=== PATIENT | female | born 1960 | race Caucasian/White ===

== ENCOUNTER 2018-01-29 17:02 | Inpatient (IN) | payer BC ==
[2018-01-29] MEDS ORDERED: IPRATROPIUM BROM 0.5MG/2.5ML ONE ×2 (17:55→20:06)
[2018-01-29] MEDS ORDERED: ALBUTEROL 2.5 MG/3 ML NEB SOL ONE (17:55)
[2018-01-29] MEDS ORDERED: NA CHLORIDE 0.9% 250 ML ONE (18:14)
[2018-01-29] MEDS ORDERED: METHYLPREDNISOLONE 125 MG INJ ONE (18:14)
[2018-01-29] MEDS ORDERED: ACETAMINOPHEN 325 MG TABLET ONE (18:14)
[2018-01-29] MEDS ORDERED: NA CHLORIDE 0.9% 1,000 ML ONE (18:14)
[2018-01-29] MEDS ORDERED: NA CHLORIDE 0.9% 500 ML ONE (18:15)
[2018-01-29 18:36] LABS: Absolute Lymphocytes (CBC) 2.3 K/uL (0.7-4.9); Absolute Monocytes 0.4 K/uL (0.1-1.3); Absolute Neutrophil 3.5 K/uL (1.8-8.0); Basophils % 0.4 % (0-1.3); Eosinophils % 1.4 % (0-4.4); Hematocrit 42.1 % (36.0-45.0); Lymphocytes % 36.6 % (15.3-44.8); MCH 30.3 pg (27.0-35.0); MCV 93.9 fL (80-100); MPV 8.4 fL (7.6-11.3); Monocytes % 5.9 % (3.3-12.3); RBC Red Blood Cell Count 4.48 M/uL (3.86-4.86)
[2018-01-29 18:47] LABS: Bicarbonate 38 mEq/L (21-31); Glucose Level 121 mg/dL (65-120); Potassium 3.4 mEq/L (3.6-5.0); Sodium Level 135 mEq/L (135-145)
[2018-01-29 18:54] LABS: ALT/SGPT 20 IU/L (10-60); AST/SGOT 20 IU/L (10-42); Albumin 4.6 g/dL (3.2-5.5); Alkaline Phosphatase 76 IU/L (42-121); BUN Blood Urea Nitrogen 8 mg/dL (6-20); Bilirubin Direct 0.1 mg/dL (0-0.2); Bilirubin Total 0.4 mg/dL (0.3-1.2); Creatine Phosphokinase 63 IU/L (22-269); Protein, Total 7.4 g/dL (6.0-8.3)
[2018-01-29 18:57] LABS: CKMB Creatine Kinase MB 2.4 ng/ml (0.3-4.0)
[2018-01-29] MEDS ORDERED: MAGNESIUM SULFATE 1 gm IVPB 1 GM/100 ML BAG IV ONE (19:43)
[2018-01-29] MEDS ORDERED: ONDANSETRON 4 MG/2 ML VIAL ONE (19:43)
--- NOTE | 2018-01-29 20:13 | RAD REPORT ---
EXAM DESCRIPTION: RAD - Chest Single View - 01/29/2018 7:08 pm CLINICAL HISTORY: Shortness of breath COMPARISON: June 2017 TECHNIQUE: AP portable chest image was obtained 1857 hours . FINDINGS: No peripheral mass or consolidation. Calcified granuloma lateral left mid lung field has n ot changed. Lung markings are prominent but stable. No failure or volume overload suspected. Heart an d vasculature are normal. No measurable pleural effusion and no pneumothorax. No gross bony abnormali ty seen. No acute aortic findings suspected. IMPRESSION: No acute cardiopulmonary process. Patient has chronic lung parenchymal findings similar to June 2017.
--- NOTE | 2018-01-29 20:16 | EKG ---
Test Date: 2018-01-29 Test Time: 17:54:58 Carpenter: JOANNE MEASUREMENT RESULTS: Intervals: Rate: 94 NH: 152 QRSD: 98 QT: 384 QTc: 480 [place]: P: 69 NH: 152 QRS: -24 T: 52 INTERPRETIVE STATEMENTS: Normal sinus rhythm Possible Anterior infarct, age undetermined Abnormal ECG Compared to ECG 07/20/2017 17:44:31 Sinus tachycardia no longer present Myocardial infarct finding still present Electronically Signed On 01-29-18 20:16:02 CDT by Holger Merlos
--- NOTE | 2018-01-29 20:19 | ER ---
Nurse's Notes [facility] Name: Kanika Jon Age: 57 yrs Sex: Female : 1960 Arrival Date: 01/29/2018 Time: 17:06 Bed 18 Private MD: Giorgi Strickland E Diagnosis: Chronic obstructive pulmonary disease with (acute) exacerbation Presentation: 01/29 17:23 Presenting complaint: Patient states: keo been sick for few days, fever, cough, nausea hj and vomiting; now im short of breath;. Transition of care: patient was not received from another setting of care. Onset of symptoms was January 29, 2018. Care prior to arrival: None. 17:23 Method Of Arrival: Ambulatory 17:23 Acuity: [place] 3 hj Triage Assessment: 17:25 General: Appears in no apparent distress. uncomfortable, Behavior is calm, cooperative, hj appropriate for age. Pain: Complains of pain in chest. Respiratory: Reports shortness of breath Onset: The symptoms/episode began/occurred gradually, the patient has mild shortness of breath. Historical: - Allergies: 17:25 Codeine; hj 17:25 HYDROCODONE; hj 17:25 hydromorphone HCl; hj - Home Meds: 17:25 Albuterol Inhl every 4-6 hours [Active]; Hydrochlorothiazide Oral once daily [Active]; hj Lexapro Oral [Active]; lisinopril Oral once daily [Active]; losartan Oral once daily [Active]; - PMHx: 17:25 COPD; Depression; Hypertension; osteoarthritis; hj - PSHx: 17:25 None; hj - Immunization history:: Adult Immunizations up to date. - Social history:: Smoking status: Patient uses tobacco products, smokes one-half pack cigarettes per day. Screenin:55 Abuse screen: Denies threats or abuse. Nutritional screening: No deficits noted. em Tuberculosis screening: No symptoms or risk factors identified. Fall Risk None identified. Assessment: 17:25 Cardiovascular: Rhythm is. Respiratory: Airway is patent Respiratory effort is even, hj unlabored, 17:55 General: Appears in no apparent distress. uncomfortable, Behavior is calm, cooperative. em Pain: Complains of pain in back and chest. Neuro: Level of Consciousness is awake, alert, obeys commands, Oriented to person, place, time, situation. Cardiovascular: Heart tones S1 S2 present Capillary refill < 3 seconds Patient's skin is warm and dry. Respiratory: Airway is patent Respiratory effort is even, unlabored, Breath sounds with wheezes bilaterally. Onset: The symptoms/episode began/occurred 3 days ago, the patient has mild shortness of breath. GI: Abdomen is round non-distended. : No signs and/or symptoms were reported regarding the genitourinary system. EENT: No signs and/or symptoms were reported regarding the EENT system. Derm: Skin is intact, Skin is pink, warm \T\ dry. Musculoskeletal: Range of motion: intact in all extremities. 18:47 Reassessment: Patient appears in no apparent distress at this time. Patient and/or em family updated on plan of care and expected duration. Pain level reassessed. Patient is alert, oriented x 3, equal unlabored respirations, skin warm/dry/pink. SPO2 90% on 3 L via NC Patient states symptoms have improved. 19:09 Reassessment: I agree with above assessment by Stefano Wilhelm LVN. iw 19:15 Reassessment: Patient appears in no apparent distress at this time. No changes from jd3 previously documented assessment. Patient and/or family updated on plan of care and expected duration. Pain level reassessed. Patient is alert, oriented x 3, equal unlabored respirations, skin warm/dry/pink. 20:15 Reassessment: Patient appears in no apparent distress at this time. Patient and/or jd3 family updated on plan of care and expected duration. Pain level reassessed. Patient is alert, oriented x 3, equal unlabored respirations, skin warm/dry/pink. 20:25 Reassessment: Patient appears in no apparent distress at this time. No changes from jd3 previously documented assessment. Patient and/or family updated on plan of care and expected duration. Pain level reassessed. Patient is alert, oriented x 3, equal unlabored respirations, skin warm/dry/pink. 21:20 Reassessment: Patient appears in no apparent distress at this time. Patient and/or jd3 family updated on plan of care and expected duration. Pain level reassessed. Patient is alert, oriented x 3, equal unlabored respirations, skin warm/dry/pink. 22:24 Reassessment: Patient appears in no apparent distress at this time. Patient and/or jd3 family updated on plan of care and expected duration. Pain level reassessed. Patient is alert, oriented x 3, equal unlabored respirations, skin warm/dry/pink. Vital Signs: 17:25 BP 109 / 78; Pulse 99; Resp 18; Temp 98.0(TE); Pulse Ox 89% on R/A; Weight 89.36 kg; hj Height 5 ft. 6 in. (167.64 cm); 18:00 Pulse Ox 81% on R/A; em 19:00 BP 119 / 74; Pulse 88; Resp 17; Pulse Ox 89% ; cb2 20:15 BP 126 / 64; Pulse 88; Resp 16; Pulse Ox 97% ; cb2 21:00 BP 119 / 74; Pulse 89; Resp 14; Pulse Ox 92% ; cb2 21:57 BP 109 / 75; Pulse 88; Resp 14; Pulse Ox 92% ; cb2 17:25 Body Mass Index 31.80 (89.36 kg, 167.64 cm) hj 18:00 placed on 3 L via NC, SPO2 90% em ED Course: 17:06 Patient arrived in ED. mr 17:06 Giorgi Strickland MD is Private Physician. mr 17:24 Triage completed. hj 17:25 Arm band placed on right wrist. hj 17:25 No provider procedures requiring assistance completed. Initial lab(s) drawn, by me, em sent to lab. Inserted saline lock: 22 gauge in left antecubital area, using aseptic technique. Blood collected. 17:55 Patient has correct armband on for positive identification. Bed in low position. Call em light in reach. Side rails up X2. 17:56 Stefano Wilhelm LVN is Primary Nurse. em 18:00 EKG done, by veterinary laboratory technician. reviewed by Loki Prieto MD. at1 18:04 Jose Ramon Vickers PA is PHCP. cp 18:04 Jose Ramon Bedolla MD is Attending Physician. cp 18:05 Urine collected: clean catch specimen, clear. mh5 18:59 Missed attempt(s): 22 gauge in left forearm. mh5 19:06 X-ray completed. Portable x-ray completed in exam room. Patient tolerated procedure kc2 well. 19:08 XRAY Chest (1 view) In Process Unspecified. EDMS 19:11 Report given to VEE Diaz. em 19:24 Primary Nurse role handed off by Stefano Wilhelm LVN rg2 19:28 Stefano Wilhelm LVN is Primary Nurse. em 19:41 Joe Thomason RN is Primary Nurse. jd3 20:18 Vik Cartagena MD is Hospitalizing Provider. cp 22:22 Patient admitted, IV remains in place. jd3 Administered Medications: 18:01 Drug: DuoNeb (3:1) (2.5 mg - 0.5 mg) 3 ml Route: Nebulizer; em 21:42 Follow up: Response: No adverse reaction jd3 18:26 Drug: NS 0.9% 1000 ml Route: IV; Rate: 100 ml/hr; Site: left antecubital; em 21:41 Follow up: Response: No adverse reaction; IV Status: Infusion continued upon admission jd3 18:26 Drug: SOLU-Medrol 125 mg Route: IVP; Site: left antecubital; aj1 19:09 Follow up: Response: No adverse reaction em 18:26 Not Given (Patient Refused): Tylenol 650 mg PO once em 18:27 Drug: NS 0.9% 500 ml Route: IV; Rate: bolus; Site: left antecubital; em 19:09 Follow up: IV Status: Completed infusion; IV Intake: 500ml em 19:50 Drug: Zofran 4 mg Route: IVP; Site: left antecubital; jd3 21:40 Follow up: Response: No adverse reaction jd3 19:51 Drug: Magnesium Sulfate 1 grams Route: IVPB; Infused Over: 1 hrs; Site: left jd3 antecubital; 21:41 Follow up: Response: No adverse reaction; IV Status: Completed infusion jd3 20:09 Drug: AtroVENT Aerosol 0.5 mg Route: Inhalation; jd3 21:41 Follow up: Response: No adverse reaction jd3 Intake: 19:09 IV: 500ml; Total: 500ml. em Outcome: 20:18 Decision to Hospitalize by Provider. cp 22:22 Admitted to Med/surg accompanied by tech, via stretcher, room 423, with oxygen, with jd3 chart, Report called to Tamika BAXTER 22:22 Condition: stable 22:22 Instructed on the need for admit, Demonstrated understanding of instructions. 22:23 Patient left the ED. jd3 Signatures: Dispatcher [employer] Funmi Hull rg2 Tiffanie Aguiar, RN RN aj1 Yumiko Quevedo mr Choco, Stefano, CONSTITUTIONAL LAW PROFESSOR CONSTITUTIONAL LAW PROFESSOR em Diana Esparza, VEE RN iw Gregoria barba, measurement specialist EKG Tat1 Sheldon Garcia, VEE RN Jose Ramon Lindsay PA PA cp Carr, Kelsie 2 Yumiko Hutson 5 Fredo Coyle Jonathon, RN RN jd3 Corrections: (The following items were deleted from the chart) 19:26 18:47 Reassessment: Patient appears in no apparent distress at this time. Patient em and/or family updated on plan of care and expected duration. Pain level reassessed. Patient is alert, oriented x 3, equal unlabored respirations, skin warm/dry/pink. SPO2 90% on 2 L via NC Patient states symptoms have improved. em 20:25 19:15 Reassessment: Patient appears in no apparent distress at this time. No changes jd3 from previously documented assessment. Patient and/or family updated on plan of care and expected duration. Pain level reassessed. Patient is alert, oriented x 3, equal unlabored respirations, skin warm/dry/pink. jd3
--- NOTE | 2018-01-29 20:19 | EDPHYS ---
Physician Documentation [facility] Name: Kanika Jon Age: 57 yrs Sex: Female : 1960 Arrival Date: 01/29/2018 Time: 17:06 Bed 18 Private MD: Giorgi Strickland E ED Physician Jose Ramon Bdeolla HPI: 01/29 18:10 This 57 yrs old Female presents to ER via Ambulatory with complaints of cp Shortness Of Breath. 18:10 The patient has shortness of breath at rest. cp 18:10 Onset: The symptoms/episode began/occurred few days. cp 18:10 Duration: The symptoms are continuous, and are steadily getting worse. Associated signs cp and symptoms: Pertinent positives: non-productive cough, vomiting, Pertinent negatives: diaphoresis, fever. Severity of symptoms: in the emergency department the symptoms are unchanged despite home interventions. Historical: - Allergies: 17:25 Codeine; hj 17:25 HYDROCODONE; hj 17:25 hydromorphone HCl; hj - Home Meds: 17:25 Albuterol Inhl every 4-6 hours [Active]; Hydrochlorothiazide Oral once daily [Active]; hj Lexapro Oral [Active]; lisinopril Oral once daily [Active]; losartan Oral once daily [Active]; - PMHx: 17:25 COPD; Depression; Hypertension; osteoarthritis; hj - PSHx: 17:25 None; hj - Immunization history:: Adult Immunizations up to date. - Social history:: Smoking status: Patient uses tobacco products, smokes one-half pack cigarettes per day. ROS: 18:20 Constitutional: Negative for body aches, chills, fever, poor PO intake. cp 18:20 Eyes: Negative for injury, pain, redness, and discharge. cp 18:20 ENT: Negative for drainage from ear(s), ear pain, sore throat, difficulty swallowing, cp difficulty handling secretions. 18:20 Cardiovascular: Negative for chest pain, edema, palpitations. 18:20 Respiratory: Positive for cough, shortness of breath, at rest. wheezing, Negative for hemoptysis. 18:20 Abdomen/GI: Negative for abdominal pain, vomiting, diarrhea, constipation, black/tarry stool, rectal bleeding. 18:20 Skin: Negative for cellulitis, rash. cp 18:20 Neuro: Negative for altered mental status, headache, syncope, near syncope, weakness. 18:20 All other systems are negative. Exam: 18:02 ECG was reviewed by the Attending Physician. cp 18:23 Constitutional: The patient appears in no acute distress, alert, awake, cp non-diaphoretic, non-toxic, well developed, well nourished. 18:23 Head/Face: Normocephalic, atraumatic. cp 18:23 Eyes: Pupils equal round and reactive to light, extra-ocular motions intact. Lids and cp lashes normal. Conjunctiva and sclera are non-icteric and not injected. Cornea within normal limits. Periorbital areas with no swelling, redness, or edema. ENT: Nares patent. No nasal discharge, no septal abnormalities noted. Tympanic membranes are normal and external auditory canals are clear. Oropharynx with no redness, swelling, or masses, exudates, or evidence of obstruction, uvula midline. Mucous membranes moist. Neck: Trachea midline, no thyromegaly or masses palpated, and no cervical lymphadenopathy. Supple, full range of motion without nuchal rigidity, or vertebral point tenderness. No Meningismus. Chest/axilla: Normal chest wall appearance and motion. Nontender with no deformity. No lesions are appreciated. 18:23 Cardiovascular: Rate: normal, Rhythm: regular, Pulses: Pulses are 2+ in right radial artery and left radial artery. Edema: is not appreciated, JVD: is not appreciated. 18:23 Respiratory: moderate respiratory distress is noted, Respirations: labored breathing, is not present, splinting, is not noted, tachypnea, is not appreciated, Breath sounds: bronchial sounds, that are mild, are heard diffusely, decreased breath sounds, that are moderate, throughout, stridor, is not appreciated. 18:23 Abdomen/GI: Inspection: abdomen appears normal, Bowel sounds: active, all quadrants, Palpation: abdomen is soft and non-tender, in all quadrants, rebound tenderness, is not appreciated, voluntary guarding, is not appreciated, involuntary guarding, is not appreciated. 18:23 Back: pain, is absent, ROM is normal. 18:23 Skin: cellulitis, is not appreciated, no rash present. cp 18:23 Neuro: Orientation: to person, place \T\ time. Mentation: able to follow commands, slow to respond, Cerebellar function: is grossly normal, Motor: moves all fours, strength is normal, Sensation: no obvious gross deficits. Vital Signs: 17:25 BP 109 / 78; Pulse 99; Resp 18; Temp 98.0(TE); Pulse Ox 89% on R/A; Weight 89.36 kg; hj Height 5 ft. 6 in. (167.64 cm); 18:00 Pulse Ox 81% on R/A; em 19:00 BP 119 / 74; Pulse 88; Resp 17; Pulse Ox 89% ; cb2 20:15 BP 126 / 64; Pulse 88; Resp 16; Pulse Ox 97% ; cb2 21:00 BP 119 / 74; Pulse 89; Resp 14; Pulse Ox 92% ; cb2 21:57 BP 109 / 75; Pulse 88; Resp 14; Pulse Ox 92% ; cb2 17:25 Body Mass Index 31.80 (89.36 kg, 167.64 cm) hj 18:00 placed on 3 L via NC, SPO2 90% em MDM: 18:04 Patient medically screened. cp 18:30 Differential diagnosis: CHF exacerbation, Chronic Obstructive Pulmonary Disease cp pneumonia, reactive airway disease, Sepsis Unstable Angina. 20:17 Physician consultation: Vik Cartagena MD was called at 20:17, was contacted at 20:17, cp regarding admission, to the telemetry unit. patient's condition. 20:20 Data reviewed: vital signs, nurses notes, lab test result(s), EKG, radiologic studies, cp plain films. 01/29 18:08 Order name: Basic Metabolic Panel; Complete Time: 19:02 cp 01/29 19:02 Interpretation: Normal except: K 3.4; CL 92; CO2 38; GLUC 121. cp 01/29 18:08 Order name: BNP; Complete Time: 19:02 cp 01/29 18:08 Order name: CBC with Diff; Complete Time: 19:02 cp 01/29 19:02 Interpretation: Normal except: RDW 15.3. cp 01/29 18:08 Order name: Ckmb; Complete Time: 19:02 cp 01/29 18:08 Order name: CPK; Complete Time: 19:02 cp 01/29 18:08 Order name: LFT's; Complete Time: 19:02 cp 01/29 18:08 Order name: Magnesium; Complete Time: 19:02 cp 01/29 18:08 Order name: PT-INR; Complete Time: 19:02 cp 01/29 18:08 Order name: Ptt, Activated; Complete Time: 19:02 cp 01/29 18:08 Order name: Troponin (emerg Dept Use Only); Complete Time: 19:02 cp 01/29 18:08 Order name: XRAY Chest (1 view); Complete Time: 20:16 cp 01/29 18:08 Order name: Influenza Screen (a \T\ B); Complete Time: 19:02 cp 01/29 18:45 Order name: Urine Dipstick--Ancillary (enter results); Complete Time: 21:18 iw 01/29 21:18 Interpretation: Reviewed. cp 04 18:02 Order name: EKG Electrocardiogram; Complete Time: 18:05 EDMS 01/29 18:08 Order name: Urine Test (obtain specimen); Complete Time: 21:09 cp 01/29 18:08 Order name: EKG; Complete Time: 18:08 cp 01/29 18:08 Order name: Cardiac monitoring; Complete Time: 18:27 cp 01/29 18:08 Order name: EKG - Nurse/Tech; Complete Time: 18:27 cp 01/29 18:08 Order name: IV Saline Lock; Complete Time: 18:28 cp 01/29 18:08 Order name: Labs collected and sent; Complete Time: 18:28 cp 01/29 18:08 Order name: O2 Per Protocol; Complete Time: 18:28 cp 01/29 18:08 Order name: O2 Sat Monitoring; Complete Time: 18:28 cp 01/29 18:08 Order name: Urine Dipstick-Ancillary (obtain specimen); Complete Time: 20:40 cp EC:02 Rate is 94 beats/min. Rhythm is regular. GA interval is normal. QRS interval is normal. cp QT interval is normal. Interpreted by me. Reviewed by me. Administered Medications: 18:01 Drug: DuoNeb (3:1) (2.5 mg - 0.5 mg) 3 ml Route: Nebulizer; em 21:42 Follow up: Response: No adverse reaction jd3 18 Drug: NS 0.9% 1000 ml Route: IV; Rate: 100 ml/hr; Site: left antecubital; em 21:41 Follow up: Response: No adverse reaction; IV Status: Infusion continued upon admission jd3 18:26 Drug: SOLU-Medrol 125 mg Route: IVP; Site: left antecubital; aj1 19:09 Follow up: Response: No adverse reaction em 18:26 Not Given (Patient Refused): Tylenol 650 mg PO once em 18:27 Drug: NS 0.9% 500 ml Route: IV; Rate: bolus; Site: left antecubital; em 19:09 Follow up: IV Status: Completed infusion; IV Intake: 500ml em 19:50 Drug: Zofran 4 mg Route: IVP; Site: left antecubital; jd3 21:40 Follow up: Response: No adverse reaction jd3 19:51 Drug: Magnesium Sulfate 1 grams Route: IVPB; Infused Over: 1 hrs; Site: left j antecubital; 21:41 Follow up: Response: No adverse reaction; IV Status: Completed infusion jd3 20:09 Drug: AtroVENT Aerosol 0.5 mg Route: Inhalation; jd3 21:41 Follow up: Response: No adverse reaction jd3 Disposition: 01/30 11:34 Co-signature as Attending Physician, Jose Ramon Bedolla MD I agree with the assessment and narinder plan of care. Disposition: 01/29/18 20:18 Hospitalization ordered by Vik Cartagena for Observation. Preliminary diagnosis is Chronic obstructive pulmonary disease with (acute) exacerbation. - Bed requested for Telemetry/MedSurg (observation). - Status is Observation. jd3 - Condition is Stable. - Problem is an acute exacerbation. - Symptoms are unchanged. UTI on Admission? No Signatures: Dispatcher [employer] Tiffanie Lora RN RN aj1 Jose Ramon Bedolla MD MD cha Munoz, Edgar, DIRECT SALES CONSULTANT DIRECT SALES CONSULTANT em Sheldon Garcia RN Jose Ramon Samuels PA PA cp Garcia, Cindy, Joe Ovalles RN, RN RN jd3
[2018-01-29 21:05] LABS: Urine Blood NEGATIVE (NEG); Urine Glucose NEGATIVE (NEG); Urine Protein NEGATIVE (NEG); Urine Specific Gravity 1.015 (1.005-1.030); Urine pH 6.5 (5.0-7.0)
[2018-01-29] MEDS ORDERED: MORPHINE 2 MG/ML SYR IV PRN (21:17)
[2018-01-29] MEDS ORDERED: ONDANSETRON 4 MG/2 ML VIAL IV PRN (21:17)
[2018-01-29] MEDS ORDERED: ACETAMINOPHEN 500 MG TAB PO PRN (21:17)
[2018-01-29] MEDS ORDERED: NA CHLORIDE 0.9% 1,000 ML IV SCH (22:00)
[2018-01-29 23:31] VITALS: BMI 31.8
[2018-01-30] MEDS ORDERED: IPRATROPIUM BROM 0.5MG/2.5ML NEB SCH ×2 (02:00→08:00)
[2018-01-30] MEDS ORDERED: ALBUTEROL 2.5 MG/3 ML NEB SOL NEB SCH ×2 (02:00→08:00)
[2018-01-30] MEDS ORDERED: METHYLPREDNISOLONE 125 MG INJ IV ONE (04:06)
[2018-01-30] MEDS ORDERED: GUAIFENESIN/CODEINE 5ML UCUP PO PRN (04:07)
[2018-01-30] MEDS ORDERED: MORPHINE 2 MG/ML SYR IV ONE (04:07)
[2018-01-30] MEDS ORDERED: MORPHINE 4 MG/ML SYR ONE (04:14)
[2018-01-30 04:59] LABS: Absolute Monocytes 0.1 K/uL (0.1-1.3); Absolute Neutrophil 5.5 K/uL (1.8-8.0); Basophils % 0.1 % (0-1.3); Hematocrit 43.9 % (36.0-45.0); Lymphocytes % 14.9 % (15.3-44.8); MCH 30.7 pg (27.0-35.0); MCV 95.3 fL (80-100); MPV 8.6 fL (7.6-11.3); Monocytes % 1.3 % (3.3-12.3); RBC Red Blood Cell Count 4.61 M/uL (3.86-4.86)
[2018-01-30 05:14] LABS: ALT/SGPT 21 IU/L (10-60); AST/SGOT 19 IU/L (10-42); Albumin 4.4 g/dL (3.2-5.5); Alkaline Phosphatase 89 IU/L (42-121); BUN Blood Urea Nitrogen 9 mg/dL (6-20); Bicarbonate 37 mEq/L (21-31); Bilirubin Total 0.3 mg/dL (0.3-1.2); Glucose Level 160 mg/dL (65-120); Potassium 4.9 mEq/L (3.6-5.0); Protein, Total 7.5 g/dL (6.0-8.3); Sodium Level 138 mEq/L (135-145)
[2018-01-30] MEDS ORDERED: IPRATROPIUM BROM 0.5MG/2.5ML NEB PRN (07:12)
[2018-01-30] MEDS ORDERED: ALPRAZOLAM 0.5 MG TABLET PO PRN (07:16)
--- NOTE | 2018-01-30 07:28 | RAD REPORT ---
EXAM DESCRIPTION: RAD - Chest Single View - 01/30/2018 6:35 am CLINICAL HISTORY: COPD COMPARISON: January 29 TECHNIQUE: AP portable chest image was obtained 0624 hours . FINDINGS: Patchy lung base opacification is present similar to comparison. No new or progressive car diopulmonary finding. Heart and vasculature are normal. No measurable pleural effusion and no pneumot horax. No gross bony abnormality seen. No acute aortic findings suspected. IMPRESSION: Stable chest from prior day study.
[2018-01-30] MEDS: ALBUTEROL 2.5 MG/3 ML NEB SOL NEB PRN ×2 (07:50→13:30)
[2018-01-30] MEDS: ARFORMOTEROL TARTRATE 15 MCG/2 ML VIAL.NEB NEB SCH ×2 (07:50→19:54)
--- NOTE | 2018-01-30 08:23 | P.HP ---
Certification for Inpatient Patient admitted to: Observation With expected LOS: <2 Midnights Patient will require the following post-hospital care: None Practitioner: I am a practitioner with admitting privileges, knowledge of patient current condition, hospital course, and medical plan of care. Services: Services provided to patient in accordance with Admission requirements found in Title 42 Section 412.3 of the Code of Federal Regulations Patient History Date of Service: 01/29/18 Reason for admission: COPD exacerbation History of Present Illness: Patient is a 57-year-old female who was admitted to the hospital with difficulty breathing. Patient states she was out eating crawfish and drinking. She has type drinking for a while but started back up last night. She started getting short of breath and could not catch her breath. She decided come into the emergency room for further evaluation. In the emergency room she was given nebs, steroids, and antibiotics. She was also given O2 to maintain her sats. She has improved. Clinically she states she is feeling better. She will be monitored overnight and possible discharge home in the morning if she is feeling better. Allergies hydrocodone [Hydrocodone] Allergy (Intermediate, Verified 07/30/15 23:08) Itching hydromorphone HCl [From Dilaudid] Adverse Reaction (Mild, Verified 07/30/15 23: 08) Itching Codeine Allergy (Mild, Uncoded 07/20/17 23:52) Itching Hydrocodone-Acetaminophen Allergy (Uncoded 07/20/17 23:52) Itching Home Medications: Hydrochlorothiazide [Hydrochlorothiazide*] 12.5 mg PO DAILY 07/17/15 Losartan Potassium 1 tab PO DAILY 10/21/16 Albuterol Sulfate [Proair Hfa] 8.5 gm IH TID PRN #1 [email or web address] 07/21/17 Alprazolam [Alprazolam] 2 mg PO TID PRN 01/29/18 Amlodipine Besylate [Amlodipine Besylate] 10 mg PO DAILY 01/29/18 Duloxetine HCl [Duloxetine HCl] 60 mg PO DAILY 01/29/18 Morphine Sulfate [Morphine Sulfate ER] 15 mg PO Q12H PRN 01/29/18 Omeprazole [Prilosec] 40 mg PO DAILY 01/29/18 Pravastatin Sodium [Pravastatin Sodium] 40 mg PO BEDTIME 01/29/18 - Past Medical/Surgical History Has patient received pneumonia vaccine in the past: Yes Diabetic: No -: Alcohol abuse -: HTN -: 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 -: Osteoarthritis -: History of diverticulitis -: Depression with anxiety -: GERD -: COPD -: smoker -: COPD -: Hyperlipidemia -: Tobacco abuse -: Hysterectomy -: Left knee surgery Psychosocial/ Personal History: Lives with mother. - Family History Mother Medical History: Cancer Father Notes: parkinson's dse - Social History Smoking Status: Heavy Tobacco smoker (>10 cigarettes/day) Alcohol use: Yes CD- Drugs: No Caffeine use: Yes Place of Residence: Home Review of Systems 10-point ROS is otherwise unremarkable Physical Examination - Vital Signs Temperature: 97.4 F Blood Pressure: 117/68 Pulse: 91 Respirations: 12 Pulse Ox (%): 91 - Physical Exam General: Alert, In no apparent distress, Oriented x3 HEENT: Atraumatic, PERRLA, Mucous membr. moist/pink, EOMI, Sclerae nonicteric Neck: Supple, 2+ carotid pulse no bruit, No LAD, Without JVD or thyroid abnormality Respiratory: Diminished, Expiratory wheezes Cardiovascular: Regular rate/rhythm, Normal S1 S2, No murmurs Gastrointestinal: Normal bowel sounds, Soft and benign, Non-distended, No tenderness Musculoskeletal: No clubbing, No swelling, No tenderness Integumentary: No rashes Neurological: Normal gait, Normal speech, Normal strength at 5/5 x4 extr, Normal tone, Sensation intact, Cranial nerves 3-12 intact, Normal affect Lymphatics: No axilla or inguinal lymphadenopathy - Studies Laboratory Data (last 24 hrs) 01/29/18 18:20: PT 11.8, INR 1.00, APTT 29.5 01/29/18 18:20: WBC 6.3, Hgb 13.6, Hct 42.1, Plt Count 187 01/29/18 18:20: B-Natriuretic Peptide 27 01/29/18 18:20: Sodium 135, Potassium 3.4 L, BUN 8, Creatinine 0.56, Glucose 121 H, Magnesium 2.0, Total Bilirubin 0.4, AST 20, ALT 20, Alkaline Phosphatase 76 Microbiology Data (last 24 hrs): 01/29/18 18:25 Nasopharnyx Influenza Type A Antigen Screen - Final 01/29/18 18:25 Nasopharnyx Influenza Type B Antigen Screen - Final Assessment & Plan - Problems (Diagnosis) (1) COPD exacerbation Onset Date: 11/17/16 Current Visit: No Status: Acute (2) Dyslipidemia Onset Date: 07/20/15 Current Visit: No Status: Acute (3) Hypercapnia Onset Date: 10/21/16 Current Visit: No Status: Acute (4) Hypoxia Onset Date: 07/21/17 Current Visit: No Status: Acute (5) Alcohol abuse Current Visit: No Status: Chronic (6) Chronic pain disorder Onset Date: 10/21/16 Current Visit: No Status: Chronic (7) Depression with anxiety Current Visit: No Status: Chronic (8) Pulmonary hypertension Current Visit: No Status: Chronic (9) Tobacco abuse Onset Date: 10/21/16 Current Visit: No Status: Chronic - Plan PLAN: 1. Continue with nebs, steroids, and antibiotics 2. Oxygen per protocol 3. CXR PA and lateral in the am 4. Monitor for withdrawals 5. Possible discharge home in 24-48hrs 6. GI/DVT prophylaxis Discharge Plan: Home Plan to discharge in: 48 Hours - Advance Directives Does patient have a Living Will: No Does patient have a Durable POA for Healthcare: No - Code Status/Comfort Care Code Status Assessed: Yes Code Status: Full Code Critical Care: No Time Spent Managing PTS Care (In Minutes): 50
[2018-01-30] MEDS ORDERED: LORazepam 2 MG/ML VIAL IV PRN ×2 (08:31→08:35)
--- NOTE | 2018-01-30 08:32 | P.CNS ---
Date of Consult: 01/30/18 Chief Complaint: COPD exacerbation, altered mental status History of Present Illness: Patient is 57 years of age very confused admitted to the hospital in sick for the past few days complaining of fever cough nausea and vomiting shortness of breath unable to obtain any meaningful information from the patient Nagi she agrees she drinks a pt of alcohol a day in addition to smoking Allergies hydrocodone [Hydrocodone] Allergy (Intermediate, Verified 07/30/15 23:08) Itching hydromorphone HCl [From Dilaudid] Adverse Reaction (Mild, Verified 07/30/15 23: 08) Itching Codeine Allergy (Mild, Uncoded 07/20/17 23:52) Itching Hydrocodone-Acetaminophen Allergy (Uncoded 07/20/17 23:52) Itching Home Medications: Hydrochlorothiazide [Hydrochlorothiazide*] 12.5 mg PO DAILY 07/17/15 Losartan Potassium 1 tab PO DAILY 10/21/16 Albuterol Sulfate [Proair Hfa] 8.5 gm IH TID PRN #1 [email or web address] 07/21/17 Alprazolam [Alprazolam] 2 mg PO TID PRN 01/29/18 Amlodipine Besylate [Amlodipine Besylate] 10 mg PO DAILY 01/29/18 Duloxetine HCl [Duloxetine HCl] 60 mg PO DAILY 01/29/18 Morphine Sulfate [Morphine Sulfate ER] 15 mg PO Q12H PRN 01/29/18 Omeprazole [Prilosec] 40 mg PO DAILY 01/29/18 Pravastatin Sodium [Pravastatin Sodium] 40 mg PO BEDTIME 01/29/18 - Past Medical/Surgical History Diabetic: No -: Alcohol abuse -: HTN -: 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 -: Osteoarthritis -: History of diverticulitis -: Depression with anxiety -: GERD -: COPD -: smoker -: COPD -: Hyperlipidemia -: Tobacco abuse -: Hysterectomy -: Left knee surgery Psychosocial/ Personal History: Lives with mother. - Family History Mother Medical History: Cancer Father Notes: parkinson's dse - Social History Smoking Status: Current every day smoker Alcohol use: Yes CD- Drugs: No Caffeine use: Yes Place of Residence: Home Review of Systems is unable to be obtained Physical Examination Temp Pulse Resp BP Pulse Ox 97.4 F 91 H 12 117/68 91 01/30/18 08:23 01/30/18 08:23 01/30/18 08:23 01/30/18 08:23 01/30/18 08:23 General: Alert, Confused Respiratory: Expiratory wheezes Cardiovascular: No edema, Normal S1 S2 Gastrointestinal: Normal bowel sounds, Soft and benign Laboratory Data (last 24 hrs) 01/29/18 18:20: PT 11.8, INR 1.00, APTT 29.5 01/29/18 18:20: WBC 6.3, Hgb 13.6, Hct 42.1, Plt Count 187 01/29/18 18:20: B-Natriuretic Peptide 27 01/29/18 18:20: Sodium 135, Potassium 3.4 L, BUN 8, Creatinine 0.56, Glucose 121 H, Magnesium 2.0, Total Bilirubin 0.4, AST 20, ALT 20, Alkaline Phosphatase 76 - Problems (1) Alcohol withdrawal delirium Current Visit: Yes Status: Acute Plan: Patient is 57 years of age admitted with altered mental status she drinks about a pt of alcohol a day I strongly suspect that this is alcohol withdrawal symptoms her labs are unremarkable CBC mildly hypokalemic chest x-ray shows a questionable infiltrate no acute changes treated with IV thymine fluids Ativan (2) COPD (chronic obstructive pulmonary disease) Onset Date: 07/20/15 Current Visit: No Status: Acute Plan: Patient has underlying COPD due to smoking she is actively wheezing continue with steroids bronchodilators I have console not to smoke nicotine patch Qualifiers: COPD type: COPD with acute exacerbation Qualified Code(s): J44.1 - Chronic obstructive pulmonary disease with (acute) exacerbation (3) Respiratory failure Current Visit: Yes Status: Acute Plan: Blood gases show hypoxemia and with hypercapnia atopy CO2 is 116 plan to start her on BiPAP titrate sat to 90% check arterial blood gases again Qualifiers: Chronicity: acute on chronic
[2018-01-30 08:35] LABS: Arterial Blood Carboxyhemoglob 3.6 % (0-1.5); Blood Gas Oxyhemoglobin 84.7 % (94-97); Blood O2 Saturation 89.6 % (92-98.5)
[2018-01-30] MEDS ORDERED: HALOPERIDOL LACT 5 MG/ML INJ IV PRN (08:35)
[2018-01-30] MEDS ORDERED: HOME MED 1 EA UNK (Losartan Potassium [Losartan Potassium] 1 TAB) PO SCH (09:00)
[2018-01-30] MEDS ORDERED: METHYLPREDNISOLONE 125 MG INJ IV SCH ×2 (09:00→12:00)
[2018-01-30] MEDS: DULOXETINE 30 MG CAP PO SCH (09:00)
[2018-01-30] MEDS ORDERED: THIAMINE 200 MG/2 ML INJ IVP SCH (09:00)
[2018-01-30] MEDS: FOLIC ACID 1 MG, MULTIVITAMINS INJ 10 ML, THIAMINE HCL 100 MG in NA CHLORIDE 0.9% 1,000 ML IV SCH (09:00)
[2018-01-30 09:26] LABS: Thyroid Stimulating Hormone 0.64 uIU/mL (0.34-5.60)
--- NOTE | 2018-01-30 09:36 | P.PN ---
Subjective Date of Service: 01/30/18 Primary Care Provider: Dr. Strickland Chief Complaint: COPD exacerbation, altered mental status Subjective: Other (Patient with confusion this morning.) Physical Examination - Vital Signs Temperature: 97.4 F Blood Pressure: 117/68 Pulse: 91 Respirations: 12 Pulse Ox (%): 91 - Physical Exam General: Other (Patient confused this morning but able to converse with me. Still lethargic.) HEENT: Atraumatic Neck: Supple Respiratory: Diminished (Bilateral), Expiratory wheezes (Bilateral) Cardiovascular: Normal pulses, Regular rate/rhythm Gastrointestinal: Normal bowel sounds, Soft and benign, Non-distended, No masses , No rebound, No guarding Musculoskeletal: No contractures, No erythema, No tenderness, No warmth Integumentary: No tenderness/swelling, No erythema, No warmth, No cyanosis Neurological: Other (Increase sedation) - Studies Laboratory Data (last 24 hrs) 01/30/18 04:21: Sodium 138, Potassium 4.9, BUN 9, Creatinine 0.65, Glucose 160 H , Total Bilirubin 0.3, AST 19, ALT 21, Alkaline Phosphatase 89 01/30/18 04:21: WBC 6.5, Hgb 14.1, Hct 43.9, Plt Count 221 01/29/18 18:20: PT 11.8, INR 1.00, APTT 29.5 01/29/18 18:20: WBC 6.3, Hgb 13.6, Hct 42.1, Plt Count 187 01/29/18 18:20: B-Natriuretic Peptide 27 01/29/18 18:20: Sodium 135, Potassium 3.4 L, BUN 8, Creatinine 0.56, Glucose 121 H, Magnesium 2.0, Total Bilirubin 0.4, AST 20, ALT 20, Alkaline Phosphatase 76 Microbiology Data (last 24 hrs): 01/29/18 18:25 Nasopharnyx Influenza Type A Antigen Screen - Final 01/29/18 18:25 Nasopharnyx Influenza Type B Antigen Screen - Final Medications List Reviewed: Yes Assessment & Plan - Problems (Diagnosis) (1) Depression with anxiety Onset Date: 01/30/18 Current Visit: No Status: Chronic Plan: Will review and restart medication. Will limit benzodiazepine. (2) Alcohol withdrawal delirium Current Visit: Yes Status: Acute Plan: Patient admits to alcohol abuse. Will need to monitor for withdrawal. Patient with respiratory failure secondary to COPD exacerbation with noted hypoxia and hypercapnia. BiPAP will be started. Patient be transferred to ICU. Will monitor closely. (3) Respiratory failure Current Visit: Yes Status: Acute Plan: Patient with hypoxia and hypercapnia this morning. BiPAP started. Case discussed with pulmonology. Patient will be transferred to the ICU for close monitoring. Repeat ABG will need to be assessed. If her condition continues to decline the patient may require intubation. Chest x-ray shows no pneumonia. Qualifiers: Chronicity: acute on chronic Respiratory failure complication: hypoxia and hypercapnia Qualified Code(s): J96.21 - Acute and chronic respiratory failure with hypoxia; J96.22 - Acute and chronic respiratory failure with hypercapnia; J96.22 - Acute and chronic respiratory failure with hypercapnia; J96.22 - Acute and chronic respiratory failure with hypercapnia (4) Alcoholism Onset Date: 07/20/15 Current Visit: No Status: Chronic Plan: Patient admits to alcohol. Will monitor for withdrawal. Will continue with vitamin supplementation. (5) COPD (chronic obstructive pulmonary disease) Onset Date: 07/20/15 Current Visit: No Status: Acute Plan: Continue as above. Will monitor closely. Patient be transferred to ICU. Qualifiers: COPD type: COPD with acute exacerbation Qualified Code(s): J44.1 - Chronic obstructive pulmonary disease with (acute) exacerbation (6) Hypertension Onset Date: 07/20/15 Current Visit: No Status: Chronic Plan: Will hold her blood pressure medication at this time. Will monitor closely. Qualifiers: Hypertension type: essential hypertension Qualified Code(s): I10 - Essential (primary) hypertension (7) Tobacco abuse Onset Date: 01/30/18 Current Visit: No Status: Chronic Plan: Patient may require nicotine patch. Discharge Plan: Home Plan to discharge in: Greater than 2 days Time Spent Managing Pts Care (In Minutes): 55
[2018-01-30] MEDS: METHYLPREDNISOLONE 40 MG INJ IV SCH ×2 (09:45→16:08)
[2018-01-30] MEDS ORDERED: NA CHLORIDE 0.9% 1,000 ML ONE (11:19)
[2018-01-30] MEDS ORDERED: RSI MEDICATION KIT IV ONE (11:20)
[2018-01-30] MEDS ORDERED: PROPOFOL 1,000 MG/100 ML VIAL IV ONE (11:24)
[2018-01-30] MEDS ORDERED: NA CHLORIDE 0.9% 250 ML IV PRN (11:47)
[2018-01-30] MEDS ORDERED: PROPOFOL 1,000 MG/100 ML VIAL IV PRN (11:47)
[2018-01-30] MEDS ORDERED: SUCCINYLCHOLINE 20 MG/ML (10 ML) IV ONE (12:36)
--- NOTE | 2018-01-30 12:55 | RAD REPORT ---
EXAM DESCRIPTION: RAD - Chest Single View - 01/30/2018 12:46 pm CLINICAL HISTORY: Respiratory failure. COMPARISON: 01/30/2018 FINDINGS: Portable technique limits examination quality. Tip of the ET tube is above the zuleika. Enteric tube descends in the stomach. Stable appearance to bi lateral pulmonary opacities.
[2018-01-30] MEDS: IPRATROPIUM BROM 0.5MG/2.5ML NEB SCH ×2 (13:30→19:54)
[2018-01-30] MEDS: FENTANYL CITR 100 MCG/2 ML IV PRN ×2 (15:21→20:24)
[2018-01-30 15:26] LABS: Arterial Blood Carboxyhemoglob 2.8 % (0-1.5); Blood Gas Oxyhemoglobin 93.8 % (94-97); Blood O2 Saturation 98.3 % (92-98.5)
[2018-01-30 15:32] LABS: Arterial Blood Carboxyhemoglob 3.3 % (0-1.5); Blood Gas Oxyhemoglobin 88.4 % (94-97); Blood O2 Saturation 93.5 % (92-98.5)
[2018-01-30] MEDS: LORazepam 2 MG/ML VIAL IV PRN ×2 (15:46→21:54)
[2018-01-30] MEDS: ATORVASTATIN 10 MG TAB PO SCH (20:24)
[2018-01-30] MEDS ORDERED: FAMOTIDINE 20 MG/2 ML VIAL IV SCH (21:00)
[2018-01-30] MEDS: MIDAZOLAM HCL 2 MG/2 ML INJ IV PRN (23:47)
[2018-01-31] MEDS: METHYLPREDNISOLONE 40 MG INJ IV SCH ×3 (00:38→17:00)
[2018-01-31] MEDS: IPRATROPIUM BROM 0.5MG/2.5ML NEB SCH ×4 (01:24→19:09)
[2018-01-31] MEDS: LORazepam 2 MG/ML VIAL IV PRN ×2 (01:36→07:44)
[2018-01-31] MEDS: FENTANYL CITR 100 MCG/2 ML IV PRN (03:05)
[2018-01-31] MEDS: MIDAZOLAM HCL 2 MG/2 ML INJ IV PRN (05:08)
[2018-01-31 05:33] LABS: BUN Blood Urea Nitrogen 16 mg/dL (6-20); Bicarbonate 33 mEq/L (21-31); Glucose Level 149 mg/dL (65-120); Magnesium 2.3 mg/dL (1.8-2.5); Phosphorus 3.7 mg/dL (2.5-4.3); Potassium 4.1 mEq/L (3.6-5.0); Sodium Level 138 mEq/L (135-145)
[2018-01-31 05:47] LABS: Arterial Blood Carboxyhemoglob 1.7 % (0-1.5); Blood Gas Oxyhemoglobin 88.6 % (94-97)
[2018-01-31] MEDS: PANTOPRAZOLE 40MG TABLET PO SCH (05:50)
[2018-01-31] MEDS: ARFORMOTEROL TARTRATE 15 MCG/2 ML VIAL.NEB NEB SCH ×2 (07:52→19:10)
--- NOTE | 2018-01-31 08:23 | P.PN ---
Subjective Date of Service: 01/31/18 Primary Care Provider: Dr. Strickland Chief Complaint: Respiratory failure Subjective: Improving (Patient is doing well alert cooperative wants to be extubated hemodynamically stable was intubated yesterday due to worsening hypercapnia on BiPAP) Review of Systems is unable to be obtained Physical Examination - Vital Signs Temperature: 97.9 F Blood Pressure: 115/74 Pulse: 73 Respirations: 19 Pulse Ox (%): 92 - Physical Exam General: Alert, Cooperative Neck: Supple Respiratory: Clear to auscultation bilaterally, Diminished Cardiovascular: No edema, Normal S1 S2 Gastrointestinal: Normal bowel sounds, Soft and benign - Studies Medications List Reviewed: Yes Assessment & Plan - Problems (Diagnosis) (1) Alcohol withdrawal delirium Current Visit: Yes Status: Acute Plan: So far stable continue to monitor (2) COPD (chronic obstructive pulmonary disease) Onset Date: 07/20/15 Current Visit: No Status: Acute Plan: Continue with bronchodilators no evidence of an infection chest x-ray clear labs reviewed Qualifiers: COPD type: COPD with acute exacerbation Qualified Code(s): J44.1 - Chronic obstructive pulmonary disease with (acute) exacerbation (3) Respiratory failure Current Visit: Yes Status: Acute Plan: Patient admitted with acute on chronic respiratory failure may have been precipitated by a alcohol withdrawal and excessive use of narcotics that was provided by her son in the hospital currently doing better hemodynamically stable no evidence of sepsis plan to wean and extubate Qualifiers: Chronicity: acute on chronic Respiratory failure complication: hypoxia and hypercapnia Qualified Code(s): J96.21 - Acute and chronic respiratory failure with hypoxia; J96.22 - Acute and chronic respiratory failure with hypercapnia; J96.22 - Acute and chronic respiratory failure with hypercapnia; J96.22 - Acute and chronic respiratory failure with hypercapnia
--- NOTE | 2018-01-31 08:44 | RAD REPORT ---
EXAM DESCRIPTION: RAD - Chest Single View - 01/31/2018 6:18 am CLINICAL HISTORY: Respiratory failure. COMPARISON: 01/30/2018 FINDINGS: Portable technique limits examination quality. Tip of the ET tube is above the zuleika. Enteric tube descends in the stomach. Mild subsegmental atele ctasis likely present both lung bases with small bilateral pleural effusions. Heart is mildly enlarge d in size.
[2018-01-31] MEDS: ALBUTEROL 2.5 MG/3 ML NEB SOL NEB PRN ×2 (09:16→19:10)
[2018-01-31] MEDS: FOLIC ACID 1 MG, MULTIVITAMINS INJ 10 ML, THIAMINE HCL 100 MG in NA CHLORIDE 0.9% 1,000 ML IV SCH (09:44)
[2018-01-31] MEDS: DULOXETINE 30 MG CAP PO SCH (09:45)
--- NOTE | 2018-01-31 09:57 | P.PN ---
Subjective Date of Service: 01/31/18 Primary Care Provider: Dr. Strickland Chief Complaint: Respiratory failure Subjective: Other (Patient doing better today. Patient still intubated but alert. Nurses report yesterday that the patient had gotten medication for pain and anxiety the night of admission by her son.) Physical Examination - Vital Signs Temperature: 97.9 F Blood Pressure: 115/74 Pulse: 73 Respirations: 19 Pulse Ox (%): 92 - Physical Exam General: Alert, Cooperative HEENT: Atraumatic Neck: Supple Respiratory: Clear to auscultation bilaterally, Normal air movement Cardiovascular: Normal pulses, Regular rate/rhythm Gastrointestinal: Normal bowel sounds, Soft and benign, Non-distended, No masses , No rebound, No guarding Musculoskeletal: No erythema, No tenderness, No warmth Integumentary: No erythema, No warmth, No cyanosis Neurological: Normal strength at 5/5 x4 extr, Normal tone, Normal affect - Studies Medications List Reviewed: Yes Assessment & Plan - Problems (Diagnosis) (1) Depression with anxiety Onset Date: 01/30/18 Current Visit: No Status: Chronic Plan: Will review and restart home medication. Will limit benzodiazepine. Nurses report that on the night that her admission her son gave her p.o. medication from home. Will need to monitor so that this does not happen again. Will address with patient once she is extubated. (2) Alcohol withdrawal delirium Current Visit: Yes Status: Acute Plan: Patient admits to alcohol abuse. Will need to monitor for withdrawal. Patient with respiratory failure secondary to COPD exacerbation with noted hypoxia and hypercapnia. Patient currently intubated. Patient to be weaned off ventilator. Will need to monitor for alcohol withdrawal closely. (3) Respiratory failure Current Visit: Yes Status: Acute Plan: Patient currently intubated. Chest x-ray shows no pneumonia. Will continue with COPD treatment. Patient to be weaned off ventilator. Qualifiers: Chronicity: acute on chronic Respiratory failure complication: hypoxia and hypercapnia Qualified Code(s): J96.21 - Acute and chronic respiratory failure with hypoxia; J96.22 - Acute and chronic respiratory failure with hypercapnia; J96.22 - Acute and chronic respiratory failure with hypercapnia; J96.22 - Acute and chronic respiratory failure with hypercapnia (4) Alcoholism Onset Date: 07/20/15 Current Visit: No Status: Chronic Plan: Patient admits to alcohol. Will monitor for withdrawal. Will continue with vitamin supplementation. (5) COPD (chronic obstructive pulmonary disease) Onset Date: 07/20/15 Current Visit: No Status: Acute Plan: Continue as above. Patient intubated. Patient to be weaned off ventilator. Qualifiers: COPD type: COPD with acute exacerbation Qualified Code(s): J44.1 - Chronic obstructive pulmonary disease with (acute) exacerbation (6) Hypertension Onset Date: 07/20/15 Current Visit: No Status: Chronic Plan: Will continue to hold her blood pressure medication at this time. Will monitor closely. Qualifiers: Hypertension type: essential hypertension Qualified Code(s): I10 - Essential (primary) hypertension (7) Tobacco abuse Onset Date: 01/30/18 Current Visit: No Status: Chronic Plan: Patient may require nicotine patch. (8) Benzodiazepine (tranquilizer) overdose Current Visit: Yes Status: Acute Plan: Patient given home medication by her son. This likely worsened her respiratory drive which led to her being intubated. Will need to address this with the son and patient. Continue with above plan of care. Qualifiers: Encounter type: initial encounter Injury intent: undetermined intent Qualified Code(s): T42.4X4A - Poisoning by benzodiazepines, undetermined, initial encounter (9) Obesity Current Visit: Yes Status: Chronic Plan: Will address lifestyle modification education. Qualifiers: Obesity type: due to excess calories Obesity classification: adult class 1 (BMI 30 - 34.9) Serious obesity comorbidity presence: with serious comorbidity Body mass index: BMI 31.0-31.9 Qualified Code(s): E66.09 - Other obesity due to excess calories; Z68.31 - Body mass index (BMI) 31.0-31.9, adult; Z68.31 - Body mass index (BMI) 31.0-31.9, adult (10) Chronic pain Current Visit: Yes Status: Chronic Plan: Patient may have been given oral medication by son while in the hospital. This likely lead to her being intubated. Will address this with son and patient. Qualifiers: Chronic pain type: chronic pain syndrome Qualified Code(s): G89.4 - Chronic pain syndrome Discharge Plan: Home Plan to discharge in: Greater than 2 days Time Spent Managing Pts Care (In Minutes): 55
[2018-01-31 10:15] LABS: Blood Gas Oxyhemoglobin 82.4 % (94-97); Blood O2 Saturation 85.9 % (92-98.5)
[2018-01-31] MEDS: LOSARTAN POTASSIUM 50 MG TABLET PO SCH (16:59)
[2018-01-31] MEDS: AMLODIPINE 10 MG TAB PO SCH (17:00)
[2018-01-31] MEDS: ATORVASTATIN 10 MG TAB PO SCH (21:49)
[2018-01-31] MEDS: BENZONATATE 100 MG CAP PO PRN (21:49)
[2018-02-01] MEDS: METHYLPREDNISOLONE 40 MG INJ IV SCH ×2 (01:45→08:10)
[2018-02-01] MEDS: ALBUTEROL 2.5 MG/3 ML NEB SOL NEB PRN (01:59)
[2018-02-01] MEDS: IPRATROPIUM BROM 0.5MG/2.5ML NEB SCH ×2 (01:59→08:16)
[2018-02-01 05:20] LABS: BUN Blood Urea Nitrogen 12 mg/dL (6-20); Bicarbonate 31 mEq/L (21-31); Glucose Level 149 mg/dL (65-120); Magnesium 2.2 mg/dL (1.8-2.5); Phosphorus 2.3 mg/dL (2.5-4.3); Potassium 3.6 mEq/L (3.6-5.0); Sodium Level 136 mEq/L (135-145)
[2018-02-01] MEDS ORDERED: POTASSIUM PHOS 20 MEQ in NA CHLORIDE 0.9% 250 ML IV ONE (06:07)
[2018-02-01] MEDS: PANTOPRAZOLE 40MG TABLET PO SCH (06:20)
[2018-02-01] MEDS: DULOXETINE 30 MG CAP PO SCH (08:08)
[2018-02-01] MEDS: LOSARTAN POTASSIUM 50 MG TABLET PO SCH (08:09)
[2018-02-01] MEDS: AMLODIPINE 10 MG TAB PO SCH (08:09)
[2018-02-01] MEDS: BENZONATATE 100 MG CAP PO PRN (08:10)
[2018-02-01] MEDS: ARFORMOTEROL TARTRATE 15 MCG/2 ML VIAL.NEB NEB SCH ×2 (08:16→19:27)
[2018-02-01] MEDS: predniSONE 20 MG TAB PO SCH ×2 (08:24→20:42)
[2018-02-01] MEDS ORDERED: LORazepam 2 MG/ML VIAL IV PRN (08:34)
--- NOTE | 2018-02-01 08:38 | P.PN ---
Subjective Date of Service: 02/01/18 Primary Care Provider: Dr. Strickland Chief Complaint: Respiratory failure Subjective: Improving (Patient doing well. Patient alert and appropriate.) Physical Examination - Vital Signs Temperature: 97.5 F Blood Pressure: 140/90 Pulse: 105 Respirations: 16 Pulse Ox (%): 94 - Physical Exam General: Alert, In no apparent distress, Cooperative HEENT: Atraumatic Neck: Supple Respiratory: Expiratory wheezes, Other (Poor inspiration and expiration. Patient on 2 L nasal cannula) Cardiovascular: Normal pulses, Regular rate/rhythm Gastrointestinal: Normal bowel sounds, Soft and benign, Non-distended, No tenderness, No masses, No rebound, No guarding Musculoskeletal: No erythema, No tenderness, No warmth Integumentary: No tenderness/swelling, No erythema, No warmth, No cyanosis Neurological: Normal speech, Normal strength at 5/5 x4 extr, Normal tone, Normal affect - Studies Medications List Reviewed: Yes Assessment & Plan - Problems (Diagnosis) (1) Depression with anxiety Onset Date: 01/30/18 Current Visit: No Status: Chronic Plan: Will continue with her medication. Will limit benzodiazepine. Medications adjusted. I did address the issue on whether her son gave her p.o. medication. The patient denied that she took medication on the night of her admission. Will continue to monitor. Will transfer the patient to the floor. What physical therapy ambulate. Anticipate possible discharge as early as tomorrow. Patient uses home oxygen. (2) Alcohol withdrawal delirium Current Visit: Yes Status: Acute Plan: Patient admits to alcohol abuse. She reports that she is trying to cut down. This has improved. Will change folic acid and thiamine to oral. Will provide benzodiazepine as needed for severe agitation. None noted. (3) Respiratory failure Current Visit: Yes Status: Acute Plan: Patient extubated yesterday. Patient now on 2 L per nasal cannula. Will continue with COPD treatment. Will have respiratory monitor. Will need to monitor for hypercapnia. Patient uses home oxygen at home. Qualifiers: Chronicity: acute on chronic Respiratory failure complication: hypoxia and hypercapnia Qualified Code(s): J96.21 - Acute and chronic respiratory failure with hypoxia; J96.22 - Acute and chronic respiratory failure with hypercapnia; J96.22 - Acute and chronic respiratory failure with hypercapnia; J96.22 - Acute and chronic respiratory failure with hypercapnia (4) Alcoholism Onset Date: 07/20/15 Current Visit: No Status: Chronic Plan: Patient admits to alcohol. She says she is trying to cut down. Will continue with above plan of care. (5) COPD (chronic obstructive pulmonary disease) Onset Date: 07/20/15 Current Visit: No Status: Acute Plan: Continue as above. Patient extubated yesterday. Much improved. Will continue with medication and treatment. Patient uses home oxygen. Patient currently on 2 L per nasal cannula. Will monitor for hypercapnia and hypoxia. Qualifiers: COPD type: COPD with acute exacerbation Qualified Code(s): J44.1 - Chronic obstructive pulmonary disease with (acute) exacerbation (6) Hypertension Onset Date: 07/20/15 Current Visit: No Status: Chronic Plan: Will continue with her medication. Qualifiers: Hypertension type: essential hypertension Qualified Code(s): I10 - Essential (primary) hypertension (7) Tobacco abuse Onset Date: 01/30/18 Current Visit: No Status: Chronic Plan: Will provide nicotine patch. Tobacco cessation addressed. (8) Benzodiazepine (tranquilizer) overdose Current Visit: Yes Status: Acute Plan: Patient denied that the son gave her medication during her admission. Will monitor closely. Will provide medication as needed. Qualifiers: Encounter type: initial encounter Injury intent: undetermined intent Qualified Code(s): T42.4X4A - Poisoning by benzodiazepines, undetermined, initial encounter (9) Obesity Current Visit: Yes Status: Chronic Plan: Will address lifestyle modification education. Qualifiers: Obesity type: due to excess calories Obesity classification: adult class 1 (BMI 30 - 34.9) Serious obesity comorbidity presence: with serious comorbidity Body mass index: BMI 31.0-31.9 Qualified Code(s): E66.09 - Other obesity due to excess calories; Z68.31 - Body mass index (BMI) 31.0-31.9, adult; Z68.31 - Body mass index (BMI) 31.0-31.9, adult (10) Chronic pain Current Visit: Yes Status: Chronic Plan: Will monitor pain medication. Limit pain medication use Qualifiers: Chronic pain type: chronic pain syndrome Qualified Code(s): G89.4 - Chronic pain syndrome Discharge Plan: Home Plan to discharge in: 24 Hours Time Spent Managing Pts Care (In Minutes): 55
[2018-02-01] MEDS ORDERED: IPRATROPIUM BROM 0.5MG/2.5ML NEB PRN (08:39)
[2018-02-01] MEDS: NICOTINE 21 MG/PAT TD SCH (09:04)
[2018-02-01] MEDS: FOLIC ACID 1 MG TABLET PO SCH (09:05)
[2018-02-01] MEDS: THIAMINE HCL 100 MG TABLET PO SCH (09:06)
--- NOTE | 2018-02-01 09:19 | RAD REPORT ---
EXAM DESCRIPTION: Letty Single View02/01/2018 6:16 am CLINICAL HISTORY: Shortness of breath COMPARISON: January 31 FINDINGS: The endotracheal tube has been removed. Mild bibasilar atelectasis and small pleural effusions are suspected. The heart is normal size
--- NOTE | 2018-02-01 13:02 | P.PN ---
Subjective Date of Service: 02/01/18 Primary Care Provider: Dr. Strickland Chief Complaint: Respiratory failure Subjective: Improving (Patient is improving doing well she was extubated yesterday she is alert responsive cooperative coherent oriented) Review of Systems General: Weakness Respiratory: Shortness of Breath Physical Examination - Vital Signs Temperature: 97.5 F Blood Pressure: 142/90 Pulse: 99 Respirations: 19 Pulse Ox (%): 92 - Physical Exam General: Alert, Oriented x3 HEENT: Atraumatic Neck: Supple Respiratory: Expiratory wheezes Cardiovascular: No edema, Normal S1 S2 - Studies Medications List Reviewed: Yes Assessment & Plan - Problems (Diagnosis) (1) Alcohol withdrawal delirium Current Visit: Yes Status: Resolved Plan: Patient is not delirious (2) COPD (chronic obstructive pulmonary disease) Onset Date: 07/20/15 Current Visit: No Status: Acute Plan: Doing well continue with bronchodilators change to p.o. prednisone Qualifiers: COPD type: COPD with acute exacerbation Qualified Code(s): J44.1 - Chronic obstructive pulmonary disease with (acute) exacerbation (3) Respiratory failure Current Visit: Yes Status: Acute Plan: Patient extubated yesterday doing well cultures all negative transfer to the floor Qualifiers: Chronicity: acute on chronic Respiratory failure complication: hypoxia and hypercapnia Qualified Code(s): J96.21 - Acute and chronic respiratory failure with hypoxia; J96.22 - Acute and chronic respiratory failure with hypercapnia; J96.22 - Acute and chronic respiratory failure with hypercapnia; J96.22 - Acute and chronic respiratory failure with hypercapnia
[2018-02-01] MEDS ORDERED: ENOXAPARIN 40 MG/0.4 ML SQ SCH (17:00)
[2018-02-01] MEDS: ATORVASTATIN 10 MG TAB PO SCH (20:43)
[2018-02-01 23:38] VITALS: O2SAT 93
[2018-02-02] MEDS: BENZONATATE 100 MG CAP PO PRN (04:40)
[2018-02-02] MEDS: PANTOPRAZOLE 40MG TABLET PO SCH ×2 (05:39→05:40)
[2018-02-02 06:02] LABS: BUN Blood Urea Nitrogen 12 mg/dL (6-20); Bicarbonate 32 mEq/L (21-31); Glucose Level 105 mg/dL (65-120); Magnesium 2.1 mg/dL (1.8-2.5); Phosphorus 3.6 mg/dL (2.5-4.3); Sodium Level 136 mEq/L (135-145)
[2018-02-02 06:24] LABS: Absolute Lymphocytes (CBC) 1.2 K/uL (0.7-4.9); Absolute Monocytes 0.6 K/uL (0.1-1.3); Absolute Neutrophil 6.1 K/uL (1.8-8.0); Basophils % 0.1 % (0-1.3); Hematocrit 44.2 % (36.0-45.0); Lymphocytes % 15.5 % (15.3-44.8); MCH 30.7 pg (27.0-35.0); MPV 8.6 fL (7.6-11.3); Monocytes % 7.3 % (3.3-12.3); RBC Red Blood Cell Count 4.81 M/uL (3.86-4.86)
--- NOTE | 2018-02-02 07:28 | RAD REPORT ---
EXAM DESCRIPTION: RAD - Chest Single View - 02/02/2018 6:04 am CLINICAL HISTORY: Respiratory distress, intubation COMPARISON: February 01 TECHNIQUE: AP portable chest image was obtained 0550 hours . FINDINGS: No new mass, consolidation or failure finding. Left lung field granuloma has not changed. Trachea is midline. Provided history indicates intubation. No ET tube identified. No new tube or line seen. Heart and vasculature are normal. No measurable pleural effusion and no pneumothorax. No gross bony abnormality seen. No acute aortic findings suspected. IMPRESSION: No acute cardiopulmonary process. No new or progressive finding from prior imaging. Provided history indicates intubation. No endotracheal tube identifiable on this examination.
[2018-02-02] MEDS: FOLIC ACID 1 MG TABLET PO SCH (09:43)
[2018-02-02] MEDS: DULOXETINE 30 MG CAP PO SCH (09:43)
[2018-02-02] MEDS: LOSARTAN POTASSIUM 50 MG TABLET PO SCH (09:44)
[2018-02-02] MEDS: AMLODIPINE 10 MG TAB PO SCH (09:44)
[2018-02-02] MEDS: predniSONE 20 MG TAB PO SCH (09:44)
[2018-02-02] MEDS: THIAMINE HCL 100 MG TABLET PO SCH (09:45)
[2018-02-02] MEDS: NICOTINE 21 MG/PAT TD SCH (09:49)
[2018-02-02 11:24] VITALS: BP 134/92; TEMP 97
--- NOTE | 2018-02-02 17:19 | P.DS ---
Admission Date: 01/30/18 Discharge Date: 02/02/18 Primary Care Provider: Dr. Strickland Disposition: ROUTINE DISCHARGE Discharge Condition: GOOD Reason for Admission: Respiratory failure Consultations: Pulmonary-Dr. Jones - Problems (1) Depression with anxiety Onset Date: 01/30/18 Status: Chronic (2) Alcohol withdrawal delirium Status: Resolved (3) Respiratory failure Status: Acute Qualifiers: Chronicity: acute on chronic Respiratory failure complication: hypoxia and hypercapnia Qualified Code(s): J96.21 - Acute and chronic respiratory failure with hypoxia; J96.22 - Acute and chronic respiratory failure with hypercapnia; J96.22 - Acute and chronic respiratory failure with hypercapnia; J96.22 - Acute and chronic respiratory failure with hypercapnia (4) Alcoholism Onset Date: 07/20/15 Status: Chronic (5) COPD (chronic obstructive pulmonary disease) Onset Date: 07/20/15 Status: Acute Qualifiers: COPD type: COPD with acute exacerbation Qualified Code(s): J44.1 - Chronic obstructive pulmonary disease with (acute) exacerbation (6) Hypertension Onset Date: 07/20/15 Status: Chronic Qualifiers: Hypertension type: essential hypertension Qualified Code(s): I10 - Essential (primary) hypertension (7) Tobacco abuse Onset Date: 01/30/18 Status: Chronic (8) Benzodiazepine (tranquilizer) overdose Status: Acute Qualifiers: Encounter type: initial encounter Injury intent: undetermined intent Qualified Code(s): T42.4X4A - Poisoning by benzodiazepines, undetermined, initial encounter (9) Obesity Status: Chronic Qualifiers: Obesity type: due to excess calories Obesity classification: adult class 1 (BMI 30 - 34.9) Serious obesity comorbidity presence: with serious comorbidity Body mass index: BMI 31.0-31.9 Qualified Code(s): E66.09 - Other obesity due to excess calories; Z68.31 - Body mass index (BMI) 31.0-31.9, adult; Z68.31 - Body mass index (BMI) 31.0-31.9, adult (10) Chronic pain Status: Chronic Qualifiers: Chronic pain type: chronic pain syndrome Qualified Code(s): G89.4 - Chronic pain syndrome Brief History of Present Illness: 57-year-old female presented emergency room with increasing shortness of breath. Patient with history of COPD. Patient was evaluated and found to have COPD exacerbation. Patient admitted for treatment Hospital Course: Patient presented with shortness of breath. Her stay was complicated as her COPD exacerbation worsen. The patient had respiratory failure requiring intubation. There was some concern that the patient may have taken her home medication of pain medication and benzodiazepine during her stay. The patient was eventually weaned off. Her use of home medication was addressed. The patient denied this. The patient was evaluated by pulmonology. Her symptoms improved. At discharge she was able to move appropriately. The patient uses home oxygen. Patient remained without any significant shortness of breath at this time. Patient will continue with home oxygen to maintain sats above 90%. At discharge she will continue with prednisone 20 mg 1 pill twice daily for 5 days then 1 pill once daily for 5 days. Patient will continue with her COPD medication including Symbicort 2 puffs twice daily and Pro air 2 puffs 3 times a day as needed for shortness of breath. Recommendation is for the patient to follow up with pulmonology as an outpatient to further monitor and address. Patient has hypertension. Medications were adjusted during her stay. At discharge hydrochlorothiazide has been discontinued. She will continue with Norvasc 10 mg 1 pill once daily and losartan 100 mg 1 pill daily. Recommendation is to maintain blood pressures less 150/80. Further adjustment can be done by her PCP. Patient has hyperlipidemia. She will continue with pravastatin 40 mg 1 pill once daily. Patient has GERD. Patient will continue with Prilosec 40 mg 1 pill once daily. Patient with history of depression and anxiety. Patient takes Cymbalta 60 mg 1 pill daily and medication-alprazolam 2 mg 1 pill 3 times a day as needed for anxiety. Recommendation is to wean off medication-alprazolam entirely. This is to be further addressed by her PCP. Education on risks and side effects will be provided. Patient has history of alcohol abuse. Patient admits to alcohol abuse. Patient had been drinking prior to admission. Alcohol cessation education will be provided. Recommendation is for the patient to continue with thiamine 100 mg daily and folic acid 1 mg daily. Patient with history of tobacco use. Recommendation is to continue with tobacco cessation. Patient will be provided nicotine patch daily. Patient with chronic pain. She is seen by chronic pain management. Patient takes morphine ER 15 mg 1 pill twice daily as needed and Cymbalta 60 mg 1 pill daily. Recommendation is for the patient to follow up with chronic pain management to further address. Recommendation is to wean off medication entirely. This can be further addressed by her pain management physician. Lifestyle modification education will be provided. Patient may have underlying obstructive sleep apnea. Recommendation is for the patient to follow up with pulmonology as an outpatient to further evaluate and treat. Vital Signs/Physical Exam: Temp Pulse Resp BP Pulse Ox 97 F 94 H 17 134/92 H 92 02/02/18 11:23 02/02/18 11:23 02/02/18 11:23 02/02/18 11:23 02/02/18 11:23 General: Alert, In no apparent distress, Oriented x3, Cooperative HEENT: Atraumatic, Mucous membr. moist/pink Neck: Supple, No Thyromegaly Respiratory: Clear to auscultation bilaterally, Normal air movement Cardiovascular: Normal pulses, Regular rate/rhythm Gastrointestinal: Normal bowel sounds, Soft and benign, Non-distended, No tenderness, No masses, No rebound, No guarding Musculoskeletal: No erythema, No tenderness, No warmth Integumentary: No tenderness/swelling, No erythema, No warmth, No cyanosis Neurological: Normal speech, Normal strength at 5/5 x4 extr, Normal tone, Normal affect Laboratory Data at Discharge: WBC 7.9 K/uL (4.3-10.9) D 02/02/18 05:08 Hgb 14.8 g/dL (12.0-15.0) 02/02/18 05:08 Hct 44.2 % (36.0-45.0) 02/02/18 05:08 Plt Count 204 K/uL (152-406) 02/02/18 05:08 PT 11.8 SECONDS (9.5-12.5) 01/29/18 18:20 INR 1.00 01/29/18 18:20 APTT 29.5 SECONDS (24.3-36.9) 01/29/18 18:20 Sodium 136 mEq/L (135-145) 02/02/18 05:08 Potassium 4.0 mEq/L (3.6-5.0) 02/02/18 05:08 BUN 12 mg/dL (6-20) 02/02/18 05:08 Creatinine 0.39 mg/dL (0.44-1.00) L 02/02/18 05:08 Glucose 105 mg/dL (65-120) 02/02/18 05:08 Phosphorus 3.6 mg/dL (2.5-4.3) D 02/02/18 05:08 Magnesium 2.1 mg/dL (1.8-2.5) 02/02/18 05:08 Total Bilirubin 0.3 mg/dL (0.3-1.2) 01/30/18 04:21 AST 19 IU/L (10-42) 01/30/18 04:21 ALT 21 IU/L (10-60) 01/30/18 04:21 Alkaline Phosphatase 89 IU/L (42-121) 01/30/18 04:21 B-Natriuretic Peptide 27 pg/ml (<=100) 01/29/18 18:20 Home Medications: Losartan Potassium 1 tab PO DAILY 10/21/16 Alprazolam 2 mg PO TID PRN 01/29/18 Amlodipine Besylate 10 mg PO DAILY 01/29/18 Duloxetine HCl 60 mg PO DAILY 01/29/18 Morphine Sulfate [Morphine Sulfate ER] 15 mg PO Q12H PRN 01/29/18 Omeprazole [Prilosec] 40 mg PO DAILY 01/29/18 Pravastatin Sodium 40 mg PO BEDTIME 01/29/18 Albuterol Sulfate [Proair Hfa] 8.5 gm IH TID PRN #1 hfa.aer.ad 02/02/18 Benzonatate [Tessalon Perle*] 100 mg PO TID PRN #10 cap 02/02/18 Budesonide/Formoterol Fumarate [Symbicort 160-4.5 Mcg Inhaler] 2 puff IH BID #1 hfa.aer.ad 02/02/18 Folic Acid 1 mg PO DAILY #30 tablet 02/02/18 Nicotine [Nicoderm*] 21 mg TD DAILY #30 patch.td24 02/02/18 Prednisone [Prednisone*] 20 mg PO SEECOM #15 tab 02/02/18 Thiamine HCl [Vitamin B-1*] 100 mg PO DAILY #30 tablet 02/02/18 New Medications: Albuterol Sulfate [Proair Hfa] 8.5 gm IH TID PRN #1 hfa.aer.ad PRN Reason: Shortness Of Breath Benzonatate [Tessalon Perle*] 100 mg PO TID PRN #10 cap PRN Reason: Cough Budesonide/Formoterol Fumarate [Symbicort 160-4.5 Mcg Inhaler] 2 puff IH BID #1 hfa.aer.ad Folic Acid 1 mg PO DAILY #30 tablet Nicotine [Nicoderm*] 21 mg TD DAILY #30 patch.td24 Prednisone [Prednisone*] 20 mg PO SEECOM #15 tab Thiamine HCl [Vitamin B-1*] 100 mg PO DAILY #30 tablet Patient Discharge Instructions: 1. Patient will need a follow up with her PCP in 1 week to follow up this hospitalization. 2. Patient presented with shortness of breath. Patient had respiratory failure secondary to COPD exacerbation. Patient without any significant shortness of breath at this time. Patient will continue with home oxygen to maintain sats above 90%. At discharge she will continue with prednisone 20 mg 1 pill twice daily for 5 days then 1 pill once daily for 5 days. Patient will continue with her COPD medication including Symbicort 2 puffs twice daily and Pro air 2 puffs 3 times a day as needed for shortness of breath. Recommendation is for the patient to follow up with pulmonology as an outpatient to further monitor and address. 3. Patient has hypertension. Medications have been adjusted. At discharge hydrochlorothiazide has been discontinued. She will continue with Norvasc 10 mg 1 pill once daily and losartan 100 mg 1 pill daily. Recommendation is to maintain blood pressures less 150/80. Further adjustment can be done by her PCP. 4. Patient has hyperlipidemia. She will continue with pravastatin 40 mg 1 pill once daily. 5. Patient has GERD. Patient will continue with Prilosec 40 mg 1 pill once daily. 6. Patient with history of depression and anxiety. Patient takes Cymbalta 60 mg 1 pill daily and medication-alprazolam 2 mg 1 pill 3 times a day as needed for anxiety. Recommendation is to wean off medication- alprazolam entirely. This is to be further addressed by her PCP. Education on risks and side effects will be provided. 7. Patient has history of alcohol abuse. Alcohol cessation education will be provided. Recommendation is for the patient to continue with thiamine 100 mg daily and folic acid 1 mg daily. 8. Patient with history of tobacco use. Recommendation is to continue with tobacco cessation. Patient will be provided nicotine patch daily. 9. Patient with chronic pain. She is seen by chronic pain management. Patient takes morphine ER 15 mg 1 pill twice daily as needed and Cymbalta 60 mg 1 pill daily. Recommendation is for the patient to follow up with chronic pain management to further address. Recommendation is to wean off medication entirely. This can be further addressed by her pain management physician. 10. Lifestyle modification education will be provided. 11. Patient may have underlying obstructive sleep apnea. Recommendation is for the patient to follow up with pulmonology as an outpatient to further evaluate and treat. Diet: AHA Activity: Ad rodrick Time spent managing pt's care (in minutes): 55
== END 2018-02-02 11:46 | disposition home or self-care (01) | DRG 208 ==
LOC: ER 17:02 → ERHOLD 20:58 → 4TH 21:30 → OBSVTOIN 01-30 09:08 → 3RD-ICU 01-30 10:27 → 4TH 02-01 15:15
PROVIDERS: ADMIT Hospitalist; ATTEND Hospitalist
PROC: 5A09457 Assistance with Respiratory Ventilation, 24-96 Consecutive Hours, Continuous Positive Airway Pressure (ICD-10-PCS; principal; 2018-01-30)
PROC: 5A1935Z Respiratory Ventilation, Less than 24 Consecutive Hours (ICD-10-PCS; 2018-01-30)
PROC: 0BH17EZ Insertion of Endotracheal Airway into Trachea, Via Natural or Artificial Opening (ICD-10-PCS; 2018-01-30)
DX: J96.21 Acute and chronic respiratory failure with hypoxia (principal); J44.1 Chronic obstructive pulmonary disease with (acute) exacerbation; F10.231 Alcohol dependence with withdrawal delirium; J96.22 Acute and chronic respiratory failure with hypercapnia; E78.5 Hyperlipidemia, unspecified; F41.8 Other specified anxiety disorders; G89.29 Other chronic pain; I27.20 Pulmonary hypertension, unspecified; T42.4X1A Poisoning by benzodiazepines, accidental (unintentional), initial encounter; F17.210 Nicotine dependence, cigarettes, uncomplicated; K21.9 Gastro-esophageal reflux disease without esophagitis
CPT/HCPCS: 36415; 71045; 80048; 80053; 80076; 81003; 82550; 82553; 82607; 82805; 83735; 83880; 84100; 84443; 84484; 85025; 85610; 85730; 87070; 87205; 87804; 93005; 94002; 94640; 94660; 96361; 96365; 96366; 96375; 97163; 99285; G0378; J0330; J1630; J1650; J2250; J2270; J2405; J2920; J2930; J3010; J3411; J3475; J7030; J7512; J7605

== ENCOUNTER 2018-04-23 12:50 | Emergency (ER) | payer BC ==
--- NOTE | 2018-04-23 14:31 | RAD REPORT ---
EXAM DESCRIPTION: RAD - Shoulder Left 2 View - 04/23/2018 2:19 pm CLINICAL HISTORY: Left shoulder pain status post fall FINDINGS: No fracture or dislocation is seen.
--- NOTE | 2018-04-23 14:33 | RAD REPORT ---
EXAM DESCRIPTION: RAD -Hand Left 3 View - 04/23/2018 2:20 pm CLINICAL HISTORY: Left hand pain status post injury FINDINGS: No fracture or dislocation is seen.
--- NOTE | 2018-04-23 14:35 | RAD REPORT ---
EXAM DESCRIPTION: RAD - Knee Left 3 View - 04/23/2018 2:20 pm CLINICAL HISTORY: Left knee pain status post injury FINDINGS: No fracture or dislocation is seen. A large joint effusion is present. If the patient has clinical symptoms to suggest an occult fracture, ligamentous or meniscal injury th en MRI would be recommended.
--- NOTE | 2018-04-23 15:19 | ER ---
Nurse's Notes [facility] Name: Kanika Jon Age: 57 yrs Sex: Female : 1960 Arrival Date: 04/23/2018 Time: 12:53 Bed 13 Private MD: Giorgi Strickland E Diagnosis: Internal derangement of knee;Contusion of left hand;Other sprain of shoulder joint Presentation: 04/23 12:55 Presenting complaint: Patient states: i fell Monday and hurt my L shoulder, L hand hj and L knee; denies hitting head and denies LOC;. Transition of care: patient was not received from another setting of care. Onset of symptoms was April 23, 2018. Risk Assessment: Do you want to hurt yourself or someone else? Patient reports no desire to harm self or others. Initial Sepsis Screen: Does the patient meet any 2 criteria? No. Patient's initial sepsis screen is negative. Does the patient have a suspected source of infection? No. Patient's initial sepsis screen is negative. Care prior to arrival: None. 12:55 Method Of Arrival: Ambulatory 12:55 Acuity: [place] 4 hj Triage Assessment: 12:57 General: Appears in no apparent distress. uncomfortable, Behavior is calm, cooperative, hj appropriate for age. Pain: Complains of pain in L shoulder, L hand, L knee Pain currently is 7 out of 10 on a pain scale. Historical: - Allergies: 12:58 Codeine; hj 12:58 HYDROCODONE; 12:58 hydromorphone HCl; hj - Home Meds: 12:58 Albuterol Inhl every 4-6 hours [Active]; Hydrochlorothiazide Oral once daily [Active]; hj Lexapro Oral [Active]; lisinopril Oral once daily [Active]; losartan Oral once daily [Active]; - PMHx: 12:58 COPD; Depression; Hypertension; osteoarthritis; hj - PSHx: 12:58 None; hj - Immunization history:: Adult Immunizations up to date. - Social history:: Smoking status: Patient/guardian denies using tobacco, Patient/guardian denies using alcohol. - Ebola Screening: : Patient negative for fever greater than or equal to 101.5 degrees Fahrenheit, and additional compatible Ebola Virus Disease symptoms Patient denies exposure to infectious person Patient denies travel to an Ebola-affected area in the 21 days before illness onset. Screenin:57 Abuse screen: Denies threats or abuse. Denies injuries from another. Nutritional hj screening: No deficits noted. Tuberculosis screening: No symptoms or risk factors identified. Fall Risk Fall in past 12 months (25 points). Assessment: 13:10 General: Appears in no apparent distress. Neuro: Level of Consciousness is awake, tw2 alert, obeys commands, Oriented to person, place, time, situation. Cardiovascular: Denies chest pain, shortness of breath, Capillary refill < 3 seconds Patient's skin is warm and dry. Respiratory: Airway is patent Respiratory effort is even, unlabored, Respiratory pattern is regular, symmetrical. GI: No signs and/or symptoms were reported involving the gastrointestinal system. : No signs and/or symptoms were reported regarding the genitourinary system. EENT: No signs and/or symptoms were reported regarding the EENT system. Derm: No signs and/or symptoms reported regarding the dermatologic system. Musculoskeletal: Reports pain in left hand, shoulder and knee. Musculoskeletal: Circulation, motion, and sensation intact. Range of motion: intact in all extremities. 14:29 Reassessment: Patient appears in no apparent distress at this time. No changes from tw2 previously documented assessment. Patient and/or family updated on plan of care and expected duration. Pain level reassessed. 14:42 Reassessment: pt refused knee immobilizer, states "i just dont have any money and i tw2 dont want them to be billing my insurance",provider notified.. 15:05 Reassessment: Patient appears in no apparent distress at this time. Patient and/or mg2 family updated on plan of care and expected duration. Pain level reassessed. Vital Signs: 12:59 BP 152 / 84; Pulse 104; Resp 18; Temp 98.7(O); Pulse Ox 94% on R/A; Weight 86.18 kg; hj Height 5 ft. 6 in. (167.64 cm); Pain 7/10; 14:27 BP 149 / 91; Pulse 98; Resp 17; Pulse Ox 97% on 2 lpm NC; tw2 12:59 Body Mass Index 30.67 (86.18 kg, 167.64 cm) ED Course: 12:53 Patient arrived in ED. mr 12:53 Giorgi Strickland MD is Private Physician. mr 12:57 Triage completed. hj 12:57 Arm band placed on right wrist. hj 12:59 Patient has correct armband on for positive identification. Bed in low position. Call hj light in reach. Side rails up X 1. 13:04 Dae Sandra PA is PHCP. [facility] 13:04 Al Watson MD is Attending Physician. jmm 13:[address], RN is Primary Nurse. tw2 13:50 Patient moved to radiology via wheelchair. jr1 14:17 Shoulder Left (2 View) XRAY In Process Unspecified. EDMS 14:17 Hand Left 3 View XRAY In Process Unspecified. EDMS 14:17 Knee Left 3 View XRAY In Process Unspecified. EDMS 14:34 No provider procedures requiring assistance completed. Patient did not have IV access tw2 during this emergency room visit. 14:57 Report given to VEE Deal. tw2 15:07 Primary Nurse role handed off by Olga Street RN tw2 15:15 Enrrique Lou, VEE is Primary Nurse. mg2 15:18 Jarek Harris MD is Referral Physician. jmm 15:36 Patient did not have IV access during this emergency room visit. mg2 Administered Medications: No medications were administered Outcome: 15:18 Discharge ordered by . [facility] 15:36 Discharged to home ambulatory. mg2 15:36 Condition: stable 15:36 Discharge instructions given to patient, Instructed on discharge instructions, follow up and referral plans. medication usage, Demonstrated understanding of instructions, follow-up care, medications, Prescriptions given X 1. 15:37 Patient left the ED. mg2 Signatures: Dispatcher [employer] EDKY Dae Sandra PA PA Yumiko Dutton Maya Hernández jr1 Sheldon Garcia RN RN Olga Street, RN RN tw2 Enrrique Lou, VEE RN mg2 Corrections: (The following items were deleted from the chart) 13:01 12:59 Pulse 104bpm; Resp 18bpm; Pulse Ox 94% RA; Temp 98.7F Oral; 86.18 kg; Height 5 hj ft. 6 in.; BMI: 30.6; Pain 7/10; hj
--- NOTE | 2018-04-23 15:19 | EDPHYS ---
Physician Documentation [facility] Name: Kanika Jon Age: 57 yrs Sex: Female : 1960 Arrival Date: 04/23/2018 Time: 12:53 Bed 13 Private MD: Giorgi Strickland E ED Physician Al Watson HPI: 04/23 13:09 This 57 yrs old Female presents to ER via Ambulatory with complaints of Hand jmm Swelling. 13:09 Details of fall: The patient fell from an upright position. jmm 13:09 Onset: The symptoms/episode began/occurred acutely, 2 day(s) ago. This is a 57 year old jmm female with a hx of COPD, HTN, OA that presents to the ED with left hand pain, left shoulder pain, and left knee pain after a fall from a standing position which occurred this past Monday. The patient denies hitting her head, denies LOC. . Historical: - Allergies: 12:58 Codeine; hj 12:58 HYDROCODONE; hj 12:58 hydromorphone HCl; hj - Home Meds: 12:58 Albuterol Inhl every 4-6 hours [Active]; Hydrochlorothiazide Oral once daily [Active]; hj Lexapro Oral [Active]; lisinopril Oral once daily [Active]; losartan Oral once daily [Active]; - PMHx: 12:58 COPD; Depression; Hypertension; osteoarthritis; hj - PSHx: 12:58 None; hj - Immunization history:: Adult Immunizations up to date. - Social history:: Smoking status: Patient/guardian denies using tobacco, Patient/guardian denies using alcohol. - Ebola Screening: : Patient negative for fever greater than or equal to 101.5 degrees Fahrenheit, and additional compatible Ebola Virus Disease symptoms Patient denies exposure to infectious person Patient denies travel to an Ebola-affected area in the 21 days before illness onset. ROS: 13:09 Constitutional: jm 13:09 MS/extremity: Positive for injury or acute deformity, pain. 13:09 All other systems are negative. Exam: 13:09 Head/Face: atraumatic. jmm 13:09 Constitutional: The patient appears in no acute distress, alert, awake. 13:09 Cardiovascular: Rate: normal. 13:09 Respiratory: the patient does not display signs of respiratory distress, Respirations: normal. 13:09 Musculoskeletal/extremity: the left anterior shoulder is TTP, no obvious deformity appreciated, FROM appreciated, full director drug strenght. The left 2nd-4th mtp's tender to palpation. no snuff box tenderness, NVI. The left knee is ttp at the patellar region, mild edema is noted, from, full dorsalis pedis pulse, NVI. 13:09 Skin: Appearance: Color: normal in color. 13:09 Neuro: Orientation: is normal, Mentation: is normal, Memory: is normal. 13:09 Psych: Behavior/mood is pleasant, cooperative. Vital Signs: 12:59 BP 152 / 84; Pulse 104; Resp 18; Temp 98.7(O); Pulse Ox 94% on R/A; Weight 86.18 kg; hj Height 5 ft. 6 in. (167.64 cm); Pain 7/10; 14:27 BP 149 / 91; Pulse 98; Resp 17; Pulse Ox 97% on 2 lpm NC; tw2 12:59 Body Mass Index 30.67 (86.18 kg, 167.64 cm) hj MDM: 13:09 Patient medically screened. [facility] 15:17 Data reviewed: vital signs, nurses notes, radiologic studies, plain films. Counseling: [facility] I had a detailed discussion with the patient and/or guardian regarding: the historical points, exam findings, and any diagnostic results supporting the discharge/admit diagnosis, radiology results, the need for outpatient follow up, to return to the emergency department if symptoms worsen or persist or if there are any questions or concerns that arise at home. 15:17 ED course: Patient refused knee immobilizer. Advised of the need to follow up with [facility] orthopedics. patient understood and agrees with the plan of care. . 04/23 13:13 Order name: Shoulder Left (2 View) XRAY; Complete Time: 14:33 [facility] 04/23 13:13 Order name: Hand Left 3 View XRAY; Complete Time: 14:36 [facility] 04/23 13:13 Order name: Knee Left 3 View XRAY; Complete Time: 14:36 [facility] Administered Medications: No medications were administered Disposition: 21:13 Co-signature as Attending Physician, Al Watson MD. Disposition: 04/23/18 15:18 Discharged to Home. Impression: Internal derangement of knee, Contusion of left hand, Other sprain of shoulder joint. - Condition is Stable. - Discharge Instructions: Knee Pain. - Prescriptions for Ibuprofen 800 mg Oral Tablet - take 1 tablet by ORAL route every 8 hours As needed take with food; 30 tablet. - Medication Reconciliation Form, Thank You Letter, Antibiotic Education, Prescription Opioid Use form. - Follow up: Jarek Harris MD; When: 2 - 3 days; Reason: Continuance of care. Signatures: Dispatcher [employer] EDMS Dae Sandra PA PA jmm Joaquin, Henry, RN RN hj Al Watson MD MD gs Gardose, Michele, RN RN mg2 Corrections: (The following items were deleted from the chart) 14:42 14:38 Knee Immobilizer ordered. rafita tw2 15:37 15:18 04/23/2018 15:18 Discharged to Home. Impression: Internal derangement of knee; mg2 Contusion of left hand; Other sprain of shoulder joint. Condition is Stable. Forms are Medication Reconciliation Form, Thank You Letter, Antibiotic Education, Prescription Opioid Use. Follow up: Jarek Harris; When: 2 - 3 days; Reason: Continuance of care. rafita
[2018-04-23 15:40] VITALS: TEMP 98.7
[2018-04-23 15:42] VITALS: BP 149/91; O2SAT 97
== END 2018-04-23 15:37 | disposition home or self-care (01) ==
LOC: ER 12:50
DX: M23.92 Unspecified internal derangement of left knee (principal); S43.492A Other sprain of left shoulder joint, initial encounter; S60.222A Contusion of left hand, initial encounter; W18.39XA Other fall on same level, initial encounter; Y93.89 Activity, other specified; Y92.9 Unspecified place or not applicable; Z88.5 Allergy status to narcotic agent; I10 Essential (primary) hypertension; J44.9 Chronic obstructive pulmonary disease, unspecified; F32.9 Major depressive disorder, single episode, unspecified
CPT/HCPCS: 99283

== ENCOUNTER 2018-10-22 18:19 | Inpatient (IN) | payer BC, SELFPAY ==
--- OUTSIDE RECORDS SUMMARY | 2018-10-22 18:22 | XMS REPORT ---
:1960 Author Organization e[employer] Care Team Providers Name Role Phone Jarek Harris Provider Role Unavailable Allergies, Adverse Reactions, Alerts Substance Reaction Event Type tramadol Info Not Available Drug Allergy Trazodone HCl Info Not Available Drug Allergy Lyrica Info Not Available Drug Allergy Problems Problem Type Condition Code Onset Dates Condition Status Assessment Unilateral primary osteoarthritis, M17.12 Active left knee Assessment Acute pain of left knee M25.562 Active Assessment Acute pain of right knee M25.561 Active Assessment Internal derangement of right knee M23.91 Active Assessment Effusion, right knee M25.461 Active Assessment Effusion of left knee M25.462 Active Problem Effusion, right knee M25.461 Active Problem Internal derangement of right knee M23.91 Active Problem Unilateral primary osteoarthritis, M17.12 Active left knee Problem Effusion of left knee M25.462 Active Problem Acute pain of left knee M25.562 Active Problem Acute pain of right knee M25.561 Active Medications Medication Code Code Instructions Start End Status Dosage System Date Date Chantix Continuing [facility] 05076002079 1 MG Oral Active TAKE 1 Month Cullen TABLET BY MOUTH TWICE A DAY Cyclobenzaprine HCl [facility] 50323170586 10 MG Oral Active TAKE 1 TABLET BY MOUTH TWICE DAILY NEEDED Ventolin HFA [facility] 53247306835 108 (90 Base) Active USE 2 MCG/ACT PUFFS Inhalation NEEDED EVERY 6 HORS Trazodone HCl [facility] 73551911130 150 MG Oral Active TAKE 1 TABLET BY MOUTH AT BEDTIME BuPROPion HCl [facility] 42736703906 100 MG Oral Active TAKE 1 TABLET BY MOUTH ONCE A DAY Duloxetine HCl [facility] 61267548076 60 MG Oral Active TAKE 1 CAPSULE BY MOUTH ONCE A DAY Hydrochlorothiazide [facility] 90286896435 25 MG Oral Active TAKE 1 TABLET BY MOUTH IN ONCE EVERY MORNING Temazepam [facility] 64313887615 30 MG Oral Active (Schedule IV Drug) TAKE 1 CAPSULE BY MOUTH NEEDED AT BEDTIME Pravastatin Sodium [facility] 87918415252 40 MG Oral Active TAKE 1 TABLET BY MOUTH AT BEDTIME Losartan Potassium [facility] 46131707647 50 MG Oral Active TAKE 1 TABLET BY MOUTH ONCE A DAY Alprazolam [facility] 17152181469 2 MG Oral Active (Schedule IV Drug) TAKE 1 TABLET BY MOUTH TWICE DAILY Amlodipine Besylate [facility] 05552808407 10 MG Oral Active TAKE 1 TABLET BY MOUTH ONCE A DAY Results No Known Results Summary Purpose [employer]Works Submission
--- OUTSIDE RECORDS SUMMARY | 2018-10-22 18:22 | XMS REPORT ---
:1960 Author Organization [employer] Care Team Providers Name Role Phone Jarek Harris Provider Role Unavailable Allergies No Known Allergies Problems Problem Type Condition Code Onset Dates Condition Status Problem Effusion, right knee M25.461 Active Problem Internal derangement of right knee M23.91 Active Problem Unilateral primary osteoarthritis, M17.12 Active left knee Problem Effusion of left knee M25.462 Active Problem Acute pain of left knee M25.562 Active Problem Acute pain of right knee M25.561 Active Medications No Known Medications Results No Known Results Summary Purpose [employer] Submission
[2018-10-22] MEDS ORDERED: ACETAMINOPHEN 500 MG TAB ONE (19:19)
[2018-10-22] MEDS ORDERED: FENTANYL CITR 100 MCG/2 ML ONE ×2 (19:19→20:33)
[2018-10-22] MEDS ORDERED: ONDANSETRON 4 MG/2 ML VIAL ONE (19:19)
[2018-10-22] MEDS ORDERED: NA CHLORIDE 0.9% 2,000 ML ONE (19:20)
[2018-10-22 19:22] LABS: Absolute Lymphocytes (CBC) 1.2 K/uL (0.7-4.9); Absolute Monocytes 0.4 K/uL (0.1-1.3); Absolute Neutrophil 4.3 K/uL (1.8-8.0); Basophils % 0.2 % (0-1.3); Eosinophils % 0.7 % (0-4.4); Hematocrit 48.8 % (36.0-45.0); Lymphocytes % 20.7 % (15.3-44.8); MPV 8.7 fL (7.6-11.3); Monocytes % 6.9 % (3.3-12.3); RBC Red Blood Cell Count 5.15 M/uL (3.86-4.86)
[2018-10-22 19:29] LABS: Protime INR 0.93
[2018-10-22] MEDS ORDERED: Levofloxacin 750mg IV 750 MG/150 ML BAG IV ONE (19:34)
[2018-10-22 19:40] LABS: ALT/SGPT 19 U/L (12-78); AST/SGOT 11 U/L (15-37); Albumin 3.8 g/dL (3.4-5.0); Alkaline Phosphatase 85 U/L (45-117); BUN Blood Urea Nitrogen 10 mg/dL (7-18); Bicarbonate 31 mmol/L (21-32); Bilirubin Direct 0.1 mg/dL (0-0.2); Bilirubin Total 0.5 mg/dL (0.2-1.0); Creatine Phosphokinase 41 U/L (26-192); Glucose Level 95 mg/dL (74-106); Lipase 70 U/L (73-393); Potassium 3.7 mmol/L (3.5-5.1); Protein, Total 6.9 g/dL (6.4-8.2); Sodium Level 137 mmol/L (136-145); Troponin (Emerg Dept Use Only) < 0.02 ng/mL (0.0-0.045)
--- NOTE | 2018-10-22 20:11 | RAD REPORT ---
EXAM DESCRIPTION: RAD - Chest Single View - 10/22/2018 7:38 pm CLINICAL HISTORY: Cough and congestion, productive cough, dyspnea COMPARISON: January 2018 TECHNIQUE: AP portable chest image was obtained 1917 hours . FINDINGS: No focal infiltrate or acute lung parenchymal process. Calcified granuloma in the left mid lung field again noted. Acute failure or volume overload are not suspected. Heart and vasculature are normal. No measurable pleural effusion and no pneumothorax. No acute bony abnormality seen. No acute aortic findings suspected. IMPRESSION: No acute cardiopulmonary process. No significant change from comparison.
--- NOTE | 2018-10-22 20:31 | EDPHYS ---
Physician Documentation [facility] Name: Kanika Jon Age: 58 yrs Sex: Female : 1960 Arrival Date: 10/22/2018 Time: 18:24 Bed 4 Private MD: Giorgi Strickland E ED Physician Ryan Hayes HPI: 10/22 20:27 This 58 yrs old Female presents to ER via Ambulatory with complaints of jr8 Breathing Difficulty, Chest Pain. 20:27 The patient has shortness of breath at rest. Onset: The symptoms/episode began/occurred jr8 gradually, 2 day(s) ago. Duration: The symptoms are continuous. The patient's shortness of breath is aggravated by walking. Associated signs and symptoms: Pertinent positives: fever. Severity of symptoms: At their worst the symptoms were moderate in the emergency department the symptoms are unchanged. It is unknown whether or not the patient has had similar symptoms in the past. The patient has not recently seen a physician. 20:27 Longstanding history of COPD requiring home oxygen. Stated that she has been feeling jr8 ill and her breathing has been getting worse. Off oxygen getting as low as the 60s on her SPO2 monitor. Historical: - Allergies: 18:32 Codeine; hj 18:32 HYDROCODONE; hj 18:32 hydromorphone HCl; hj - Home Meds: 18:32 Albuterol Inhl every 4-6 hours [Active]; Hydrochlorothiazide Oral once daily [Active]; hj Lexapro Oral [Active]; lisinopril Oral once daily [Active]; losartan Oral once daily [Active]; - PMHx: 18:32 COPD; Depression; Hypertension; osteoarthritis; hj - PSHx: 18:32 None; hj - Immunization history:: Adult Immunizations up to date. - Social history:: Smoking status: Patient uses tobacco products, Patient/guardian denies using alcohol. - Ebola Screening: : Patient negative for fever greater than or equal to 101.5 degrees Fahrenheit, and additional compatible Ebola Virus Disease symptoms Patient denies exposure to infectious person Patient denies travel to an Ebola-affected area in the 21 days before illness onset. ROS: 20:27 Eyes: Negative for injury, pain, redness, and discharge, ENT: Negative for injury, jr8 pain, and discharge, Neck: Negative for injury, pain, and swelling, Abdomen/GI: Negative for abdominal pain, nausea, vomiting, diarrhea, and constipation, Back: Negative for injury and pain, MS/Extremity: Negative for injury and deformity, Skin: Negative for injury, rash, and discoloration, Neuro: Negative for headache, weakness, numbness, tingling, and seizure. 20:27 Constitutional: Positive for body aches, chills, fatigue, fever. 20:27 Cardiovascular: Positive for chest pain, Negative for orthopnea, palpitations, paroxysmal nocturnal dyspnea. 20:27 Respiratory: Positive for cough, with yellow sputum, dyspnea on exertion, shortness of breath, wheezing. Exam: 20:27 Eyes: Pupils equal round and reactive to light, extra-ocular motions intact. Lids and jr8 lashes normal. Conjunctiva and sclera are non-icteric and not injected. Cornea within normal limits. Periorbital areas with no swelling, redness, or edema. ENT: Nares patent. No nasal discharge, no septal abnormalities noted. Tympanic membranes are normal and external auditory canals are clear. Oropharynx with no redness, swelling, or masses, exudates, or evidence of obstruction, uvula midline. Mucous membranes moist. Neck: Trachea midline, no thyromegaly or masses palpated, and no cervical lymphadenopathy. Supple, full range of motion without nuchal rigidity, or vertebral point tenderness. No Meningismus. Cardiovascular: Regular rate and rhythm with a normal S1 and S2. No gallops, murmurs, or rubs. Normal PMI, no JVD. No pulse deficits. Abdomen/GI: Soft, non-tender, with normal bowel sounds. No distension or tympany. No guarding or rebound. No evidence of tenderness throughout. Back: No spinal tenderness. No costovertebral tenderness. Full range of motion. Skin: Warm, dry with normal turgor. Normal color with no rashes, no lesions, and no evidence of cellulitis. MS/ Extremity: Pulses equal, no cyanosis. Neurovascular intact. Full, normal range of motion. Neuro: Awake and alert, GCS 15, oriented to person, place, time, and situation. Cranial nerves II-XII grossly intact. Motor strength 5/5 in all extremities. Sensory grossly intact. Cerebellar exam normal. Normal gait. 20:27 Respiratory: mild respiratory distress is noted, Respirations: tachypnea, Breath sounds: wheezing: expiratory that is moderate, is heard diffusely. Vital Signs: 18:33 BP 135 / 117; Pulse 98; Resp 22; Temp 100.0(O); Pulse Ox 83% on R/A; Weight 90.72 kg; hj Height 5 ft. 6 in. (167.64 cm); Pain 5/10; 18:37 Pulse Ox 90% on 3 lpm NC; hj 19:21 BP 118 / 76; Pulse 91; Resp 20; Pulse Ox 93% on 3 lpm NC; ea 20:15 BP 116 / 66; Pulse 91; Resp 20; Pulse Ox 93% on 3 lpm NC; ak1 21:22 BP 134 / 81; Pulse 91; Resp 20; Temp 98.5(TE); Pulse Ox 93% on 3 lpm NC; Pain 2/10; ak1 22:06 BP 121 / 66; Pulse 89; Resp 20; Pulse Ox 93% on 3 lpm NC; ea 23:00 BP 120 / 70; Pulse 80; Resp 20; Pulse Ox 94% on 2 lpm NC; ea 18:33 Body Mass Index 32.28 (90.72 kg, 167.64 cm) hj MDM: 18:41 Patient medically screened. jr8 20:27 Data reviewed: vital signs, nurses notes, lab test result(s), EKG, radiologic studies, [facility] plain films, and as a result, I will admit patient. Data interpreted: Pulse oximetry: on room air is 83 %. Interpretation: hypoxia. Counseling: I had a detailed discussion with the patient and/or guardian regarding: the historical points, exam findings, and any diagnostic results supporting the discharge/admit diagnosis, lab results, radiology results, the need for further work-up and treatment in the hospital. 10/22 19:04 Order name: Basic Metabolic Panel [facility] 10/22 19:04 Order name: Blood Culture Adult (2) [facility] 10/22 19:04 Order name: CBC with Diff [facility] 10/22 19:04 Order name: CPK [facility] 10/22 19:04 Order name: Lactate [facility] 10/22 19:04 Order name: LFT's [facility] 10/22 19:04 Order name: Lipase [facility] 10/22 19:04 Order name: Procalcitonin [facility] 10/22 19:04 Order name: Protime (+inr) [facility] 10/22 19:04 Order name: Ptt, Activated [facility] 10/22 19:04 Order name: Troponin (emerg Dept Use Only); Complete Time: 19:44 [facility] 10/22 19:04 Order name: Urine Microscopic Only; Complete Time: 21:44 [facility] 10/22 19:04 Order name: Flu; Complete Time: 19:55 [facility] 10/22 19:05 Order name: Basic Metabolic Panel; Complete Time: 19:44 [facility] 10/22 19:05 Order name: Blood Culture [facility] 10/22 19:05 Order name: CBC with Automated Diff; Complete Time: 19:34 [facility] 10/22 19:05 Order name: Creatine Phosphokinase; Complete Time: 19:44 [facility] 10/22 19:05 Order name: Lactate; Complete Time: 19:55 [facility] 10/22 19:05 Order name: Liver (Hepatic) Function; Complete Time: 19:44 [facility] 10/22 19:05 Order name: Lipase; Complete Time: 19:44 [facility] 10/22 19:05 Order name: Procalcitonin; Complete Time: 20:07 [facility] 10/22 19:05 Order name: Protime (+INR); Complete Time: 19:34 [facility] 10/22 19:05 Order name: PTT, Activated Partial Thromb; Complete Time: 19:34 [facility] 10/22 20:45 Order name: CBC with Automated Diff [facility] 10/22 20:45 Order name: CBC with Automated Diff [facility] 10/22 20:45 Order name: Comprehensive Metabolic Panel [facility] 10/22 20:45 Order name: Comprehensive Metabolic Panel [facility] 10/22 20:45 Order name: Lipid Profile [facility] 10/22 20:45 Order name: Lipid Profile [facility] 10/22 21:26 Order name: Urine Dipstick--Ancillary (enter results) 4 10/22 18:31 Order name: EKG; Complete Time: 18:31 10/22 19:04 Order name: Chest Single View XRAY; Complete Time: 20:21 [facility] 10/22 19:04 Order name: Cardiac monitoring; Complete Time: 19:07 [facility] 10/22 19:04 Order name: EKG - Nurse/Tech; Complete Time: 19:07 [facility] 10/22 19:04 Order name: IV Saline Lock - Large Bore; Complete Time: 19:07 [facility] 10/22 19:04 Order name: Labs collected and sent; Complete Time: 19: [facility] 10/22 19:04 Order name: O2 Per Protocol; Complete Time: 19: [facility] 10/22 19:04 Order name: O2 Sat Monitoring; Complete Time: 19:08 [facility] 10/22 19:04 Order name: Urine Dipstick-Ancillary (obtain specimen); Complete Time: 21:26 [facility] 10/22 20:45 Order name: NPO [facility] 10/22 21:33 Order name: Urine Dipstick-Ancillary; Complete Time: 21:34 [facility] 10/22 21:35 Order name: Urine Culture [facility] Administered Medications: 19:15 Drug: Zofran 4 mg Route: IVP; Site: right forearm; ea 20:00 Follow up: Response: No adverse reaction ea 19:16 Drug: fentaNYL (PF) 50 mcg Route: IVP; Site: right forearm; ea 20:00 Follow up: Response: No adverse reaction; Pain is decreased ea 19:19 Drug: Acetaminophen 1000 mg Route: PO; ea 21:20 Follow up: Response: No adverse reaction ak1 19:19 Drug: NS 0.9% (30 ml/kg) 30 ml/kg Route: IV; Rate: bolus; Site: right forearm; ea 21:20 Follow up: IV Status: Completed infusion ak1 19:31 Drug: LevaQUIN 750 mg Volume: 150 ml; Route: IVPB; Infused Over: 90 mins; Site: right ea forearm; 21:19 Follow up: IV Status: Completed infusion ak1 20:26 Drug: fentaNYL (PF) 50 mcg Route: IVP; Site: right antecubital; ea 21:18 Follow up: Response: No adverse reaction ak1 Disposition: 10/23 15:59 Co-signature as Attending Physician, Ryan Hayes MD I agree with the assessment and kdr plan of care. Disposition: 10/22/18 20:31 Hospitalization ordered by Vik Cartagena for Observation. Preliminary diagnosis are Chronic obstructive pulmonary disease with (acute) exacerbation, Viral infection, unspecified, Fever, unspecified, Chest pain, unspecified, Urinary tract infection, site not specified. - Bed requested for Telemetry/MedSurg (observation). - Status is Observation. ea - Condition is Stable. - Problem is new. - Symptoms have improved. UTI on Admission? Yes Signatures: Dispatcher [employer] EDMS Mayra Forte RN RN mw Rittger, Kevin, MD MD kdr Roszak, Josh, PA PA jr8 Sheldon Garcia RN Dolores Jacques RN RN ea Krenek, Amber RN ak1 Corrections: (The following items were deleted from the chart) 10/22 20:31 20:31 Hospitalization Ordered by Vik Cartagena MD for Observation. Preliminary jr8 diagnosis is Chronic obstructive pulmonary disease with (acute) exacerbation; Viral infection, unspecified; Fever, unspecified. Bed requested for Telemetry/MedSurg (observation). Status is Observation. Condition is Stable. Problem is new. Symptoms have improved. UTI on Admission? No. jr8 21:11 20:31 10/22/2018 20:31 Hospitalization Ordered by Vik Cartagena MD for Observation. mw Preliminary diagnosis is Chronic obstructive pulmonary disease with (acute) exacerbation; Viral infection, unspecified; Fever, unspecified; Chest pain, unspecified. Bed requested for Telemetry/MedSurg (observation). Status is Observation. Condition is Stable. Problem is new. Symptoms have improved. UTI on Admission? No. jr8 21:30 19:04 Accucheck ordered. jr8 ak1 21:35 21:11 10/22/2018 20:31 Hospitalization Ordered by Vik Cartagena MD for Observation. jr8 Preliminary diagnosis is Chronic obstructive pulmonary disease with (acute) exacerbation; Viral infection, unspecified; Fever, unspecified; Chest pain, unspecified. Bed requested for Telemetry/MedSurg (observation). Status is Observation. Condition is Stable. Problem is new. Symptoms have improved. UTI on Admission? No. mw 23:16 21:35 10/22/2018 20:31 Hospitalization Ordered by Vik Cartagena MD for Observation. garret Preliminary diagnosis is Chronic obstructive pulmonary disease with (acute) exacerbation; Viral infection, unspecified; Fever, unspecified; Chest pain, unspecified; Urinary tract infection, site not specified. Bed requested for Telemetry/MedSurg (observation). Status is Observation. Condition is Stable. Problem is new. Symptoms have improved. UTI on Admission? Yes. jr8
--- NOTE | 2018-10-22 20:31 | ER ---
Nurse's Notes [facility] Name: Kanika Jon Age: 58 yrs Sex: Female : 1960 Arrival Date: 10/22/2018 Time: 18:24 Bed 4 Private MD: Giorgi Strickland E Diagnosis: Chronic obstructive pulmonary disease with (acute) exacerbation;Viral infection, unspecified;Fever, unspecified;Chest pain, unspecified;Urinary tract infection, site not specified Presentation: 10/22 18:31 Presenting complaint: Patient states: cough for 2 weeks and productive, yellow sputum, hj denies fever and chills; reports SOB;took breathing this AM [employer];. Transition of care: patient was not received from another setting of care. Onset of symptoms was October 22, 2018. Risk Assessment: Do you want to hurt yourself or someone else? Patient reports no desire to harm self or others. Initial Sepsis Screen: Does the patient meet any 2 criteria? No. Patient's initial sepsis screen is negative. Does the patient have a suspected source of infection? No. Patient's initial sepsis screen is negative. Care prior to arrival: None. 18:31 Method Of Arrival: Ambulatory 18:31 Acuity: N[place] 2 hj Triage Assessment: 18:33 General: Appears in no apparent distress. uncomfortable, Behavior is calm, cooperative, hj appropriate for age. Respiratory: Reports shortness of breath Onset: The symptoms/episode began/occurred gradually, the patient has mild shortness of breath. Historical: - Allergies: 18:32 Codeine; 18:32 HYDROCODONE; 18:32 hydromorphone HCl; hj - Home Meds: 18:32 Albuterol Inhl every 4-6 hours [Active]; Hydrochlorothiazide Oral once daily [Active]; hj Lexapro Oral [Active]; lisinopril Oral once daily [Active]; losartan Oral once daily [Active]; - PMHx: 18:32 COPD; Depression; Hypertension; osteoarthritis; hj - PSHx: 18:32 None; hj - Immunization history:: Adult Immunizations up to date. - Social history:: Smoking status: Patient uses tobacco products, Patient/guardian denies using alcohol. - Ebola Screening: : Patient negative for fever greater than or equal to 101.5 degrees Fahrenheit, and additional compatible Ebola Virus Disease symptoms Patient denies exposure to infectious person Patient denies travel to an Ebola-affected area in the 21 days before illness onset. Screenin:33 Abuse screen: Denies threats or abuse. Denies injuries from another. Nutritional hj screening: No deficits noted. Tuberculosis screening: No symptoms or risk factors identified. Fall Risk None identified. Assessment: 18:33 Pain: Complains of pain in chest. Cardiovascular: Rhythm is regular. Respiratory: hj Airway is patent Respiratory effort is even, unlabored, Respiratory pattern is regular, symmetrical, 19:53 General: Appears uncomfortable, Behavior is calm, cooperative, appropriate for age. ea Pain: Complains of pain in chest Pain does not radiate. Pain currently is 8 out of 10 on a pain scale. Neuro: Level of Consciousness is awake, alert, obeys commands, Oriented to person, place, time, situation. Cardiovascular: Heart tones S1 S2 present Patient's skin is warm and dry. Respiratory: Airway is patent Respiratory effort is even, unlabored, Respiratory pattern is regular, symmetrical, Breath sounds are diminished bilaterally. Derm: Skin is pink, warm \T\ dry. Musculoskeletal: Circulation, motion, and sensation intact. 20:00 Reassessment: Patient and/or family updated on plan of care and expected duration. Pain ea level reassessed. Patient is alert, oriented x 3, equal unlabored respirations, skin warm/dry/pink. 20:27 Reassessment: Patient and/or family updated on plan of care and expected duration. Pain ea level reassessed. Patient is alert, oriented x 3, equal unlabored respirations, skin warm/dry/pink. Complaining of pain, provider notified, medication administered, pt tolerated well. 21:07 Reassessment: Patient and/or family updated on plan of care and expected duration. Pain ea level reassessed. Patient is alert, oriented x 3, equal unlabored respirations, skin warm/dry/pink. 21:21 Reassessment: Patient appears in no apparent distress at this time. No changes from ak1 previously documented assessment. Patient and/or family updated on plan of care and expected duration. Pain level reassessed. Patient is alert, oriented x 3, equal unlabored respirations, skin warm/dry/pink. 22:26 Reassessment: Report given to Tamika BAXTER on fourth floor. ea 23:14 Reassessment: Patient and/or family updated on plan of care and expected duration. Pain ea level reassessed. Patient is alert, oriented x 3, equal unlabored respirations, skin warm/dry/pink. Pt taken via wheelchair per tech, accompanied by friend, tolerating well. Vital Signs: 18:33 BP 135 / 117; Pulse 98; Resp 22; Temp 100.0(O); Pulse Ox 83% on R/A; Weight 90.72 kg; hj Height 5 ft. 6 in. (167.64 cm); Pain 5/10; 18:37 Pulse Ox 90% on 3 lpm NC; hj 19:21 BP 118 / 76; Pulse 91; Resp 20; Pulse Ox 93% on 3 lpm NC; ea 20:15 BP 116 / 66; Pulse 91; Resp 20; Pulse Ox 93% on 3 lpm NC; ak1 21:22 BP 134 / 81; Pulse 91; Resp 20; Temp 98.5(TE); Pulse Ox 93% on 3 lpm NC; Pain 2/10; ak1 22:06 BP 121 / 66; Pulse 89; Resp 20; Pulse Ox 93% on 3 lpm NC; ea 23:00 BP 120 / 70; Pulse 80; Resp 20; Pulse Ox 94% on 2 lpm NC; ea 18:33 Body Mass Index 32.28 (90.72 kg, 167.64 cm) hj ED Course: 18:24 Patient arrived in ED. mr 18:24 Giorgi Strickland MD is Private Physician. mr 18:32 Triage completed. hj 18:33 Arm band placed on left wrist. hj 18:33 Patient has correct armband on for positive identification. Placed in gown. Bed in low hj position. Call light in reach. Side rails up X 1. 18:41 Dick Olivas PA is PHCP. jr8 18:41 Ryan Hayes MD is Attending Physician. jr8 18:45 Initial lab(s) drawn, by me, sent to lab. First set of blood cultures drawn by me. sg Inserted saline lock: 20 gauge in right forearm, using aseptic technique. Blood collected. 19:00 Second set of blood cultures drawn by me. sg 19:11 Bess Rodriguez, RN is Primary Nurse. ak1 19:38 Chest Single View XRAY In Process Unspecified. EDMS 20:30 Vik Cartagena MD is Hospitalizing Provider. jr8 21:21 No provider procedures requiring assistance completed. Patient admitted, IV remains in ak1 place. 21:23 Urine Microscopic Only Sent. ds4 Administered Medications: 19:15 Drug: Zofran 4 mg Route: IVP; Site: right forearm; ea 20:00 Follow up: Response: No adverse reaction ea 19:16 Drug: fentaNYL (PF) 50 mcg Route: IVP; Site: right forearm; ea 20:00 Follow up: Response: No adverse reaction; Pain is decreased ea 19:19 Drug: Acetaminophen 1000 mg Route: PO; ea 21:20 Follow up: Response: No adverse reaction ak1 19:19 Drug: NS 0.9% (30 ml/kg) 30 ml/kg Route: IV; Rate: bolus; Site: right forearm; ea 21:20 Follow up: IV Status: Completed infusion ak1 19:31 Drug: LevaQUIN 750 mg Volume: 150 ml; Route: IVPB; Infused Over: 90 mins; Site: right ea forearm; 21:19 Follow up: IV Status: Completed infusion ak1 20:26 Drug: fentaNYL (PF) 50 mcg Route: IVP; Site: right antecubital; ea 21:18 Follow up: Response: No adverse reaction ak1 Outcome: 20:31 Decision to Hospitalize by Provider. jr8 21:27 Condition: stable ak1 21:27 Instructed on the need for admit. 23:14 Admitted to Med/surg accompanied by tech, room 419, with chart, Report called to Tamika combs RN 23:16 Patient left the ED. garret Signatures: Dispatcher [employer] EDMS Reginaldo Bryant RN RN Sowmya Quevedo mr Dick Olivas, TRISTAN HUDSON jrRandy Martin ds4 Bess Rodriguez RN RN akSheldon Guillaume RN RN hj Antunez, Elena, RN RN ea Corrections: (The following items were deleted from the chart) 18:39 18:31 Acuity: [place] 3 hj darrin
[2018-10-22] MEDS ORDERED: MAGNESIUM HYDROXIDE 8% 30 ML PO PRN (20:42)
[2018-10-22] MEDS ORDERED: ACETAMINOPHEN 500 MG TAB PO PRN (20:42)
[2018-10-22] MEDS ORDERED: ALBUTEROL 2.5 MG/3 ML NEB SOL NEB SCH (21:00)
[2018-10-22 21:33] LABS: Urine Blood NEGATIVE (NEG); Urine Glucose NEGATIVE (NEG); Urine Protein NEGATIVE (NEG); Urine Specific Gravity 1.005 (1.005-1.030); Urine pH 6.5 (5.0-7.0)
[2018-10-22 21:39] LABS: Urine Bacteria >50 /HPF (<20); Urine Culture Reflex Order REFLEXED; Urine RBC <5 /HPF (NONE SEEN)
[2018-10-22] MEDS: IPRATROPIUM BROM 0.5MG/2.5ML NEB SCH (23:45)
[2018-10-22] MEDS: NA CHLORIDE 0.9% 1,000 ML IV SCH (23:47)
[2018-10-23] MEDS ORDERED: PIPER/TAZO/NS 3.375gm 3.375 GM/100 ML BAG IVPB ONE (01:46)
[2018-10-23] MEDS ORDERED: METHYLPREDNISOLONE 125 MG INJ IV ONE (01:46)
[2018-10-23] MEDS: ONDANSETRON 4 MG/2 ML VIAL IV PRN ×2 (01:53→11:53)
[2018-10-23] MEDS: FENTANYL CITR 100 MCG/2 ML IV PRN ×2 (01:53→07:21)
[2018-10-23] MEDS ORDERED: NA CHLORIDE 0.9% 100 ML ONE ×2 (02:20→05:18)
[2018-10-23] MEDS ORDERED: ALPRAZOLAM 1 MG TABLET PO PRN (03:00)
[2018-10-23] MEDS: IPRATROPIUM BROM 0.5MG/2.5ML NEB SCH ×2 (04:10→07:51)
[2018-10-23 04:14] LABS: Absolute Lymphocytes (CBC) 1.2 K/uL (0.7-4.9); Absolute Monocytes 0.3 K/uL (0.1-1.3); Absolute Neutrophil 3.4 K/uL (1.8-8.0); Basophils % 0.3 % (0-1.3); Eosinophils % 0.5 % (0-4.4); Hematocrit 47.4 % (36.0-45.0); Lymphocytes % 23.7 % (15.3-44.8); MPV 8.8 fL (7.6-11.3); RBC Red Blood Cell Count 4.92 M/uL (3.86-4.86)
[2018-10-23 04:24] LABS: ALT/SGPT 23 U/L (12-78); AST/SGOT 18 U/L (15-37); Albumin 3.5 g/dL (3.4-5.0); Alkaline Phosphatase 81 U/L (45-117); BUN Blood Urea Nitrogen 9 mg/dL (7-18); Bicarbonate 35 mmol/L (21-32); Bilirubin Total 0.3 mg/dL (0.2-1.0); Glucose Level 109 mg/dL (74-106); HDL Cholesterol 55 mg/dL (40-60); LDL Cholesterol, Calculated 59 (<130); Potassium 4.3 mmol/L (3.5-5.1); Protein, Total 6.7 g/dL (6.4-8.2); Sodium Level 142 mmol/L (136-145)
[2018-10-23] MEDS ORDERED: PIPER/TAZO/NS 3.375gm 3.375 GM/100 ML BAG ONE (05:28)
[2018-10-23] MEDS ORDERED: METHYLPREDNISOLONE 125 MG INJ IV SCH (06:00)
[2018-10-23] MEDS ORDERED: PIPER/TAZO/NS 3.375gm 3.375 GM/100 ML BAG IVPB SCH ×2 (06:00→09:00)
[2018-10-23] MEDS ORDERED: ALBUTEROL 2.5 MG/3 ML NEB SOL NEB PRN (08:04)
[2018-10-23] MEDS ORDERED: IPRATROPIUM BROM 0.5MG/2.5ML NEB PRN (08:04)
--- NOTE | 2018-10-23 08:47 | EKG ---
Test Date: 2018-10-22 Test Time: 18:28:13 [employer] Operator: MELIZA MEASUREMENT RESULTS: Intervals: Rate: 96 UT: 148 QRSD: 78 QT: 372 QTc: 469 [place]: P: 77 UT: 148 QRS: 232 T: 58 INTERPRETIVE STATEMENTS: Normal sinus rhythm Right superior axis deviation Low voltage QRS Cannot rule out Anterior infarct, age undetermined Abnormal ECG Compared to ECG 01/29/2018 17:54:58 Right superior axis now present Low QRS voltage now present Myocardial infarct finding still present Electronically Signed On 10-23-18 08:46:27 PERFORATOR TYPIST by Holger Merlos
[2018-10-23] MEDS: DULOXETINE 30 MG CAP PO SCH (09:07)
[2018-10-23] MEDS: ALPRAZOLAM 1 MG TABLET PO PRN ×2 (09:07→17:43)
[2018-10-23] MEDS: AMLODIPINE 10 MG TAB PO SCH (09:08)
[2018-10-23] MEDS: predniSONE 20 MG TAB PO SCH ×2 (09:08→21:20)
[2018-10-23] MEDS: LOSARTAN POTASSIUM 50 MG TABLET PO SCH (09:08)
[2018-10-23] MEDS: ENOXAPARIN 40 MG/0.4 ML SQ SCH (09:08)
--- NOTE | 2018-10-23 10:10 | P.HP ---
Certification for Inpatient Patient admitted to: Observation With expected LOS: <2 Midnights Patient will require the following post-hospital care: None Practitioner: I am a practitioner with admitting privileges, knowledge of patient current condition, hospital course, and medical plan of care. Services: Services provided to patient in accordance with Admission requirements found in Title 42 Section 412.3 of the Code of Federal Regulations Patient History Date of Service: 10/22/18 Reason for admission: COPD exacerbation History of Present Illness: Patient is a 58-year-old female with a longstanding history of COPD. She has a history of tobacco use and continues to smoke. She came in to get panic and hypoxic. She was having cough and congestion. She is also complaining of chronic pain and nausea. She is not really able to catch her breath and she is satting 60% on arrival to the floor. She was not on any oxygen initially. After placing her on 3 L her sats came up to 87%. We had to go up to 5 L to get her into the 90s. She will be admitted to the hospital for further treatment of her chronic COPD. Patient states that she lost her insurance or was unable to afford it because of the high cost. She went without foreign here and has not really followed up well. She does have insurance at this time and hopefully she will be able to continue following up as an outpatient. Allergies hydrocodone [Hydrocodone] Allergy (Intermediate, Verified 07/30/15 23:08) Itching hydromorphone HCl [From Dilaudid] Adverse Reaction (Mild, Verified 07/30/15 23: 08) Itching Codeine Allergy (Mild, Uncoded 07/20/17 23:52) Itching Hydrocodone-Acetaminophen Allergy (Uncoded 07/20/17 23:52) Itching Home Medications: Losartan Potassium 1 tab PO DAILY 10/21/16 ALPRAZolam [Alprazolam] 2 mg PO TID PRN 01/29/18 Amlodipine Besylate 10 mg PO DAILY 01/29/18 Duloxetine HCl 60 mg PO DAILY 01/29/18 Pravastatin Sodium 40 mg PO BEDTIME 01/29/18 - Past Medical/Surgical History Has patient received pneumonia vaccine in the past: Yes Diabetic: No -: Alcohol abuse -: HTN -: 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 -: Osteoarthritis -: History of diverticulitis -: Depression with anxiety -: GERD -: COPD -: smoker -: COPD -: Hyperlipidemia -: Tobacco abuse -: Hysterectomy -: Left knee surgery Psychosocial/ Personal History: Lives with mother. - Family History Mother Medical History: Cancer Father Notes: parkinson's dse - Social History Smoking Status: Heavy Tobacco smoker (>10 cigarettes/day) Alcohol use: Yes CD- Drugs: No Caffeine use: Yes Place of Residence: Home Review of Systems 10-point ROS is otherwise unremarkable Physical Examination - Vital Signs Temperature: 97.1 F Blood Pressure: 130/68 Pulse: 88 Respirations: 16 Pulse Ox (%): 94 - Physical Exam General: Alert, In no apparent distress, Oriented x3, Cooperative HEENT: Atraumatic, PERRLA, Mucous membr. moist/pink, EOMI, Sclerae nonicteric Neck: Supple, 2+ carotid pulse no bruit, No LAD, Without JVD or thyroid abnormality Respiratory: Diminished, Crackles/rales, Expiratory wheezes Cardiovascular: Regular rate/rhythm, Normal S1 S2, Systolic murmur Gastrointestinal: Normal bowel sounds, Soft and benign, Non-distended, No tenderness Musculoskeletal: No clubbing, No swelling, No tenderness Integumentary: No rashes Neurological: Normal gait, Normal speech, Normal strength at 5/5 x4 extr, Normal tone, Sensation intact, Cranial nerves 3-12 intact, Normal affect Lymphatics: No axilla or inguinal lymphadenopathy - Studies Laboratory Data (last 24 hrs) 10/22/18 19:00: PT 11.0, INR 0.93, APTT 30.3 10/22/18 18:45: WBC 5.9, Hgb 15.8 H, Hct 48.8 H, Plt Count 168 10/22/18 18:45: Sodium 137, Potassium 3.7, BUN 10, Creatinine 0.49 L, Glucose 95 , Total Bilirubin 0.5, AST 11 L, ALT 19, Alkaline Phosphatase 85, Lipase 70 L Microbiology Data (last 24 hrs): 10/22/18 19:15 Nasopharnyx Influenza Type A Antigen Screen - Final 10/22/18 19:15 Nasopharnyx Influenza Type B Antigen Screen - Final Assessment & Plan - Problems (Diagnosis) (1) Acute exacerbation of chronic obstructive pulmonary disease (COPD) Current Visit: Yes Status: Acute (2) Respiratory failure Current Visit: No Status: Acute Qualifiers: (3) Depression with anxiety Onset Date: 01/30/18 Current Visit: No Status: Chronic (4) Hypertension Onset Date: 07/20/15 Current Visit: No Status: Chronic Qualifiers: (5) Pulmonary hypertension Onset Date: 01/30/18 Current Visit: No Status: Chronic (6) Tobacco abuse Onset Date: 01/30/18 Current Visit: No Status: Chronic - Plan -nebs, steroids, and antibiotics -O2 per protocol. -pulmonary function testing -repeat chest x-ray if symptoms worsen -pulmonary consultation at the time of discharge to further evaluate her worsening hypoxemia -counseled regarding tobacco cessation - Advance Directives Does patient have a Living Will: No Does patient have a Durable POA for Healthcare: No - Code Status/Comfort Care Code Status Assessed: Yes Code Status: Full Code Critical Care: No Time Spent Managing PTS Care (In Minutes): 55
[2018-10-23] MEDS: NA CHLORIDE 0.9% 1,000 ML IV SCH (10:19)
--- NOTE | 2018-10-23 11:16 | P.PN ---
Subjective Date of Service: 10/23/18 Primary Care Provider: Dr. Strickland Chief Complaint: COPD exacerbation Subjective: Other (Slightly improved, still with wheezing.) Physical Examination - Vital Signs Temperature: 97.1 F Blood Pressure: 130/68 Pulse: 88 Respirations: 16 Pulse Ox (%): 94 - Physical Exam General: Alert, In no apparent distress, Oriented x3, Cooperative HEENT: Atraumatic Neck: Supple Respiratory: Expiratory wheezes, Inspiratory wheezes Cardiovascular: Normal pulses, Regular rate/rhythm Gastrointestinal: Normal bowel sounds, Soft and benign, Non-distended, No tenderness, No masses, No rebound, No guarding Musculoskeletal: No erythema, No tenderness, No warmth Integumentary: No tenderness/swelling, No erythema, No warmth, No cyanosis Neurological: Normal speech, Normal strength at 5/5 x4 extr, Normal tone, Normal affect Lymphatics: No axilla or inguinal lymphadenopathy - Studies Laboratory Data (last 24 hrs) 10/22/18 19:00: PT 11.0, INR 0.93, APTT 30.3 10/22/18 18:45: WBC 5.9, Hgb 15.8 H, Hct 48.8 H, Plt Count 168 10/22/18 18:45: Sodium 137, Potassium 3.7, BUN 10, Creatinine 0.49 L, Glucose 95 , Total Bilirubin 0.5, AST 11 L, ALT 19, Alkaline Phosphatase 85, Lipase 70 L Microbiology Data (last 24 hrs): 10/22/18 19:15 Nasopharnyx Influenza Type A Antigen Screen - Final 10/22/18 19:15 Nasopharnyx Influenza Type B Antigen Screen - Final Medications List Reviewed: Yes Assessment & Plan Discharge Plan: Home Plan to discharge in: 48 Hours Physician Review Additional Text: Impression: Dyspnea secondary to COPD exacerbation, advanced COPD oxygen-dependent Hypertension GERD Tobacco abuse Depression with anxiety Chronic pain Plan: Dyspnea secondary to COPD exacerbation, advanced COPD oxygen-dependent: Will continue with COPD treatment. Will maintain sats above 90%. Patient uses home oxygen. Will try to get her to baseline. Respiratory to continue to monitor closely. Anticipate discharge in the next 48 hr. I will turn the service over to Dr. Lind tomorrow. I will go over the plan of care with her. Hypertension: Continue with her blood pressure medication. Will monitor and address appropriately. GERD: Continue with medication. Tobacco abuse: Tobacco cessation addressed in detail. Depression with anxiety: Will continue with her medication. Chronic pain: Patient is seen by pain management. Will need to verify what she is using at home. Will provide Neurontin. Patient will need to follow up with pain management as an outpatient. Will limit IV pain medication. Time Spent Managing Pts Care (In Minutes): 55
[2018-10-23] MEDS ORDERED: FENTANYL CITR 100 MCG/2 ML IV PRN (11:34)
[2018-10-23] MEDS: NACHLORIDE 0.45% 1,000 ML IV SCH (11:53)
[2018-10-23] MEDS: GABAPENTIN 100 MG CAP PO PRN ×2 (11:53→21:20)
[2018-10-23 16:59] LABS: Arterial Blood Carboxyhemoglob 2.3 % (0-1.5); Blood Gas Oxyhemoglobin 84.8 % (94-97); Blood O2 Saturation 87.4 % (92-98.5)
[2018-10-23] MEDS: NICOTINE 21 MG/PAT TD SCH (17:43)
[2018-10-23] MEDS: ARFORMOTEROL TARTRATE 15 MCG/2 ML VIAL.NEB NEB SCH (21:15)
[2018-10-23] MEDS: ATORVASTATIN 10 MG TAB PO SCH (21:20)
[2018-10-23 21:52] LABS: Arterial Blood Carboxyhemoglob 2.1 % (0-1.5); Blood Gas Oxyhemoglobin 84.1 % (94-97); Blood O2 Saturation 86.5 % (92-98.5)
[2018-10-24] MEDS: ALPRAZOLAM 1 MG TABLET PO PRN ×3 (01:47→21:22)
[2018-10-24 05:07] LABS: Absolute Lymphocytes (CBC) 0.5 K/uL (0.7-4.9); Absolute Monocytes 0.4 K/uL (0.1-1.3); Absolute Neutrophil 5.8 K/uL (1.8-8.0); Basophils % 0.3 % (0-1.3); Hematocrit 42.6 % (36.0-45.0); MPV 8.7 fL (7.6-11.3); Monocytes % 5.4 % (3.3-12.3); RBC Red Blood Cell Count 4.39 M/uL (3.86-4.86)
[2018-10-24 05:20] LABS: BUN Blood Urea Nitrogen 13 mg/dL (7-18); Bicarbonate 37 mmol/L (21-32); Glucose Level 133 mg/dL (74-106); Magnesium 2.7 mg/dL (1.8-2.4); Phosphorus 2.6 mg/dL (2.5-4.9); Sodium Level 139 mmol/L (136-145)
[2018-10-24 05:57] LABS: Blood Morphology Comment NOT SEEN (NOT SEEN); Platelet Estimate ADEQ
[2018-10-24] MEDS: PANTOPRAZOLE 40MG TABLET PO SCH (06:12)
[2018-10-24] MEDS: ENOXAPARIN 40 MG/0.4 ML SQ SCH (08:13)
[2018-10-24] MEDS: DULOXETINE 30 MG CAP PO SCH (08:14)
[2018-10-24] MEDS: AMLODIPINE 10 MG TAB PO SCH (08:14)
[2018-10-24] MEDS: NACHLORIDE 0.45% 1,000 ML IV SCH (08:15)
[2018-10-24] MEDS: LOSARTAN POTASSIUM 50 MG TABLET PO SCH (08:15)
[2018-10-24] MEDS: NICOTINE 21 MG/PAT TD SCH (08:15)
[2018-10-24] MEDS: predniSONE 20 MG TAB PO SCH ×2 (08:15→21:22)
--- NOTE | 2018-10-24 08:18 | RAD REPORT ---
EXAM DESCRIPTION: RAD - Chest Single View - 10/24/2018 7:03 am CLINICAL HISTORY: COPD, shortness of breath COMPARISON: October 22 TECHNIQUE: PA and lateral views of the chest were obtained. FINDINGS: The lungs are underinflated. Large body habitus, portable technique and shallow inspiratio n accentuate chest findings. New infiltrate is unlikely. Granuloma again noted lower left lung field. No significant failure or volume overload. Heart size is normal and central vasculature is within normal limits. No pleural effusion or pneumothorax seen. No acute bony finding noted. No aortic ab normality. IMPRESSION: No new or progressive cardiopulmonary finding seen. Vasculature and lung markings are accentuated by body habitus, shallow inspiration and under penetrat ed portable technique.
[2018-10-24] MEDS: ONDANSETRON 4 MG/2 ML VIAL IV PRN (08:48)
[2018-10-24 09:00] LABS: Arterial Blood Carboxyhemoglob 1.6 % (0-1.5); Blood Gas Oxyhemoglobin 87.6 % (94-97); Blood O2 Saturation 89.9 % (92-98.5)
[2018-10-24] MEDS: ARFORMOTEROL TARTRATE 15 MCG/2 ML VIAL.NEB NEB SCH ×2 (09:01→19:20)
--- NOTE | 2018-10-24 12:07 | P.CNS ---
Primary Care Provider: Dr. Strickland Chief Complaint: COPD exacerbation History of Present Illness: Patient is 58 years of age with a longstanding history of COPD continues to smoke admitted with cough and congestion he has chronic pain there with hypoxic hypercapnic respiratory failure non compliant with her medication really alert responsive cooperative on BiPAP Allergies hydrocodone [Hydrocodone] Allergy (Intermediate, Verified 07/30/15 23:08) Itching hydromorphone HCl [From Dilaudid] Adverse Reaction (Mild, Verified 07/30/15 23: 08) Itching Codeine Allergy (Mild, Uncoded 07/20/17 23:52) Itching Hydrocodone-Acetaminophen Allergy (Uncoded 07/20/17 23:52) Itching Home Medications: Losartan Potassium 1 tab PO DAILY 10/21/16 ALPRAZolam [Alprazolam] 2 mg PO TID PRN 01/29/18 Amlodipine Besylate 10 mg PO DAILY 01/29/18 Duloxetine HCl 60 mg PO DAILY 01/29/18 Pravastatin Sodium 40 mg PO BEDTIME 01/29/18 - Past Medical/Surgical History Diabetic: No -: Alcohol abuse -: HTN -: 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 -: Osteoarthritis -: History of diverticulitis -: Depression with anxiety -: GERD -: COPD -: smoker -: COPD -: Hyperlipidemia -: Tobacco abuse -: Hysterectomy -: Left knee surgery Psychosocial/ Personal History: Lives with mother. - Family History Mother Medical History: Cancer Father Notes: parkinson's dse - Social History Smoking Status: Current every day smoker Alcohol use: Yes CD- Drugs: No Caffeine use: Yes Place of Residence: Home Review of Systems 10-point ROS is otherwise unremarkable General: Weakness Respiratory: Shortness of Breath Physical Examination Temp Pulse Resp BP Pulse Ox 98 F 76 17 124/74 94 10/24/18 04:00 10/24/18 08:14 10/24/18 07:00 10/24/18 08:14 10/24/18 07:00 General: Alert, In no apparent distress, Oriented x3 HEENT: Atraumatic Neck: Supple Respiratory: Diminished, Expiratory wheezes Cardiovascular: No edema, Regular rate/rhythm Laboratory Data (last 24 hrs) 10/24/18 04:48: Sodium 139, Potassium 5.0, BUN 13, Creatinine 0.31 L, Glucose 133 H, Phosphorus 2.6, Magnesium 2.7 H 10/24/18 04:48: WBC 6.6 D, Hgb 13.6, Hct 42.6, Plt Count 166 - Problems (1) Respiratory failure Current Visit: Yes Status: Acute Plan: Patient is 58 years of age with a history of COPD admitted with hypoxic hypercapnic respiratory failure no evidence of sepsis labs reviewed chest x-ray shows COPD changes labs reviewed continue with maximum bronchodilators titrate sat to 90% agree with stopping antibiotics Atrovent q. 6 scheduled titrate sat to around 80 8-90% Qualifiers: Respiratory failure complication: hypoxia and hypercapnia
[2018-10-24] MEDS: IPRATROPIUM BROM 0.5MG/2.5ML NEB SCH ×2 (14:14→19:20)
--- NOTE | 2018-10-24 19:17 | P.PN ---
Subjective Date of Service: 10/24/18 Primary Care Provider: Dr. Strickland Chief Complaint: COPD exacerbation Patient seen and examined at bedside with RN. Chart reviewed. Case discussed with pulmonology at this time. The patient was weaned off of BiPAP this morning to nasal cannula however patient sprayed perfume in her room and started having shortness of breath immediately after that. Patient has saturations down to 70% and was not able to bring it up this patient was placed back on BiPAP this morning. Continued on BiPAP now with no complications noted. Review of Systems 10-point ROS is otherwise unremarkable Physical Examination - Vital Signs Temperature: 97.9 F Blood Pressure: 105/54 Pulse: 95 Respirations: 23 Pulse Ox (%): 90 - Physical Exam General: Alert, Mild distress HEENT: Atraumatic, PERRLA, EOMI Neck: Supple, JVD not distended Respiratory: Normal air movement, Expiratory wheezes, Inspiratory wheezes Cardiovascular: Regular rate/rhythm, Normal S1 S2 Gastrointestinal: Normal bowel sounds, No tenderness Musculoskeletal: No tenderness Integumentary: No rashes Neurological: Normal speech, Normal tone, Normal affect Lymphatics: No axilla or inguinal lymphadenopathy - Studies Laboratory Data (last 24 hrs) 10/24/18 04:48: Sodium 139, Potassium 5.0, BUN 13, Creatinine 0.31 L, Glucose 133 H, Phosphorus 2.6, Magnesium 2.7 H 10/24/18 04:48: WBC 6.6 D, Hgb 13.6, Hct 42.6, Plt Count 166 Medications List Reviewed: Yes Assessment And Plan - Plan Impression Acute respiratory failure most likely secondary to COPD exacerbation: -BiPAP at this time. Will continue with duo nebs, steroids, BiPAP -Will maintain sats above 88-92%. -Patient uses home oxygen. -pulmonology consulted appreciated recommendations at this time Hypertension: -Continue with her blood pressure medication. Will monitor and address appropriately. GERD: -Continue with medication. Tobacco abuse: -Tobacco cessation addressed in detail. Depression with anxiety: -Will continue with her medication. Chronic pain: -Patient is seen by pain management. Will need to verify what she is using at home. Will provide Neurontin. Patient will need to follow up with pain management as an outpatient. Disposition: Pending clinical improvement at this time. Will continue to follow patient in the ICU at this time. Once able to weaned off of BiPAP will transfer to the floor anticipate discharge in 24-48 hr Discharge Plan: Home Plan to discharge in: Greater than 2 days - Code Status/Comfort Care Code Status Assessed: Yes Critical Care: No
[2018-10-24] MEDS: GABAPENTIN 100 MG CAP PO PRN (21:21)
[2018-10-24] MEDS: ATORVASTATIN 10 MG TAB PO SCH (21:22)
[2018-10-25] MEDS: ONDANSETRON 4 MG/2 ML VIAL IV PRN (00:23)
[2018-10-25] MEDS: IPRATROPIUM BROM 0.5MG/2.5ML NEB SCH ×3 (01:10→13:50)
[2018-10-25] MEDS: NACHLORIDE 0.45% 1,000 ML IV SCH (04:43)
[2018-10-25 05:32] LABS: Absolute Lymphocytes (CBC) 0.7 K/uL (0.7-4.9); Absolute Monocytes 0.3 K/uL (0.1-1.3); Absolute Neutrophil 5.7 K/uL (1.8-8.0); Basophils % 0.2 % (0-1.3); Hematocrit 45.1 % (36.0-45.0); Lymphocytes % 10.2 % (15.3-44.8); MPV 8.8 fL (7.6-11.3); Monocytes % 4.5 % (3.3-12.3); RBC Red Blood Cell Count 4.69 M/uL (3.86-4.86)
[2018-10-25] MEDS: PANTOPRAZOLE 40MG TABLET PO SCH (05:45)
[2018-10-25 06:10] LABS: BUN Blood Urea Nitrogen 10 mg/dL (7-18); Glucose Level 124 mg/dL (74-106); Magnesium 2.7 mg/dL (1.8-2.4); Sodium Level 139 mmol/L (136-145)
[2018-10-25 06:18] LABS: Bicarbonate 42 mmol/L (21-32)
[2018-10-25] MEDS: ARFORMOTEROL TARTRATE 15 MCG/2 ML VIAL.NEB NEB SCH (08:00)
--- NOTE | 2018-10-25 08:16 | P.PN ---
Subjective Date of Service: 10/25/18 Primary Care Provider: Dr. Strickland Chief Complaint: COPD exacerbation Subjective: Improving (Patient is doing better apparently she was using her bronchodilators on a p.r.n. basis at home) Review of Systems General: Weakness Respiratory: Shortness of Breath Physical Examination - Vital Signs Temperature: 98.6 F Blood Pressure: 151/69 Pulse: 80 Respirations: 15 Pulse Ox (%): 97 - Physical Exam General: Alert, Oriented x3 Respiratory: Expiratory wheezes Cardiovascular: No edema, Regular rate/rhythm, Normal S1 S2 - Studies Medications List Reviewed: Yes Assessment & Plan - Problems (Diagnosis) (1) Respiratory failure Current Visit: Yes Status: Acute Plan: Patient is 58 years of age admitted with acute on chronic respiratory failure right now she has no insurance I have instructed the patient to use her Brovana twice a day on a regular basis and Spiriva use albuterol on a p.r.n. basis prednisone reduced to 10 mg twice a day titrate sat to 88-90% Patient can be discharged home to follow up with me in November once she has a Medicare insurance he probably qualify for noninvasive ventilator console not to smoke Qualifiers: Respiratory failure complication: hypoxia and hypercapnia Physician Review Additional Text: Impression: Dyspnea secondary to COPD exacerbation, advanced COPD oxygen-dependent Hypertension GERD Tobacco abuse Depression with anxiety Chronic pain Plan: Dyspnea secondary to COPD exacerbation, advanced COPD oxygen-dependent: Will continue with COPD treatment. Will maintain sats above 90%. Patient uses home oxygen. Will try to get her to baseline. Respiratory to continue to monitor closely. Anticipate discharge in the next 48 hr. I will turn the service over to Dr. Lind tomorrow. I will go over the plan of care with her. Hypertension: Continue with her blood pressure medication. Will monitor and address appropriately. GERD: Continue with medication. Tobacco abuse: Tobacco cessation addressed in detail. Depression with anxiety: Will continue with her medication. Chronic pain: Patient is seen by pain management. Will need to verify what she is using at home. Will provide Neurontin. Patient will need to follow up with pain management as an outpatient. Will limit IV pain medication.
[2018-10-25] MEDS: DULOXETINE 30 MG CAP PO SCH (08:17)
[2018-10-25] MEDS: LOSARTAN POTASSIUM 50 MG TABLET PO SCH (08:17)
[2018-10-25] MEDS: ENOXAPARIN 40 MG/0.4 ML SQ SCH (08:18)
[2018-10-25] MEDS: AMLODIPINE 10 MG TAB PO SCH (08:18)
[2018-10-25] MEDS: NICOTINE 21 MG/PAT TD SCH (08:18)
[2018-10-25] MEDS: ALPRAZOLAM 1 MG TABLET PO PRN (08:18)
[2018-10-25 08:44] VITALS: O2SAT 90
[2018-10-25] MEDS ORDERED: predniSONE 10 MG TAB PO SCH (09:00)
[2018-10-25] MEDS ORDERED: predniSONE 20 MG TAB PO SCH (09:00)
[2018-10-25] MEDS ORDERED: CEFTRIAXONE/SWI 1gm 1 GM/10 ML SYR IV SCH (09:00)
[2018-10-25 13:10] VITALS: BMI 32.3
[2018-10-25] MEDS ORDERED: IPRATROPIUM BROM 0.5MG/2.5ML NEB SCH (14:00)
[2018-10-25 16:28] VITALS: BP 122/71; TEMP 98.3
--- NOTE | 2018-10-25 17:22 | P.DS ---
Admission Date: 10/24/18 Discharge Date: 10/25/18 Primary Care Provider: Dr. Strickland Disposition: ROUTINE DISCHARGE Discharge Condition: GOOD Reason for Admission: COPD exacerbation Consultations: Pulmonology Brief History of Present Illness: Patient is a 58-year-old female with a longstanding history of COPD. She has a history of tobacco use and continues to smoke. She came in to get panic and hypoxic. She was having cough and congestion. She is also complaining of chronic pain and nausea. She is not really able to catch her breath and she is satting 60% on arrival to the floor. She was not on any oxygen initially. After placing her on 3 L her sats came up to 87%. We had to go up to 5 L to get her into the 90s. She will be admitted to the hospital for further treatment of her chronic COPD. Patient states that she lost her insurance or was unable to afford it because of the high cost. She went without foreign here and has not really followed up well. She does have insurance at this time and hopefully she will be able to continue following up as an outpatient. Hospital Course: Discharge diagnosis: Acute respiratory failure most likely secondary to COPD exacerbation: Hypertension: GERD: Tobacco abuse: Depression with anxiety: Chronic pain: Hospital Course: Overall during the hospital stay patient remained stable Patient was initially admitted to the hospital for acute on chronic respiratory failure most likely secondary to COPD exacerbation secondary to hypercapnia. Patient was initially admitted to the regular floor and was transferred to the ICU for further care and was placed on BiPAP. Patient had marked improvement in her symptoms. Patient was also started on duo nebs, steroids, pulmonology was consulted as well. Patient had marked improvement in her symptoms after was placed on BiPAP and was weaned off to nasal cannula successfully. At that time patient was transferred to the regular floor where she did well overall and thus was discharged home under stable condition. Patient was also taking high doses of pain medication and thus was asked to stop taking the high-dose pain medication and only use medication as prescribed by her pain management doctor. Patient does have a COPD oxygen dependent and would benefit from noninvasive ventilator for her hypercapnia however patient is currently on funded and noninvasive positive pressure ventilator cannot be arranged. Patient stated that she will be getting her Medicare in November and would like to get that arranged at that time and will continue using her home oxygen at this time. Patient then was discharged home under stable condition was asked to follow up with pulmonology in about 1-2 days post discharge. Patient was asked to continue taking the prednisone as well and inhalers along with her oxygen when she is at home. Patient demonstrated understanding and thus was discharged home under stable condition Vital Signs/Physical Exam: Temp Pulse Resp BP Pulse Ox 98.3 F 87 20 122/71 89 L 10/25/18 16:00 10/25/18 16:00 10/25/18 16:00 10/25/18 16:00 10/25/18 16:00 General: Alert, In no apparent distress HEENT: Atraumatic, PERRLA, EOMI Neck: Supple, JVD not distended Respiratory: Clear to auscultation bilaterally, Normal air movement Cardiovascular: Regular rate/rhythm, Normal S1 S2 Gastrointestinal: Normal bowel sounds, No tenderness Musculoskeletal: No tenderness Integumentary: No rashes Neurological: Normal speech, Normal tone, Normal affect Lymphatics: No axilla or inguinal lymphadenopathy Laboratory Data at Discharge: WBC 6.7 K/uL (4.3-10.9) 10/25/18 05:05 Hgb 14.9 g/dL (12.0-15.0) 10/25/18 05:05 Hct 45.1 % (36.0-45.0) H 10/25/18 05:05 Plt Count 182 K/uL (152-406) 10/25/18 05:05 PT 11.0 SECONDS (9.5-12.5) 10/22/18 19:00 INR 0.93 10/22/18 19:00 APTT 30.3 SECONDS (24.3-36.9) 10/22/18 19:00 Sodium 139 mmol/L (136-145) 10/25/18 05:05 Potassium 5.0 mmol/L (3.5-5.1) 10/25/18 05:05 BUN 10 mg/dL (7-18) 10/25/18 05:05 Creatinine 0.40 mg/dL (0.55-1.3) L 10/25/18 05:05 Glucose 124 mg/dL (74-106) H 10/25/18 05:05 Phosphorus 2.6 mg/dL (2.5-4.9) 10/24/18 04:48 Magnesium 2.7 mg/dL (1.8-2.4) H 10/25/18 05:05 Total Bilirubin 0.3 mg/dL (0.2-1.0) 10/23/18 03:28 AST 18 U/L (15-37) 10/23/18 03:28 ALT 23 U/L (12-78) 10/23/18 03:28 Alkaline Phosphatase 81 U/L (45-117) 10/23/18 03:28 Triglycerides 341 mg/dL (<150) H 10/23/18 03:28 Cholesterol 182 mg/dL (<200) 10/23/18 03:28 HDL Cholesterol 55 mg/dL (40-60) 10/23/18 03:28 Cholesterol/HDL Ratio 3.31 10/23/18 03:28 Lipase 70 U/L (73-393) L 10/22/18 18:45 Home Medications: Losartan Potassium 1 tab PO DAILY 10/21/16 ALPRAZolam [Alprazolam] 2 mg PO TID PRN 01/29/18 Amlodipine Besylate 10 mg PO DAILY 01/29/18 Duloxetine HCl 60 mg PO DAILY 01/29/18 Pravastatin Sodium 40 mg PO BEDTIME 01/29/18 Amox/Clavulanate [Augmentin 875-125 Tab] 1 each PO BID #14 tab 10/25/18 Arformoterol Tartrate [Brovana] 15 mcg NEB BIDRESP #1 vial.neb 10/25/18 Gabapentin [Neurontin*] 200 mg PO TID PRN #90 cap 10/25/18 predniSONE [Deltasone*] 10 mg PO BID #10 tab 10/25/18 New Medications: Amox/Clavulanate [Augmentin 875-125 Tab] 1 each PO BID #14 tab Arformoterol Tartrate [Brovana] 15 mcg NEB BIDRESP #1 vial.neb Gabapentin [Neurontin*] 200 mg PO TID PRN #90 cap PRN Reason: Pain predniSONE [Deltasone*] 10 mg PO BID #10 tab Patient Discharge Instructions: Please f.u with Pulmonology in 1 to 2 week post discharge. -You will need to be setup to receive Non invasive ventilator due to your COPD. Diet: Regular Activity: Ad rodrick Followup: Rony Jones MD [ACTIVE - CAN ADMIT] - 1 Week (Call for appointment)
== END 2018-10-25 18:51 | disposition home or self-care (01) | DRG 189 ==
LOC: ER 18:19 → ERHOLD 20:59 → 4TH 21:36 → 3RD-ICU 10-23 17:24 → OBSVTOIN 10-24 07:06 → 4TH 10-25 12:25
PROVIDERS: ADMIT Hospitalist; ATTEND Family Medicine
PROC: 5A09357 Assistance with Respiratory Ventilation, Less than 24 Consecutive Hours, Continuous Positive Airway Pressure (ICD-10-PCS; principal; 2018-10-23)
DX: J96.22 Acute and chronic respiratory failure with hypercapnia (principal); J44.1 Chronic obstructive pulmonary disease with (acute) exacerbation; J96.21 Acute and chronic respiratory failure with hypoxia; I27.20 Pulmonary hypertension, unspecified; I10 Essential (primary) hypertension; M47.9 Spondylosis, unspecified; K21.9 Gastro-esophageal reflux disease without esophagitis; E78.5 Hyperlipidemia, unspecified; F41.8 Other specified anxiety disorders; M19.90 Unspecified osteoarthritis, unspecified site; G89.29 Other chronic pain; F10.10 Alcohol abuse, uncomplicated; F17.200 Nicotine dependence, unspecified, uncomplicated; Z99.81 Dependence on supplemental oxygen
CPT/HCPCS: 36415; 71045; 80048; 80053; 80061; 80076; 81003; 81015; 82550; 82805; 83605; 83690; 83735; 84100; 84145; 84484; 85025; 85610; 85730; 87040; 87077; 87086; 87088; 87186; 87804; 93005; 94640; 94660; 94760; 99285; J0696; J1650; J2405; J2543; J2930; J3010; J7030; J7512; J7605

== ENCOUNTER 2018-12-29 15:56 | Inpatient (IN) | payer OTHER ==
[2018-12-29] MEDS ORDERED: IPRATROPIUM BROM 0.5MG/2.5ML ONE ×2 (16:50→19:18)
[2018-12-29] MEDS ORDERED: ALBUTEROL 2.5 MG/3 ML NEB SOL ONE ×2 (16:50→19:18)
--- OUTSIDE RECORDS SUMMARY | 2018-12-29 16:53 | XMS REPORT ---
[...] Status Dosage System Date Date Chantix Continuing [facility] [id number] 1 MG Oral Active TAKE 1 Month Cullen TABLET BY MOUTH TWICE A DAY Cyclobenzaprine HCl [facility] [id number] 10 MG Oral Active TAKE 1 TABLET BY MOUTH TWICE DAILY NEEDED Ventolin HFA [facility] [id number] 108 (90 Base) Active USE 2 MCG/ACT PUFFS Inhalation NEEDED EVERY 6 HORS Trazodone HCl [facility] [id number] 150 MG Oral Active TAKE 1 TABLET BY MOUTH AT BEDTIME BuPROPion HCl [facility] [id number] 100 MG Oral Active TAKE 1 TABLET BY MOUTH ONCE A DAY Duloxetine HCl [facility] [id number] 60 MG Oral Active TAKE 1 CAPSULE BY MOUTH ONCE A DAY Hydrochlorothiazide [facility] [id number] 25 MG Oral Active TAKE 1 TABLET BY MOUTH IN ONCE EVERY MORNING Temazepam [facility] [id number] 30 MG Oral Active (Schedule IV Drug) TAKE 1 CAPSULE BY MOUTH NEEDED AT BEDTIME Pravastatin Sodium [facility] [id number] 40 MG Oral Active TAKE 1 TABLET BY MOUTH AT BEDTIME Losartan Potassium [facility] [id number] 50 MG Oral Active TAKE 1 TABLET BY MOUTH ONCE A DAY Alprazolam [facility] [id number] 2 MG Oral Active (Schedule IV Drug) TAKE 1 TABLET BY MOUTH TWICE DAILY Amlodipine Besylate [facility] [id number] 10 MG Oral Active TAKE 1 TABLET BY MOUTH ONCE A DAY Results No Known Results Summary Purpose eClinicalWorks Submission
--- OUTSIDE RECORDS SUMMARY | 2018-12-29 16:54 | XMS REPORT ---
:1960 Author Organization e[employer]Works Care Team Providers Name Role Phone Jarek Harris Provider Role Unavailable Allergies, Adverse Reactions, Alerts Substance Reaction Event Type tramadol Info Not Available Drug Allergy Trazodone HCl Info Not Available Drug Allergy Lyrica Info Not Available Drug Allergy Problems Problem Type Condition Code Onset Dates Condition Status Problem Sciatica, right side M54.31 Active Problem Effusion of bursa of left knee M25.462 Active Problem Effusion of knee joint right M25.461 Active Problem Pain in left knee M25.562 Active Assessment Effusion of left knee M25.462 Active Problem Other bursitis of knee, right knee M70.51 Active Assessment Effusion, right knee M25.461 Active Assessment Internal derangement of right knee M23.91 Active Problem Pain in right knee M25.561 Active Problem Primary osteoarthritis of both M17.0 Active knees Problem Right sided sciatica M54.31 Active Problem Other bursitis of knee, left knee M70.52 Active Problem Localized edema R60.0 Active Assessment Acute pain of left knee M25.562 Active Assessment Unilateral primary osteoarthritis, M17.12 Active left knee Assessment Acute pain of right knee M25.561 Active Problem Internal derangement of right knee M23.91 Active Problem Acute pain of right knee M25.561 Active Assessment Sciatica, left side M54.32 Active Problem Effusion, right knee M25.461 Active Problem Acute pain of left knee M25.562 Active Assessment Sciatica, right side M54.31 Active Problem Unilateral primary osteoarthritis, M17.12 Active left knee Problem Sciatica, left side M54.32 Active Medications Medication Code Code Instructions Start End Status Dosage System Date Date Chantix Continuing [facility] 32716499195 1 MG Oral Active TAKE 1 Month Cullen TABLET BY MOUTH TWICE A DAY BuPROPion HCl ND 15122048160 100 MG Oral Active TAKE 1 TABLET BY MOUTH ONCE A DAY Hydrochlorothiazide ND 22894770427 25 MG Oral Active TAKE 1 TABLET BY MOUTH IN ONCE EVERY MORNING Pravastatin Sodium [facility] 44565435902 40 MG Oral Active TAKE 1 TABLET BY MOUTH AT BEDTIME Ventolin HFA [facility] 41816998835 108 (90 Base) Active USE 2 MCG/ACT PUFFS Inhalation NEEDED EVERY 6 HORS Duloxetine HCl [facility] 55573233098 60 MG Oral Active TAKE 1 CAPSULE BY MOUTH ONCE A DAY Cyclobenzaprine HCl [facility] 11597008836 10 MG Oral Active TAKE 1 TABLET BY MOUTH TWICE DAILY NEEDED Amlodipine Besylate [facility] 65059085134 10 MG Oral Active TAKE 1 TABLET BY MOUTH ONCE A DAY Trazodone HCl [facility] 14618547270 150 MG Oral Active TAKE 1 TABLET BY MOUTH AT BEDTIME Losartan Potassium [facility] 76200275933 50 MG Oral Active TAKE 1 TABLET BY MOUTH ONCE A DAY Temazepam [facility] 61070925633 30 MG Oral Active (Schedule IV Drug) TAKE 1 CAPSULE BY MOUTH NEEDED AT BEDTIME Alprazolam [facility] 11897300969 2 MG Oral Active (Schedule IV Drug) TAKE 1 TABLET BY MOUTH TWICE DAILY Results No Known Results Summary Purpose eClinicalWorks Submission
--- OUTSIDE RECORDS SUMMARY | 2018-12-29 16:54 | XMS REPORT ---
[...] Problem Pain in left knee M25.562 Active Problem Other bursitis of knee, right knee M70.51 Active Problem Pain in right knee M25.561 Active Problem Primary osteoarthritis of both M17.0 Active knees Problem Right sided sciatica M54.31 Active Problem Other bursitis of knee, left knee M70.52 Active Problem Localized edema R60.0 Active Problem Internal derangement of right knee M23.91 Active Problem Acute pain of right knee M25.561 Active Problem Effusion, right knee M25.461 Active Problem Acute pain of left knee M25.562 Active Problem Unilateral primary osteoarthritis, M17.12 Active left knee Problem Sciatica, left side M54.32 Active Medications No Known Medications Results No Known Results Summary Purpose eClinicalWorks Submission
--- OUTSIDE RECORDS SUMMARY | 2018-12-29 16:54 | XMS REPORT ---
[...] Pain in left knee M25.562 Active Assessment Right sided sciatica M54.31 Active Problem Other bursitis of knee, right knee M70.51 Active Assessment Effusion of knee joint right M25.461 Active Assessment Effusion of bursa of left knee M25.462 Active Problem Pain in right knee M25.561 Active Problem Primary osteoarthritis of both M17.0 Active knees Problem Right sided sciatica M54.31 Active Problem Other bursitis of knee, left knee M70.52 Active Problem Localized edema R60.0 Active Assessment Pain in right knee M25.561 Active Assessment Localized edema R60.0 Active Assessment Pain in left knee M25.562 Active Problem Internal derangement of right knee M23.91 Active Problem Acute pain of right knee M25.561 Active Assessment Primary osteoarthritis of left knee M17.12 Active Problem Effusion, right knee M25.461 Active Problem Acute pain of left knee M25.562 Active Assessment Primary osteoarthritis of right M17.11 Active knee Problem Unilateral primary osteoarthritis, M17.12 Active left knee Problem Sciatica, left side M54.32 Active Medications Medication Code Code Instructions Start End Status Dosage System Date Date BuPROPion HCl [facility] 44440379988 100 MG Oral Active TAKE 1 TABLET BY MOUTH ONCE A DAY Chantix Continuing ND 62492078114 1 MG Oral Active TAKE 1 Month Cullen TABLET BY MOUTH TWICE A DAY Losartan Potassium ND 90595640164 50 MG Oral Active TAKE 1 TABLET BY MOUTH ONCE A DAY Pravastatin Sodium ND 63833403175 40 MG Oral Active TAKE 1 TABLET BY MOUTH AT BEDTIME Valium ND 77402032076 2 MG Orally 1 Dec 06, Active 1 tablet PO 30 MIN 2018 as needed PRIOR TO MRI SCAN Alprazolam [facility] 78460234866 2 MG Oral Active (Schedule IV Drug) TAKE 1 TABLET BY MOUTH TWICE DAILY Duloxetine HCl [facility] 10932822507 60 MG Oral Active TAKE 1 CAPSULE BY MOUTH ONCE A DAY Trazodone HCl [facility] 94148629256 150 MG Oral Active TAKE 1 TABLET BY MOUTH AT BEDTIME Amlodipine Besylate [facility] 19936963514 10 MG Oral Active TAKE 1 TABLET BY MOUTH ONCE A DAY Hydrochlorothiazide [facility] 48872388061 25 MG Oral Active TAKE 1 TABLET BY MOUTH IN ONCE EVERY MORNING Temazepam [facility] 63964447325 30 MG Oral Active (Schedule IV Drug) TAKE 1 CAPSULE BY MOUTH NEEDED AT BEDTIME Ventolin HFA [facility] 71608374414 108 (90 Base) Active USE 2 MCG/ACT PUFFS Inhalation NEEDED EVERY 6 HORS MethylPREDNISolone [facility] 61428211679 4 MG Orally Dec 06Nov Active as 2018 Cyclobenzaprine HCl [facility] 66986018415 10 MG Oral Active TAKE 1 TABLET BY MOUTH TWICE DAILY NEEDED Results No Known Results Summary Purpose eClinicalWorks Submission
--- OUTSIDE RECORDS SUMMARY | 2018-12-29 16:54 | XMS REPORT ---
[...] Pain in left knee M25.562 Active Assessment Rupture of anterior cruciate S83.512A Active ligament of left knee, initial encounter Problem Other bursitis of knee, right knee M70.51 Active Assessment Tear of lateral collateral S83.422A Active ligament of left knee, initial encounter Assessment Tear of medial meniscus of right S83.241A Active knee, unspecified tear type, unspecified whether old or current tear, initial encounter Problem Pain in right knee M25.561 Active Problem Primary osteoarthritis of both M17.0 Active knees Problem Right sided sciatica M54.31 Active Problem Other bursitis of knee, left knee M70.52 Active Problem Localized edema R60.0 Active Assessment Pain in right knee M25.561 Active Assessment Primary osteoarthritis of both M17.0 Active knees Assessment Pain in left knee M25.562 Active Problem Internal derangement of right knee M23.91 Active Problem Acute pain of right knee M25.561 Active Assessment Effusion, left knee M25.462 Active Problem Effusion, right knee M25.461 Active Problem Acute pain of left knee M25.562 Active Assessment Effusion, right knee M25.461 Active Problem Unilateral primary osteoarthritis, M17.12 Active left knee Problem Sciatica, left side M54.32 Active Medications Medication Code Code Instructions Start End Status Dosage System Date Date Alprazolam [facility] 24164176396 2 MG Oral Active (Schedule IV Drug) TAKE 1 TABLET BY MOUTH TWICE DAILY Temazepam [facility] 04091419479 30 MG Oral Active (Schedule IV Drug) TAKE 1 CAPSULE BY MOUTH NEEDED AT BEDTIME Hydrochlorothiazide [facility] 73063787385 25 MG Oral Active TAKE 1 TABLET BY MOUTH IN ONCE EVERY MORNING Chantix Continuing [facility] 14667631846 1 MG Oral Active TAKE 1 Month Cullen TABLET BY MOUTH TWICE A DAY Pravastatin Sodium ND 23268562111 40 MG Oral Active TAKE 1 TABLET BY MOUTH AT BEDTIME Ventolin HFA [facility] 61788622078 108 (90 Base) Active USE 2 MCG/ACT PUFFS Inhalation NEEDED EVERY [address] [facility] 15195501151 2 MG Orally 1 Dec 06, Active 1 tablet PO 30 MIN 2018 as needed PRIOR TO MRI SCAN Duloxetine HCl [facility] 22812334470 60 MG Oral Active TAKE 1 CAPSULE BY MOUTH ONCE A DAY Cyclobenzaprine HCl [facility] 72458576558 10 MG Oral Active TAKE 1 TABLET BY MOUTH TWICE DAILY NEEDED Amlodipine Besylate [facility] 91786870239 10 MG Oral Active TAKE 1 TABLET BY MOUTH ONCE A DAY Losartan Potassium [facility] 98039454659 50 MG Oral Active TAKE 1 TABLET BY MOUTH ONCE A DAY Trazodone HCl [facility] 60618515638 150 MG Oral Active TAKE 1 TABLET BY MOUTH AT BEDTIME BuPROPion HCl [facility] 10295980611 100 MG Oral Active TAKE 1 TABLET BY MOUTH ONCE A DAY Results No Known Results Summary Purpose eClinicalWorks Submission
--- OUTSIDE RECORDS SUMMARY | 2018-12-29 16:54 | XMS REPORT ---
[...] Status Dosage System Date Date BuPROPion HCl [facility] 96057456402 100 MG Oral Active TAKE 1 TABLET BY MOUTH ONCE A DAY Alprazolam [facility] 97443377253 2 MG Oral Active (Schedule IV Drug) TAKE 1 TABLET BY MOUTH TWICE DAILY Trazodone HCl [facility] 79594505898 150 MG Oral Active TAKE 1 TABLET BY MOUTH AT BEDTIME Hydrochlorothiazide [facility] 58792182522 25 MG Oral Active TAKE 1 TABLET BY MOUTH IN ONCE EVERY MORNING Valium [facility] 23030707641 2 MG Orally 1 Dec 06, Active 1 tablet PO 30 MIN 2019 as needed PRIOR TO MRI SCAN Temazepam [facility] 54460026905 30 MG Oral Active (Schedule IV Drug) TAKE 1 CAPSULE BY MOUTH NEEDED AT BEDTIME Cyclobenzaprine HCl [facility] 20799174896 10 MG Oral Active TAKE 1 TABLET BY MOUTH TWICE DAILY NEEDED Amlodipine Besylate [facility] 38626232709 10 MG Oral Active TAKE 1 TABLET BY MOUTH ONCE A DAY Losartan Potassium [facility] 01964386771 50 MG Oral Active TAKE 1 TABLET BY MOUTH ONCE A DAY Duloxetine HCl [facility] 75816240979 60 MG Oral Active TAKE 1 CAPSULE BY MOUTH ONCE A DAY Ventolin HFA [facility] 38035483418 108 (90 Base) Active USE 2 MCG/ACT PUFFS Inhalation NEEDED EVERY 6 HORS Pravastatin Sodium [facility] 44639814936 40 MG Oral Active TAKE 1 TABLET BY MOUTH AT BEDTIME Chantix Continuing [facility] 90506431534 1 MG Oral Active TAKE 1 Month Cullen TABLET BY MOUTH TWICE A DAY Results Name Result Date Reference Range Unit Abnormality Flag Body Fluid Cell Count ----Body Fluid 98 31673971 % Lymphocytes ----Body Fluid 0 43552393 % Neutrophils ----Body Fluid RBC 140 50555709 /mm^3 ----Body Fluid WBC 150 92420480 /mm^3 ----Appearance CLEAR 20181217 CLEAR ----Tube # SINGLE [id number] ----Body Fluid 2 08988972 % Mononuclear Cells ----Body Fluid SYNOVIAL 20181217 Source ----Color of fluid Yellow 20181217 COLORLESS AA ----Color of Not Xanthochromic 20181217 Not Xantho Supernate Body Fluid Crystals ----Body Fluid NONE SEEN 20181217 Crystals Summary Purpose eClinicalWorks Submission
[2018-12-29 17:03] LABS: Absolute Lymphocytes (CBC) 1.4 K/uL (0.7-4.9); Absolute Monocytes 0.4 K/uL (0.1-1.3); Absolute Neutrophil 3.2 K/uL (1.8-8.0); Basophils % 0.8 % (0-1.3); Eosinophils % 1.1 % (0-4.4); Hematocrit 47.6 % (36.0-45.0); Lymphocytes % 27.3 % (15.3-44.8); MPV 8.3 fL (7.6-11.3); Monocytes % 8.1 % (3.3-12.3)
[2018-12-29 17:05] LABS: Arterial Blood Carboxyhemoglob 7.4 % (0-1.5); Blood Gas Oxyhemoglobin 82.8 % (94-97); Blood O2 Saturation 90.7 % (92-98.5)
--- NOTE | 2018-12-29 17:20 | RAD REPORT ---
EXAM DESCRIPTION: RAD - Chest Single View - 12/29/2018 4:59 pm CLINICAL HISTORY: Dyspnea COMPARISON: October 24 TECHNIQUE: AP portable chest image was obtained 1655 hours . FINDINGS: Granuloma in the lower left lung field has not changed. Left costophrenic angle blunting i s stable. Slight increase in lung markings at the right base. Right hemidiaphragm is partially obscur ed. No failure or volume overload. Heart and vasculature are normal. No measurable pleural effusion a nd no pneumothorax. No acute bony abnormality seen. No acute aortic findings suspected. IMPRESSION: Early infiltrate right lung base.
[2018-12-29 17:26] LABS: BUN Blood Urea Nitrogen 12 mg/dL (7-18); Bicarbonate 35 mmol/L (21-32); Glucose Level 107 mg/dL (74-106); Potassium 4.4 mmol/L (3.5-5.1); Sodium Level 141 mmol/L (136-145); Thyroid Stimulating Hormone 0.614 uIU/mL (0.360-3.740)
--- NOTE | 2018-12-29 17:49 | EDPHYS ---
Physician Documentation [facility] Name: Kanika Jon Age: 58 yrs Sex: Female : 1960 Arrival Date: 12/29/2018 Time: 15:57 Bed 19 Private MD: ED Physician Jose Ramon Bedolla HPI: 12/29 17:43 This 58 yrs old Female presents to ER via Ambulatory with complaints of jr8 Shortness Of Breath. 17:43 Onset: The symptoms/episode began/occurred gradually, 2 day(s) ago. Duration: The jr8 symptoms are continuous. The patient's shortness of breath is aggravated by walking. Associated signs and symptoms: Pertinent positives: fatigued an sleepy. The patient has experienced similar episodes in the past, a few times. Patient stated that she feels more fatigued and tired. Increase work of breathing over the past couple of days. Is on home oxygen on long tubing and out of her portable's currently. Historical: - Allergies: 16:31 Codeine; em - Home Meds: 19:27 bupropion HCl 100 mg Oral TbER 1 tab once daily [Active]; alprazolam 2 mg Oral tab 1 em tab 2 times daily [Active]; omeprazole 40 mg Oral cpDR 1 cap once daily [Active]; diphenhydramine HCl 50 mg Oral tab 1 tab [Active]; losartan 50 mg oral tab 1 tab once daily [Active]; duloxetine 60 mg oral cpDR 1 cap once daily [Active]; amlodipine 10 mg tab 1 tab once daily [Active]; trazodone 150 mg Oral tab 1 tab [Active]; - PMHx: 16:31 COPD; Depression; Hypertension; osteoarthritis; em - PSHx: 16:31 Hysterectomy; bladder lift; em - Immunization history:: Adult Immunizations up to date. - Social history:: Smoking status: Patient uses tobacco products, smokes two packs cigarettes per day. - Ebola Screening: : Patient negative for fever greater than or equal to 101.5 degrees Fahrenheit, and additional compatible Ebola Virus Disease symptoms Patient denies exposure to infectious person Patient denies travel to an Ebola-affected area in the 21 days before illness onset No symptoms or risks identified at this time. ROS: 17:43 Eyes: Negative for injury, pain, redness, and discharge, ENT: Negative for injury, jr8 pain, and discharge, Neck: Negative for injury, pain, and swelling, Cardiovascular: Negative for chest pain, palpitations, and edema, Abdomen/GI: Negative for abdominal pain, nausea, vomiting, diarrhea, and constipation, Back: Negative for injury and pain, MS/Extremity: Negative for injury and deformity, Skin: Negative for injury, rash, and discoloration, Neuro: Negative for headache, weakness, numbness, tingling, and seizure. 17:43 Constitutional: Positive for fatigue. 17:43 Respiratory: Positive for dyspnea on exertion, shortness of breath. Exam: 17:43 Eyes: Pupils equal round and reactive to light, extra-ocular motions intact. Lids and jr8 lashes normal. Conjunctiva and sclera are non-icteric and not injected. Cornea within normal limits. Periorbital areas with no swelling, redness, or edema. ENT: Nares patent. No nasal discharge, no septal abnormalities noted. Tympanic membranes are normal and external auditory canals are clear. Oropharynx with no redness, swelling, or masses, exudates, or evidence of obstruction, uvula midline. Mucous membranes moist. Neck: Trachea midline, no thyromegaly or masses palpated, and no cervical lymphadenopathy. Supple, full range of motion without nuchal rigidity, or vertebral point tenderness. No Meningismus. Cardiovascular: Regular rate and rhythm with a normal S1 and S2. No gallops, murmurs, or rubs. Normal PMI, no JVD. No pulse deficits. Abdomen/GI: Soft, non-tender, with normal bowel sounds. No distension or tympany. No guarding or rebound. No evidence of tenderness throughout. Back: No spinal tenderness. No costovertebral tenderness. Full range of motion. Skin: Warm, dry with normal turgor. Normal color with no rashes, no lesions, and no evidence of cellulitis. MS/ Extremity: Pulses equal, no cyanosis. Neurovascular intact. Full, normal range of motion. Neuro: Awake and alert, GCS 15, oriented to person, place, time, and situation. Cranial nerves II-XII grossly intact. Motor strength 5/5 in all extremities. Sensory grossly intact. Cerebellar exam normal. Normal gait. 17:43 Constitutional: The patient appears awake, sleepy looking 17:43 Respiratory: the patient does not display signs of respiratory distress, Respirations: normal, symetrical, no use of accessory muscles, no grunting, no evidence of nasal flaring, no prolonged exhalations, no pursed lip breathing, no retractions, no shallow respirations, no splinting, no tachypnea, Breath sounds: decreased breath sounds, that are moderate, diffuse, wheezing: expiratory that is mild, is heard diffusely. Vital Signs: 16:31 BP 131 / 79; Pulse 97; Resp 24; Pulse Ox 71% on R/A; Weight 90.72 kg; Height 5 ft. 6 em in. (167.64 cm); Pain 7/10; 16:33 Pulse Ox 92% on 3 lpm NC; em 17:00 BP 115 / 68; Pulse 94; Resp 18; Pulse Ox 94% on 3 lpm NC; dh3 17:45 BP 125 / 78; Pulse 93; Resp 17; Pulse Ox 96% on 4 lpm NC; dh3 18:04 Temp 97.7(A); em 18:44 BP 114 / 72; Pulse 94; Resp 14; Pulse Ox 90% on BiPAP; em 19:30 BP 123 / 76; Pulse 92; Resp 20; Pulse Ox 90% on 30% BiPAP; lp1 16:31 Body Mass Index 32.28 (90.72 kg, 167.64 cm) em MDM: 16:12 Patient medically screened. jr8 17:43 Data reviewed: vital signs, nurses notes, lab test result(s), EKG, radiologic studies, jr8 plain films, and as a result, I will discharge patient. Data interpreted: Pulse oximetry: on room air is 76 %. Interpretation: hypoxia. Counseling: I had a detailed discussion with the patient and/or guardian regarding: the historical points, exam findings, and any diagnostic results supporting the discharge/admit diagnosis, lab results, radiology results, the need for further work-up and treatment in the hospital. Physician consultation: Felicia Lind MD was called at 17:47, was contacted at 17:47, regarding admission, to the telemetry unit. consult, patient's condition, and will see patient. 12/29 16:21 Order name: CBC with Diff; Complete Time: 17:34 8 12/29 16:21 Order name: Basic Metabolic Panel; Complete Time: 17:34 8 12/29 16:21 Order name: XRAY Chest (1 view); Complete Time: 17:34 [facility] 12/29 16:21 Order name: TSH; Complete Time: 17:34 [facility] 12/29 16:23 Order name: ABG: VBG; Complete Time: 17:34 [facility] 12/29 18:06 Order name: BIPAP eb 12/29 16:21 Order name: IV; Complete Time: 16:46 [facility] 12/29 18:07 Order name: CONS Physician Consult EDMS Administered Medications: 16:44 Drug: Albuterol 2.5 mg Route: Inhalation; ss 17:00 Follow up: Response: No adverse reaction em 16:44 Drug: AtroVENT Aerosol 0.5 mg Route: Inhalation; ss 17:00 Follow up: Response: No adverse reaction em 18:22 Drug: Rocephin 1 grams Route: IV; Rate: calculated rate; Site: right hand; ss 19:30 Follow up: Response: No adverse reaction lp1 18:31 Drug: Zithromax 500 mg Route: IVPB; Infused Over: 1 hrs; Site: right hand; em 19:58 Follow up: IV Status: Infusion continued upon admission lp1 Disposition: 12/29/18 17:48 Hospitalization ordered by Felicia Lind for Observation. Preliminary diagnosis are Chronic obstructive pulmonary disease with (acute) exacerbation, Acute and chronic respiratory failure with hypercapnia. - Bed requested for Telemetry/MedSurg (observation). - Status is Observation. lp1 - Condition is Stable. - Problem is new. - Symptoms have improved. UTI on Admission? No Addendum: 12/31/2018 09:31 Co-signature as Attending Physician, Jose Ramon Bedolla MD I agree with the assessment and c connell plan of care. Signatures: Dispatcher [employer] EDOK Jose Ramon Bedolla MD MD cha Munoz, Edgar, PROJECT SCHEDULER PROJECT SCHEDULER em Eveline Schrader RN RN ss Aura Neri RN RN lp1 Dick Olivas PA PA jr8 Carol Vigil Corrections: (The following items were deleted from the chart) 12/29 18:54 17:48 Hospitalization Ordered by Felicia Lind MD for Observation. Preliminary eb diagnosis is Chronic obstructive pulmonary disease with (acute) exacerbation; Acute and chronic respiratory failure with hypercapnia. Bed requested for Telemetry/MedSurg (observation). Status is Observation. Condition is Stable. Problem is new. Symptoms have improved. UTI on Admission? No. jr8 20:55 18:54 12/29/2018 17:48 Hospitalization Ordered by Felicia Lind MD for Observation. lp1 Preliminary diagnosis is Chronic obstructive pulmonary disease with (acute) exacerbation; Acute and chronic respiratory failure with hypercapnia. Bed requested for Telemetry/MedSurg (observation). Status is Observation. Condition is Stable. Problem is new. Symptoms have improved. UTI on Admission? No. eb
--- NOTE | 2018-12-29 17:49 | ER ---
Nurse's Notes [facility] Name: Kanika Jon Age: 58 yrs Sex: Female : 1960 Arrival Date: 12/29/2018 Time: 15:57 Bed 19 Private MD: Diagnosis: Chronic obstructive pulmonary disease with (acute) exacerbation;Acute and chronic respiratory failure with hypercapnia Presentation: 12/29 16:11 Note 1611- pt moved to room, triage delayed. pt states she needs to get her coffee, ch answers her phone, states she does not want to get into the bed, she wants to be in the chair, does not answer me when i ask her to take her shirt off and put a gown on due to being on the phone. triage is delayed. 16:24 Acuity: [place] 2 ss 16:25 Presenting complaint: Patient states: having SOB, real sleepy and weak, reports em normally uses O2 at home but has ran out of O2 tanks yesterday SPO2 71% RA, placed on NC at 3 L, SPO2 92% on 3 L. Transition of care: patient was not received from another setting of care. Onset of symptoms was December 29, 2018. Risk Assessment: Do you want to hurt yourself or someone else? Patient reports no desire to harm self or others. Initial Sepsis Screen: Does the patient meet any 2 criteria? RR > 20 per min. Does the patient have a suspected source of infection? No. Patient's initial sepsis screen is negative. Care prior to arrival: None. 16:25 Method Of Arrival: Ambulatory em Triage Assessment: 16:31 General: Appears ill, unkempt, Behavior is calm, cooperative, drowsy, flat. Pain: em Complains of pain in right knee and left knee Pain currently is 7 out of 10 on a pain scale. EENT: Respiratory: Reports shortness of breath at rest on exertion Onset: The symptoms/episode began/occurred this morning, the patient has mild shortness of breath. Historical: - Allergies: 16:31 Codeine; em - Home Meds: 19:27 bupropion HCl 100 mg Oral TbER 1 tab once daily [Active]; alprazolam 2 mg Oral tab 1 em tab 2 times daily [Active]; omeprazole 40 mg Oral cpDR 1 cap once daily [Active]; diphenhydramine HCl 50 mg Oral tab 1 tab [Active]; losartan 50 mg oral tab 1 tab once daily [Active]; duloxetine 60 mg oral cpDR 1 cap once daily [Active]; amlodipine 10 mg tab 1 tab once daily [Active]; trazodone 150 mg Oral tab 1 tab [Active]; - PMHx: 16:31 COPD; Depression; Hypertension; osteoarthritis; em - PSHx: 16:31 Hysterectomy; bladder lift; em - Immunization history:: Adult Immunizations up to date. - Social history:: Smoking status: Patient uses tobacco products, smokes two packs cigarettes per day. - Ebola Screening: : Patient negative for fever greater than or equal to 101.5 degrees Fahrenheit, and additional compatible Ebola Virus Disease symptoms Patient denies exposure to infectious person Patient denies travel to an Ebola-affected area in the 21 days before illness onset No symptoms or risks identified at this time. Screenin:32 Abuse screen: Denies threats or abuse. Nutritional screening: No deficits noted. em Tuberculosis screening: No symptoms or risk factors identified. Fall Risk None identified. Assessment: 16:31 General: Behavior is cooperative, drowsy, listless, Denies fever. Pain: Complains of em pain in right knee and left knee Pain currently is 7 out of 10 on a pain scale. Neuro: Level of Consciousness is awake, alert, obeys commands, Oriented to person, place, time, situation. Cardiovascular: Capillary refill < 3 seconds Patient's skin is warm and dry. Rhythm is regular. Respiratory: Airway is patent Respiratory effort is even, Respiratory pattern is regular, symmetrical, Breath sounds are diminished in right posterior upper lobe, right posterior middle lobe and right posterior lower lobe Breath sounds with wheezes in left posterior upper lobe and left posterior lower lobe. GI: Abdomen is flat. Derm: Skin is intact, is healthy with good turgor, Skin is normal. Musculoskeletal: Range of motion: intact in all extremities. 16:35 General: The previous assessment is accurate, call light remains within reach. ss 17:32 Reassessment: Patient appears in no apparent distress at this time. reports feeling em better with O2, pt appears drowsy, request pain medication for her knees, provider notified. 17:57 Reassessment: placed on BIPAP by RT. em 18:48 Reassessment: Patient appears in no apparent distress at this time. Patient and/or em family updated on plan of care and expected duration. Pain level reassessed. Patient is alert, oriented x 3, equal unlabored respirations, skin warm/dry/pink. 19:15 Reassessment: Patient resting, eyes closed, bipap in place. Respiratory: Breath sounds lp1 are diminished bilaterally. Derm: Skin is intact, Skin is dry, Skin is normal. 19:45 Reassessment: Assisted patient to [facility] [place], BM noted at this time; Patient aware of pending lp1 admission Patient states feeling better. Vital Signs: 16:31 BP 131 / 79; Pulse 97; Resp 24; Pulse Ox 71% on R/A; Weight 90.72 kg; Height 5 ft. 6 em in. (167.64 cm); Pain 7/10; 16:33 Pulse Ox 92% on 3 lpm NC; em 17:00 BP 115 / 68; Pulse 94; Resp 18; Pulse Ox 94% on 3 lpm NC; dh3 17:45 BP 125 / 78; Pulse 93; Resp 17; Pulse Ox 96% on 4 lpm NC; dh3 18:04 Temp 97.7(A); em 18:44 BP 114 / 72; Pulse 94; Resp 14; Pulse Ox 90% on BiPAP; em 19:30 BP 123 / 76; Pulse 92; Resp 20; Pulse Ox 90% on 30% BiPAP; lp1 16:31 Body Mass Index 32.28 (90.72 kg, 167.64 cm) em ED Course: 15:57 Patient arrived in ED. as 16:11 [facility] jr8 16:11 Jose Ramon Bedolla MD is Attending Physician. [facility] 16:25 Triage completed. 16:25 Stefano Wilhelm LVN is Primary Nurse. em 16:31 Arm band placed on. em 16:32 Patient has correct armband on for positive identification. Bed in low position. Call em light in reach. Adult w/ patient. waste transportation technician on. Pulse ox on. NIBP on. 16:40 Missed attempt(s): 22 gauge in right antecubital area. Bleeding controlled, band aid dh3 applied, catheter tip intact. 16:43 Initial lab(s) drawn, by me, sent to lab. Inserted saline lock: 22 gauge in right hand, dh3 using aseptic technique. Blood collected. 16:58 X-ray completed. Portable x-ray completed in exam room. Patient tolerated procedure la2 well. 17:00 XRAY Chest (1 view) In Process Unspecified. EDMS 17:48 Felicia Lind MD is Hospitalizing Provider. jr8 19:51 No provider procedures requiring assistance completed. Patient admitted, IV remains in lp1 place. Administered Medications: 16:44 Drug: Albuterol 2.5 mg Route: Inhalation; ss 17:00 Follow up: Response: No adverse reaction em 16:44 Drug: AtroVENT Aerosol 0.5 mg Route: Inhalation; ss 17:00 Follow up: Response: No adverse reaction em 18:22 Drug: Rocephin 1 grams Route: IV; Rate: calculated rate; Site: right hand; ss 19:30 Follow up: Response: No adverse reaction lp1 18:31 Drug: Zithromax 500 mg Route: IVPB; Infused Over: 1 hrs; Site: right hand; em 19:58 Follow up: IV Status: Infusion continued upon admission lp1 Outcome: 17:48 Decision to Hospitalize by Provider. jr8 19:52 Condition: stable lp1 19:52 Instructed on the need for admit. 19:57 Admitted to Tele via stretcher, room 406, with oxygen, with chart, Report called to lp1 VEE Moss 20:30 Patient left the ED. 1 Signatures: Dispatcher [employer] EDMS Kayla Powell, RN RN Stefano Wilhelm, COOK LARDER COOK LARDER Teresa Vega Shelby, RN RN Aura Neri RN RN 1 Dick Olivas PA PA [facility] Anusha Chavez [facility] Abimbola [facility] Corrections: (The following items were deleted from the chart) 20:56 20:55 Patient left the ED. lp1 lp1
[2018-12-29] MEDS ORDERED: CEFTRIAXONE/SWI 1gm 1 GM/10 ML SYR ONE (18:17)
--- NOTE | 2018-12-29 18:43 | P.HP ---
Certification for Inpatient Patient admitted to: Inpatient With expected LOS: >2 Midnights Patient will require the following post-hospital care: None Practitioner: I am a practitioner with admitting privileges, knowledge of patient current condition, hospital course, and medical plan of care. Services: Services provided to patient in accordance with Admission requirements found in Title 42 Section 412.3 of the Code of Federal Regulations Patient History Date of Service: 12/29/18 Primary Care Provider: NONE Reason for admission: Acute Respiratory Failure History of Present Illness: Patient is a 58-year-old female with a ESCOPD requiring NIPPV however unable to arrange due to lack of insurance. Pt also has a h/o of tobacco abuse and currently continues to smoke. Pt Presented the ED today c/o SOB and lethargic for past 1 day. She has been sick for over 2 days and progressively got worse and thus decided to the come to the ER. Does use Home oxygen and needs NIPPV. Denied having fever, CP, N/V or abd pain or any other associated Symptoms. Allergies hydrocodone [Hydrocodone] Allergy (Intermediate, Verified 07/30/15 23:08) Itching hydromorphone HCl [From Dilaudid] Adverse Reaction (Mild, Verified 07/30/15 23: 08) Itching Codeine Allergy (Mild, Uncoded 07/20/17 23:52) Itching Hydrocodone-Acetaminophen Allergy (Uncoded 07/20/17 23:52) Itching Home Medications: Losartan Potassium 1 tab PO DAILY 10/21/16 ALPRAZolam [Alprazolam] 2 mg PO TID PRN 01/29/18 Amlodipine Besylate 10 mg PO DAILY 01/29/18 Duloxetine HCl 60 mg PO DAILY 01/29/18 Pravastatin Sodium 40 mg PO BEDTIME 01/29/18 Amox/Clavulanate [Augmentin 875-125 Tab] 1 each PO BID #14 tab 10/25/18 Arformoterol Tartrate [Brovana] 15 mcg NEB BIDRESP #1 vial.neb 10/25/18 Gabapentin [Neurontin*] 200 mg PO TID PRN #90 cap 10/25/18 predniSONE [Deltasone*] 10 mg PO BID #10 tab 10/25/18 - Past Medical/Surgical History Diabetic: No -: Alcohol abuse -: HTN -: 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 -: Osteoarthritis -: History of diverticulitis -: Depression with anxiety -: GERD -: COPD -: smoker -: COPD -: Hyperlipidemia -: Tobacco abuse -: Hysterectomy -: Left knee surgery Psychosocial/ Personal History: Lives with mother. - Family History Mother -: Cancer Father Notes: parkinson's dse - Social History Alcohol use: Yes CD- Drugs: No Caffeine use: Yes Review of Systems 10-point ROS is otherwise unremarkable Physical Examination - Physical Exam General: Mild distress, Other (Somnolence and lethargic ) HEENT: Atraumatic, PERRLA, Mucous membr. moist/pink Neck: Supple, 2+ carotid pulse no bruit, No LAD, Without JVD or thyroid abnormality Respiratory: Normal air movement, Expiratory wheezes, Inspiratory wheezes Cardiovascular: Regular rate/rhythm, Normal S1 S2 Gastrointestinal: Normal bowel sounds, No tenderness Musculoskeletal: No tenderness Integumentary: No rashes Neurological: Normal tone, Abnormal speech (SOB with Talking and unable to complete sentence ), Abnormal strength Lymphatics: No axilla or inguinal lymphadenopathy - Studies Laboratory Data (last 24 hrs) 12/29/18 16:43: Sodium 141, Potassium 4.4, BUN 12, Creatinine 0.50 L, Glucose 107 H 12/29/18 16:43: WBC 5.2, Hgb 15.2 H, Hct 47.6 H, Plt Count 185 Assessment and Plan - Problems (Diagnosis) (1) Acute and chronic respiratory failure with hypoxia Current Visit: No Status: Acute Plan: ESCOPD with Acute woresening 2.2 to Hypercapnic RF -Will place patient on BIPAP and wean as tolerated -Duonebs, Steroids and BIPAP for now -Pulmonology consulted. Awaiting reccs (2) Acute exacerbation of chronic obstructive pulmonary disease (COPD) Current Visit: No Status: Acute Plan: Acute Exacerbation of Chronic COPD. 2.2 to noncompliance with NIPPV -Duonebs, Steriods and BIPAP for now -Pulmonology consulted. Awaiting reccs (3) Depression with anxiety Onset Date: 01/30/18 Current Visit: No Status: Chronic (4) Hypertension Onset Date: 07/20/15 Current Visit: No Status: Chronic Qualifiers: Hypertension type: essential hypertension (5) Tobacco abuse Onset Date: 01/30/18 Current Visit: No Status: Chronic (6) Obstructive sleep apnea Current Visit: No Status: Suspected - Plan Will Admit to the hospital for acute Respiratory Failure and will be placed on BIPAP and monitored Closely Discharge Plan: Home Plan to discharge in: 48 Hours - Advance Directives Does patient have a Living Will: No Does patient have a Durable POA for Healthcare: No - Code Status/Comfort Care Code Status Assessed: Yes Critical Care: No
[2018-12-29] MEDS ORDERED: AZITHROMYCIN IV 500 MG in NA CHLORIDE 0.9% 250 ML IVPB ONE (19:00)
[2018-12-29] MEDS: ALBUTEROL 2.5 MG/3 ML NEB SOL NEB SCH (19:10)
[2018-12-29] MEDS: IPRATROPIUM BROM 0.5MG/2.5ML NEB SCH (19:10)
[2018-12-29 20:50] VITALS: BMI 31.7
[2018-12-29] MEDS ORDERED: ONDANSETRON 4 MG/2 ML VIAL IV PRN (21:02)
[2018-12-29] MEDS: predniSONE 20 MG TAB PO SCH (21:43)
[2018-12-29 23:52] LABS: Urine Appearance CLOUDY; Urine Bilirubin NEGATIVE (NEG); Urine Blood 3+ (NEG); Urine Color YELLOW; Urine Glucose NEGATIVE (NEG); Urine Protein TRACE (NEG); Urine Urobilinogen 0.2 mg/dL (0.2-1.0); Urine pH 5.5 (5.0-7.0)
[2018-12-29 23:53] LABS: Urine Microscopic Reflex ORDER UMIC
[2018-12-30 01:00] LABS: Urine Bacteria >50 /HPF (<20); Urine Culture Reflex Order REFLEXED
[2018-12-30] MEDS: IPRATROPIUM BROM 0.5MG/2.5ML NEB SCH ×4 (01:55→20:00)
[2018-12-30] MEDS: ALBUTEROL 2.5 MG/3 ML NEB SOL NEB SCH ×4 (01:55→20:00)
[2018-12-30 06:43] LABS: Absolute Lymphocytes (CBC) 0.7 K/uL (0.7-4.9); Absolute Monocytes 0.2 K/uL (0.1-1.3); Absolute Neutrophil 4.7 K/uL (1.8-8.0); Basophils % 0.2 % (0-1.3); Hematocrit 45.5 % (36.0-45.0); Lymphocytes % 11.8 % (15.3-44.8); MPV 8.8 fL (7.6-11.3); Monocytes % 3.2 % (3.3-12.3); RBC Red Blood Cell Count 4.82 M/uL (3.86-4.86)
[2018-12-30 06:45] LABS: ALT/SGPT 21 U/L (12-78); AST/SGOT 10 U/L (15-37); Albumin 3.5 g/dL (3.4-5.0); Alkaline Phosphatase 105 U/L (45-117); BUN Blood Urea Nitrogen 14 mg/dL (7-18); Bicarbonate 37 mmol/L (21-32); Bilirubin Total 0.3 mg/dL (0.2-1.0); Glucose Level 123 mg/dL (74-106); Magnesium 2.2 mg/dL (1.8-2.4); Phosphorus 4.2 mg/dL (2.5-4.9); Potassium 4.3 mmol/L (3.5-5.1); Protein, Total 6.7 g/dL (6.4-8.2); Sodium Level 142 mmol/L (136-145)
[2018-12-30] MEDS: predniSONE 20 MG TAB PO SCH ×2 (08:53→21:24)
[2018-12-30] MEDS: AMLODIPINE 10 MG TAB PO SCH (10:04)
[2018-12-30] MEDS: ALPRAZOLAM 1 MG TABLET PO SCH ×2 (10:04→21:24)
[2018-12-30] MEDS: DULOXETINE 30 MG CAP PO SCH (10:05)
[2018-12-30] MEDS: LOSARTAN POTASSIUM 50 MG TABLET PO SCH (10:05)
[2018-12-30] MEDS: PANTOPRAZOLE 40MG TABLET PO SCH (10:10)
--- NOTE | 2018-12-30 10:58 | P.PN ---
Subjective Date of Service: 12/30/18 Primary Care Provider: NONE Chief Complaint: Acute Respiratory Failure Subjective: No C/O voiced, Tolerating diet, Improving, Doing well Review of Systems 10-point ROS is otherwise unremarkable Physical Examination - Vital Signs Temperature: 97.3 F Blood Pressure: 116/69 Pulse: 84 Respirations: 16 Pulse Ox (%): 95 - Physical Exam General: Alert, In no apparent distress HEENT: Atraumatic, PERRLA, EOMI Neck: Supple, JVD not distended Respiratory: Clear to auscultation bilaterally, Normal air movement Cardiovascular: Regular rate/rhythm, Normal S1 S2 Gastrointestinal: Normal bowel sounds, No tenderness Musculoskeletal: No tenderness Integumentary: No rashes Neurological: Normal speech, Normal tone, Normal affect Lymphatics: No axilla or inguinal lymphadenopathy - Studies Laboratory Data (last 24 hrs) 12/29/18 16:43: Sodium 141, Potassium 4.4, BUN 12, Creatinine 0.50 L, Glucose 107 H 12/29/18 16:43: WBC 5.2, Hgb 15.2 H, Hct 47.6 H, Plt Count 185 Medications List Reviewed: Yes Assessment And Plan - Current Problems (Diagnosis) (1) Acute and chronic respiratory failure with hypoxia Current Visit: No Status: Acute Plan: ESCOPD with Acute worsening 2.2 to Hypercapnic RF -Weaned off the BIPAP this AM. Now on NC. -Duonebs, Steroids and oxgyen for now -Pulmonology consulted. Awaiting reccs (2) Acute exacerbation of chronic obstructive pulmonary disease (COPD) Current Visit: No Status: Acute Plan: Acute Exacerbation of Chronic COPD. 2.2 to noncompliance with NIPPV -Duonebs, Steriods and oxygen for now -Pulmonology consulted. Awaiting reccs (3) UTI (urinary tract infection) Current Visit: Yes Status: Acute Plan: UA with UTI -Started on IV rocephin -Awaiting Culture results Qualifiers: Urinary tract infection type: acute cystitis Hematuria presence: without hematuria Qualified Code(s): N30.00 - Acute cystitis without hematuria (4) Depression with anxiety Onset Date: 01/30/18 Current Visit: No Status: Chronic (5) Hypertension Onset Date: 07/20/15 Current Visit: No Status: Chronic Qualifiers: Hypertension type: essential hypertension (6) Tobacco abuse Onset Date: 01/30/18 Current Visit: No Status: Chronic (7) Obstructive sleep apnea Current Visit: No Status: Suspected - Plan Pending Clinical Improvement. Will continue with Duonebs, Steroids and await Pulm Consult. Will also Await urine culture results. May need to try again to Setup for NIPPV for ESCOPD Discharge Plan: Other Plan to discharge in: Greater than 2 days - Code Status/Comfort Care Code Status Assessed: Yes Critical Care: No
--- NOTE | 2018-12-30 10:59 | P.CNS ---
Date of Consult: 12/30/18 Primary Care Provider: NONE Chief Complaint: COPD exacerbation History of Present Illness: Patient is 58 years of age with a history of COPD well known to me active smoker as been sick for the past week as been a lot of stress regarding her mother was been smoking heavily at home the also has some problems with her family members became stressed recently scheduled to have an MRI of for joints did appeared in the hospital short of breath and is compliant with her medications he is on home oxygen denies any cough sputum in off basis fever or chills Allergies hydrocodone [Hydrocodone] Allergy (Intermediate, Verified 07/30/15 23:08) Itching hydromorphone HCl [From Dilaudid] Adverse Reaction (Mild, Verified 07/30/15 23: 08) Itching Codeine Allergy (Mild, Uncoded 07/20/17 23:52) Itching Hydrocodone-Acetaminophen Allergy (Uncoded 07/20/17 23:52) Itching Home Medications: Losartan Potassium 50 mg PO DAILY 10/21/16 ALPRAZolam [Alprazolam] 2 mg PO BID 01/29/18 Amlodipine Besylate 10 mg PO DAILY 01/29/18 Duloxetine HCl 60 mg PO DAILY 01/29/18 Aclidinium [place] [Tudorza Pressair] 2 puff IH BID 12/30/18 Omeprazole [Prilosec] 40 mg PO DAILY 12/30/18 Trazodone [Desyrel*] 150 mg PO BEDTIME 12/30/18 buPROPion HCl [Bupropion HCl] 100 mg PO DAILY 12/30/18 - Past Medical/Surgical History Diabetic: No -: Alcohol abuse -: HTN -: 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 -: Osteoarthritis -: History of diverticulitis -: Depression with anxiety -: GERD -: COPD -: smoker -: Tobacco abuse -: Hyperlipidemia -: Tobacco abuse -: Hysterectomy -: Left knee surgery Psychosocial/ Personal History: Lives with mother. - Family History Mother Medical History: Cancer Father Notes: parkinson's dse - Social History Smoking Status: Current every day smoker Alcohol use: Yes CD- Drugs: No Caffeine use: Yes Place of Residence: Home Review of Systems 10-point ROS is otherwise unremarkable General: Weakness Respiratory: Cough, Shortness of Breath Physical Examination Temp Pulse Resp BP Pulse Ox 97.3 F 84 16 116/69 95 12/30/18 08:00 12/30/18 10:04 12/30/18 08:00 12/30/18 10:04 12/30/18 08:00 General: Alert, In no apparent distress, Oriented x3 Neck: Supple Respiratory: Expiratory wheezes Cardiovascular: No edema, Regular rate/rhythm, Normal S1 S2 Laboratory Data (last 24 hrs) 12/29/18 16:43: Sodium 141, Potassium 4.4, BUN 12, Creatinine 0.50 L, Glucose 107 H 12/29/18 16:43: WBC 5.2, Hgb 15.2 H, Hct 47.6 H, Plt Count 185 - Problems (1) Acute exacerbation of chronic obstructive pulmonary disease (COPD) Current Visit: No Status: Acute Plan: Patient is 58 years of age with a history of COPD active smoker admitted with an exacerbation she has hypoxic hypercapnic no evidence of pneumonia chest x- ray chronic changes white count is normal patient has franklin under lot of stress recently all labs and x-rays reviewed patient can be discharged home on prednisone 10 mg twice a day for 10 days and an antibiotic she has a history of chronic hypercapnia with pCO2 over 70 oxygen should be alert 2 L a min follow- up with me in 2 weeks
[2018-12-30] MEDS: buPROPion HCl 100 MG TAB PO SCH (11:03)
[2018-12-30] MEDS: CEFTRIAXONE/SWI 1gm 1 GM/10 ML SYR IVP SCH (11:03)
[2018-12-30] MEDS ORDERED: HOME MED 1 EA UNK (Alprazolam [Alprazolam] 2 MG) PO SCH (21:00)
[2018-12-30] MEDS ORDERED: TRAZODONE 150 MG TAB PO SCH (21:00)
[2018-12-31] MEDS: ALBUTEROL 2.5 MG/3 ML NEB SOL NEB SCH ×2 (02:00→07:36)
[2018-12-31] MEDS: IPRATROPIUM BROM 0.5MG/2.5ML NEB SCH ×2 (02:00→07:36)
[2018-12-31 04:29] LABS: Absolute Lymphocytes (CBC) 0.7 K/uL (0.7-4.9); Absolute Monocytes 0.4 K/uL (0.1-1.3); Absolute Neutrophil 5.3 K/uL (1.8-8.0); Basophils % 0.3 % (0-1.3); Eosinophils % 0.3 % (0-4.4); Hematocrit 45.4 % (36.0-45.0); Lymphocytes % 11.6 % (15.3-44.8); MPV 8.6 fL (7.6-11.3); Monocytes % 5.8 % (3.3-12.3); RBC Red Blood Cell Count 4.77 M/uL (3.86-4.86)
[2018-12-31 04:46] LABS: ALT/SGPT 15 U/L (12-78); AST/SGOT 7 U/L (15-37); Albumin 3.4 g/dL (3.4-5.0); Alkaline Phosphatase 92 U/L (45-117); BUN Blood Urea Nitrogen 12 mg/dL (7-18); Bicarbonate 35 mmol/L (21-32); Bilirubin Total 0.2 mg/dL (0.2-1.0); Glucose Level 161 mg/dL (74-106); Magnesium 2.1 mg/dL (1.8-2.4); Phosphorus 2.9 mg/dL (2.5-4.9); Potassium 4.2 mmol/L (3.5-5.1); Protein, Total 6.4 g/dL (6.4-8.2); Sodium Level 142 mmol/L (136-145)
[2018-12-31] MEDS: predniSONE 20 MG TAB PO SCH (07:59)
[2018-12-31] MEDS: LOSARTAN POTASSIUM 50 MG TABLET PO SCH (07:59)
[2018-12-31] MEDS: PANTOPRAZOLE 40MG TABLET PO SCH (07:59)
[2018-12-31] MEDS: AMLODIPINE 10 MG TAB PO SCH (07:59)
[2018-12-31] MEDS: DULOXETINE 30 MG CAP PO SCH (07:59)
[2018-12-31] MEDS: buPROPion HCl 100 MG TAB PO SCH (08:00)
[2018-12-31] MEDS: CEFTRIAXONE/SWI 1gm 1 GM/10 ML SYR IVP SCH (08:00)
[2018-12-31] MEDS: ALPRAZOLAM 1 MG TABLET PO SCH (08:01)
[2018-12-31] MEDS ORDERED: CEFTRIAXONE 1000 MG/VIAL IVP SCH (09:00)
[2018-12-31] MEDS ORDERED: LOSARTAN POTASSIUM 50 MG PO SCH (09:00)
[2018-12-31] MEDS ORDERED: HOME MED 1 EA UNK (Omeprazole [Prilosec] 40 MG) PO SCH (09:00)
[2018-12-31] MEDS ORDERED: HOME MED 1 EA UNK (Duloxetine Hcl [Duloxetine Hcl] 60 MG) PO SCH (09:00)
[2018-12-31 12:09] VITALS: BP 95/55; TEMP 98
[2018-12-31 13:35] VITALS: O2SAT 92
--- NOTE | 2018-12-31 14:28 | P.DS ---
Admission Date: 12/29/18 Discharge Date: 12/31/18 Primary Care Provider: NONE Disposition: ROUTINE DISCHARGE Discharge Condition: FAIR Reason for Admission: COPD exacerbation - Problems (1) Acute and chronic respiratory failure with hypoxia Status: Acute (2) Acute exacerbation of chronic obstructive pulmonary disease (COPD) Status: Acute (3) UTI (urinary tract infection) Status: Acute Qualifiers: Urinary tract infection type: acute cystitis Hematuria presence: without hematuria Qualified Code(s): N30.00 - Acute cystitis without hematuria (4) Depression with anxiety Onset Date: 01/30/18 Status: Chronic (5) Hypertension Onset Date: 07/20/15 Status: Chronic Qualifiers: Hypertension type: essential hypertension (6) Tobacco abuse Onset Date: 01/30/18 Status: Chronic (7) Obstructive sleep apnea Status: Suspected Brief History of Present Illness: Patient is a 58-year-old female with a ESCOPD requiring NIPPV however unable to arrange due to lack of insurance. Pt also has a h/o of tobacco abuse and currently continues to smoke. Pt Presented the ED today c/o SOB and lethargic for past 1 day. She has been sick for over 2 days and progressively got worse and thus decided to the come to the ER. Does use Home oxygen and needs NIPPV. Denied having fever, CP, N/V or abd pain or any other associated Symptoms. Hospital Course: Overall during the hospital stay patient remained stable Patient was initially admitted to the hospital for acute on chronic respiratory failure. Most likely secondary to hypercapnia. Patient does use oxygen at home. However had COPD exacerbation and worsening of her respiratory failure. Patient initially was placed on BiPAP and was weaned off to nasal cannula successfully. Patient had pulmonary consulted on the case who recommended the patient be continued on nebulizer, steroids, antibiotics. Patient most likely had a viral illness which caused her to have COPD exacerbation and acute respiratory failure. Patient's acute respiratory failure is also secondary to her hypercapnia which she requires noninvasive positive pressure ventilator however due to funding she is not able to get access noninvasive positive pressure ventilator. Patient when able to be weaned off to nasal cannula was then discharged home under stable condition and was asked to continue taking her inhalers along with steroids and azithromycin for total 14 days. Patient was discharged home and was asked to follow up with primary care provider in about 1-2 days post discharge along with pulmonology in about 2 weeks post discharge. Patient demonstrate understanding and thus was discharged home under stable condition. Vital Signs/Physical Exam: Temp Pulse Resp BP Pulse Ox 98 F 82 18 95/55 L 92 12/31/18 12:00 12/31/18 12:00 12/31/18 12:00 12/31/18 12:00 12/31/18 12:00 General: Alert, In no apparent distress HEENT: Atraumatic, PERRLA, EOMI Neck: Supple, JVD not distended Respiratory: Clear to auscultation bilaterally, Normal air movement Cardiovascular: Regular rate/rhythm, Normal S1 S2 Gastrointestinal: Normal bowel sounds, No tenderness Musculoskeletal: No tenderness Integumentary: No rashes Neurological: Normal speech, Normal tone, Normal affect Lymphatics: No axilla or inguinal lymphadenopathy Laboratory Data at Discharge: WBC 6.4 K/uL (4.3-10.9) D 12/31/18 03:25 Hgb 14.4 g/dL (12.0-15.0) 12/31/18 03:25 Hct 45.4 % (36.0-45.0) H 12/31/18 03:25 Plt Count 184 K/uL (152-406) 12/31/18 03:25 Sodium 142 mmol/L (136-145) 12/31/18 03:25 Potassium 4.2 mmol/L (3.5-5.1) 12/31/18 03:25 BUN 12 mg/dL (7-18) 12/31/18 03:25 Creatinine 0.54 mg/dL (0.55-1.3) L 12/31/18 03:25 Glucose 161 mg/dL (74-106) H 12/31/18 03:25 Phosphorus 2.9 mg/dL (2.5-4.9) 12/31/18 03:25 Magnesium 2.1 mg/dL (1.8-2.4) 12/31/18 03:25 Total Bilirubin 0.2 mg/dL (0.2-1.0) 12/31/18 03:25 AST 7 U/L (15-37) L 12/31/18 03:25 ALT 15 U/L (12-78) 12/31/18 03:25 Alkaline Phosphatase 92 U/L (45-117) 12/31/18 03:25 Home Medications: Losartan Potassium 50 mg PO DAILY 10/21/16 ALPRAZolam [Alprazolam] 2 mg PO BID 01/29/18 Amlodipine Besylate 10 mg PO DAILY 01/29/18 Duloxetine HCl 60 mg PO DAILY 01/29/18 Aclidinium [place] [Tudorza Pressair] 2 puff IH BID 12/30/18 Omeprazole [Prilosec] 40 mg PO DAILY 12/30/18 Trazodone [Desyrel*] 150 mg PO BEDTIME 12/30/18 buPROPion HCl [Bupropion HCl] 100 mg PO DAILY 12/30/18 Azithromycin 500 mg PO DAILY #10 tablet 12/31/18 predniSONE [Prednisone*] 20 mg PO BID #30 tab 12/31/18 New Medications: Azithromycin 500 mg PO DAILY #10 tablet predniSONE [Prednisone*] 20 mg PO BID #30 tab Diet: Regular Activity: Ad rodrick Followup: Giorgi Strickland MD [Primary Care Provider] - 1 Week
== END 2018-12-31 13:30 | disposition home or self-care (01) | DRG 190 ==
LOC: ER 15:56 → ERHOLD 18:04 → 4TH 19:57
PROVIDERS: ADMIT Family Medicine; ATTEND Family Medicine
PROC: 5A09457 Assistance with Respiratory Ventilation, 24-96 Consecutive Hours, Continuous Positive Airway Pressure (ICD-10-PCS; principal; 2018-12-29)
DX: J44.1 Chronic obstructive pulmonary disease with (acute) exacerbation (principal); J96.21 Acute and chronic respiratory failure with hypoxia; J96.22 Acute and chronic respiratory failure with hypercapnia; N30.00 Acute cystitis without hematuria; F32.9 Major depressive disorder, single episode, unspecified; F41.9 Anxiety disorder, unspecified; I10 Essential (primary) hypertension; F17.210 Nicotine dependence, cigarettes, uncomplicated; G47.33 Obstructive sleep apnea (adult) (pediatric); Z88.5 Allergy status to narcotic agent; E78.5 Hyperlipidemia, unspecified
CPT/HCPCS: 36415; 71045; 80048; 80053; 81003; 81015; 82805; 83735; 84100; 84443; 85025; 87086; 87088; 94640; 94660; 94760; 96365; 96375; 97116; 97163; 99285; J0456; J0696; J7512

== ENCOUNTER 2019-02-04 07:04 | Observation (INO) | payer OTHER ==
--- OUTSIDE RECORDS SUMMARY | 2019-02-04 07:05 | XMS REPORT ---
[...] Status Dosage System Date Date Chantix Continuing [facility] 43928871013 1 MG Oral Active TAKE 1 Month Cullen TABLET BY MOUTH TWICE A DAY BuPROPion HCl ND 65340984746 100 MG Oral Active TAKE 1 TABLET BY MOUTH ONCE A DAY Hydrochlorothiazide ND 40698891913 25 MG Oral Active TAKE 1 TABLET BY MOUTH IN ONCE EVERY MORNING Pravastatin Sodium [facility] [id number] 40 MG Oral Active TAKE 1 TABLET BY MOUTH AT BEDTIME Ventolin HFA [facility] [id number] 108 (90 Base) Active USE 2 MCG/ACT PUFFS Inhalation NEEDED EVERY 6 HORS Duloxetine HCl [facility] [id number] 60 MG Oral Active TAKE 1 CAPSULE BY MOUTH ONCE A DAY Cyclobenzaprine HCl [facility] 65794107079 10 MG Oral Active TAKE 1 TABLET BY MOUTH TWICE DAILY NEEDED Amlodipine Besylate [facility] [id number] 10 MG Oral Active TAKE 1 TABLET BY MOUTH ONCE A DAY Trazodone HCl [facility] 34307276986 150 MG Oral Active TAKE 1 TABLET BY MOUTH AT BEDTIME Losartan Potassium [facility] 84817136583 50 MG Oral Active TAKE 1 TABLET BY MOUTH ONCE A DAY Temazepam [facility] [id number] 30 MG Oral Active (Schedule IV Drug) TAKE 1 CAPSULE BY MOUTH NEEDED AT BEDTIME Alprazolam [facility] 41017189817 2 MG Oral Active (Schedule IV Drug) TAKE 1 TABLET BY MOUTH TWICE DAILY Results No Known Results Summary Purpose eClinicalWorks Submission
--- OUTSIDE RECORDS SUMMARY | 2019-02-04 07:05 | XMS REPORT ---
[...] Status Dosage System Date Date Chantix Continuing [facility] [id number] 1 MG Oral Active TAKE 1 Month Cullen TABLET BY MOUTH TWICE A DAY Cyclobenzaprine HCl [facility] 06690552061 10 MG Oral Active TAKE 1 TABLET BY MOUTH TWICE DAILY NEEDED Ventolin HFA [facility] 93589101745 108 (90 Base) Active USE 2 MCG/ACT PUFFS Inhalation NEEDED EVERY 6 HORS Trazodone HCl [facility] 05377348244 150 MG Oral Active TAKE 1 TABLET BY MOUTH AT BEDTIME BuPROPion HCl [facility] 83867264131 100 MG Oral Active TAKE 1 TABLET BY MOUTH ONCE A DAY Duloxetine HCl [facility] 21667833274 60 MG Oral Active TAKE 1 CAPSULE BY MOUTH ONCE A DAY Hydrochlorothiazide [facility] 90230842966 25 MG Oral Active TAKE 1 TABLET BY MOUTH IN ONCE EVERY MORNING Temazepam [facility] 69014090983 30 MG Oral Active (Schedule IV Drug) TAKE 1 CAPSULE BY MOUTH NEEDED AT BEDTIME Pravastatin Sodium [facility] 96330164442 40 MG Oral Active TAKE 1 TABLET BY MOUTH AT BEDTIME Losartan Potassium [facility] 41620092468 50 MG Oral Active TAKE 1 TABLET BY MOUTH ONCE A DAY Alprazolam [facility] 61216037250 2 MG Oral Active (Schedule IV Drug) TAKE 1 TABLET BY MOUTH TWICE DAILY Amlodipine Besylate [facility] 03801789182 10 MG Oral Active TAKE 1 TABLET BY MOUTH ONCE A DAY Results No Known Results Summary Purpose eClinicalWorks Submission
--- OUTSIDE RECORDS SUMMARY | 2019-02-04 07:06 | XMS REPORT ---
[...] Status Dosage System Date Date BuPROPion HCl [facility] 66650433915 100 MG Oral Active TAKE 1 TABLET BY MOUTH ONCE A DAY Chantix Continuing ND 74699378624 1 MG Oral Active TAKE 1 Month Cullen TABLET BY MOUTH TWICE A DAY Losartan Potassium ND 17426409558 50 MG Oral Active TAKE 1 TABLET BY MOUTH ONCE A DAY Pravastatin Sodium ND 99645784584 40 MG Oral Active TAKE 1 TABLET BY MOUTH AT BEDTIME Valium ND 72227406847 2 MG Orally 1 Dec 06, Active 1 tablet PO 30 MIN 2018 as needed PRIOR TO MRI SCAN Alprazolam [facility] 44264939055 2 MG Oral Active (Schedule IV Drug) TAKE 1 TABLET BY MOUTH TWICE DAILY Duloxetine HCl [facility] 34068066144 60 MG Oral Active TAKE 1 CAPSULE BY MOUTH ONCE A DAY Trazodone HCl [facility] 99495026439 150 MG Oral Active TAKE 1 TABLET BY MOUTH AT BEDTIME Amlodipine Besylate [facility] 00798081976 10 MG Oral Active TAKE 1 TABLET BY MOUTH ONCE A DAY Hydrochlorothiazide [facility] 76674959588 25 MG Oral Active TAKE 1 TABLET BY MOUTH IN ONCE EVERY MORNING Temazepam [facility] 51783813143 30 MG Oral Active (Schedule IV Drug) TAKE 1 CAPSULE BY MOUTH NEEDED AT BEDTIME Ventolin HFA [facility] 13918220256 108 (90 Base) Active USE 2 MCG/ACT PUFFS Inhalation NEEDED EVERY 6 HORS MethylPREDNISolone [facility] 17465766702 4 MG Orally Dec 06Nov Active as 2018 Cyclobenzaprine HCl [facility] 95524714959 10 MG Oral Active TAKE 1 TABLET BY MOUTH TWICE DAILY NEEDED Results No Known Results Summary Purpose eClinicalWorks Submission
--- OUTSIDE RECORDS SUMMARY | 2019-02-04 07:06 | XMS REPORT ---
[...] Status Dosage System Date Date BuPROPion HCl [facility] 67196082710 100 MG Oral Active TAKE 1 TABLET BY MOUTH ONCE A DAY Alprazolam [facility] 13989775903 2 MG Oral Active (Schedule IV Drug) TAKE 1 TABLET BY MOUTH TWICE DAILY Trazodone HCl [facility] 74040205088 150 MG Oral Active TAKE 1 TABLET BY MOUTH AT BEDTIME Hydrochlorothiazide [facility] 74161953089 25 MG Oral Active TAKE 1 TABLET BY MOUTH IN ONCE EVERY MORNING Valium [facility] 56877928195 2 MG Orally 1 Dec 06, Active 1 tablet PO 30 MIN 2019 as needed PRIOR TO MRI SCAN Temazepam [facility] 97146391770 30 MG Oral Active (Schedule IV Drug) TAKE 1 CAPSULE BY MOUTH NEEDED AT BEDTIME Cyclobenzaprine HCl [facility] 04752476552 10 MG Oral Active TAKE 1 TABLET BY MOUTH TWICE DAILY NEEDED Amlodipine Besylate [facility] 94064047038 10 MG Oral Active TAKE 1 TABLET BY MOUTH ONCE A DAY Losartan Potassium [facility] 93159494384 50 MG Oral Active TAKE 1 TABLET BY MOUTH ONCE A DAY Duloxetine HCl [facility] 57541205629 60 MG Oral Active TAKE 1 CAPSULE BY MOUTH ONCE A DAY Ventolin HFA [facility] 44641381012 108 (90 Base) Active USE 2 MCG/ACT PUFFS Inhalation NEEDED EVERY 6 HORS Pravastatin Sodium [facility] 18327593314 40 MG Oral Active TAKE 1 TABLET BY MOUTH AT BEDTIME Chantix Continuing [facility] 15813801951 1 MG Oral Active TAKE 1 Month Cullen TABLET BY MOUTH TWICE A DAY Results Name Result Date Reference Range Unit Abnormality Flag Body Fluid Cell Count ----Body Fluid 98 87932010 % Lymphocytes ----Body Fluid 0 30834622 % Neutrophils ----Body Fluid RBC 140 [id number] /mm^3 ----Body Fluid WBC 150 [id number] /mm^3 ----Appearance CLEAR 20181217 CLEAR ----Tube # SINGLE [id number] ----Body Fluid 2 22078381 % Mononuclear Cells ----Body Fluid SYNOVIAL [id number] Source ----Color of fluid Yellow 20181217 COLORLESS AA ----Color of Not Xanthochromic 20181217 Not Xantho Supernate Body Fluid Crystals ----Body Fluid NONE SEEN [id number] Crystals Summary Purpose eClinicalWorks Submission
--- OUTSIDE RECORDS SUMMARY | 2019-02-04 07:06 | XMS REPORT ---
[...] End Status Dosage System Date Date [place]prazolam [facility] 98428512500 2 MG Oral Active (Schedule IV Drug) TAKE 1 TABLET BY MOUTH TWICE DAILY Temazepam [facility] [place] 04991378517 30 MG Oral Active (Schedule IV Drug) TAKE 1 CAPSULE BY MOUTH NEEDED AT BEDTIME Hydrochlorothiazide [facility] [place] 88831645020 25 MG Oral Active TAKE 1 TABLET BY MOUTH IN ONCE EVERY MORNING Chantix Continuing [facility] [place] 77047070410 1 MG Oral Active TAKE 1 Month Cullen TABLET BY MOUTH TWICE A DAY Pravastatin Sodium ND 26341756580 40 MG Oral Active TAKE 1 TABLET BY MOUTH AT BEDTIME Ventolin HFA [facility] [place] 47885430546 108 (90 Base) Active USE 2 MCG/ACT PUFFS Inhalation NEEDED EVERY 6 HORS Valium [facility] [place] 14074629642 2 MG Orally 1 Dec 06, Active 1 tablet PO 30 MIN 2018 as needed PRIOR TO MRI SCAN Duloxetine HCl [facility] [place] 90857109622 60 MG Oral Active TAKE 1 CAPSULE BY MOUTH ONCE A DAY Cyclobenzaprine HCl [facility] [place] 20157750832 10 MG Oral Active TAKE 1 TABLET BY MOUTH TWICE DAILY NEEDED Amlodipine Besylate [facility] [place] 81284318720 10 MG Oral Active TAKE 1 TABLET BY MOUTH ONCE A DAY Losartan Potassium [facility] [place] 38322407215 50 MG Oral Active TAKE 1 TABLET BY MOUTH ONCE A DAY Trazodone HCl [facility] [place] 12889558456 150 MG Oral Active TAKE 1 TABLET BY MOUTH AT BEDTIME BuPROPion HCl [facility] [place] 76940625649 100 MG Oral Active TAKE 1 TABLET BY MOUTH ONCE A DAY Results No Known Results Summary Purpose eClinicalWorks Submission
[2019-02-04 07:39] LABS: Blood Gas Oxyhemoglobin 79.7 % (94-97); Blood O2 Saturation 86.4 % (92-98.5)
[2019-02-04] MEDS ORDERED: Levofloxacin500mg IV 500 MG/100 ML BAG IV ONE (07:42)
[2019-02-04] MEDS ORDERED: IPRATROPIUM BROM 0.5MG/2.5ML ONE (07:42)
[2019-02-04] MEDS ORDERED: ALBUTEROL 2.5 MG/3 ML NEB SOL ONE (07:42)
[2019-02-04] MEDS ORDERED: METHYLPREDNISOLONE 125 MG INJ ONE (07:42)
[2019-02-04] MEDS ORDERED: NA CHLORIDE 0.9% 1,000 ML ONE (07:43)
--- NOTE | 2019-02-04 07:44 | ER ---
Nurse's Notes [facility] Name: Kanika Jon Age: 58 yrs Sex: Female : 1960 Arrival Date: 02/04/2019 Time: 07:05 Bed 5 Private MD: Giorgi Strickland E Diagnosis: Chronic obstructive pulmonary disease with (acute) exacerbation;Acidosis-respiratory;Respiratory failure, unspecified with hypercapnia;Respiratory failure, unspecified with hypoxia;Pneumonia due to other specified bacteria Presentation: 02/04 07:10 Presenting complaint: Patient states: "I've been here before because I've retained CO2, ss and I think that is what is happening again. I kept nodding off last night and waking up saying off the wall things. I went to get my back injections this morning and they wouldn't do it because I had a fever of 101.0 they said, but I think their thermometer was wrong. My oxygen was 55% this morning when I woke up even with my O2 on." Pt reports she is on continuous home O2 of 3-3.5 L and a baseline O2 of 88-90%. Pt arrived to ED without O2 in place. Transition of care: patient was not received from another setting of care. Onset of symptoms was February 03, 2019. Risk Assessment: Do you want to hurt yourself or someone else? Patient reports no desire to harm self or others. Initial Sepsis Screen: Does the patient have a suspected source of infection? No. Patient's initial sepsis screen is negative. Initial Sepsis Screen:. Care prior to arrival: None. 07:10 Method Of Arrival: Wheelchair ss 07:10 Acuity: [place] 2 ss 07:19 Method Of Arrival: Ambulatory tw2 07:24 Initial Sepsis Screen: Does the patient meet any 2 criteria? RR > 20 per min. HR > 90 tw2 bpm. Yes Does the patient have a suspected source of infection? If YES to both, name of provider notified: Jose Ramon Bedolla MD. Triage Assessment: 07:24 General: Appears in no apparent distress. Respiratory: Onset: The symptoms/episode tw2 began/occurred this morning, the patient has moderate shortness of breath. Historical: - Allergies: 07:13 Codeine; tw2 07:13 HYDROCODONE; tw2 07:13 hydromorphone HCl; tw2 07:13 Ibuprofen; tw2 - PMHx: 07:13 COPD; Hypertension; Depression; osteoarthritis; tw2 - PSHx: 07:13 Hysterectomy; bladder lift; tw2 - Immunization history:: Adult Immunizations. - Social history:: Smoking status: . - Ebola Screening: : No symptoms or risks identified at this time. - Family history:: not pertinent. Screenin:12 Abuse screen: Denies threats or abuse. Nutritional screening: No deficits noted. tw2 Tuberculosis screening: No symptoms or risk factors identified. Fall Risk None identified. Assessment: 07:19 General: Appears in no apparent distress. obese, Behavior is calm, cooperative, tw2 appropriate for age, Smells of cigarette smoke. Pain: Denies pain. Neuro: Level of Consciousness is awake, alert, obeys commands, Oriented to person, place, time, situation. Cardiovascular: Heart tones S1 S2 Patient's skin is warm and dry. Rhythm is regular. Respiratory: Airway is patent Respiratory effort is even, labored, Respiratory pattern is tachypnea Breath sounds are diminished bilaterally. Respiratory: Reports shortness of breath. GI: Abdomen is round non-distended, obese, Bowel sounds present X 4 quads. : No signs and/or symptoms were reported regarding the genitourinary system. EENT: No signs and/or symptoms were reported regarding the EENT system. Derm: No signs and/or symptoms reported regarding the dermatologic system. Musculoskeletal: Circulation, motion, and sensation intact. Range of motion: intact in all extremities. 08:30 Reassessment: Patient appears in no apparent distress at this time. Patient and/or sv family updated on plan of care and expected duration. Pain level reassessed. Pt appears to be sleeping, respirations even and unlabored. O2 sat 79% on O2 \\T\\ 3L per NC. Pt able to wake up with verbal stimuli. Educated pt on taking breaths in through her nose. O2 sat up to 89% on 4L per NC. Pt stated she didn't want to stay awake, that she wanted to go to sleep if we could just intubate her. Pt educated on the proper way to get oxygenation at this time. Informed Dr Bedolla what the pt wishes. 08:50 Reassessment: Dr Cooley at the bedside. sv 09:10 Reassessment: BIPAP placed by RT. sv 10:40 Reassessment: Patient appears in no apparent distress at this time. Patient and/or tw2 family updated on plan of care and expected duration. Pain level reassessed. 11:48 Reassessment: Patient appears in no apparent distress at this time. Patient and/or tw2 family updated on plan of care and expected duration. Pain level reassessed. Vital Signs: 07:10 BP 133 / 77; Pulse 107; Resp 23; Temp 99.6(TE); Pulse Ox 75% on R/A; Weight 87.09 kg; ss Height 5 ft. 5 in. (165.10 cm); 07:10 Pulse Ox 90% on 3 lpm NC; ss 08:10 BP 125 / 79; Pulse 99; Resp 22; Pulse Ox 95% on BiPAP; tw2 09:10 BP 121 / 65; Pulse 109; Resp 17; Pulse Ox 89% on BiPAP; tw2 10:10 BP 121 / 69; Pulse 109; Resp 23; Pulse Ox 72% on R/A; tw2 11:10 BP 129 / 65; Pulse 99; Resp 22; Pulse Ox 96% on BiPAP; tw2 11:42 BP 165 / 93; Pulse 108; Resp 22; Pulse Ox 96% on BiPAP; tw2 07:10 Body Mass Index 31.95 (87.09 kg, 165.10 cm) ss 08:10 9/5, rate 14, 45% tw2 09:10 pt takes bipap mask off and on tw2 10:10 pt yelling states "im just going to go home if yall wont do anything for my pain", tw2 pablo saw pt and instructed NO iv medications d/t pt desat, pt aware and reeducated. pt encouraged to place bipap back on at this time. ED Course: 07:05 Patient arrived in ED. as 07:05 Giorgi Strickland MD is Private Physician. as 07:[address] RN is Primary Nurse. tw2 07:13 Arm band placed on. tw2 07:14 Bed in low position. Call light in reach. mold injector on. Pulse ox on. NIBP on. tw2 07:19 Jose Ramon Bedolla MD is Attending Physician. [facility] 07:22 Triage completed. ss 07:30 Inserted saline lock: 20 gauge in right antecubital area, using aseptic technique. tw2 Blood collected. 07:43 Harry Cooley DO is Hospitalizing Provider. narinder 07:46 EKG done, by mechanical engineering technician. reviewed by Jose Ramon Bedolla MD. at1 07:50 X-ray completed. Portable x-ray completed in exam room. Patient tolerated procedure jb2 well. 07:53 XRAY Chest (1 view) In Process Unspecified. EDMS 09:02 BIPAP Sent. sv 09:03 ABG Sent. sv 11:22 Awaiting: attempted to call report at this time, was told VEE Rollins was not available tw2 and would have to call me back. 11:48 No provider procedures requiring assistance completed. Patient admitted, IV remains in tw2 place. Administered Medications: 07:23 Drug: SOLU-Medrol 125 mg Route: IVP; Site: right antecubital; tw2 09:03 Follow up: Response: No adverse reaction sv 07:34 Drug: Albuterol - atroVENT (3:1) (2.5 mg - 0.5 mg) 3 ml Route: Nebulizer; sv 09:03 Follow up: Response: No adverse reaction sv 07:49 Drug: levofloxacin 500 mg Volume: 100 ml; Route: IVPB; Infused Over: 60 mins; Site: tw2 right antecubital; 09:03 Follow up: Response: No adverse reaction; IV Status: Completed infusion; IV Intake: sv 100ml 07:49 Drug: NS 0.9% 1000 ml Route: IV; Rate: 125 ml/hr; Site: right antecubital; tw2 11:50 Follow up: IV Status: Infusion continued upon admission tw2 08:06 Drug: Zofran 4 mg Route: IVP; Site: right antecubital; tw2 09:04 Follow up: Response: No adverse reaction sv 08:09 Drug: predniSONE 40 mg Route: PO; tw2 09:02 Follow up: Response: No adverse reaction sv 08:09 Drug: morphine 4 mg Route: IVP; Site: right antecubital; tw2 09:03 Follow up: Response: No adverse reaction sv 10:50 Not Given (no IV Pain meds per Dr. Cooley): fentaNYL (PF) 25 mcg IVP once tw2 10:50 Not Given (per Dr. Cooley no IV meds): fentaNYL (PF) 25 mcg IVP once tw2 10:51 Not Given (Duplicate Order): Zofran 4 mg IVP once; over 2 minutes tw2 11:41 Not Given (Patient Refused): Tylenol 650 mg PO once tw2 Intake: 09:03 IV: 100ml; Total: 100ml. sv Outcome: 07:44 Decision to Hospitalize by Provider. narinder 11:48 Admitted to Med/surg accompanied by tech, via stretcher, room 428, with oxygen, with tw2 chart, Other RT paged for transport of bipap Report called to VEE Rollins 11:48 Condition: stable 11:48 Instructed on the need for admit. 12:01 Patient left the ED. iw Signatures: Dispatcher [employer] EDMS Kinsey Tan, RN Jose Ramon Gautam MD MD cha Buechter, Jesse jbTeresa Khan Irene, RN RN iw Smirch, Shelby, RN RN ss Gregoria Gonzalez, hydraulic chair assembler EKG Tat[address]ga [address] RN RN tw2 Corrections: (The following items were deleted from the chart) 11:48 08:10 BP 125 / 79; Pulse 99bpm; Resp 22bpm; Pulse Ox 95% BiPAP; tw2 tw2
--- NOTE | 2019-02-04 07:45 | EDPHYS ---
Physician Documentation [facility] [place] Name: Kanika Jon Age: 58 yrs Sex: Female : 1960 Arrival Date: 02/04/2019 Time: 07:05 Bed 5 Private MD: Giorgi Strickland E ED Physician Jose Ramon Bedolla HPI: 02/04 07:35 This 58 yrs old Female presents to ER via Wheelchair with complaints of narinder Shortness Of Breath, Fever. 07:35 The patient has shortness of breath with light activity. Onset: The symptoms/episode narinder began/occurred 1 day(s) ago. Duration: The symptoms are continuous, and are unchanged since they started. The patient's shortness of breath has no apparent modifying factors. Associated signs and symptoms: The patient has no apparent associated signs or symptoms. Severity of symptoms: At their worst the symptoms were mild in the emergency department the symptoms are unchanged. The patient has experienced similar episodes in the past, multiple times. Historical: - Allergies: 07:13 Codeine; tw2 07:13 HYDROCODONE; tw2 07:13 hydromorphone HCl; tw2 07:13 Ibuprofen; tw2 - PMHx: 07:13 COPD; Hypertension; Depression; osteoarthritis; tw2 - PSHx: 07:13 Hysterectomy; bladder lift; tw2 - Immunization history:: Adult Immunizations. - Social history:: Smoking status: . - Ebola Screening: : No symptoms or risks identified at this time. - Family history:: not pertinent. ROS: 07:35 Constitutional: Negative for fever, chills, and weight loss, Eyes: Negative for injury, narinder pain, redness, and discharge, ENT: Negative for injury, pain, and discharge, Neck: Negative for injury, pain, and swelling, Cardiovascular: Negative for chest pain, palpitations, and edema, Abdomen/GI: Negative for abdominal pain, nausea, vomiting, diarrhea, and constipation, Back: Negative for injury and pain, : Negative for injury, bleeding, discharge, and swelling, MS/Extremity: Negative for injury and deformity, Skin: Negative for injury, rash, and discoloration, Neuro: Negative for headache, weakness, numbness, tingling, and seizure, Psych: Negative for depression, anxiety, suicide ideation, homicidal ideation, and hallucinations, Allergy/Immunology: Negative for hives, rash, and allergies, Endocrine: Negative for neck swelling, polydipsia, polyuria, polyphagia, and marked weight changes, Hematologic/Lymphatic: Negative for swollen nodes, abnormal bleeding, and unusual bruising. 07:35 Respiratory: Positive for cough, shortness of breath, at rest. Exam: 07:35 Constitutional: This is a well developed, well nourished patient who is awake, alert, narinder and in no acute distress. Head/Face: Normocephalic, atraumatic. Eyes: Pupils equal round and reactive to light, extra-ocular motions intact. Lids and lashes normal. Conjunctiva and sclera are non-icteric and not injected. Cornea within normal limits. Periorbital areas with no swelling, redness, or edema. ENT: Nares patent. No nasal discharge, no septal abnormalities noted. Tympanic membranes are normal and external auditory canals are clear. Oropharynx with no redness, swelling, or masses, exudates, or evidence of obstruction, uvula midline. Mucous membranes moist. Neck: Trachea midline, no thyromegaly or masses palpated, and no cervical lymphadenopathy. Supple, full range of motion without nuchal rigidity, or vertebral point tenderness. No Meningismus. Chest/axilla: Normal chest wall appearance and motion. Nontender with no deformity. No lesions are appreciated. Cardiovascular: Regular rate and rhythm with a normal S1 and S2. No gallops, murmurs, or rubs. Normal PMI, no JVD. No pulse deficits. Abdomen/GI: Soft, non-tender, with normal bowel sounds. No distension or tympany. No guarding or rebound. No evidence of tenderness throughout. Back: No spinal tenderness. No costovertebral tenderness. Full range of motion. Skin: Warm, dry with normal turgor. Normal color with no rashes, no lesions, and no evidence of cellulitis. MS/ Extremity: Pulses equal, no cyanosis. Neurovascular intact. Full, normal range of motion. Neuro: Awake and alert, GCS 15, oriented to person, place, time, and situation. Cranial nerves II-XII grossly intact. Motor strength 5/5 in all extremities. Sensory grossly intact. Cerebellar exam normal. Normal gait. Psych: Awake, alert, with orientation to person, place and time. Behavior, mood, and affect are within normal limits. 07:35 Respiratory: mild respiratory distress is noted, Respirations: labored breathing, that is mild, Breath sounds: decreased breath sounds, rhonchi, wheezing: expiratory Vital Signs: 07:10 BP 133 / 77; Pulse 107; Resp 23; Temp 99.6(TE); Pulse Ox 75% on R/A; Weight 87.09 kg; ss Height 5 ft. 5 in. (165.10 cm); 07:10 Pulse Ox 90% on 3 lpm NC; ss 08:10 BP 125 / 79; Pulse 99; Resp 22; Pulse Ox 95% on BiPAP; tw2 09:10 BP 121 / 65; Pulse 109; Resp 17; Pulse Ox 89% on BiPAP; tw2 10:10 BP 121 / 69; Pulse 109; Resp 23; Pulse Ox 72% on R/A; tw2 11:10 BP 129 / 65; Pulse 99; Resp 22; Pulse Ox 96% on BiPAP; tw2 11:42 BP 165 / 93; Pulse 108; Resp 22; Pulse Ox 96% on BiPAP; tw2 07:10 Body Mass Index 31.95 (87.09 kg, 165.10 cm) 08:10 9/5, rate 14, 45% tw2 09:10 pt takes bipap mask off and on tw2 10:10 pt yelling states "im just going to go home if yall wont do anything for my pain", 2 pablo saw pt and instructed NO iv medications d/t pt desat, pt aware and reeducated. pt encouraged to place bipap back on at this time. MDM: 07:19 Patient medically screened. [facility] 07:37 Data reviewed: vital signs, nurses notes, lab test result(s), EKG, radiologic studies, narinder plain films. 02/04 07:27 Order name: Basic Metabolic Panel; Complete Time: 08:27 [facility] 02/04 07:27 Order name: CBC with Diff; Complete Time: 08:10 [facility] 02/04 07:27 Order name: LFT's; Complete Time: 08:27 narinder 02/04 07:27 Order name: Magnesium; Complete Time: 08:27 [facility] 02/04 07:27 Order name: NT PRO-BNP; Complete Time: 08:27 [facility] 02/04 07:27 Order name: PT-INR; Complete Time: 08:10 [facility] 02/04 07:27 Order name: Troponin (emerg Dept Use Only); Complete Time: 08:27 [facility] 02/04 07:27 Order name: Blood Culture Adult (2) [facility] 02/04 07:27 Order name: Procalcitonin [facility] 02/04 07:27 Order name: Urine Culture [facility] 02/04 07:34 Order name: ABG sv 02/04 07:34 Order name: ABG Arterial Blood Gas EDMS 02/04 09:27 Order name: Urine Dipstick--Ancillary (enter results) 02/04 10:48 Order name: Urine Dipstick-Ancillary EDMS 02/04 07:27 Order name: XRAY Chest (1 view) [facility] 02/04 07:27 Order name: EKG; Complete Time: 07:28 [facility] 02/04 07:27 Order name: Cardiac monitoring; Complete Time: 07:51 [facility] 02/04 07:27 Order name: EKG - Nurse/Tech; Complete Time: 07:51 [facility] 02/04 08:42 Order name: BIPAP [facility] 02/04 07:27 Order name: IV Saline Lock; Complete Time: 07:51 [facility] 02/04 07:27 Order name: Labs collected and sent; Complete Time: 07:51 [facility] 02/04 07:27 Order name: O2 Per Protocol; Complete Time: 07:51 [facility] 02/04 07:27 Order name: O2 Sat Monitoring; Complete Time: 07:51 [facility] 02/04 07:27 Order name: Urine Dipstick-Ancillary (obtain specimen); Complete Time: 09:14 [facility] Administered Medications: 07:23 Drug: SOLU-Medrol 125 mg Route: IVP; Site: right antecubital; tw2 09:03 Follow up: Response: No adverse reaction sv 07:34 Drug: Albuterol - atroVENT (3:1) (2.5 mg - 0.5 mg) 3 ml Route: Nebulizer; sv 09:03 Follow up: Response: No adverse reaction sv 07:49 Drug: levofloxacin 500 mg Volume: 100 ml; Route: IVPB; Infused Over: 60 mins; Site: tw2 right antecubital; 09:03 Follow up: Response: No adverse reaction; IV Status: Completed infusion; IV Intake: sv 100ml 07:49 Drug: NS 0.9% 1000 ml Route: IV; Rate: 125 ml/hr; Site: right antecubital; tw2 11:50 Follow up: IV Status: Infusion continued upon admission tw2 08:06 Drug: Zofran 4 mg Route: IVP; Site: right antecubital; tw2 09:04 Follow up: Response: No adverse reaction sv 08:09 Drug: predniSONE 40 mg Route: PO; tw2 09:02 Follow up: Response: No adverse reaction sv 08:09 Drug: morphine 4 mg Route: IVP; Site: right antecubital; tw2 09:03 Follow up: Response: No adverse reaction sv 10:50 Not Given (no IV Pain meds per Dr. Cooley): fentaNYL (PF) 25 mcg IVP once tw2 10:50 Not Given (per Dr. Cooley no IV meds): fentaNYL (PF) 25 mcg IVP once tw2 10:51 Not Given (Duplicate Order): Zofran 4 mg IVP once; over 2 minutes tw2 11:41 Not Given (Patient Refused): Tylenol 650 mg PO once tw2 Disposition: 02/04/19 07:44 Hospitalization ordered by Harry Cooley for Inpatient Admission. Preliminary diagnosis are Chronic obstructive pulmonary disease with (acute) exacerbation, Acidosis - respiratory, Respiratory failure, unspecified with hypercapnia, Respiratory failure, unspecified with hypoxia, Pneumonia due to other specified bacteria. - Bed requested for Telemetry/MedSurg (Inpatient). - Status is Inpatient Admission. iw - Condition is Fair. - Problem is new. - Symptoms have improved. UTI on Admission? No Signatures: Dispatcher [employer] Kinsey Tracey RN RN sv Woody, Diana, RN RN dw Anderson, Corey, MD MD cha Williams, Irene, RN RN iw Wise, Tara, RN RN tw2 Corrections: (The following items were deleted from the chart) 08:28 07:44 Hospitalization Ordered by Harry Cooley DO for Inpatient Admission. Preliminary narinder diagnosis is Chronic obstructive pulmonary disease with (acute) exacerbation; Acidosis - respiratory; Respiratory failure, unspecified with hypercapnia; Respiratory failure, unspecified with hypoxia. Bed requested for Telemetry/MedSurg (Inpatient). Status is Inpatient Admission. Condition is Fair. Problem is new. Symptoms have improved. UTI on Admission? No. narinder 11:03 08:28 02/04/2019 07:44 Hospitalization Ordered by Harry Cooley DO for Inpatient dw Admission. Preliminary diagnosis is Chronic obstructive pulmonary disease with (acute) exacerbation; Acidosis - respiratory; Respiratory failure, unspecified with hypercapnia; Respiratory failure, unspecified with hypoxia; Pneumonia due to other specified bacteria. Bed requested for Telemetry/MedSurg (Inpatient). Status is Inpatient Admission. Condition is Fair. Problem is new. Symptoms have improved. UTI on Admission? No. [facility] 12:01 11:03 02/04/2019 07:44 Hospitalization Ordered by Harry Cooley DO for Inpatient iw Admission. Preliminary diagnosis is Chronic obstructive pulmonary disease with (acute) exacerbation; Acidosis - respiratory; Respiratory failure, unspecified with hypercapnia; Respiratory failure, unspecified with hypoxia; Pneumonia due to other specified bacteria. Bed requested for Telemetry/MedSurg (Inpatient). Status is Inpatient Admission. Condition is Fair. Problem is new. Symptoms have improved. UTI on Admission? No. dw
[2019-02-04 08:03] LABS: Absolute Lymphocytes (CBC) 1.9 K/uL (0.7-4.9); Absolute Monocytes 0.4 K/uL (0.1-1.3); Absolute Neutrophil 4.1 K/uL (1.8-8.0); Basophils % 0.6 % (0-1.3); Eosinophils % 1.2 % (0-4.4); Hematocrit 47.2 % (36.0-45.0); Lymphocytes % 29.1 % (15.3-44.8); MPV 8.3 fL (7.6-11.3); Monocytes % 6.1 % (3.3-12.3); RBC Red Blood Cell Count 4.98 M/uL (3.86-4.86)
[2019-02-04 08:04] LABS: Protime INR 0.97
[2019-02-04] MEDS ORDERED: predniSONE 20 MG TAB ONE (08:06)
--- NOTE | 2019-02-04 08:14 | EKG ---
Test Date: 2019-02-04 Test Time: 07:40:24 Rewinder Operator: JOANNE MEASUREMENT RESULTS: Intervals: Rate: 102 TN: 150 QRSD: 104 QT: 382 QTc: 497 [place]: P: 67 TN: 150 QRS: -65 T: 37 INTERPRETIVE STATEMENTS: Sinus tachycardia Left axis deviation Inferior infarct, age undetermined Cannot rule out Anterior infarct, age undetermined Abnormal ECG Compared to ECG 10/22/2018 18:28:13 Left-axis deviation now present Sinus rhythm no longer present Right superior axis no longer present Myocardial infarct finding still present Electronically Signed On 02-04-19 08:14:13 CDT by Holger Merlos
[2019-02-04 08:18] LABS: ALT/SGPT 23 U/L (12-78); AST/SGOT 14 U/L (15-37); Alkaline Phosphatase 104 U/L (45-117); BUN Blood Urea Nitrogen 11 mg/dL (7-18); Bicarbonate 32 mmol/L (21-32); Bilirubin Direct 0.1 mg/dL (0-0.2); Bilirubin Total 0.4 mg/dL (0.2-1.0); Glucose Level 104 mg/dL (74-106); Magnesium 2.1 mg/dL (1.8-2.4); NT PRO-BNP 98 pg/mL (<125); Potassium 3.6 mmol/L (3.5-5.1); Protein, Total 7.1 g/dL (6.4-8.2); Sodium Level 140 mmol/L (136-145); Troponin (Emerg Dept Use Only) < 0.02 ng/mL (0.0-0.045)
[2019-02-04] MEDS ORDERED: ONDANSETRON 4 MG/2 ML VIAL ONE (08:18)
[2019-02-04] MEDS ORDERED: MORPHINE 4 MG/ML SYR ONE (08:18)
--- NOTE | 2019-02-04 08:27 | RAD REPORT ---
EXAM DESCRIPTION: RAD - Chest Single View - 02/04/2019 7:54 am CLINICAL HISTORY: Cough;COPD Chest pain. COMPARISON: Chest Single View dated 12/29/2018; Chest Single View dated 10/24/2018; Chest Single View da jsohua 10/22/2018; Chest Single View dated 02/02/2018 FINDINGS: Portable technique limits examination quality. Mild ill-defined opacities in the right lung base are seen. Small bilateral pleural effusions. Mild i nterstitial pulmonary edema present. The heart is mildly enlarged. No displaced fractures. IMPRESSION: Mild CHF versus volume overload pattern. Linear opacities in the right lung base likely represent atelectasis or developing pneumonia.
[2019-02-04 10:48] LABS: Urine Blood NEGATIVE (NEG); Urine Glucose NEGATIVE (NEG); Urine Protein 1+ (NEG)
[2019-02-04] MEDS ORDERED: ONDANSETRON 4 MG/2 ML VIAL IV PRN (12:18)
[2019-02-04] MEDS ORDERED: BENZONATATE 100 MG CAP PO PRN (12:18)
[2019-02-04] MEDS ORDERED: IPRATROPIUM BROM 0.5MG/2.5ML NEB PRN (12:18)
[2019-02-04] MEDS ORDERED: ALBUTEROL 2.5 MG/3 ML NEB SOL NEB PRN (12:18)
[2019-02-04] MEDS ORDERED: TRAMADOL HCL 50 MG TAB PO PRN (12:18)
[2019-02-04] MEDS ORDERED: ACETAMINOPHEN 500 MG TAB PO PRN (12:18)
[2019-02-04 13:29] VITALS: BMI 31.9
[2019-02-04] MEDS: ALPRAZOLAM 0.25 MG TABLET PO PRN ×2 (13:42→22:47)
[2019-02-04] MEDS: GABAPENTIN 100 MG CAP PO SCH ×2 (13:42→22:44)
[2019-02-04] MEDS: predniSONE 20 MG TAB PO SCH ×2 (13:42→22:44)
[2019-02-04] MEDS ORDERED: TRAZODONE 150 MG TAB PO PRN (13:53)
[2019-02-04] MEDS ORDERED: POTASSIUM CL SA 10 MEQ TAB PO ONE (14:00)
[2019-02-04] MEDS: NICOTINE 21 MG/PAT TD SCH (14:00)
--- NOTE | 2019-02-04 14:01 | P.HP ---
Certification for Inpatient Patient admitted to: Observation With expected LOS: <2 Midnights Patient will require the following post-hospital care: None Practitioner: I am a practitioner with admitting privileges, knowledge of patient current condition, hospital course, and medical plan of care. Services: Services provided to patient in accordance with Admission requirements found in Title 42 Section 412.3 of the Code of Federal Regulations Patient History Date of Service: 02/04/19 Primary Care Provider: Dr. Strickland Reason for admission: Shortness of breath History of Present Illness: 58-year-old female presented emergency room with shortness of breath. Patient with underlying COPD with chronic oxygen. Patient presented with shortness of breath. She also reported some cough, congestion over the last day. She denies any significant chest pain. She also reports increasing pain to her upper back. She was to see pain management today. In the ER patient evaluated. Patient found to be tachypneic and short of breath. Patient was given breathing treatments. Initial x-ray showed possible left lower lobe pneumonia. The patient was admitted for further treatment. When I saw the patient the ER, she had improved. She was stable on nasal cannula. Patient requested IV pain medication. She did not appear to be in any severe pain. Patient continues to smoke. She takes chronic pain medication. Allergies hydrocodone [Hydrocodone] Allergy (Intermediate, Verified 07/30/15 23:08) Itching hydromorphone HCl [From Dilaudid] Adverse Reaction (Mild, Verified 07/30/15 23: 08) Itching Codeine Allergy (Mild, Uncoded 07/20/17 23:52) Itching Hydrocodone-Acetaminophen Allergy (Uncoded 07/20/17 23:52) Itching Home medications list reviewed: Yes Home Medications: Losartan Potassium 50 mg PO DAILY 10/21/16 ALPRAZolam [Alprazolam] 2 mg PO BID 01/29/18 Amlodipine Besylate 10 mg PO DAILY 01/29/18 Duloxetine HCl 60 mg PO DAILY 01/29/18 Trazodone [Desyrel*] 150 mg PO BEDTIME 12/30/18 buPROPion HCl [Bupropion HCl] 100 mg PO DAILY 12/30/18 Arformoterol Tartrate [Brovana] 1 vial IN BID 02/04/19 Oxycodone HCl/Acetaminophen [Percocet 5-325 mg Tablet] 1 tab PO BID 02/04/19 - Past Medical/Surgical History Has patient received pneumonia vaccine in the past: No Diabetic: No -: Alcohol abuse -: HTN -: 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 -: Osteoarthritis -: History of diverticulitis -: Depression with anxiety -: GERD -: COPD -: Tobacco abuse -: Hyperlipidemia -: Hysterectomy -: Left knee surgery Psychosocial/ Personal History: Lives with mother. - Family History Mother -: Cancer Father Notes: parkinson's dse - Social History Smoking Status: Current every day smoker Alcohol use: No CD- Drugs: No Caffeine use: Yes Place of Residence: Home Review of Systems General: As per HPI Eyes: Unremarkable ENT: Unremarkable Respiratory: Cough, Shortness of Breath, Wheezing, As per HPI Cardiovascular: Unremarkable Gastrointestinal: Unremarkable Genitourinary: Unremarkable Musculoskeletal: Back Pain, As per HPI Integumentary: Unremarkable Neurological: Unremarkable Lymphatics: Unremarkable Physical Examination - Vital Signs Temperature: 97.6 F Blood Pressure: 133/68 Pulse: 99 Respirations: 16 Pulse Ox (%): 88 - Physical Exam General: Alert, In no apparent distress, Oriented x3, Cooperative HEENT: Atraumatic, Normocephalic, Mucous membr. moist/pink Neck: Supple Respiratory: Expiratory wheezes (Bilateral), Inspiratory wheezes (Bilateral) Cardiovascular: Normal pulses, Regular rate/rhythm Gastrointestinal: Normal bowel sounds, Soft and benign, Non-distended, No tenderness, No masses, No rebound, No guarding Musculoskeletal: No erythema, No tenderness, No warmth Integumentary: No tenderness/swelling, No erythema, No warmth, No cyanosis Neurological: Normal speech, Normal strength at 5/5 x4 extr, Normal tone, Normal affect, Other (Patient walking appropriately. No evidence of a severe pain.) - Studies Laboratory Data (last 24 hrs) 02/04/19 07:30: PT 11.5, INR 0.97 02/04/19 07:30: WBC 6.6 D, Hgb 15.1 H, Hct 47.2 H, Plt Count 257 02/04/19 07:30: Sodium 140, Potassium 3.6, BUN 11, Creatinine 0.64, Glucose 104 , Magnesium 2.1, Total Bilirubin 0.4, AST 14 L, ALT 23, Alkaline Phosphatase 104 Assessment and Plan - Plan Impression: Shortness of breath secondary to COPD exacerbation with suspected left lower lobe pneumonia on chronic oxygen Tobacco abuse Chronic pain with degenerative disc and joint disease GERD Obesity, BMI 32 Anxiety Plan: Shortness of breath secondary to COPD exacerbation with suspected left lower lobe pneumonia on chronic oxygen: Patient patient admitted for observation. Will continue with COPD treatment. Will start oral steroids. Will provide medication for cough and congestion. Respiratory consulted to maintain sats above 90%. Will start Levaquin for pneumonia. Will recheck chest x-ray in the morning. Anticipate discharge within the next 24 hr is significantly improved. Will start DVT prophylaxis-Lovenox. Tobacco cessation addressed Tobacco abuse: Continue to address tobacco cessation. Will provide nicotine patch. Greater than 3 min of nicotine education Chronic pain with degenerative disc and joint disease: Will restart home medication. No IV pain medication at this time is required. This was addressed in detail with the patient. Patient may be drug-seeking. Patient should follow up with chronic pain specialist to continue her care. Patient reports that she is to get injections here soon as an outpatient. GERD: Will provide medication. Obesity, BMI 32: Will address lifestyle modification education. Depression with anxiety: Will provide medication. Will limit higher dose benzodiazepines. - Advance Directives Does patient have a Living Will: No Does patient have a Durable POA for Healthcare: No - Code Status/Comfort Care Code Status Assessed: Yes (Patient is full code.) Time Spent Managing Pts Care (In Minutes): 55
[2019-02-04] MEDS: Oxycodone HCl/Acetaminophen 1 TAB TAB PO SCH (18:56)
[2019-02-04 19:36] LABS: Urine Appearance CLOUDY; Urine Bilirubin NEGATIVE (NEG); Urine Blood NEGATIVE (NEG); Urine Color YELLOW; Urine Glucose NEGATIVE (NEG); Urine Protein NEGATIVE (NEG); Urine Urobilinogen 0.2 mg/dL (0.2-1.0); Urine pH 5.5 (5.0-7.0)
[2019-02-04 19:50] LABS: Urine Microscopic Reflex NO UMIC
[2019-02-04 20:34] LABS: Urine Bacteria LOADED /HPF (<20); Urine Culture Reflex Order REFLEXED; Urine RBC NONE SEEN /HPF (NONE SEEN)
[2019-02-04] MEDS: GUAIFENESIN 600 MG SA TAB PO SCH (22:44)
[2019-02-05 04:39] LABS: BUN Blood Urea Nitrogen 13 mg/dL (7-18); Bicarbonate 35 mmol/L (21-32); Glucose Level 181 mg/dL (74-106); Magnesium 2.5 mg/dL (1.8-2.4); Potassium 4.5 mmol/L (3.5-5.1); Sodium Level 142 mmol/L (136-145)
[2019-02-05 04:45] LABS: Absolute Lymphocytes (CBC) 0.6 K/uL (0.7-4.9); Absolute Monocytes 0.1 K/uL (0.1-1.3); Absolute Neutrophil 6.1 K/uL (1.8-8.0); Basophils % 0.2 % (0-1.3); Hematocrit 45.6 % (36.0-45.0); Lymphocytes % 8.8 % (15.3-44.8); MPV 8.7 fL (7.6-11.3); RBC Red Blood Cell Count 4.77 M/uL (3.86-4.86)
[2019-02-05 07:44] LABS: Blood Morphology Comment NOTED (NOT SEEN); Platelet Estimate ADEQ; Polychromasia 1+
[2019-02-05] MEDS: NICOTINE 21 MG/PAT TD SCH (08:25)
[2019-02-05] MEDS: Oxycodone HCl/Acetaminophen 1 TAB TAB PO SCH (08:26)
[2019-02-05] MEDS: predniSONE 20 MG TAB PO SCH (08:27)
[2019-02-05] MEDS: GABAPENTIN 100 MG CAP PO SCH (08:27)
[2019-02-05] MEDS: GUAIFENESIN 600 MG SA TAB PO SCH (08:27)
[2019-02-05] MEDS: ALPRAZOLAM 0.25 MG TABLET PO PRN (08:33)
--- NOTE | 2019-02-05 08:35 | P.CNS ---
Date of Consult: 02/05/19 Primary Care Provider: Dr. Strickland Chief Complaint: Shortness of breath History of Present Illness: Patient is 58 years of age with a history of COPD noncompliant admitted with worsening shortness of breath mentions altered mental status slight fever slight cough recently has some injections in her neck and her knees no sputum or hemoptysis also has some dysuria continues to smoke Allergies hydrocodone [Hydrocodone] Allergy (Intermediate, Verified 07/30/15 23:08) Itching hydromorphone HCl [From Dilaudid] Adverse Reaction (Mild, Verified 07/30/15 23: 08) Itching Codeine Allergy (Mild, Uncoded 07/20/17 23:52) Itching Hydrocodone-Acetaminophen Allergy (Uncoded 07/20/17 23:52) Itching Home Medications: Losartan Potassium 50 mg PO DAILY 10/21/16 ALPRAZolam [Alprazolam] 2 mg PO BID 01/29/18 Amlodipine Besylate 10 mg PO DAILY 01/29/18 Duloxetine HCl 60 mg PO DAILY 01/29/18 Trazodone [Desyrel*] 150 mg PO BEDTIME 12/30/18 buPROPion HCl [Bupropion HCl] 100 mg PO DAILY 12/30/18 Arformoterol Tartrate [Brovana] 1 vial IN BID 02/04/19 Oxycodone HCl/Acetaminophen [Percocet 5-325 mg Tablet] 1 tab PO BID 02/04/19 - Past Medical/Surgical History Diabetic: No -: Alcohol abuse -: HTN -: 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 -: Osteoarthritis -: History of diverticulitis -: Depression with anxiety -: GERD -: COPD -: Tobacco abuse -: Hyperlipidemia -: Hyperlipidemia -: Tobacco abuse -: Hysterectomy -: Left knee surgery Psychosocial/ Personal History: Lives with mother. - Family History Mother Medical History: Cancer Father Notes: parkinson's dse - Social History Smoking Status: Current every day smoker Alcohol use: No CD- Drugs: No Caffeine use: Yes Place of Residence: Home Review of Systems General: Weakness Respiratory: Cough, Shortness of Breath Physical Examination Temp Pulse Resp BP Pulse Ox 97.1 F 73 18 97/47 L 96 02/05/19 04:00 02/05/19 04:00 02/05/19 04:00 02/05/19 04:00 02/05/19 04:00 General: Alert, Oriented x3, Mild distress Respiratory: Clear to auscultation bilaterally, Diminished Cardiovascular: No edema, Regular rate/rhythm Gastrointestinal: Normal bowel sounds, Soft and benign - Problems (1) COPD exacerbation Current Visit: Yes Status: Acute Plan: Patient is 58 years of age with a history of COPD admitted with a possible exacerbation continues to smoke patient is hypoxic hypercapnic at baseline chest x-ray shows chronic interstitial changes, COPD urinalysis is negative vital signs are stable probably can be discharged home on low-dose prednisone continue with bronchodilators follow up with me in the office is no evidence of an infection urinalysis is also negative for any infection patient takes narcotics at home blood pressure is low Dc the hypertensive medication
[2019-02-05 08:56] VITALS: TEMP 97.7
[2019-02-05] MEDS ORDERED: LOSARTAN POTASSIUM 50 MG TABLET PO SCH (09:00)
[2019-02-05] MEDS ORDERED: DULOXETINE 30 MG CAP PO SCH (09:00)
[2019-02-05] MEDS ORDERED: buPROPion HCl 100 MG TAB PO SCH (09:00)
[2019-02-05] MEDS ORDERED: AMLODIPINE 10 MG TAB PO SCH (09:00)
[2019-02-05] MEDS ORDERED: LIDOCAINE 5% PATCH TOP SCH (09:00)
[2019-02-05] MEDS ORDERED: ENOXAPARIN 40 MG/0.4 ML SQ SCH (09:00)
[2019-02-05] MEDS ORDERED: levoFLOXacin 500 MG TAB PO SCH (09:00)
--- NOTE | 2019-02-05 11:03 | RAD REPORT ---
EXAM DESCRIPTION: RAD - Chest Pa And Lat (2 Views) - 02/05/2019 8:56 am CLINICAL HISTORY: follow up COPD and possible pneumonia Chest pain. COMPARISON: Chest Single View dated 02/04/2019; Chest Single View dated 12/29/2018; Chest Single View d ated 10/24/2018; Chest Single View dated 10/22/2018 FINDINGS: There has been improvement in bilateral pulmonary opacities since the comparative study. L inear opacities persist in both lower lobes, greater on the left with small pleural effusions. The he art is mildly enlarged in size. No displaced fractures. IMPRESSION: Mild improvement in lung aeration since comparative study.
--- NOTE | 2019-02-05 12:19 | P.DS ---
Admission Date: 02/04/19 Discharge Date: 02/05/19 Primary Care Provider: Dr. Strickland Disposition: DC HOME/HOME HEALTH CARE Discharge Condition: GOOD Reason for Admission: Shortness of breath Consultations: Pulmonary-Dr. Jones Procedures: CXR: COMPARISON: Chest Single View dated 02/04/2019; Chest Single View dated 12/29/2018 ; Chest Single View dated 10/24/2018; Chest Single View dated 10/22/2018 FINDINGS: There has been improvement in bilateral pulmonary opacities since the comparative study. Linear opacities persist in both lower lobes, greater on the left with small pleural effusions. The heart is mildly enlarged in size. No displaced fractures. IMPRESSION: Mild improvement in lung aeration since comparative study. Medical Problem List: Shortness of breath secondary to COPD exacerbation on chronic oxygen UTI Tobacco abuse Hypertension Chronic pain with degenerative disc and joint disease GERD Obesity, BMI 32 Anxiety Brief History of Present Illness: 58-year-old female presented emergency room with shortness of breath. Patient with underlying COPD with chronic oxygen. Patient presented with shortness of breath. She also reported some cough, congestion over the last day. She denies any significant chest pain. She also reports increasing pain to her upper back. She was to see pain management today. In the ER patient evaluated. Patient found to be tachypneic and short of breath. Patient was given breathing treatments. Initial x-ray showed possible left lower lobe pneumonia. The patient was admitted for further treatment. Hospital Course: Patient presented with shortness of breath. Pneumonia was suspected but related to COPD exacerbation. Patient on chronic oxygen. Patient was given COPD treatment with good response. Patient seen and evaluated by pulmonology. No further intervention was required. Chest x-ray showed improvement. At discharge patient will continue with prednisone 20 mg 1 pill twice daily for 5 days then 1 pill once daily for 5 days. She will continue with her COPD medication-Brovana 1 unit dose twice daily and albuterol 1 unit dose 3 times a day as needed for shortness of breath. She is to continue oxygen at home to maintain sats above 90%. Patient will need to limit activities. Recommend to follow up with pulmonology in 1-2 weeks to follow up this hospitalization and continue her care. Patient was found to have UTI. Urine culture was positive for Gram negative rods. Previous cultures reviewed. Patient with E coli in the past. At discharge, Patient will be sent home on Augmentin 500 mg 1 pill twice daily for 7 days. UTI prevention education will be provided. Patient with chronic pain with degenerative disc and joint disease. Patient will continue with her home medication-oxycodone 5/325 mg 1 pill twice daily as needed for pain and Cymbalta 60 mg daily. Recommendation is to follow up with her chronic pain specialist to continue her care. Patient is getting injections as an outpatient. If pain persists she may benefit with neuro surgery evaluation. Tobacco cessation addressed in detail. Patient plans to quit. Will provide nicotine patches. Patient with GERD. Will continue the medication-Pepcid over the counter 1 pill twice daily Patient with hypertension. Medications have been adjusted. At discharge Norvasc has been discontinued. Patient may continue with losartan 50 mg daily. Recommend to maintain blood pressures less 150/80. Further adjustment can be done by his PCP. Patient with underlying depression with anxiety. Patient will continue with her medication-Buproprion 100 mg daily, trazodone 150 mg at bedtime, and alprazolam 2 mg 1 pill twice daily as needed for anxiety. Patient is to limit benzodiazepines use and eventually weaned off medication. Vital Signs/Physical Exam: Temp Pulse Resp BP Pulse Ox 97.7 F 82 16 102/57 L 90 L 02/05/19 08:00 02/05/19 08:27 02/05/19 08:00 02/05/19 08:27 02/05/19 08:00 General: Alert, In no apparent distress, Oriented x3, Cooperative HEENT: Atraumatic Neck: Supple Respiratory: Clear to auscultation bilaterally, Normal air movement Cardiovascular: Normal pulses, Regular rate/rhythm Gastrointestinal: Normal bowel sounds, Soft and benign, Non-distended, No tenderness, No masses, No rebound, No guarding Musculoskeletal: No erythema, No tenderness, No warmth Integumentary: No erythema, No warmth, No cyanosis Neurological: Normal speech, Normal strength at 5/5 x4 extr, Normal tone, Normal affect Laboratory Data at Discharge: WBC 6.9 K/uL (4.3-10.9) 02/05/19 03:57 Hgb 14.5 g/dL (12.0-15.0) 02/05/19 03:57 Hct 45.6 % (36.0-45.0) H 02/05/19 03:57 Plt Count 226 K/uL (152-406) 02/05/19 03:57 PT 11.5 SECONDS (9.5-12.5) 02/04/19 07:30 INR 0.97 02/04/19 07:30 Sodium 142 mmol/L (136-145) 02/05/19 03:57 Potassium 4.5 mmol/L (3.5-5.1) 02/05/19 03:57 BUN 13 mg/dL (7-18) 02/05/19 03:57 Creatinine 0.58 mg/dL (0.55-1.3) 02/05/19 03:57 Glucose 181 mg/dL (74-106) H 02/05/19 03:57 Magnesium 2.5 mg/dL (1.8-2.4) H 02/05/19 03:57 Total Bilirubin 0.4 mg/dL (0.2-1.0) 02/04/19 07:30 AST 14 U/L (15-37) L 02/04/19 07:30 ALT 23 U/L (12-78) 02/04/19 07:30 Alkaline Phosphatase 104 U/L (45-117) 02/04/19 07:30 Home Medications: Losartan Potassium 50 mg PO DAILY 10/21/16 ALPRAZolam [Alprazolam] 2 mg PO BID 01/29/18 Duloxetine HCl 60 mg PO DAILY 01/29/18 Trazodone [Desyrel*] 150 mg PO BEDTIME 12/30/18 buPROPion HCl [Bupropion HCl] 100 mg PO DAILY 12/30/18 Arformoterol Tartrate [Brovana] 1 vial IN BID 02/04/19 Oxycodone HCl/Acetaminophen [Percocet 5-325 mg Tablet] 1 tab PO BID 02/04/19 Albuterol Neb [Proventil 0.083% Neb Soln] 3 ml NEB TID PRN #90 amp 02/05/19 Amox/Clavulanate [Augmentin 500-125 mg Tab] 500 mg PO BID #14 tab 02/05/19 Nicotine [Nicoderm*] 21 mg TD DAILY #30 patch.td24 02/05/19 predniSONE [Prednisone*] 20 mg PO SEECOM #15 tab 02/05/19 New Medications: Albuterol Neb [Proventil 0.083% Neb Soln] 3 ml NEB TID PRN #90 amp PRN Reason: Shortness Of Breath Amox/Clavulanate [Augmentin 500-125 mg Tab] 500 mg PO BID #14 tab Nicotine [Nicoderm*] 21 mg TD DAILY #30 patch.td24 predniSONE [Prednisone*] 20 mg PO SEECOM #15 tab Patient Discharge Instructions: 1. Recommend to follow up with a PCP within 1 week to follow up this hospitalization. 2. Patient presented with shortness of breath. Pneumonia was suspected but related to COPD exacerbation. Patient on chronic oxygen. Patient was given COPD treatment with good response. Patient seen and evaluated by pulmonology. No further intervention was required. Chest x-ray showed improvement. At discharge patient will continue with prednisone 20 mg 1 pill twice daily for 5 days then 1 pill once daily for 5 days. She will continue with her COPD medication-Brovana 1 unit dose twice daily and albuterol 1 unit dose 3 times a day as needed for shortness of breath. She is to continue oxygen at home to maintain sats above 90%. Patient will need to limit activities. Recommend to follow up with pulmonology in 1-2 weeks to follow up this hospitalization and continue her care. 3. Patient was found to have UTI. Urine culture was positive for Gram negative rods. Previous cultures reviewed. Patient with E coli in the past. At discharge, Patient will be sent home on Augmentin 500 mg 1 pill twice daily for 7 days. UTI prevention education will be provided. 4. Patient with chronic pain with degenerative disc and joint disease. Patient will continue with her home medication-oxycodone 5/325 mg 1 pill twice daily as needed for pain and Cymbalta 60 mg daily. Recommendation is to follow up with her chronic pain specialist to continue her care. Patient is getting injections as an outpatient. If pain persists she may benefit with neuro surgery evaluation. 5. Tobacco cessation addressed in detail. Patient plans to quit. Will provide nicotine patches. 6. Patient with GERD. Will continue the medication- Pepcid over the counter 1 pill twice daily. 7. Patient with hypertension. Medications have been adjusted. At discharge Norvasc has been discontinued. Patient may continue with losartan 50 mg daily. Recommend to maintain blood pressures less 150/80. Further adjustment can be done by his PCP. 8. Patient with underlying depression with anxiety. Patient will continue with her medication-Buproprion 100 mg daily, trazodone 150 mg at bedtime, and alprazolam 2 mg 1 pill twice daily as needed for anxiety. Patient is to limit benzodiazepines use and eventually weaned off medication. Diet: AHA Activity: Fall precautions Time spent managing pt's care (in minutes): 55
[2019-02-05 12:43] VITALS: BP 97/62; O2SAT 98
== END 2019-02-05 15:02 | disposition home health service (06) ==
LOC: ER 07:04 → ERHOLD 09:02 → 4TH 11:45
PROVIDERS: ADMIT Family Medicine; ATTEND Family Medicine
PROC: 5A09357 Assistance with Respiratory Ventilation, Less than 24 Consecutive Hours, Continuous Positive Airway Pressure (ICD-10-PCS; principal; 2019-02-04)
PROC: 5A09357 Assistance with Respiratory Ventilation, Less than 24 Consecutive Hours, Continuous Positive Airway Pressure (ICD-10-PCS; 2019-02-05)
DX: J44.1 Chronic obstructive pulmonary disease with (acute) exacerbation (principal); I10 Essential (primary) hypertension; M19.90 Unspecified osteoarthritis, unspecified site; G89.29 Other chronic pain; K21.9 Gastro-esophageal reflux disease without esophagitis; E66.9 Obesity, unspecified; F17.210 Nicotine dependence, cigarettes, uncomplicated; R09.02 Hypoxemia; R06.89 Other abnormalities of breathing; F41.8 Other specified anxiety disorders; F10.10 Alcohol abuse, uncomplicated; N39.0 Urinary tract infection, site not specified; B96.20 Unspecified Escherichia coli [E. coli] as the cause of diseases classified elsewhere; Z68.32 Body mass index [BMI] 32.0-32.9, adult; Z88.6 Allergy status to analgesic agent
CPT/HCPCS: 94660 ×4; 96365; 96361; 93005; 87040 ×2; 87088; 85025 ×2; 87086; 80048 ×2; 36415; 83735 ×2; 85610; 80076; 87077; 87186; 84484; 84145; 83880; 87804 ×2; 71045; 71046; 94640; 82805; 94760; 96375; 99285; J1650; J7030; J2930; J2405; G0378 ×2; 81003; 81015; J7512

== ENCOUNTER 2019-12-16 14:20 | Emergency (ER) | payer OTHER ==
--- OUTSIDE RECORDS SUMMARY | 2019-12-16 14:23 | XMS REPORT ---
[...] Status Dosage System Date Date Chantix Continuing [facility] [id number] 1 MG Oral Active TAKE 1 Month Cullen TABLET BY MOUTH TWICE A DAY BuPROPion HCl ND 94416513218 100 MG Oral Active TAKE 1 TABLET BY MOUTH ONCE A DAY Hydrochlorothiazide ND 23358181932 25 MG Oral Active TAKE 1 TABLET BY MOUTH IN ONCE EVERY MORNING Pravastatin Sodium [facility] 79498038952 40 MG Oral Active TAKE 1 TABLET BY MOUTH AT BEDTIME Ventolin HFA [facility] 76754235425 108 (90 Base) Active USE 2 MCG/ACT PUFFS Inhalation NEEDED EVERY 6 HORS Duloxetine HCl [facility] 14695402871 60 MG Oral Active TAKE 1 CAPSULE BY MOUTH ONCE A DAY Cyclobenzaprine HCl [facility] 62034697159 10 MG Oral Active TAKE 1 TABLET BY MOUTH TWICE DAILY NEEDED Amlodipine Besylate [facility] 31173829499 10 MG Oral Active TAKE 1 TABLET BY MOUTH ONCE A DAY Trazodone HCl [facility] 45396447252 150 MG Oral Active TAKE 1 TABLET BY MOUTH AT BEDTIME Losartan Potassium [facility] 20155669975 50 MG Oral Active TAKE 1 TABLET BY MOUTH ONCE A DAY Temazepam [facility] 23952440651 30 MG Oral Active (Schedule IV Drug) TAKE 1 CAPSULE BY MOUTH NEEDED AT BEDTIME Alprazolam [facility] 34364746163 2 MG Oral Active (Schedule IV Drug) TAKE 1 TABLET BY MOUTH TWICE DAILY Results No Known Results Summary Purpose eClinicalWorks Submission
--- OUTSIDE RECORDS SUMMARY | 2019-12-16 14:23 | XMS REPORT ---
[...] Status Dosage System Date Date Chantix Continuing [facility] 54534041502 1 MG Oral Active TAKE 1 Month Cullen TABLET BY MOUTH TWICE A DAY Cyclobenzaprine HCl [facility] 36087619953 10 MG Oral Active TAKE 1 TABLET BY MOUTH TWICE DAILY NEEDED Ventolin HFA [facility] 07502898338 108 (90 Base) Active USE 2 MCG/ACT PUFFS Inhalation NEEDED EVERY 6 HORS Trazodone HCl [facility] 97009065338 150 MG Oral Active TAKE 1 TABLET BY MOUTH AT BEDTIME BuPROPion HCl [facility] 16625659585 100 MG Oral Active TAKE 1 TABLET BY MOUTH ONCE A DAY Duloxetine HCl [facility] 13505229148 60 MG Oral Active TAKE 1 CAPSULE BY MOUTH ONCE A DAY Hydrochlorothiazide [facility] 33031806407 25 MG Oral Active TAKE 1 TABLET BY MOUTH IN ONCE EVERY MORNING Temazepam [facility] 24719663386 30 MG Oral Active (Schedule IV Drug) TAKE 1 CAPSULE BY MOUTH NEEDED AT BEDTIME Pravastatin Sodium [facility] 20729309497 40 MG Oral Active TAKE 1 TABLET BY MOUTH AT BEDTIME Losartan Potassium [facility] 27260104223 50 MG Oral Active TAKE 1 TABLET BY MOUTH ONCE A DAY Alprazolam [facility] 13705259891 2 MG Oral Active (Schedule IV Drug) TAKE 1 TABLET BY MOUTH TWICE DAILY Amlodipine Besylate [facility] 60641698295 10 MG Oral Active TAKE 1 TABLET BY MOUTH ONCE A DAY Results No Known Results Summary Purpose eClinicalWorks Submission
--- OUTSIDE RECORDS SUMMARY | 2019-12-16 14:23 | XMS REPORT ---
:1960 Author Organization [facility] Address [address] [place] [address] Dr. Suggs [address] [place] [address] Care Team Providers Name Role Phone Unavailable Unavailable Unavailable Problems This patient has no known problems. Allergies, Adverse Reactions, Alerts This patient has no known allergies or adverse reactions. Medications This patient has no known medications.
--- OUTSIDE RECORDS SUMMARY | 2019-12-16 14:23 | XMS REPORT ---
[...] Status Dosage System Date Date BuPROPion HCl [facility] 82595366711 100 MG Oral Active TAKE 1 TABLET BY MOUTH ONCE A DAY Chantix Continuing ND 96067553417 1 MG Oral Active TAKE 1 Month Cullen TABLET BY MOUTH TWICE A DAY Losartan Potassium ND 63442225998 50 MG Oral Active TAKE 1 TABLET BY MOUTH ONCE A DAY Pravastatin Sodium ND 44324958717 40 MG Oral Active TAKE 1 TABLET BY MOUTH AT BEDTIME Valium ND 44457894591 2 MG Orally 1 Dec 06, Active 1 tablet PO 30 MIN 2018 as needed PRIOR TO MRI SCAN Alprazolam [facility] 04846729028 2 MG Oral Active (Schedule IV Drug) TAKE 1 TABLET BY MOUTH TWICE DAILY Duloxetine HCl [facility] 42500049455 60 MG Oral Active TAKE 1 CAPSULE BY MOUTH ONCE A DAY Trazodone HCl [facility] 15052295646 150 MG Oral Active TAKE 1 TABLET BY MOUTH AT BEDTIME Amlodipine Besylate [facility] 37397689210 10 MG Oral Active TAKE 1 TABLET BY MOUTH ONCE A DAY Hydrochlorothiazide [facility] 85712981361 25 MG Oral Active TAKE 1 TABLET BY MOUTH IN ONCE EVERY MORNING Temazepam [facility] 42782302806 30 MG Oral Active (Schedule IV Drug) TAKE 1 CAPSULE BY MOUTH NEEDED AT BEDTIME Ventolin HFA [facility] 67952072634 108 (90 Base) Active USE 2 MCG/ACT PUFFS Inhalation NEEDED EVERY 6 HORS [address]ISolone [facility] 83461938875 4 MG Orally Dec 06Nov Active as [address]ap[address] [facility] 44884478408 10 MG Oral Active TAKE 1 TABLET BY MOUTH TWICE DAILY NEEDED Results No Known Results Summary Purpose eClinicalWorks Submission
--- OUTSIDE RECORDS SUMMARY | 2019-12-16 14:24 | XMS REPORT ---
[...] Status Dosage System Date Date BuPROPion HCl [facility] 54048227791 100 MG Oral Active TAKE 1 TABLET BY MOUTH ONCE A DAY Alprazolam [facility] 57276554797 2 MG Oral Active (Schedule IV Drug) TAKE 1 TABLET BY MOUTH TWICE DAILY Trazodone HCl [facility] 41192469860 150 MG Oral Active TAKE 1 TABLET BY MOUTH AT BEDTIME Hydrochlorothiazide [facility] 18256408942 25 MG Oral Active TAKE 1 TABLET BY MOUTH IN ONCE EVERY MORNING Valium [facility] 49022411278 2 MG Orally 1 Dec 06, Active 1 tablet PO 30 MIN 2019 as needed PRIOR TO MRI SCAN Temazepam [facility] 30477976479 30 MG Oral Active (Schedule IV Drug) TAKE 1 CAPSULE BY MOUTH NEEDED AT BEDTIME Cyclobenzaprine HCl [facility] 25225341174 10 MG Oral Active TAKE 1 TABLET BY MOUTH TWICE DAILY NEEDED Amlodipine Besylate [facility] 36967416570 10 MG Oral Active TAKE 1 TABLET BY MOUTH ONCE A DAY Losartan Potassium [facility] 35048960778 50 MG Oral Active TAKE 1 TABLET BY MOUTH ONCE A DAY Duloxetine HCl [facility] 33601262693 60 MG Oral Active TAKE 1 CAPSULE BY MOUTH ONCE A DAY Ventolin HFA [facility] 66699727705 108 (90 Base) Active USE 2 MCG/ACT PUFFS Inhalation NEEDED EVERY 6 HORS Pravastatin Sodium [facility] 33866748792 40 MG Oral Active TAKE 1 TABLET BY MOUTH AT BEDTIME Chantix Continuing [facility] 37991246777 1 MG Oral Active TAKE 1 Month Cullen TABLET BY MOUTH TWICE A DAY Results Name Result Date Reference Range Unit Abnormality Flag Body Fluid Cell Count ----Body Fluid 98 52315356 % Lymphocytes ----Body Fluid 0 75380267 % Neutrophils ----Body Fluid RBC 140 84567000 /mm^3 ----Body Fluid WBC 150 26015906 /mm^3 ----Appearance CLEAR 20181217 CLEAR ----Tube # SINGLE [id number] ----Body Fluid 2 14853016 % Mononuclear Cells ----Body Fluid SYNOVIAL [id number] Source ----Color of fluid Yellow 20181217 COLORLESS AA ----Color of Not Xanthochromic 20181217 Not Xantho Supernate Body Fluid Crystals ----Body Fluid NONE SEEN [id number] Crystals Summary Purpose eClinicalWorks Submission
--- OUTSIDE RECORDS SUMMARY | 2019-12-16 14:24 | XMS REPORT ---
[...] End Status Dosage System Date Date Alprazolam [facility] 01430268108 2 MG Oral Active (Schedule IV Drug) TAKE 1 TABLET BY MOUTH TWICE DAILY Temazepam [facility] 88798970956 30 MG Oral Active (Schedule IV Drug) TAKE 1 CAPSULE BY MOUTH NEEDED AT BEDTIME Hydrochlorothiazide [facility] 69142728630 25 MG Oral Active TAKE 1 TABLET BY MOUTH IN ONCE EVERY MORNING Chantix Continuing [facility] 06730951212 1 MG Oral Active TAKE 1 Month Cullen TABLET BY MOUTH TWICE A DAY Pravastatin Sodium ND 82153976501 40 MG Oral Active TAKE 1 TABLET BY MOUTH AT BEDTIME Ventolin HFA [facility] 84857947318 108 (90 Base) Active USE 2 MCG/ACT PUFFS Inhalation NEEDED EVERY 6 HORS Valium [facility] 55245799427 2 MG Orally 1 Dec 06, Active 1 tablet PO 30 MIN 2018 as needed PRIOR TO MRI SCAN Duloxetine HCl [facility] 83037747336 60 MG Oral Active TAKE 1 CAPSULE BY MOUTH ONCE A DAY Cyclobenzaprine HCl [facility] 11709773795 10 MG Oral Active TAKE 1 TABLET BY MOUTH TWICE DAILY NEEDED Amlodipine Besylate [facility] 46530772483 10 MG Oral Active TAKE 1 TABLET BY MOUTH ONCE A DAY Losartan Potassium [facility] 27286782760 50 MG Oral Active TAKE 1 TABLET BY MOUTH ONCE A DAY Trazodone HCl [facility] 48802790564 150 MG Oral Active TAKE 1 TABLET BY MOUTH AT BEDTIME BuPROPion HCl [facility] 82941725470 100 MG Oral Active TAKE 1 TABLET BY MOUTH ONCE A DAY Results No Known Results Summary Purpose eClinicalWorks Submission
--- OUTSIDE RECORDS SUMMARY | 2019-12-16 14:24 | XMS REPORT | Summary of Care ---
:1960 Author Organization [facility] - Health Address [address] [place] [address] Care Team Providers Name Role Phone Giorgi Strickland Primary Care Provider Encounter Details Date Type Department Care Team Description 12/06/2019 Orders Only [facility] Doctor Unassigned, No [address] [facility] [place] [address] [address] [place] [address] Allergies Not on Filedocumented as of this encounter (statuses as of 12/06/2019) Medications Not on filedocumented as of this encounter (statuses as of 12/06/2019) Active Problems Not on filedocumented as of this encounter (statuses as of 12/06/2019) Social History Tobacco Use Types Packs/Day Years Used Date Never Assessed Sex Assigned at Date Recorded Not on file Job Start Date Occupation Industry Not on file Not on file Not on file Travel History Travel Start Travel End No recent travel history available. documented as of this encounter Last Filed Vital Signs Not on filedocumented in this encounter Plan of Treatment Date Type Specialty Care Team Description 12/06/2019 Appointment Radiology Radiology [address] [place] [address] Health Maintenance Due Date Last Done Comments DTaP,Tdap,and Td Vaccines (1 1972 - Tdap) Breast Cancer Screening 2001 (MAMMOGRAM) PAP SMEAR 05/27/2008 05/27/2005 COLONOSCOPY 2011 Zoster Recombinant Vaccine 2011 (SHINGRIX) (1 of 2) INFLUENZA VACCINE (#1) 2019 HEPATITIS C (HCV) SCREEN Completed 05/27/2005, 01/20/2004 PNEUMOCOCCAL 0-64 YEARS Aged Out No longer eligible based COMBINED SERIES on patient's age to complete this topic documented as of this encounter Procedures Procedure Name Priority Date/Time Associated Diagnosis Comments NO SHOW OR MISSED Routine 12/06/2019 11:54 AM APPOINTMENT POLICY CLINICAL PRODUCT MANAGER ACKNOWLEDGEMENT NOTICE OF PRIVACY Routine 12/06/2019 11:51 AM PRACTICES CLINICAL PRODUCT MANAGER CONSENT/REFUSAL FOR Routine 12/06/2019 11:51 AM DIAGNOSIS AND TREATMENT CLINICAL PRODUCT MANAGER ASSIGNMENT OF BENEFITS Routine 12/06/2019 11:50 AM CLINICAL PRODUCT MANAGER documented in this encounter Results Not on filedocumented in this encounter Insurance Payer Benefit Plan Subscriber ID Effective Phone Address Type / Group Dates [facility] [id number] 2019-Pres Medicare Adv [place] ent HMO CLASSIC/VALUE [place] FED [id number] 1990-Pres [phone] PPO/POS SELECT ent [id number] [place] [address] MEDICARE MEDICARE PART xxxxxxxxxxx 2018-Pres [phone] Medicare A & B ent [id number] [place] [id number] documented as of this encounter
--- OUTSIDE RECORDS SUMMARY | 2019-12-16 14:24 | XMS REPORT | Summary of Care ---
:1960 Author Organization [facility] Address [address] [place] [address] Care Team Providers Name Role Phone Giorgi Strickland Jose Primary Care Provider Reason for Referral Radiology Services (Routine) Status Reason Specialty Diagnoses / Referred By Referred To Procedures Contact Contact Closed Diagnostic Diagnoses Right upper quadrant pain Right upper quadrant pain Dawit Zapata Radiology Procedures US ABDOMEN COMPLETE CHG US, ABDOM,B-SCAN &/OR REAL TIME,COMPLETE US ABDOMEN COMPLETE [address] [place] [facility] [address] [place] [address] Reason for Visit Auth/Cert Status Reason Specialty Diagnoses / Procedures Referred By Contact Referred To Contact Radiology [facility] Ultrasound [address] [place] [address] [place] [address] Encounter Details Date Type Department Care Team Description 12/06/2019 Hospital Encounter [facility] Radiology Arrived [place] [facility] [address] [place] [address] [address] [place] [address] [place] [address] Allergies Not on Filedocumented as of this encounter (statuses as of 12/07/2019) Medications Not on filedocumented as of this encounter (statuses as of 12/07/2019) Active Problems Not on filedocumented as of this encounter (statuses as of 12/07/2019) Social History Tobacco Use Types Packs/Day Years Used Date Never Assessed Sex Assigned at Date Recorded Not on file Job Start Date Occupation Industry Not on file Not on file Not on file Travel History Travel Start Travel End No recent travel history available. documented as of this encounter Last Filed Vital Signs Not on filedocumented in this encounter Plan of Treatment Health Maintenance Due Date Last Done Comments [...] Procedure Name Priority Date/Time Associated Diagnosis Comments US ABDOMEN COMPLETE Routine 12/06/2019 12:40 PM Right upper quadrant Results for this INSURANCE AND FINANCIAL SERVICES AGENT pain procedure are in the results section. documented in this encounter Results US ABDOMEN COMPLETE (12/06/2019 12:40 PM INSURANCE AND FINANCIAL SERVICES AGENT) Specimen Impressions Performed At PACS/VR/DOSE Mild diffuse hepatic steatosis. No focal hepatic lesions identified. No cholelithiasis. Narrative Performed At RIGHT UPPER QUADRANT ABDOMINAL SONOGRAM PACS/VR/DOSE TECHNIQUE: Grayscale and limited color Doppler images of the right upper quadrant of the abdomen were obtained. INDICATION: Right upper quadrant pain. COMPARISON: None available. FINDINGS: Liver measures approximately 11.8 cm in craniocaudal dimension. Liver is mildly diffusely steatotic with normal echotexture. No focal hepatic lesions identified. There is normal hepatopedal flow within the main portal vein (33.5 cm/s). Main portal vein measures 1.1 cm in AP diameter at del hepatis. No cholelithiasis or sludge. No pericholecystic free fluid or gallbladder wall thickening. Gallbladder wall measures 2 to 3 mm. Prominent wall fold/pharyngeal cap is seen at the fundus. Negative sonographic Yadav's sign. Common bile duct measures 3 mm in AP diameter at del hepatis. Right kidney measures 12.8 x 5.0 x 5.8 cm. The left kidney measures 12.4 x 5.6 x 4.9 cm. Left kidney contains a 6 mm lower pole nonobstructive calculus. No hydronephrosis bilaterally. Partially visualized pancreatic head and body appear unremarkable. Spleen measures 12.0 cm in craniocaudal dimension, normal. Proximal abdominal aorta measures 2.2 cm in AP diameter. No aneurysmal dilatation within the mid or distal abdominal aorta. Procedure Note [facility], Radiant Results Inft User - 12/06/2019 12:51 PM INSURANCE AND FINANCIAL SERVICES AGENT RIGHT UPPER QUADRANT ABDOMINAL SONOGRAM TECHNIQUE: Grayscale and limited color Doppler images of the right upper quadrant of the abdomen were obtained. INDICATION: Right upper quadrant pain. COMPARISON: None available. FINDINGS: Liver measures approximately 11.8 cm in craniocaudal dimension. Liver is mildly diffusely steatotic with normal echotexture. No focal hepatic lesions identified. There is normal hepatopedal flow within the main portal vein (33.5 cm/s). Main portal vein measures 1.1 cm in AP diameter at del hepatis. No cholelithiasis or sludge. No pericholecystic free fluid or gallbladder wall thickening. Gallbladder wall measures 2 to 3 mm. Prominent wall fold/pharyngeal cap is seen at the fundus. Negative sonographic Yadav's sign. Common bile duct measures 3 mm in AP diameter at del hepatis. Right kidney measures 12.8 x 5.0 x 5.8 cm. The left kidney measures 12.4 x 5.6 x 4.9 cm. Left kidney contains a 6 mm lower pole nonobstructive calculus. No hydronephrosis bilaterally. Partially visualized pancreatic head and body appear unremarkable. Spleen measures 12.0 cm in craniocaudal dimension, normal. Proximal abdominal aorta measures 2.2 cm in AP diameter. No aneurysmal dilatation within the mid or distal abdominal aorta. IMPRESSION Mild diffuse hepatic steatosis. No focal hepatic lesions identified. No cholelithiasis. Performing Organization Address City/State/Zipcode Phone Number PACS/VR/DOSE documented in this encounter Visit Diagnoses Diagnosis Right upper quadrant pain Abdominal pain, right upper quadrant documented in this encounter Insurance Payer Benefit Plan / Subscriber ID Effective Dates Phone Address Type Group WILD FISH [id number] 2019-Presen Medicare Adv PLUS PLUS t HMO CLASSIC/VALUE ([address] [place] [address] documented as of this encounter
--- OUTSIDE RECORDS SUMMARY | 2019-12-16 14:24 | XMS REPORT | Summary of Care ---
:1960 Author Organization [facility] Address [address] [place] [address] Care Team Providers Name Role Phone Em Giorgi Jose Primary Care Provider Reason for Referral Radiology Services (Routine) Status Reason Specialty Diagnoses / Referred By Referred To Procedures Contact Contact Closed Diagnostic Diagnoses Senile arthritis Senile arthritis Dawit Zapata Radiology Procedures XR HAND 3+ VW BILATERAL CHG X-RAY HAND 3+ VW XR HAND 3+ VW BILATERAL [address] [place] [facility] [address] [place] [address] Reason for Visit Auth/Cert Status Reason Specialty Diagnoses / Procedures Referred By Contact Referred To Contact Radiology [facility]ound [address] [place] [address] [place] [address] Encounter Details Date Type Department Care Team Description 12/06/2019 Hospital Encounter [facility] Radiology Arrived [place] [facility] [address] [place] [address] [place] [address] [place] [address] Allergies Not on Filedocumented as [...] Procedure Name Priority Date/Time Associated Diagnosis Comments XR HAND 3+ VW Routine 12/06/2019 12:54 PM Senile arthritis Results for this BILATERAL CHIEF INFORMATION OFFICER procedure are in the results section. documented in this encounter Results XR HAND 3+ VW BILATERAL (12/06/2019 12:54 PM CHIEF INFORMATION OFFICER) Specimen Impressions Performed At PACS/VR/DOSE No acute osseous abnormality. 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 Narrative Performed At EXAM: XR HAND 3+ VW BILATERAL PACS/VR/DOSE HISTORY: 59 years-old Female Senile arthritis COMPARISON: None. FINDINGS: No acute fracture or dislocation. Severe joint space narrowing affects the bilateral second and third MCP joints with prominent hook like osteophytosis. Sclerotic and cystic changes involves the left lunate bone. No soft tissue abnormality is seen. Procedure Note [facility], Radiant Results Inft User - 12/06/2019 7:04 PM CHIEF INFORMATION OFFICER EXAM: XR HAND 3+ VW BILATERAL HISTORY: 59 years-old Female Senile arthritis COMPARISON: None. FINDINGS: No acute fracture or dislocation. Severe joint space narrowing affects the bilateral second and third MCP joints with prominent hook like osteophytosis. Sclerotic and cystic changes involves the left lunate bone. No soft tissue abnormality is seen. IMPRESSION No acute osseous abnormality. 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 Performing Organization Address City/State/Zipcode Phone Number PACS/VR/DOSE documented in this encounter Visit Diagnoses Diagnosis Senile arthritis Osteoarthrosis, unspecified whether generalized or localized, unspecified site documented in this encounter Insurance Payer Benefit Plan / Subscriber ID Effective Dates Phone Address Type Group WILD FISH [id number] 2019-Presen Medicare Adv PLUS PLUS t HMO CLASSIC/VALUE ([place] [place] [address] documented as of this encounter
--- OUTSIDE RECORDS SUMMARY | 2019-12-16 14:24 | XMS REPORT | Summary of Care ---
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 METABOLIC PANEL LAB Routine Pure hypercholesterolemia Expected: 12/06/2019, (13770) Chronic obstructive Expires: 12/06/2020 pulmonary disease, unspecified COPD type Hyperlipidemia, unspecified hyperlipidemia type Screening for unspecified condition Health Maintenance Due Date Last Done Comments [...] Procedure Name Priority Date/Time Associated Diagnosis Comments CBC WITH Routine 12/06/2019 1:08 Pure Results for this DIFFERENTIAL PM FLAT SORTING MACHINE CLERK hypercholesterolemia procedure are in Chronic obstructive the results pulmonary disease, section. unspecified COPD type Hyperlipidemia, unspecified hyperlipidemia type Screening for unspecified condition GLYCOSYLATED Routine 12/06/2019 1:08 Pure Results for this HEMOGLOBIN (A1C) PM FLAT SORTING MACHINE CLERK hypercholesterolemia procedure are in Chronic obstructive the results pulmonary disease, section. unspecified COPD type Hyperlipidemia, unspecified hyperlipidemia type Screening for unspecified condition CBC WITH Routine 12/06/2019 1:08 Pure Results for this DIFFERENTIAL PM FLAT SORTING MACHINE CLERK hypercholesterolemia procedure are in Chronic obstructive the results pulmonary disease, section. unspecified COPD type Hyperlipidemia, unspecified hyperlipidemia type Screening for unspecified condition LIPID PANEL Routine 12/06/2019 1:08 Pure Results for this (89352)(TOTAL PM FLAT SORTING MACHINE CLERK hypercholesterolemia procedure are in CHOLESTEROL, Chronic obstructive the results TRIGLYCERIDES, HDL) pulmonary disease, section. unspecified COPD type Hyperlipidemia, unspecified hyperlipidemia type Screening for unspecified condition THYROID STIMULATING Routine 12/06/2019 1:08 Pure Results for this HORMONE PM FLAT SORTING MACHINE CLERK hypercholesterolemia procedure are in Chronic obstructive the results pulmonary disease, section. unspecified COPD type Hyperlipidemia, unspecified hyperlipidemia type Screening for unspecified condition FREE T4 Routine 12/06/2019 1:08 Pure Results for this PM FLAT SORTING MACHINE CLERK hypercholesterolemia procedure are in Chronic obstructive the results pulmonary disease, section. unspecified COPD type Hyperlipidemia, unspecified hyperlipidemia type Screening for unspecified condition BILI Routine 12/06/2019 1:08 Pure Results for this UNCONJUGATED/BILI PM FLAT SORTING MACHINE CLERK hypercholesterolemia procedure are in CONJUG Chronic obstructive the results pulmonary disease, section. unspecified COPD type Hyperlipidemia, unspecified hyperlipidemia type Screening for unspecified condition documented in this encounter Results BILI UNCONJUGATED/BILI CONJUG (12/06/2019 1:08 PM FLAT SORTING MACHINE CLERK) BILI CONJ 0.0 0.0 - 0.3 mg/dL [facility] BILI UNCON 0.5 0.1 - 1.1 mg/dL [facility] Specimen Blood Performing Organization Address City/State/Zipcode Phone Number [facility] CLIA: [id number], [address] [place] [address] CBC WITH DIFFERENTIAL (12/06/2019 1:08 PM FLAT SORTING MACHINE CLERK) WBC 5.79 4.30 - 11.10 [facility] 10*3/L [facility] RBC 4.59 3.93 - 5.25 [facility] 10*6/L [facility] HGB 14.3 11.6 - 15.0 [facility] g/dL [facility] HCT 45.4 (H) 35.7 - 45.2 % [facility] MCV 98.9 (H) 80.6 - 95.5 fL [facility] MCH 31.2 25.9 - 32.8 pg [facility] MCHC 31.5 (L) 31.6 - 35.1 [facility] g/dL [facility] RDW-SD 57.1 (H) 39.0 - 49.9 fL [facility] RDW-CV 15.5 12.0 - 15.5 % [facility] PLT 205 166 - 358 [facility] 10*3/L [facility] MPV 10.1 9.5 - 12.9 fL [facility] NRBC/100 WBC 0.0 0.0 - 10.0 /100 [facility] WBCs [facility] NRBC x10^3 <0.01 10*3/L [facility] GRAN MAT (NEUT) % 62.2 % [facility] IMM GRAN % 0.90 % [facility] LYMPH % 30.1 % [facility] MONO % 6.4 % [facility] EOS % 0.2 % [facility] BASO % 0.2 % [facility] GRAN MAT x10^3(ANC) 3.61 1.88 - 7.09 [facility] 10*3/uL [facility] IMM GRAN x10^3 0.05 0.00 - 0.06 [facility] 10*3/uL [facility] LYMPH x10^3 1.74 1.32 - 3.29 [facility] 10*3/uL [facility] MONO x10^3 0.37 0.33 - 0.92 [facility] 103/uL [facility] EOS x10^3 <0.03 (L) 0.03 - 0.39 [facility] 103/uL [facility] BASO x10^3 <0.03 0.01 - 0.[address] LABORATORY Specimen Blood Performing Organization Address [facility] Phone Number [facility] CLIA: [id number], [address] [place] [address] GLYCOSYLATED HEMOGLOBIN (A1C) (12/06/2019 1:08 PM FLAT SORTING MACHINE CLERK) HGB A1C 6.0 4.0 - 6.0 % NGSP [facility] Specimen Blood Narrative Performed At %A1C (NGSP) Interpretation (ADA) [facility] 4.8-5.6 Normal or (Non-Diabetic Range) 5.7-6.4 Increased Risk (Pre-Diabetic) >6.5 Diabetes Indicated Performing Organization Address [facility] Phone Number [facility] CLIA: [id number], [address] [place] [address] LIPID PANEL (02544)(TOTAL CHOLESTEROL, TRIGLYCERIDES, HDL) (12/06/2019 1:08 PM FLAT SORTING MACHINE CLERK) CHOL 214 (H) 120 - 200 mg/dL [facility] HDL 63 >50 mg/dL [facility] HDLC RATIO 3.4 <=4.5 [facility] TRIG 246 (H) 30 - 170 mg/dL [facility] LDL CHOL 102 <=160 mg/dL [facility] VLDL 49 5 - 60 mg/dL [facility] Specimen Blood Performing Organization Address [facility] Phone Number [facility] CLIA: [id number], [address] [place] [address] FREE T4 (12/06/2019 1:08 PM FLAT SORTING MACHINE CLERK) FREE T4 0.92 0.78 - 2.20 ng/dL [facility] Specimen Blood Performing Organization Address [facility] Phone Number [facility] CLIA: [id number], [address] [place] [address] THYROID STIMULATING HORMONE (12/06/2019 1:08 PM FLAT SORTING MACHINE CLERK) TSH 2.77 0.45 - 4.70 mIU/L [facility] Specimen Blood Performing Organization Address [facility] Phone Number [facility] CLIA: [id number], [address] [place] [address] documented in this encounter Visit Diagnoses Diagnosis Pure hypercholesterolemia - Primary Chronic obstructive pulmonary disease, unspecified COPD type Hyperlipidemia, unspecified hyperlipidemia type Screening for unspecified condition documented in this encounter Insurance Payer Benefit Plan / Subscriber ID Effective Dates Phone Address Type Group WILD FISH [id number] 2019-Presen Medicare Adv PLUS PLUS t HMO CLASSIC/VALUE (Home[address] [place] [address] documented as of this encounter
[2019-12-16] MEDS ORDERED: IPRATROPIUM BROM 0.5MG/2.5ML ONE (15:00)
[2019-12-16] MEDS ORDERED: ALBUTEROL 2.5 MG/3 ML NEB SOL ONE (15:00)
[2019-12-16] MEDS ORDERED: METHYLPREDNISOLONE 125 MG INJ ONE (15:00)
[2019-12-16] MEDS ORDERED: Magnesium Sulfate 2gm IVPB 2 G/50 ML BAG IV ONE (15:00)
[2019-12-16 15:07] LABS: Absolute Lymphocytes (CBC) 0.8 K/uL (0.7-4.9); Basophils % 0.9 % (0-1.3); Lymphocytes % 25.3 % (15.3-44.8); MPV 8.7 fL (7.6-11.3); RBC Red Blood Cell Count 4.71 M/uL (3.86-4.86)
--- NOTE | 2019-12-16 15:09 | RAD REPORT ---
EXAM DESCRIPTION: RAD - Chest Pa And Lat (2 Views) - 12/16/2019 3:01 pm CLINICAL HISTORY: Chest pain;Dyspnea Chest pain. COMPARISON: Chest Pa And Lat (2 Views) dated 02/05/2019; Chest Single View dated 02/04/2019; Chest Sin gle View dated 12/29/2018; Chest Single View dated 10/24/2018; Chest Single View dated 03/28/2017 FINDINGS: The lungs appear grossly clear of acute infiltrate. Mild emphysematous changes are suspect ed. The heart is upper limit of normal in size. No displaced fractures. IMPRESSION: Mild COPD.
[2019-12-16 15:20] LABS: BUN Blood Urea Nitrogen 8 mg/dL (7-18); Bicarbonate 35 mmol/L (21-32); Glucose Level 98 mg/dL (74-106); Potassium 3.5 mmol/L (3.5-5.1); Sodium Level 137 mmol/L (136-145)
--- NOTE | 2019-12-16 17:04 | ER ---
Nurse's Notes [facility] Name: Kanika Jon Age: 59 yrs Sex: Female : 1960 Arrival Date: 12/16/2019 Time: 14:28 Bed 24 Private MD: Diagnosis: Chronic obstructive pulmonary disease with (acute) exacerbation Presentation: 12/16 14:31 Presenting complaint: "I fell from my front porch and landed on my back a few days ago, hb and ever since then I have been feeling bad and real short of breath.". Transition of care: patient was not received from another setting of care. Onset of symptoms was December 13, 2019. Risk Assessment: Do you want to hurt yourself or someone else? Patient reports no desire to harm self or others. Care prior to arrival: None. 14:31 Method Of Arrival: Ambulatory hb 14:31 Acuity: [place] 2 hb 15:17 Initial Sepsis Screen: Does the patient meet any 2 criteria? HR > 90 bpm. Does the patient have a suspected source of infection? No. Patient's initial sepsis screen is negative. Triage Assessment: 15:18 Respiratory: Onset: The symptoms/episode began/occurred a few days ago. 15:18 Respiratory: the patient has mild shortness of breath. Historical: - Allergies: 14:34 Codeine; hb 14:34 HYDROCODONE; hb 14:34 hydromorphone HCl; hb 14:34 Ibuprofen; hb - Home Meds: 15:21 Albuterol Inhl every 4-6 hours [Active]; alprazolam 2 mg Oral tab 1 tab 2 times daily [Active]; amlodipine 10 mg tab 1 tab once daily [Active]; bupropion HCl 100 mg Oral TbER 1 tab once daily [Active]; diphenhydramine HCl 50 mg Oral tab 1 tab [Active]; duloxetine 60 mg Oral cpDR 1 cap once daily [Active]; Hydrochlorothiazide Oral once daily [Active]; Lexapro Oral [Active]; lisinopril Oral once daily [Active]; losartan Oral once daily [Active]; losartan 50 mg Oral tab 1 tab once daily [Active]; omeprazole 40 mg Oral cpDR 1 cap once daily [Active]; trazodone 150 mg Oral tab 1 tab [Active]; - PMHx: 14:34 Depression; COPD; Hypertension; osteoarthritis; hb - PSHx: 14:34 Hysterectomy; hb - Immunization history:: Adult Immunizations up to date. - Coronavirus screen:: The patient has NOT traveled to [place] in the past 14 days. The patient has NOT had contact with known/suspected case of Coronavirus? Proceed with normal triage procedures. - Social history:: Smoking status: Patient reports the use of cigarette tobacco products, denies chronic smoking, but will smoke occasionally. - Ebola Screening: : No symptoms or risks identified at this time. Screenin:17 Abuse screen: Denies threats or abuse. Denies injuries from another. Nutritional wh screening: No deficits noted. Tuberculosis screening: No symptoms or risk factors identified. Fall Risk None identified. Assessment: 14:45 General: Appears in no apparent distress. Behavior is calm, cooperative, appropriate wh for age. Pain: Complains of pain in pain all over. Neuro: Level of Consciousness is awake, alert, obeys commands, Oriented to person, place, time, situation, Appropriate for age. Cardiovascular: Heart tones S1 S2 Rhythm is regular. Respiratory: Reports shortness of breath Airway is patent Respiratory effort is even, unlabored, Respiratory pattern is regular, symmetrical, Breath sounds with wheezes. GI: Abdomen is flat, non-distended. : No signs and/or symptoms were reported regarding the genitourinary system. EENT: No signs and/or symptoms were reported regarding the EENT system. Derm: Skin is intact, is healthy with good turgor, Skin is pink, warm \\T\\ dry. normal. Musculoskeletal: Circulation, motion, and sensation intact. 15:30 Reassessment: Patient appears in no apparent distress at this time. No changes from previously documented assessment. Patient and/or family updated on plan of care and expected duration. Pain level reassessed. Patient is alert, oriented x 3, equal unlabored respirations, skin warm/dry/pink. 16:35 Reassessment: Patient appears in no apparent distress at this time. No changes from previously documented assessment. Patient and/or family updated on plan of care and expected duration. Pain level reassessed. Patient is alert, oriented x 3, equal unlabored respirations, skin warm/dry/pink. Patient states feeling better. Patient states symptoms have improved. Vital Signs: 14:33 BP 114 / 68; Pulse 108; Resp 20; Temp 97.2; Pulse Ox 92% on 3 lpm NC; Weight 89.81 kg; hb Height 5 ft. 6 in. (167.64 cm); Pain 8/10; 15:21 BP 125 / 79; Pulse 94; Resp 20; Pulse Ox 92% on 3 lpm NC; wh 16:30 BP 113 / 65; Pulse 95; Resp 18; Pulse Ox 96% on 3 lpm NC; wh 14:33 Body Mass Index 31.96 (89.81 kg, 167.64 cm) hb ED Course: 14:28 Patient arrived in ED. mr 14:29 Sakina Rodrigues [facility]C [facility]. kb 14:29 Ryan Hayes MD is Attending Physician. kb 14:33 Triage completed. hb 14:33 Arm band placed on. hb 14:43 Reza Cannon is Primary Nurse. wh 14:50 Inserted saline lock: 20 gauge in right forearm, using aseptic technique. Blood wh collected. 15:06 Chest Pa And Lat (2 Views) XRAY In Process Unspecified. EDMS 15:17 Patient has correct armband on for positive identification. Bed in low position. Call wh light in reach. Side rails up X 1. Pulse ox on. NIBP on. Administered Medications: 15:09 Drug: SOLU-Medrol 125 mg Route: IVP; Site: right forearm; 16:43 Follow up: Response: No adverse reaction 15:12 Drug: Magnesium Sulfate 2 grams Route: IVPB; Infused Over: 1 hrs; Site: right forearm; wh 15:12 Drug: DuoNeb (3:1) (2.5 mg - 0.5 mg) 3 ml Route: Nebulizer; 16:43 Follow up: Response: No adverse reaction; Wheezing diminished wh Outcome: 16:19 Discharge ordered by . kb 16:43 Patient left the ED. Signatures: Dispatcher [employer] EDMS Sakina Rodrigues FNP-C FNP-Ckb Rivera, Mary Polina Krishnamurthy, RN RN Reza Cannon Corrections: (The following items were deleted from the chart) 14:35 14:33 BP 114 / 68; Pulse 108bpm; Resp 20bpm; Pulse Ox 86% 3 lpm Nasal Cannula; Temp hb 97.2F; 89.81 kg; Height 5 ft. 6 in.; BMI: 31.9; Pain 8/10; hb 15:34 15:21 BP 125 / 79; Pulse 94bpm; Resp 20bpm; Pulse Ox 94% 3 lpm Nasal Cannula; wh wh
--- NOTE | 2019-12-16 17:04 | EDPHYS ---
Physician Documentation [facility] Name: Kanika Jon Age: 59 yrs Sex: Female : 1960 Arrival Date: 12/16/2019 Time: 14:28 Bed 24 Private MD: ED Physician Ryan Hayes HPI: 12/16 14:44 This 59 yrs old Female presents to ER via Ambulatory with complaints of kb Breathing Difficulty. 14:44 The patient has shortness of breath at rest, and the patient has a history of COPD. The kb patient has experienced similar episodes in the past, chronically. The patient has not recently seen a physician. 14:45 Onset: The symptoms/episode began/occurred 3 day(s) ago. Duration: The symptoms are kb continuous. The patient's shortness of breath is aggravated by exertion, is alleviated by nothing. Associated signs and symptoms: The patient has no apparent associated signs or symptoms. Severity of symptoms: At their worst the symptoms were moderate in the emergency department the symptoms are unchanged. Pt reports she was carrying a marble slab to the road for trash pickup and lost her footing on the porch causing her to fall. Reports she has been sick since then. Reports coughing up more phlem, having to use her oxygen constantly and being more short of breath. Historical: - Allergies: 14:34 Codeine; hb 14:34 HYDROCODONE; hb 14:34 hydromorphone HCl; hb 14:34 Ibuprofen; hb - Home Meds: 15:21 Albuterol Inhl every 4-6 hours [Active]; alprazolam 2 mg Oral tab 1 tab 2 times daily [Active]; amlodipine 10 mg tab 1 tab once daily [Active]; bupropion HCl 100 mg Oral TbER 1 tab once daily [Active]; diphenhydramine HCl 50 mg Oral tab 1 tab [Active]; duloxetine 60 mg Oral cpDR 1 cap once daily [Active]; Hydrochlorothiazide Oral once daily [Active]; Lexapro Oral [Active]; lisinopril Oral once daily [Active]; losartan Oral once daily [Active]; losartan 50 mg Oral tab 1 tab once daily [Active]; omeprazole 40 mg Oral cpDR 1 cap once daily [Active]; trazodone 150 mg Oral tab 1 tab [Active]; - PMHx: 14:34 Depression; COPD; Hypertension; osteoarthritis; hb - PSHx: 14:34 Hysterectomy; hb - Immunization history:: Adult Immunizations up to date. - Coronavirus screen:: The patient has NOT traveled to [place] in the past 14 days. The patient has NOT had contact with known/suspected case of Coronavirus? Proceed with normal triage procedures. - Social history:: Smoking status: Patient reports the use of cigarette tobacco products, denies chronic smoking, but will smoke occasionally. - Ebola Screening: : No symptoms or risks identified at this time. ROS: 14:43 Constitutional: Negative for fever, chills, and weight loss, ENT: Negative for injury, kb pain, and discharge, Neck: Negative for injury, pain, and swelling, Cardiovascular: Negative for chest pain, palpitations, and edema, Abdomen/GI: Negative for abdominal pain, nausea, vomiting, diarrhea, and constipation, Back: Negative for injury and pain, MS/Extremity: Negative for injury and deformity, Skin: Negative for injury, rash, and discoloration, Neuro: Negative for headache, weakness, numbness, tingling, and seizure. 14:43 Respiratory: Positive for cough, with yellow sputum, dyspnea on exertion, shortness of breath, wheezing. Exam: 14:43 Constitutional: This is a well developed, well nourished patient who is awake, alert, kb and in no acute distress. Head/Face: Normocephalic, atraumatic. ENT: Nares patent. No nasal discharge, no septal abnormalities noted. Tympanic membranes are normal and external auditory canals are clear. Oropharynx with no redness, swelling, or masses, exudates, or evidence of obstruction, uvula midline. Mucous membranes moist. Neck: Trachea midline, no thyromegaly or masses palpated, and no cervical lymphadenopathy. Supple, full range of motion without nuchal rigidity, or vertebral point tenderness. No Meningismus. Chest/axilla: Normal chest wall appearance and motion. Nontender with no deformity. No lesions are appreciated. Cardiovascular: Regular rate and rhythm with a normal S1 and S2. No gallops, murmurs, or rubs. Normal PMI, no JVD. No pulse deficits. Abdomen/GI: Soft, non-tender, with normal bowel sounds. No distension or tympany. No guarding or rebound. No evidence of tenderness throughout. Back: No spinal tenderness. No costovertebral tenderness. Full range of motion. Skin: Warm, dry with normal turgor. Normal color with no rashes, no lesions, and no evidence of cellulitis. MS/ Extremity: Pulses equal, no cyanosis. Neurovascular intact. Full, normal range of motion. Neuro: Awake and alert, GCS 15, oriented to person, place, time, and situation. Cranial nerves II-XII grossly intact. Motor strength 5/5 in all extremities. Sensory grossly intact. Cerebellar exam normal. Normal gait. 14:43 Respiratory: mild respiratory distress is noted, moderate respiratory distress is noted, Respirations: labored breathing, that is mild, Breath sounds: wheezing: expiratory that is moderate, is heard diffusely. Vital Signs: 14:33 BP 114 / 68; Pulse 108; Resp 20; Temp 97.2; Pulse Ox 92% on 3 lpm NC; Weight 89.81 kg; hb Height 5 ft. 6 in. (167.64 cm); Pain 8/10; 15:21 BP 125 / 79; Pulse 94; Resp 20; Pulse Ox 92% on 3 lpm NC; wh 16:30 BP 113 / 65; Pulse 95; Resp 18; Pulse Ox 96% on 3 lpm NC; wh 14:33 Body Mass Index 31.96 (89.81 kg, 167.64 cm) hb MDM: 14:35 Patient medically screened. kb 14:43 Data reviewed: vital signs, nurses notes. Data interpreted: Pulse oximetry: on 3L(s) kb per nasal canula, is 92 %. Interpretation: borderline. 15:50 ED course: Pt still has moderate wheezing. Pt states she is breathing better than when kb she came in and she just wanted to make sure she didn't have pneumonia. States she is breathing normally now. States she has oxygen and breathing treatments to use at home and wants to do that. Does not want to be admitted. States "I just need to go home, lay down with my oxygen, do my breathing treatments and stay away from the cigarettes." Pt educated to return for worsening symptoms or any other concerns. . 16:18 Counseling: I had a detailed discussion with the patient and/or guardian regarding: the kb historical points, exam findings, and any diagnostic results supporting the discharge/admit diagnosis, lab results, radiology results, the need for outpatient follow up, a family practitioner, to return to the emergency department if symptoms worsen or persist or if there are any questions or concerns that arise at home. 12/16 14:42 Order name: CBC with Diff; Complete Time: 15:21 kb 12/16 14:42 Order name: Basic Metabolic Panel; Complete Time: 15:22 kb 12/16 14:36 Order name: Chest Pa And Lat (2 Views) XRAY; Complete Time: 16:01 kb 12/16 15:53 Order name: Flu kb 12/16 15:59 Order name: Influenza Screen (A ; Complete Time: 16:18 EDCT 12/16 14:42 Order name: IV Start; Complete Time: 14:58 kb Administered Medications: 15:09 Drug: SOLU-Medrol 125 mg Route: IVP; Site: right forearm; 16:43 Follow up: Response: No adverse reaction 15:12 Drug: Magnesium Sulfate 2 grams Route: IVPB; Infused Over: 1 hrs; Site: right forearm; 15:12 Drug: DuoNeb (3:1) (2.5 mg - 0.5 mg) 3 ml Route: Nebulizer; 16:43 Follow up: Response: No adverse reaction; Wheezing diminished wh Disposition: 17:40 Co-signature as Attending Physician, Ryan Hayes MD I agree with the assessment and kdr plan of care. Disposition: 12/16/19 16:19 Discharged to Home. Impression: Chronic obstructive pulmonary disease with (acute) exacerbation. - Condition is Stable. - Discharge Instructions: Chronic Obstructive Pulmonary Disease Exacerbation. - Prescriptions for Prednisone 20 mg Oral Tablet - take 1 tablet by ORAL route once daily for 5 days; 5 tablet. - Medication Reconciliation Form, Thank You Letter, Antibiotic Education, Prescription Opioid Use form. - Follow up: Emergency Department; When: As needed; Reason: Worsening of condition. Follow up: Private Physician; When: 2 - 3 days; Reason: Recheck today's complaints, Continuance of care, Re-evaluation by your physician. Signatures: Dispatcher [employer] [facility] Sakina Rodrigues, COMMERCIAL ACCOUNT MANAGER-C COMMERCIAL ACCOUNT MANAGER-Ryan Nesbitt MD MD [facility] Polina Krishnamurthy, VEE RN Reza Cannon Corrections: (The following items were deleted from the chart) 16:43 16:19 12/16/2019 16:19 Discharged to Home. Impression: Chronic obstructive pulmonary wh disease with (acute) exacerbation. Condition is Stable. Forms are Medication Reconciliation Form, Thank You Letter, Antibiotic Education, Prescription Opioid Use. Follow up: Emergency Department; When: As needed; Reason: Worsening of condition. Follow up: Private Physician; When: 2 - 3 days; Reason: Recheck today's complaints, Continuance of care, Re-evaluation by your physician. kb
[2019-12-16 18:09] VITALS: TEMP 97.2
[2019-12-16 18:17] VITALS: BP 113/65; O2SAT 96
== END 2019-12-16 16:43 | disposition home or self-care (01) ==
LOC: ER 14:20
DX: J44.1 Chronic obstructive pulmonary disease with (acute) exacerbation (principal); F17.210 Nicotine dependence, cigarettes, uncomplicated; I10 Essential (primary) hypertension; F32.9 Major depressive disorder, single episode, unspecified; Z88.5 Allergy status to narcotic agent; Z88.6 Allergy status to analgesic agent
CPT/HCPCS: 85025; 80048; 36415; 87804 ×2; 71046; 94640; 96375; 96374; 99284; J3475; J2930

== ENCOUNTER 2019-12-23 12:26 | Emergency (ER) | payer OTHER ==
--- OUTSIDE RECORDS SUMMARY | 2019-12-23 12:29 | XMS REPORT ---
[...] Status Dosage System Date Date Chantix Continuing [facility] [id number] 1 MG Oral Active TAKE 1 Month Cullen TABLET BY MOUTH TWICE A DAY Cyclobenzaprine HCl [facility] 71270203470 10 MG Oral Active TAKE 1 TABLET BY MOUTH TWICE DAILY NEEDED Ventolin HFA [facility] 52454677490 108 (90 Base) Active USE 2 MCG/ACT PUFFS Inhalation NEEDED EVERY 6 HORS Trazodone HCl [facility] 87687403215 150 MG Oral Active TAKE 1 TABLET BY MOUTH AT BEDTIME BuPROPion HCl [facility] 42353966418 100 MG Oral Active TAKE 1 TABLET BY MOUTH ONCE A DAY Duloxetine HCl [facility] 15033449911 60 MG Oral Active TAKE 1 CAPSULE BY MOUTH ONCE A DAY Hydrochlorothiazide [facility] 38079220218 25 MG Oral Active TAKE 1 TABLET BY MOUTH IN ONCE EVERY MORNING Temazepam [facility] 48188201280 30 MG Oral Active (Schedule IV Drug) TAKE 1 CAPSULE BY MOUTH NEEDED AT BEDTIME Pravastatin Sodium [facility] 69986201622 40 MG Oral Active TAKE 1 TABLET BY MOUTH AT BEDTIME Losartan Potassium [facility] 89956786963 50 MG Oral Active TAKE 1 TABLET BY MOUTH ONCE A DAY Alprazolam [facility] 66559423124 2 MG Oral Active (Schedule IV Drug) TAKE 1 TABLET BY MOUTH TWICE DAILY Amlodipine Besylate [facility] 29299871827 10 MG Oral Active TAKE 1 TABLET BY MOUTH ONCE A DAY Results No Known Results Summary Purpose eClinicalWorks Submission
--- OUTSIDE RECORDS SUMMARY | 2019-12-23 12:29 | XMS REPORT ---
[...] Chantix Continuing [facility] 37896397407 1 MG Oral Active TAKE 1 Month Cullen TABLET BY MOUTH TWICE A DAY BuPROPion HCl ND 19407758028 100 MG Oral Active TAKE 1 TABLET BY MOUTH ONCE A DAY Hydrochlorothiazide ND 63318858508 25 MG Oral Active TAKE 1 TABLET BY MOUTH IN ONCE EVERY MORNING Pravastatin Sodium [facility] 22122172100 40 MG Oral Active TAKE 1 TABLET BY MOUTH AT BEDTIME Ventolin HFA [facility] 96777612570 108 (90 Base) Active USE 2 MCG/ACT PUFFS Inhalation NEEDED EVERY 6 HORS Duloxetine HCl [facility] 20728840884 60 MG Oral Active TAKE 1 CAPSULE BY MOUTH ONCE A DAY Cyclobenzaprine HCl [facility] 82243819825 10 MG Oral Active TAKE 1 TABLET BY MOUTH TWICE DAILY NEEDED Amlodipine Besylate [facility] 65178856552 10 MG Oral Active TAKE 1 TABLET BY MOUTH ONCE A DAY Trazodone HCl [facility] 55164094486 150 MG Oral Active TAKE 1 TABLET BY MOUTH AT BEDTIME Losartan Potassium [facility] 41016711013 50 MG Oral Active TAKE 1 TABLET BY MOUTH ONCE A DAY Temazepam [facility] 52407547751 30 MG Oral Active (Schedule IV Drug) TAKE 1 CAPSULE BY MOUTH NEEDED AT BEDTIME Alprazolam [facility] 76620382146 2 MG Oral Active (Schedule IV Drug) TAKE 1 TABLET BY MOUTH TWICE DAILY Results No Known Results Summary Purpose eClinicalWorks Submission
--- OUTSIDE RECORDS SUMMARY | 2019-12-23 12:29 | XMS REPORT ---
:1960 Author Organization [facility] Address [address] [place] [address] Dr. [address] [place] [id number] Care Team Providers Name Role Phone Unavailable Unavailable Unavailable Problems This patient has no known problems. Allergies, Adverse Reactions, Alerts This patient has no known allergies or adverse reactions. Medications This patient has no known medications.
--- OUTSIDE RECORDS SUMMARY | 2019-12-23 12:29 | XMS REPORT ---
[...] Status Dosage System Date Date BuPROPion HCl [facility] 98129635256 100 MG Oral Active TAKE 1 TABLET BY MOUTH ONCE A DAY Chantix Continuing ND 14638476477 1 MG Oral Active TAKE 1 Month Cullen TABLET BY MOUTH TWICE A DAY Losartan Potassium ND 12641626541 50 MG Oral Active TAKE 1 TABLET BY MOUTH ONCE A DAY Pravastatin Sodium ND 62540139725 40 MG Oral Active TAKE 1 TABLET BY MOUTH AT BEDTIME Valium ND 57125662905 2 MG Orally 1 Dec 06, Active 1 tablet PO 30 MIN 2018 as needed PRIOR TO MRI SCAN Alprazolam [facility] 24727828551 2 MG Oral Active (Schedule IV Drug) TAKE 1 TABLET BY MOUTH TWICE DAILY Duloxetine HCl [facility] 63764919032 60 MG Oral Active TAKE 1 CAPSULE BY MOUTH ONCE A DAY Trazodone HCl [facility] 11899344735 150 MG Oral Active TAKE 1 TABLET BY MOUTH AT BEDTIME Amlodipine Besylate [facility] 55084812877 10 MG Oral Active TAKE 1 TABLET BY MOUTH ONCE A DAY Hydrochlorothiazide [facility] 82411039245 25 MG Oral Active TAKE 1 TABLET BY MOUTH IN ONCE EVERY MORNING Temazepam [facility] 49821107051 30 MG Oral Active (Schedule IV Drug) TAKE 1 CAPSULE BY MOUTH NEEDED AT BEDTIME Ventolin HFA [facility] 92334963650 108 (90 Base) Active USE 2 MCG/ACT PUFFS Inhalation NEEDED EVERY 6 HORS MethylPREDNISolone [facility] 30277448646 4 MG Orally Dec 06Nov Active as 2018 Cyclobenzaprine HCl [facility] 08577071601 10 MG Oral Active TAKE 1 TABLET BY MOUTH TWICE DAILY NEEDED Results No Known Results Summary Purpose eClinicalWorks Submission
--- OUTSIDE RECORDS SUMMARY | 2019-12-23 12:30 | XMS REPORT ---
[...] Status Dosage System Date Date BuPROPion HCl [facility] 01597413160 100 MG Oral Active TAKE 1 TABLET BY MOUTH ONCE A DAY Alprazolam [facility] 03203380435 2 MG Oral Active (Schedule IV Drug) TAKE 1 TABLET BY MOUTH TWICE DAILY Trazodone HCl [facility] 25161913094 150 MG Oral Active TAKE 1 TABLET BY MOUTH AT BEDTIME Hydrochlorothiazide [facility] 03922267545 25 MG Oral Active TAKE 1 TABLET BY MOUTH IN ONCE EVERY MORNING Valium [facility] 77432389800 2 MG Orally 1 Dec 06, Active 1 tablet PO 30 MIN 2019 as needed PRIOR TO MRI SCAN Temazepam [facility] 91536945492 30 MG Oral Active (Schedule IV Drug) TAKE 1 CAPSULE BY MOUTH NEEDED AT BEDTIME Cyclobenzaprine HCl [facility] 83273586316 10 MG Oral Active TAKE 1 TABLET BY MOUTH TWICE DAILY NEEDED Amlodipine Besylate [facility] 13703035110 10 MG Oral Active TAKE 1 TABLET BY MOUTH ONCE A DAY Losartan Potassium [facility] 06680482128 50 MG Oral Active TAKE 1 TABLET BY MOUTH ONCE A DAY Duloxetine HCl [facility] 56610310567 60 MG Oral Active TAKE 1 CAPSULE BY MOUTH ONCE A DAY Ventolin HFA [facility] 16873004650 108 (90 Base) Active USE 2 MCG/ACT PUFFS Inhalation NEEDED EVERY 6 HORS Pravastatin Sodium [facility] 24739592765 40 MG Oral Active TAKE 1 TABLET BY MOUTH AT BEDTIME Chantix Continuing [facility] 90311789043 1 MG Oral Active TAKE 1 Month Cullen TABLET BY MOUTH TWICE A DAY Results Name Result Date Reference Range Unit Abnormality Flag Body Fluid Cell Count ----Body Fluid 98 44871743 % Lymphocytes ----Body Fluid 0 37457449 % Neutrophils ----Body Fluid RBC 140 66323072 /mm^3 ----Body Fluid WBC 150 72213699 /mm^3 ----Appearance CLEAR 20181217 CLEAR ----Tube # SINGLE [id number] ----Body Fluid 2 63685442 % Mononuclear Cells ----Body Fluid SYNOVIAL [id number] Source ----Color of fluid Yellow 20181217 COLORLESS AA ----Color of Not Xanthochromic 20181217 Not Xantho Supernate Body Fluid Crystals ----Body Fluid NONE SEEN [id number] Crystals Summary Purpose eClinicalWorks Submission
--- OUTSIDE RECORDS SUMMARY | 2019-12-23 12:30 | XMS REPORT ---
[...] Status Dosage System Date Date Alprazolam [facility] 63527830712 2 MG Oral Active (Schedule IV Drug) TAKE 1 TABLET BY MOUTH TWICE DAILY Temazepam [facility] 56245779214 30 MG Oral Active (Schedule IV Drug) TAKE 1 CAPSULE BY MOUTH NEEDED AT BEDTIME Hydrochlorothiazide [facility] 32788458815 25 MG Oral Active TAKE 1 TABLET BY MOUTH IN ONCE EVERY MORNING Chantix Continuing [facility] 71314842932 1 MG Oral Active TAKE 1 Month Cullen TABLET BY MOUTH TWICE A DAY Pravastatin Sodium ND 28389210164 40 MG Oral Active TAKE 1 TABLET BY MOUTH AT BEDTIME Ventolin HFA [facility] 46683796417 108 (90 Base) Active USE 2 MCG/ACT PUFFS Inhalation NEEDED EVERY 6 HORS Valium [facility] 03738430706 2 MG Orally 1 Dec 06, Active 1 tablet PO 30 MIN 2018 as needed PRIOR TO MRI SCAN Duloxetine HCl [facility] 81143418659 60 MG Oral Active TAKE 1 CAPSULE BY MOUTH ONCE A DAY Cyclobenzaprine HCl [facility] 68874011542 10 MG Oral Active TAKE 1 TABLET BY MOUTH TWICE DAILY NEEDED Amlodipine Besylate [facility] 61015635375 10 MG Oral Active TAKE 1 TABLET BY MOUTH ONCE A DAY Losartan Potassium [facility] 49665410738 50 MG Oral Active TAKE 1 TABLET BY MOUTH ONCE A DAY Trazodone HCl [facility] 46116088062 150 MG Oral Active TAKE 1 TABLET BY MOUTH AT BEDTIME BuPROPion HCl [facility] 53512208450 100 MG Oral Active TAKE 1 TABLET BY MOUTH ONCE A DAY Results No Known Results Summary Purpose eClinicalWorks Submission
--- NOTE | 2019-12-23 13:42 | RAD REPORT ---
EXAM DESCRIPTION: RAD - Chest Pa And Lat (2 Views) - 12/23/2019 1:37 pm CLINICAL HISTORY: DYSPNEA Chest pain. COMPARISON: Chest Pa And Lat (2 Views) dated 12/16/2019; Chest Pa And Lat (2 Views) dated 02/05/2019; Chest Single View dated 02/04/2019; Chest Single View dated 12/29/2018 FINDINGS: Heavily calcified left mid lung granuloma is present, unchanged. The lungs are clear of ac [place] infiltrate. The heart is mildly enlarged in size. No displaced fractures.
[2019-12-23 15:35] LABS: Absolute Lymphocytes (CBC) 1.7 K/uL (0.7-4.9); Basophils % 0.6 % (0-1.3); Hematocrit 44.8 % (36.0-45.0); Lymphocytes % 23.2 % (15.3-44.8); RBC Red Blood Cell Count 4.78 M/uL (3.86-4.86)
[2019-12-23 15:36] LABS: Protime INR 1.04
[2019-12-23 15:57] LABS: ALT/SGPT 29 U/L (12-78); AST/SGOT 19 U/L (15-37); Albumin 3.9 g/dL (3.4-5.0); Alkaline Phosphatase 86 U/L (45-117); BUN Blood Urea Nitrogen 11 mg/dL (7-18); Bicarbonate 30 mmol/L (21-32); Bilirubin Direct 0.2 mg/dL (0-0.2); Bilirubin Total 0.8 mg/dL (0.2-1.0); Glucose Level 94 mg/dL (74-106); Magnesium 2.3 mg/dL (1.8-2.4); NT PRO-BNP 23 pg/mL (<125); Potassium 3.3 mmol/L (3.5-5.1); Protein, Total 7.3 g/dL (6.4-8.2); Sodium Level 139 mmol/L (136-145); Troponin (Emerg Dept Use Only) < 0.02 ng/mL (0.0-0.045)
[2019-12-23] MEDS ORDERED: ALBUTEROL 2.5 MG/3 ML NEB SOL ONE (16:33)
[2019-12-23] MEDS ORDERED: IPRATROPIUM BROM 0.5MG/2.5ML ONE (16:33)
--- NOTE | 2019-12-23 17:39 | RAD REPORT ---
EXAM DESCRIPTION: CT - Chest For Pe Angio - 12/23/2019 5:28 pm CLINICAL HISTORY: SOB COMPARISON: THORAX WO CONTRAST dated 07/30/2015; Chest Pa And Lat (2 Views) dated 12/23/2019 TECHNIQUE: Dynamically enhanced 3 mm thick images of the chest were obtained during administration o f approximately 150mL Isovue 370 IV contrast. Coronal and oblique MIP reconstruction images were gene rated and reviewed. Exam utilizes a protocol to evaluate the pulmonary arterial tree. All CT scans are performed using dose optimization technique as appropriate and may include automated exposure control or mA/KV adjustment according to patient size. FINDINGS: No pulmonary emboli are identified. The aorta as imaged shows no acute or suspicious finding. No pericardial thickening or effusion. 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 No acute infiltrate, pulmonary contusion or acute lung parenchymal process. Densely calcified pleural abutting nodule left lung field has not changed. No pleural effusion or pleural thickening. No mediastinal or hilar suspicious masses. No chest wall masses or abnormal axillary lymphadenopathy. Patient has an nondisplaced fracture lateral sixth rib. No other rib fracture confirmed. IMPRESSION: No pulmonary emboli identified. Lateral left sixth rib fracture without displacement.
--- NOTE | 2019-12-23 18:35 | EDPHYS ---
Physician Documentation [facility] Name: Kanika Jon Age: 59 yrs Sex: Female : 1960 Arrival Date: 12/23/2019 Time: 12:27 Bed 28 Private MD: ED Physician Albert King HPI: 12/22 17:53 This 59 yrs old Female presents to ER via Ambulatory with complaints of tw4 Breathing Difficulty, Shortness Of Breath. 17:53 The patient has shortness of breath at rest. Onset: The symptoms/episode began/occurred tw4 3 day(s) ago. Duration: The symptoms are continuous. The patient's shortness of breath has no apparent modifying factors. Associated signs and symptoms: The patient has no apparent associated signs or symptoms. Severity of symptoms: At their worst the symptoms were moderate in the emergency department the symptoms are unchanged. The patient has not experienced similar symptoms in the past. Historical: - Allergies: 13:07 Codeine; ca1 13:07 HYDROCODONE; ca1 13:07 hydromorphone HCl; ca1 13:07 Ibuprofen; ca1 - Home Meds: 13:07 Albuterol Inhl every 4-6 hours [Active]; alprazolam 2 mg Oral tab 1 tab 2 times daily ca1 [Active]; bupropion HCl 100 mg Oral TbER 1 tab once daily [Active]; amlodipine 10 mg tab 1 tab once daily [Active]; duloxetine 60 mg Oral cpDR 1 cap once daily [Active]; Lexapro Oral [Active]; lisinopril Oral once daily [Active]; losartan Oral once daily [Active]; - PMHx: 13:07 COPD; Depression; Hypertension; osteoarthritis; ca1 - PSHx: 13:07 Hysterectomy; ca1 - Immunization history:: Adult Immunizations up to date, Flu vaccine is up to date. - Social history:: Smoking status: Patient reports the use of cigarette tobacco products, smokes one pack cigarettes per day. Patient/guardian denies using tobacco, Stopped _ months ago .25. ROS: 17:53 Eyes: Negative for injury, pain, redness, and discharge, ENT: Negative for injury, tw4 pain, and discharge, Cardiovascular: Negative for chest pain, palpitations, and edema, Abdomen/GI: Negative for abdominal pain, nausea, vomiting, diarrhea, and constipation, Back: Negative for injury and pain, MS/Extremity: Negative for injury and deformity, Skin: Negative for injury, rash, and discoloration, Neuro: Negative for headache, weakness, numbness, tingling, and seizure. 17:53 Respiratory: Positive for shortness of breath, Negative for cough, dyspnea on exertion, hemoptysis, orthopnea, pleurisy. Exam: 17:53 Constitutional: This is a well developed, well nourished patient who is awake, alert, tw4 and in no acute distress. Head/Face: Normocephalic, atraumatic. Chest/axilla: Normal chest wall appearance and motion. Nontender with no deformity. No lesions are appreciated. Cardiovascular: Regular rate and rhythm with a normal S1 and S2. No gallops, murmurs, or rubs. Normal PMI, no JVD. No pulse deficits. Abdomen/GI: Soft, non-tender, with normal bowel sounds. No distension or tympany. No guarding or rebound. No evidence of tenderness throughout. MS/ Extremity: Pulses equal, no cyanosis. Neurovascular intact. Full, normal range of motion. Neuro: Awake and alert, GCS 15, oriented to person, place, time, and situation. Cranial nerves II-XII grossly intact. Motor strength 5/5 in all extremities. Sensory grossly intact. Cerebellar exam normal. Normal gait. 17:53 Respiratory: the patient does not display signs of respiratory distress, Respirations: labored breathing, that is mild, Breath sounds: wheezing: expiratory that is mild, is scattered. Vital Signs: 13:01 BP 122 / 95; Pulse 107; Resp 19 S; Temp 97.5(O); Pulse Ox 97% on 3 lpm NC; Weight 88.9 ca1 kg (R); Height 5 ft. 5 in. (165.10 cm) (R); Pain 4/10; 13:59 BP 115 / 85; Pulse 96; Resp 14; Temp 97.6(O); Pulse Ox 94% on 4 lpm NC; Pain 0/10; ls4 17:30 BP 138 / 97; Pulse 88; Resp 14; Pulse Ox 98% on R/A; Pain 0/10; ls4 18:24 BP 116 / 79; Pulse 87; Resp 16; Temp 97.8(O); Pulse Ox 98% on R/A; Pain 0/10; ls4 13:01 Body Mass Index 32.62 (88.90 kg, 165.10 cm) ca1 MDM: 14:13 Patient medically screened. tw4 18:38 Differential diagnosis: Pneumothorax pulmonary edema. Antibiotic administration: Not tw4 indicated. Data reviewed: vital signs, nurses notes. Data reviewed: lab test result(s), cardiac enzymes, CBC, hepatic panel, radiologic studies, CT scan, plain films. Data interpreted: Pulse oximetry: on 4L(s) per nasal canula, Interpretation: hypoxia. Plan: O2 by NC applied. Test interpretation: by ED physician or midlevel provider: ECG. Counseling: I had a detailed discussion with the patient and/or guardian regarding: the historical points, exam findings, and any diagnostic results supporting the discharge/admit diagnosis. Special discussion: I discussed with the patient/guardian in detail that at this point there is no indication for admission to the hospital. It is understood, however, that if the symptoms persist or worsen the patient needs to return immediately for re-evaluation. 12/22 13:07 Order name: Flu; Complete Time: 16:26 ca1 12/22 16:26 Interpretation: Normal except. tw4 12/22 14:28 Order name: Basic Metabolic Panel; Complete Time: 16:26 4 12/22 16:26 Interpretation: Normal except: K 3.3; CRE 0.47. tw4 12/22 14:28 Order name: CBC with Diff; Complete Time: 16:26 4 12/22 16:26 Interpretation: Normal except: WBC 7.5; PLT 262. tw4 12/22 14:28 Order name: LFT's; Complete Time: 16:26 4 12/22 16:26 Interpretation: Within normal limits. tw4 12/22 14:28 Order name: Magnesium; Complete Time: 16:26 4 12/22 14:28 Order name: NT PRO-BNP; Complete Time: 16:26 4 12/22 13:11 Order name: XRAY Chest Pa And Lat (2 Views); Complete Time: 16:26 ca1 12/22 14:28 Order name: EKG; Complete Time: 14:28 4 12/22 14:28 Order name: EKG - Nurse/Tech; Complete Time: 15:58 4 12/22 14:28 Order name: Cardiac monitoring; Complete Time: 15:58 [facility] 12/22 14:28 Order name: PT-INR; Complete Time: 16:26 [facility] 12/22 14:28 Order name: Troponin (emerg Dept Use Only); Complete Time: 16:26 [facility] 12/22 17:11 Order name: CT Chest For PE Angio; Complete Time: 18:33 tw4 12/22 14:28 Order name: IV Saline Lock; Complete Time: 15:58 [facility] 12/22 14:28 Order name: Labs collected and sent; Complete Time: 15:58 [facility] 12/22 14:28 Order name: O2 Per Protocol; Complete Time: 15:58 [facility] 12/22 14:28 Order name: O2 Sat Monitoring; Complete Time: 15:58 4 EC:02 Rate is 97 beats/min. Rhythm is regular. QRS [place] is Normal. NC interval is normal. QRS tw4 interval is normal. QT interval is normal. No Q waves. T waves are Flattened in leads aVL, V2. No ST changes noted. Clinical impression: NSR w/ Non-specific ST/T Changes. Interpreted by me. Reviewed by me. Administered Medications: 16:33 Drug: DuoNeb (3:1) (2.5 mg - 0.5 mg) 3 ml Route: Nebulizer; 4 16:52 Follow up: Response: No adverse reaction; Marked relief of symptoms 4 Disposition: 12/23/19 18:34 Discharged to Home. Impression: Fracture of one rib, unspecified side. - Condition is Stable. - Discharge Instructions: Rib Fracture, Shortness of Breath, [id number]. - Prescriptions for Tramadol 50 mg Oral Tablet - take 1 tablet by ORAL route every 8 hours as needed; 5 tablet. - Medication Reconciliation Form, Thank You Letter, Antibiotic Education, Prescription Opioid Use form. - Follow up: Private Physician; When: Upon discharge from the Emergency Department; Reason: If symptoms return, Recheck today's complaints, Continuance of care, Re-evaluation by your physician. - Problem is new. - Symptoms have improved. Signatures: Dispatcher [employer] Albert Del Rio MD MD tw4 Jailyn Nix RN RN ls4 Padmini Keene RN RN ca1 Corrections: (The following items were deleted from the chart) 18:39 18:34 12/23/2019 18:34 Discharged to Home. Impression: Fracture of one rib, unspecified ls4 side. Condition is Stable. Forms are Medication Reconciliation Form, Thank You Letter, Antibiotic Education, Prescription Opioid Use. Follow up: Private Physician; When: Upon discharge from the Emergency Department; Reason: If symptoms return, Recheck today's complaints, Continuance of care, Re-evaluation by your physician. Problem is new. Symptoms have improved. tw4
--- NOTE | 2019-12-23 18:35 | ER ---
Nurse's Notes [facility] Name: Kanika Jon Age: 59 yrs Sex: Female : 1960 Arrival Date: 12/23/2019 Time: 12:27 Bed 28 Private MD: Diagnosis: Fracture of one rib, unspecified side Presentation: 12/22 13:01 Chief complaint: Patient states: SOB since Dec 16. On continuous at home at 3LPM. ca1 Reports falling from standing and landed on back on the Nov that's when the SOB started. Came to the ER, chest Xray done. Reports cough and congestion. Denies fever. Coronavirus screen: The patient has NOT traveled to [place] in the past 14 days. The patient has NOT had contact with known and/or suspected case of Coronavirus. Ebola Screen: Patient negative for fever greater than or equal to 101.5 degrees Fahrenheit, and additional compatible Ebola Virus Disease symptoms Patient denies exposure to infectious person. Patient denies travel to an Ebola-affected area in the 21 days before illness onset. No symptoms or risks identified at this time. Initial Sepsis Screen: Does the patient meet any 2 criteria? No. Patient's initial sepsis screen is negative. Does the patient have a suspected source of infection? No. Patient's initial sepsis screen is negative. Risk Assessment: Do you want to hurt yourself or someone else? Patient reports no desire to harm self or others. 13:01 Method Of Arrival: Ambulatory ca1 13:01 Acuity: [place] 3 ca1 15:25 Onset of symptoms was December 20, 2019 at 21:00. ls4 Triage Assessment: 13:07 General: Appears in no apparent distress. comfortable, Behavior is calm, cooperative, ca1 appropriate for age. Respiratory: Reports shortness of breath Onset: The symptoms/episode began/occurred gradually, the patient has mild shortness of breath. Historical: - Allergies: 13:07 Codeine; ca1 13:07 HYDROCODONE; ca1 13:07 hydromorphone HCl; ca1 13:07 Ibuprofen; ca1 - Home Meds: 13:07 Albuterol Inhl every 4-6 hours [Active]; alprazolam 2 mg Oral tab 1 tab 2 times daily ca1 [Active]; bupropion HCl 100 mg Oral TbER 1 tab once daily [Active]; amlodipine 10 mg tab 1 tab once daily [Active]; duloxetine 60 mg Oral cpDR 1 cap once daily [Active]; Lexapro Oral [Active]; lisinopril Oral once daily [Active]; losartan Oral once daily [Active]; - PMHx: 13:07 COPD; Depression; Hypertension; osteoarthritis; ca1 - PSHx: 13:07 Hysterectomy; ca1 - Immunization history:: Adult Immunizations up to date, Flu vaccine is up to date. - Social history:: Smoking status: Patient reports the use of cigarette tobacco products, smokes one pack cigarettes per day. Patient/guardian denies using tobacco, Stopped _ months ago .25. Screenin:09 Abuse screen: Denies threats or abuse. Denies injuries from another. Nutritional ls4 screening: No deficits noted. Tuberculosis screening: No symptoms or risk factors identified. Fall Risk Assessment: 15:08 Pain: Denies pain. Neuro: No deficits noted. Cardiovascular: Reports shortness of ls4 breath, Denies chest pain, Rhythm is regular. Respiratory: Airway is patent Respiratory effort is even, unlabored, Respiratory pattern is regular. Respiratory: Reports shortness of breath at rest on exertion labored breathing since falling on Monday Breath sounds are clear bilaterally. Onset: The symptoms/episode began/occurred the patient has moderate shortness of breath. GI: No deficits noted. : No deficits noted. Derm: No deficits noted. 16:00 Reassessment: Patient appears in no apparent distress at this time. No changes from ls4 previously documented assessment. Patient is alert, oriented x 3, equal unlabored respirations, skin warm/dry/pink. 17:00 Reassessment: Patient appears in no apparent distress at this time. No changes from ls4 previously documented assessment. Patient is alert, oriented x 3, equal unlabored respirations, skin warm/dry/pink. 17:29 Reassessment: PT AT CT SCAN. ls4 18:00 Reassessment: Patient appears in no apparent distress at this time. No changes from ls4 previously documented assessment. Patient is alert, oriented x 3, equal unlabored respirations, skin warm/dry/pink. INCENTIVE SPIROMETER GIVEN TO PATIENT AND TEACHING DONE REGARDING USE. PT RETURNED DEMONSTRATION OF UNDERSTANDING. Vital Signs: 13:01 BP 122 / 95; Pulse 107; Resp 19 S; Temp 97.5(O); Pulse Ox 97% on 3 lpm NC; Weight 88.9 ca1 kg (R); Height 5 ft. 5 in. (165.10 cm) (R); Pain 4/10; 13:59 BP 115 / 85; Pulse 96; Resp 14; Temp 97.6(O); Pulse Ox 94% on 4 lpm NC; Pain 0/10; ls4 17:30 BP 138 / 97; Pulse 88; Resp 14; Pulse Ox 98% on R/A; Pain 0/10; ls4 18:24 BP 116 / 79; Pulse 87; Resp 16; Temp 97.8(O); Pulse Ox 98% on R/A; Pain 0/10; ls4 13:01 Body Mass Index 32.62 (88.90 kg, 165.10 cm) ca1 ED Course: 12:27 Patient arrived in ED. mr 13:05 Triage completed. ca1 13:07 Arm band placed on right wrist. ca1 13:36 XRAY Chest Pa And Lat (2 Views) In Process Unspecified. EDMS 13:47 Jailyn Nix, VEE is Primary Nurse. ls4 13:48 Albert King MD is Attending Physician. tw4 15:09 Patient has correct armband on for positive identification. Bed in low position. Call ls4 light in reach. Side rails up X 1. monitoring tech on. Pulse ox on. NIBP on. Lights dimmed. Warm blanket given. Verbal reassurance given. Diet: Patient is NPO. 15:09 No provider procedures requiring assistance completed. Initial lab(s) drawn, by ok, ls4 sent to lab. Flu and/or RSV swab sent to lab. Inserted saline lock: 20 gauge in left antecubital area, using aseptic technique. Oxygen administration via nasal cannula \T\ 3L/min Response to oxygen therapy: symptoms improved. 17:29 CT Chest For PE Angio In Process Unspecified. EDMS 18:39 IV discontinued, intact, bleeding controlled, Pressure dressing applied. ls4 Administered Medications: 16:33 Drug: DuoNeb (3:1) (2.5 mg - 0.5 mg) 3 ml Route: Nebulizer; ls4 16:52 Follow up: Response: No adverse reaction; Marked relief of symptoms ls4 Outcome: 18:34 Discharge ordered by . tw4 18:35 Discharged to home ambulatory. ls4 18:35 Condition: good ls4 18:35 Discharge instructions given to patient, Instructed on discharge instructions, follow up and referral plans. medication usage, safety practices, Demonstrated understanding of instructions, follow-up care, medications, INCENTIVE SPIROMETER 18:39 Patient left the ED. ls4 Signatures: Dispatcher [employer] EDMI SaeSowmya Terrence, MD MD tw4 Jailyn Nix RN RN ls4 Padmini Keene RN RN ca1
[2019-12-23 20:03] VITALS: TEMP 97.6
[2019-12-23 20:04] VITALS: BP 138/97; O2SAT 98
--- NOTE | 2019-12-24 05:56 | EKG ---
Test Date: 2019-12-23 Test Time: 15:03:58 Representative Government Relations: JAMESON MEASUREMENT RESULTS: Intervals: Rate: 97 [place]: 164 QRSD: 102 QT: 382 QTc: 485 [place]: P: 77 [place]: 164 QRS: -76 T: 54 INTERPRETIVE STATEMENTS: Normal sinus rhythm Left axis deviation Inferior infarct, age undetermined Anterior infarct, age undetermined Abnormal ECG Compared to ECG 02/04/2019 07:40:24 Sinus tachycardia no longer present Myocardial infarct finding still present Electronically Signed On 12-24-19 05:55:07 INTEGRATED CAMPAIGN MANAGER by Holger Merlos
== END 2019-12-23 18:39 | disposition home or self-care (01) ==
LOC: ER 12:26
DX: S22.39XA Fracture of one rib, unspecified side, initial encounter for closed fracture (principal); I10 Essential (primary) hypertension; F32.9 Major depressive disorder, single episode, unspecified; J44.9 Chronic obstructive pulmonary disease, unspecified; Z72.0 Tobacco use; Z88.5 Allergy status to narcotic agent; Z88.6 Allergy status to analgesic agent
CPT/HCPCS: 93005; 85025; 80048; 36415; 83735; 85610; 80076; 84484; 83880; 87804 ×2; 71275; 71046; 94640; 99285; Q9967

== ENCOUNTER 2020-02-05 11:03 | Emergency (ER) | payer OTHER ==
--- OUTSIDE RECORDS SUMMARY | 2020-02-05 11:05 | XMS REPORT ---
:1960 Author Organization [employer] Care Team Providers Name Role Phone Jarek Harris Provider Role Unavailable Allergies No Known Allergies Problems Problem Type Condition Code Onset Dates Condition Statu s Problem Effusion, right knee M25.461 Active Problem Internal derangement of right knee M23.91 Active Problem Unilateral primary osteoarthritis, M17.12 Active left knee Problem Effusion of left knee M25.462 Active Problem Acute pain of left knee M25.562 Acti ve Problem Acute pain of right knee M25.561 Act keo Medications No Known Medications Results No Known Results Summary Purpose [employer] Submission
--- OUTSIDE RECORDS SUMMARY | 2020-02-05 11:05 | XMS REPORT ---
:1960 Author Organization [employer] Care Team Providers Name Role Phone Jarek Harris Provider Role Unavailable Allergies, Adverse Reactions, Alerts Substance Reaction Event Type tramadol Info Not Available Drug Allergy Trazodone HCl Info Not Available Drug Allergy Lyrica Info Not Available Drug Allergy Problems Problem Type Condition Code Onset Dates Condition Statu s Assessment Unilateral primary osteoarthritis, M17.12 Active left knee Assessment Acute pain of left knee M25.562 Acti ve Assessment Acute pain of right knee M25.561 Act keo Assessment Internal derangement of right knee M23.91 [...] of right knee M25.561 Act keo Medications Medication Code Code Instructions Start End Status Dosage System Date Date Chantix Continuing [facility] 92462048074 1 MG Oral Active TAKE 1 Month Cullen TABLET BY MOUTH TWICE A DAY Cyclobenzaprine HCl [facility] 09512908254 10 MG Oral Activ e TAKE 1 TABLET BY MOUTH TWICE DAILY NEEDED Ventolin HFA [facility] 48125067474 108 (90 Base) Active U SE 2 MCG/ACT PUFFS Inhalation NEEDED EVERY 6 HORS Trazodone HCl [facility] 81293003653 150 MG Oral Active TA KE 1 TABLET BY MOUTH AT BEDTIME BuPROPion HCl ND 63248129549 100 MG Oral Active TA KE 1 TABLET BY MOUTH ONCE A DAY Duloxetine HCl [facility] 22299717684 60 MG Oral Active TA KE 1 CAPSULE BY MOUTH ONCE A DAY Hydrochlorothiazide ND 15257886010 25 MG Oral Activ e TAKE 1 TABLET BY MOUTH IN ONCE EVERY MORNING Temazepam [facility] 21074632183 30 MG Oral Active ([place] IV Drug) TAKE 1 CAPSULE BY MOUTH NEEDED AT BEDTIME Pravastatin Sodium [facility] 19523186195 40 MG Oral Active TAKE 1 TABLET BY MOUTH AT BEDTIME Losartan Potassium ND 25823501659 50 MG Oral Active TAKE 1 TABLET BY MOUTH ONCE A DAY Alprazolam ND 00841087847 2 MG Oral Active ([place] IV Drug) TAKE 1 TABLET BY MOUTH TWICE DAILY Amlodipine Besylate [facility] 50255594823 10 MG Oral Activ e TAKE 1 TABLET BY MOUTH ONCE A DAY Results No Known Results Summary Purpose [employer]ClinicalWorks Submission
--- OUTSIDE RECORDS SUMMARY | 2020-02-05 11:05 | XMS REPORT ---
:1960 Author Organization [facility] t Address [address] [place] [address] Dr. Suggs [address] [place] [id number] Care Team Providers Name Role Phone Unavailable Unavailable Unavailable Problems This patient has no known problems. Allergies, Adverse Reactions, Alerts This patient has no known allergies or adverse reactions. Medications This patient has no known medications.
--- OUTSIDE RECORDS SUMMARY | 2020-02-05 11:06 | XMS REPORT ---
:1960 Author Organization [employer] Care Team Providers Name Role Phone Jarek Harris Provider Role Unavailable Allergies No Known Allergies Problems Problem Type Condition Code Onset Dates Condition Statu s Problem Sciatica, right side M54.31 Active Problem [...] pain of right knee M25.561 Act keo Problem Effusion, right knee M25.461 Active Problem Acute pain of left knee M25.562 Acti ve Problem Unilateral primary osteoarthritis, M17.12 Active left knee Problem Sciatica, left side M54.32 Active Medications No Known Medications Results No Known Results Summary Purpose [employer]Works Submission
--- OUTSIDE RECORDS SUMMARY | 2020-02-05 11:06 | XMS REPORT ---
[...] of right knee M25.561 Act keo Assessment Primary osteoarthritis of left knee M17.12 Active Problem Effusion, right knee M25.461 Active Problem Acute pain of left knee M25.562 Acti ve Assessment Primary osteoarthritis of right M17.11 Active knee Problem Unilateral primary osteoarthritis, M17.12 Active left knee Problem Sciatica, left side M54.32 Active Medications Medication Code Code Instructions Start End Status Dosage System Date Date BuPROPion HCl ND 90995753125 100 MG Oral Active TA KE 1 TABLET BY MOUTH ONCE A DAY Chantix Continuing ND 95167298358 1 MG Oral Active TAKE 1 Month Cullen TABLET BY MOUTH TWICE A DAY Losartan Potassium ND 69858580630 50 MG Oral Active TAKE 1 TABLET BY MOUTH ONCE A DAY Pravastatin Sodium ND 54490864753 40 MG Oral Active TAKE 1 TABLET BY MOUTH AT BEDTIME Valium ND 67004121049 2 MG Orally 1 Dec 06, Active 1 tabl et PO 30 MIN 2019 as needed PRIOR TO MRI SCAN Alprazolam ND 71452132254 2 MG Oral Active ([place] IV Drug) TAKE 1 TABLET BY MOUTH TWICE DAILY Duloxetine HCl ND 08732524880 60 MG Oral Active TA KE 1 CAPSULE BY MOUTH ONCE A DAY Trazodone HCl [facility] 40622114712 150 MG Oral Active TA KE 1 TABLET BY MOUTH AT BEDTIME Amlodipine Besylate ND 64836751843 10 MG Oral Activ e TAKE 1 TABLET BY MOUTH ONCE A DAY Hydrochlorothiazide ND 84712912519 25 MG Oral Activ e TAKE 1 TABLET BY MOUTH IN ONCE EVERY MORNING Temazepam ND 73635602665 30 MG Oral Active ([place] IV Drug) TAKE 1 CAPSULE BY MOUTH NEEDED AT BEDTIME Ventolin HFA [facility] 42053719837 108 (90 Base) Active U SE 2 MCG/ACT PUFFS Inhalation NEEDED EVERY 6 HORS MethylPREDNISolone ND 33795190881 4 MG Orally Dec 06, Nov Activ e as 2018 Cyclobenzaprine HCl ND 64243415611 10 MG Oral Activ e TAKE 1 TABLET BY MOUTH TWICE DAILY NEEDED Results No Known Results Summary Purpose [employer]ClinicalWorks Submission
--- OUTSIDE RECORDS SUMMARY | 2020-02-05 11:06 | XMS REPORT ---
[...] of left knee M25.562 Acti ve Assessment Unilateral primary osteoarthritis, M17.12 Active left knee Assessment Acute pain of right knee M25.561 Act keo Problem Internal derangement of right knee M23.91 Active Problem Acute pain of right knee M25.561 Act keo Assessment Sciatica, left side M54.32 Active Problem Effusion, right knee M25.461 Active Problem Acute pain of left knee M25.562 Acti ve Assessment Sciatica, right side M54.31 Active Problem Unilateral primary osteoarthritis, M17.12 Active left knee Problem Sciatica, left side M54.32 Active Medications Medication Code Code Instructions Start End Status Dosage System Date Date Chantix Continuing [facility] 18048760954 1 MG Oral Active TAKE 1 Month Cullen TABLET BY MOUTH TWICE A DAY BuPROPion HCl [facility] 76449702359 100 MG Oral Active TA KE 1 TABLET BY MOUTH ONCE A DAY Hydrochlorothiazide [facility] 77450307737 25 MG Oral Activ e TAKE 1 TABLET BY MOUTH IN ONCE EVERY MORNING Pravastatin Sodium [facility] 03123154725 40 MG Oral Active TAKE 1 TABLET BY MOUTH AT BEDTIME Ventolin HFA [facility] 01930442166 108 (90 Base) Active U SE 2 MCG/ACT PUFFS Inhalation NEEDED EVERY 6 HORS Duloxetine HCl [facility] 36372169618 60 MG Oral Active TA KE 1 CAPSULE BY MOUTH ONCE A DAY Cyclobenzaprine HCl [facility] 50962235447 10 MG Oral Activ e TAKE 1 TABLET BY MOUTH TWICE DAILY NEEDED Amlodipine Besylate [facility] 43639982988 10 MG Oral Activ e TAKE 1 TABLET BY MOUTH ONCE A DAY Trazodone HCl [facility] 65481518390 150 MG Oral Active TA KE 1 TABLET BY MOUTH AT BEDTIME Losartan Potassium [facility] 65009410308 50 MG Oral Active TAKE 1 TABLET BY MOUTH ONCE A DAY Temazepam [facility] 61921971333 30 MG Oral Active (Schedu le IV Drug) TAKE 1 CAPSULE BY MOUTH NEEDED AT BEDTIME Alprazolam [facility] 40841577908 2 MG Oral Active (Schedu le IV Drug) TAKE 1 TABLET BY MOUTH TWICE DAILY Results No Known Results Summary Purpose eClinicalWorks Submission
--- OUTSIDE RECORDS SUMMARY | 2020-02-05 11:07 | XMS REPORT ---
[...] Active Assessment Tear of lateral collateral S83.422A A ctive ligament of left knee, initial encounter Assessment [...] of right knee M25.561 Act keo Assessment Effusion, left knee M25.462 Active Problem Effusion, right knee M25.461 Active Problem Acute pain of left knee M25.562 Acti ve Assessment Effusion, right knee M25.461 Active Problem Unilateral primary osteoarthritis, M17.12 Active left knee Problem Sciatica, left side M54.32 Active Medications Medication Code Code Instructions Start End Status Dosage System Date Date BuPROPion HCl [facility] 69803429393 100 MG Oral Active TA KE 1 TABLET BY MOUTH ONCE A DAY Alprazolam [facility] 01436042441 2 MG Oral Active (Schedu le IV Drug) TAKE 1 TABLET BY MOUTH TWICE DAILY Trazodone HCl [facility] 09392562470 150 MG Oral Active TA KE 1 TABLET BY MOUTH AT BEDTIME Hydrochlorothiazide [facility] 68434530419 25 MG Oral Activ e TAKE 1 TABLET BY MOUTH IN ONCE EVERY MORNING Valium ND 71268189151 2 MG Orally 1 Dec 06, Active 1 tabl et PO 30 MIN 2019 as needed PRIOR TO MRI SCAN Temazepam [facility] 27986896461 30 MG Oral Active (Schedu le IV Drug) TAKE 1 CAPSULE BY MOUTH NEEDED AT BEDTIME Cyclobenzaprine HCl [facility] 13264695122 10 MG Oral Activ e TAKE 1 TABLET BY MOUTH TWICE DAILY NEEDED Amlodipine Besylate [facility] 01672219668 10 MG Oral Activ e TAKE 1 TABLET BY MOUTH ONCE A DAY Losartan Potassium [facility] 98869305483 50 MG Oral Active TAKE 1 TABLET BY MOUTH ONCE A DAY Duloxetine HCl [facility] 89957706903 60 MG Oral Active TA KE 1 CAPSULE BY MOUTH ONCE A DAY Ventolin HFA [facility] 99295519070 108 (90 Base) Active U SE 2 MCG/ACT PUFFS Inhalation NEEDED EVERY 6 HORS Pravastatin Sodium [facility] 71316890401 40 MG Oral Active TAKE 1 TABLET BY MOUTH AT BEDTIME Chantix Continuing [facility] 83964303171 1 MG Oral Active TAKE 1 Month Cullen TABLET BY MOUTH TWICE A DAY Results Name Result Date Reference Range Unit Abnormali ty Flag Body Fluid Cell Count ----Body Fluid 98 86803449 % Lymphocytes ----Body Fluid 0 07950059 % Neutrophils ----Body Fluid RBC 140 87027861 /mm^3 ----Body Fluid WBC 150 60640835 /mm^3 ----Appearance CLEAR 20181217 CLEAR ----Tube # SINGLE [id number] ----Body Fluid 2 06573306 % Mononuclear Cells ----Body Fluid SYNOVIAL [id number] Source ----Color of fluid Yellow 20181217 COLORLESS AA ----Color of Not Xanthochromic 20181217 Not Xantho Supernate Body Fluid Crystals ----Body Fluid NONE SEEN [id number] Crystals Summary Purpose eClinicalWorks Submission
--- OUTSIDE RECORDS SUMMARY | 2020-02-05 11:07 | XMS REPORT ---
[...] End Status Dosage System Date Date Alprazolam [facility] 25504714494 2 MG Oral Active (Schedu le IV Drug) TAKE 1 TABLET BY MOUTH TWICE DAILY Temazepam [facility] 73390606843 30 MG Oral Active (Schedu le IV Drug) TAKE 1 CAPSULE BY MOUTH NEEDED AT BEDTIME Hydrochlorothiazide [facility] 98002019209 25 MG Oral Activ e TAKE 1 TABLET BY MOUTH IN ONCE EVERY MORNING Chantix Continuing [facility] 06548742663 1 MG Oral Active TAKE 1 Month Cullen TABLET BY MOUTH TWICE A DAY Pravastatin Sodium ND 31532484049 40 MG Oral Active TAKE 1 TABLET BY MOUTH AT BEDTIME Ventolin HFA [facility] 91860452021 108 (90 Base) Active U SE 2 MCG/ACT PUFFS Inhalation NEEDED EVERY 6 HORS Valium [facility] 19538528588 2 MG Orally 1 Dec 06, Active 1 tabl et PO 30 MIN 2018 as needed PRIOR TO MRI SCAN Duloxetine HCl [facility] 98292660039 60 MG Oral Active TA KE 1 CAPSULE BY MOUTH ONCE A DAY Cyclobenzaprine HCl [facility] 73679988687 10 MG Oral Activ e TAKE 1 TABLET BY MOUTH TWICE DAILY NEEDED Amlodipine Besylate [facility] 91325918332 10 MG Oral Activ e TAKE 1 TABLET BY MOUTH ONCE A DAY Losartan Potassium [facility] 02193185751 50 MG Oral Active TAKE 1 TABLET BY MOUTH ONCE A DAY Trazodone HCl [facility] 52402764504 150 MG Oral Active TA KE 1 TABLET BY MOUTH AT BEDTIME BuPROPion HCl [facility] 95156365690 100 MG Oral Active TA KE 1 TABLET BY MOUTH ONCE A DAY Results No Known Results Summary Purpose eClinicalWorks Submission
--- OUTSIDE RECORDS SUMMARY | 2020-02-05 11:08 | XMS REPORT | Summary of Care ---
:1960 Author Organization [facility] - Health Address [address] [place] [address] Care Team Providers Name Role Phone Giorgi Strickland Primary Care Provider Encounter Details Date Type Department Care Team Description 12/31/2019 Orders Only [facility] Doctor Unassigned, No [address] [facility] [place] [address] [address] [place] [address] Allergies Not on Filedocumented as of this encounter (statuses as of 01/15/2020) Medications Not on filedocumented as of this encounter (statuses as of 01/15/2020) Active Problems Not on filedocumented as of this encounter (statuses as of 01/15/2020) Social History Tobacco Use Types Packs/Day Years [...] Treatment Date Type Specialty Care Team Description 02/13/2020 Office Visit Pulmonary Disease Joyce Vila DO [address] [place] [id number] Health Maintenance Due Date Last Done Comments PNEUMOCOCCAL 0-64 YEARS COMBINED SERIES (1 1967 of 1 - PPSV23) DTaP,Tdap,and Td Vaccines (1 - Tdap) 1972 Breast Cancer Screening (MAMMOGRAM) 2001 PAP SMEAR 05/27/2008 05/27/2005 COLONOSCOPY 2011 Zoster Recombinant Vaccine (SHINGRIX) (1 2011 of 2) INFLUENZA VACCINE (#1) 2019 HEPATITIS C (HCV) SCREEN Completed 05/27/2005, 01/20/2004 documented as of this encounter Procedures Procedure Name Priority Date/Time Associated Diagnosis Comme nts EXTERNAL PROVIDER - ADC Routine 12/31/2019 12:01 AM CDT REFERRAL documented in this encounter Results Not on filedocumented in this encounter Insurance Payer Benefit Plan Subscriber ID Effective Phone Address Typ e / Group Dates [facility] [id number] 2019-Pres Medica re Adv [place] PL[place] ent HMO CLASSIC/VALUE BCBS [facility] BCBS FED [id number] 1990-Pres [phone] O/POS SELECT ent [id number] [place] [address] MEDICARE MEDICARE PART xxxxxxxxxxx 2018-Pres [phone] Medicare A & B ent [id number] [place] [id number] documented as of this encounter
[2020-02-05 12:12] LABS: Absolute Lymphocytes (CBC) 1.2 K/uL (0.7-4.9); Basophils % 0.4 % (0-1.3); Lymphocytes % 33.4 % (15.3-44.8); MPV 8.5 fL (7.6-11.3); RBC Red Blood Cell Count 4.11 M/uL (3.86-4.86)
[2020-02-05 12:21] LABS: Barbiturates NEGATIVE (NEGATIVE); Benzodiazepines POSITIVE (NEGATIVE); Cocaine NEGATIVE (NEGATIVE); METHAMPHETAM NEGATIVE (NEGATIVE); Methadone NEGATIVE (NEGATIVE); Opiates NEGATIVE (NEGATIVE); Phencyclidine NEGATIVE (NEGATIVE); THC Cannibis NEGATIVE (NEGATIVE)
[2020-02-05 12:31] LABS: ALT/SGPT 20 U/L (12-78); AST/SGOT 18 U/L (15-37); Albumin 3.9 g/dL (3.4-5.0); Alkaline Phosphatase 87 U/L (45-117); BUN Blood Urea Nitrogen 11 mg/dL (7-18); Bicarbonate 35 mmol/L (21-32); Bilirubin Total 0.2 mg/dL (0.2-1.0); Glucose Level 108 mg/dL (74-106); Potassium 3.9 mmol/L (3.5-5.1); Protein, Total 7.1 g/dL (6.4-8.2); Sodium Level 141 mmol/L (136-145)
[2020-02-05 12:43] LABS: Urine Blood NEGATIVE (NEG); Urine Glucose NEGATIVE (NEG); Urine Protein NEGATIVE (NEG); Urine Specific Gravity 1.025 (1.005-1.030); Urine pH 5.5 (5.0-7.0)
--- NOTE | 2020-02-05 12:44 | ER ---
Nurse's Notes [facility] Name: Kanika Jon Age: 59 yrs Sex: Female : 1960 Arrival Date: 02/05/2020 Time: 11:04 Bed 18 Private MD: Giorgi Strickland E Diagnosis: Chronic pain syndrome Presentation: 02/04 11:27 Chief complaint: Patient states: Attempted to see Dr. Strickland this morning because of not em being able to sleep well. for "a long time" and chronic pain management. Coronavirus screen: Patient denies a cough. Patient denies shortness of breath or difficulty breathing. Patient denies measured and/or subjective temperature greater than 100.4F prior to today's visit. Patient denies travel on a cruise ship or to a country the [facility] currently lists as an affected area. Patient denies contact with known and/or suspected case of COVID-19. Ebola Screen: Patient denies exposure to infectious person. Patient denies travel to an Ebola-affected area in the 21 days before illness onset. Initial Sepsis Screen: Does the patient meet any 2 criteria? No. Patient's initial sepsis screen is negative. Does the patient have a suspected source of infection? No. Patient's initial sepsis screen is negative. Risk Assessment: Do you want to hurt yourself or someone else? Patient reports no desire to harm self or others. Onset of symptoms is unknown. 11:27 Method Of Arrival: Ambulatory em 11:27 Acuity: [place] 3 em Historical: - Allergies: 11:32 No Known Allergies; em - PMHx: 11:32 COPD; Depression; Hypertension; osteoarthritis; em - PSHx: 11:32 Hysterectomy; em - Immunization history:: Adult Immunizations unknown. - Social history:: Smoking status: Patient reports the use of cigarette tobacco products, smokes one-half pack cigarettes per day. Screenin:28 Abuse screen: Denies threats or abuse. Nutritional screening: No deficits noted. Tuberculosis screening: No symptoms or risk factors identified. Fall Risk None identified. Assessment: 12:05 General: Appears unkempt, Behavior is cooperative. General: Pt states that she went to see her PCP and he was not in so they sent her to the ER. . Pain: Denies pain. Neuro: Level of Consciousness is obeys commands, drowsy. Oriented to person, place, time, situation, Lumber Marker are equal bilaterally weak bilaterally Gait is unsteady, Speech is slurred, Facial symmetry appears normal, Pupils are PERRLA. Cardiovascular: Heart tones S1 S2 present Capillary refill < 3 seconds Patient's skin is warm and dry. Respiratory: Airway is patent Respiratory effort is even, unlabored, Respiratory pattern is regular, symmetrical, Breath sounds with wheezes bilaterally. GI: No signs and/or symptoms were reported involving the gastrointestinal system. Bowel sounds present X 4 quads. : straight cath to collect urine specimen. Urine yellow, approx 900 recieved Urine is clear. EENT: No signs and/or symptoms were reported regarding the EENT system. Derm: No signs and/or symptoms reported regarding the dermatologic system. Musculoskeletal: No signs and/or symptoms reported regarding the musculoskeletal system. 12:57 Reassessment: Pt up for discharge. Pt given a sandwich and coke to help her wake up. Pt states that she is comfortable taking a taxi home so she does not drive home. Pt given DC instructions and educated to follow up with pain MD. Pt voiced understanding. Vital Signs: 11:26 BP 124 / 78; Pulse 87; Resp 17; Temp 98.0(TE); Pulse Ox 100% on R/A; Weight 86.18 kg; em Height 5 ft. 6 in. (167.64 cm); Pain 4/10; 12:48 BP 94 / 51; Pulse 81; Resp 13; Pulse Ox 98% ; ah 11:26 Body Mass Index 30.67 (86.18 kg, 167.64 cm) em ED Course: 11:04 Patient arrived in ED. am2 11:05 Giorgi Strickland MD is Private Physician. am2 11:06 Go Benitez MD is Attending Physician. ps1 11:29 Triage completed. em 11:32 Arm band placed on right wrist. em 11:33 Muriel Merlos, RN is Primary Nurse. ah 11:55 Inserted saline lock: 22 gauge in right antecubital area, using aseptic technique. ah 12:00 Inserted saline lock: 22 gauge antecubital area, using aseptic technique. mh5 12:29 Patient has correct armband on for positive identification. Placed in gown. Bed in low ah position. Call light in reach. Side rails up X2. monitor car operator on. Pulse ox on. NIBP on. 12:43 Giorgi Strickland MD is Referral Physician. ps1 12:59 IV discontinued, intact, bleeding controlled, No redness/swelling at site. Pressure ah dressing applied. 13:00 No provider procedures requiring assistance completed. Administered Medications: No medications were administered Outcome: :43 Discharge ordered by . [facility] 13:00 Discharged to home via wheelchair. 13:00 Condition: stable 13:00 Discharge instructions given to patient, Instructed on discharge instructions, follow up and referral plans. medication usage, Demonstrated understanding of instructions, follow-up care, medications. 13:31 Patient left the ED. Signatures: Stefano Wilhelm, RN RN Yumiko Vega 5 Gregoria Fallon 2 Go Benitez MD MD ps1 Muriel Merlos RN RN
--- NOTE | 2020-02-05 12:44 | EDPHYS ---
Physician Documentation [facility] Name: Kanika Jon Age: 59 yrs Sex: Female : 1960 Arrival Date: 02/05/2020 Time: 11:04 Bed 18 Private MD: Giorgi Strickland E ED Physician Go Benitez HPI: 02/04 12:33 This 59 yrs old Female presents to ER via Ambulatory with complaints of pain ps1 management, unable to sleep. 12:[address] office but was not able to be seen. Came over for evaluation. ps1 States that she takes oxycodone from Dr. Greenwood for pain control for chronic shoulder and back pain. Took a pill this morning, states that she has sufficient amount remaining. Additionally takes trazodone and Elavil. Able to speak in full sentences and carry conversation. Alert and oriented. States that she has not been able to urinate. . Historical: - Allergies: 11:32 No Known Allergies; em - PMHx: 11:32 COPD; Depression; Hypertension; osteoarthritis; em - PSHx: 11:32 Hysterectomy; em - Immunization history:: Adult Immunizations unknown. - Social history:: Smoking status: Patient reports the use of cigarette tobacco products, smokes one-half pack cigarettes per day. ROS: 12:33 Constitutional: Negative for fever, chills, and weight loss, Eyes: Negative for injury, ps1 pain, redness, and discharge, Cardiovascular: Negative for chest pain, palpitations, and edema, Respiratory: Negative for shortness of breath, cough, wheezing, and pleuritic chest pain, Abdomen/GI: Negative for abdominal pain, nausea, vomiting, diarrhea, and constipation, MS/Extremity: Negative for injury and deformity, Skin: Negative for injury, rash, and discoloration. Exam: 12:33 Constitutional: This is a well developed, well nourished patient who is awake, alert, ps1 and in no acute distress. Head/Face: Normocephalic, atraumatic. Eyes: Pupils equal round and reactive to light, extra-ocular motions intact. Lids and lashes normal. Conjunctiva and sclera are non-icteric and not injected. 12:33 Chest/axilla: Inspection: normal. 12:33 Cardiovascular: Rate: normal. 12:33 Respiratory: Respirations: normal. 12:33 Musculoskeletal/extremity: ROM: full active range of motion. 12:33 Neuro: Orientation: is normal. Vital Signs: 11:26 BP 124 / 78; Pulse 87; Resp 17; Temp 98.0(TE); Pulse Ox 100% on R/A; Weight 86.18 kg; em Height 5 ft. 6 in. (167.64 cm); Pain 4/10; 12:48 BP 94 / 51; Pulse 81; Resp 13; Pulse Ox 98% ; ah 11:26 Body Mass Index 30.67 (86.18 kg, 167.64 cm) em MDM: 11:28 Patient medically screened. ps1 12:41 Data reviewed: vital signs, nurses notes, and as a result, I will discharge patient. ps1 Counseling: I had a detailed discussion with the patient and/or guardian regarding: the historical points, exam findings, and any diagnostic results supporting the discharge/admit diagnosis, lab results, to return to the emergency department if symptoms worsen or persist or if there are any questions or concerns that arise at home. ED course: labs reviewed and wnl. Urine neg for infection. Has pain control medication and that was what she was at her Dr's office for. Encouraged her to stick with Dr. Vegas for pain control medications and to limit taking more than prescribed and mixing with others. . 02/04 11:26 Order name: UDS; Complete Time: 12:24 ps1 02/04 11:26 Order name: CBC with Diff; Complete Time: 12:24 ps1 02/04 11:26 Order name: Urine Dipstick-Ancillary (obtain specimen); Complete Time: 12:18 ps1 02/04 11:26 Order name: CMP; Complete Time: 12:32 ps1 02/04 12:19 Order name: Urine Dipstick--Ancillary (enter results); Complete Time: 12:44 em1 Administered Medications: No medications were administered Disposition: 02/05/20 12:43 Discharged to Home. Impression: Chronic pain syndrome. - Condition is Stable. - Discharge Instructions: Chronic Pain, Pain Medicine Instructions. - Medication Reconciliation Form, Thank You Letter, Antibiotic Education, Prescription Opioid Use form. - Follow up: Giorgi Strickland MD; When: As needed; Reason: Recheck today's complaints, Continuance of care, Re-evaluation by your physician. Follow up: Emergency Department; When: As needed; Reason: Fever > 102 F, Worsening of condition. - Problem is chronic. - Symptoms are unchanged. Signatures: Dispatcher [employer] Stefano Crawford, RN RN Go Benitez MD MD [facility] Muriel Merlos RN RN Corrections: (The following items were deleted from the chart) 12:48 11:26 Bladder Scanner ordered. ps1 13:31 12:43 02/05/2020 12:43 Discharged to Home. Impression: Chronic pain syndrome. Condition ah is Stable. Forms are Medication Reconciliation Form, Thank You Letter, Antibiotic Education, Prescription Opioid Use. Follow up: Giorgi Strickland; When: As needed; Reason: Recheck today's complaints, Continuance of care, Re-evaluation by your physician. Follow up: Emergency Department; When: As needed; Reason: Fever > 102 F, Worsening of condition. Problem is chronic. Symptoms are unchanged. ps1
[2020-02-05 13:41] VITALS: TEMP 98
[2020-02-05 13:42] VITALS: BP 94/51; O2SAT 98
== END 2020-02-05 13:31 | disposition home or self-care (01) ==
LOC: ER 11:03
DX: G89.4 Chronic pain syndrome (principal); Z79.891 Long term (current) use of opiate analgesic; F17.210 Nicotine dependence, cigarettes, uncomplicated
CPT/HCPCS: 36415; 80053; 80307; 81003; 85025; 99284

== ENCOUNTER 2020-02-08 01:49 | Emergency (ER) | payer OTHER ==
--- OUTSIDE RECORDS SUMMARY | 2020-02-08 01:52 | XMS REPORT ---
:1960 Author Organization [facility] t Address [address] [place] [address] Care Team Providers Name Role Phone Unavailable Unavailable Unavailable Problems Condition Condition Condition Status Onset Resolution Last Treatin g Comments Name Details Category Date Date Treatment Clinician Date Unilateral Unilateral Problem Active primary primary osteoarthri osteoarthri tis, left tis, left knee knee Acute pain Acute pain Problem Active of left of left knee knee Acute pain Acute pain Problem Active of right of right knee knee Internal Internal Problem Active derangement derangement of right of right knee knee Effusion, Effusion, Diagnosis Active right knee right knee Effusion, Effusion, Diagnosis Active left knee left knee Right sided Right sided Problem Active sciatica sciatica Other Other Problem Active bursitis of bursitis of knee, right knee, right knee knee Primary Primary Diagnosis Active osteoarthri osteoarthri tis of both tis of both knees knees Other Other Problem Active bursitis of bursitis of knee, left knee, left knee knee Localized Localized Problem Active edema edema Sciatica, Sciatica, Problem Active left side left side Rupture of Rupture of Diagnosis Active anterior anterior cruciate cruciate ligament of ligament of left knee, left knee, initial initial encounter encounter Tear of Tear of Diagnosis Active lateral lateral collateral collateral ligament of ligament of left knee, left knee, initial initial encounter encounter Tear of Tear of Diagnosis Active medial medial meniscus of meniscus of right knee, right knee, unspecified unspecified tear type, tear type, unspecified unspecified whether old whether old or current or current tear, tear, initial initial encounter encounter Allergies, Adverse Reactions, Alerts Allergy Allergy Status Severity Reaction(s) Onset Inactive Treating C omments Name Type Date Date Clinician tramadol Adverse Active Info Not Reaction Available Trazodone Adverse Active Info Not HCl Reaction Available Lyrica Adverse Active Info Not Reaction Available Medications Ordered Filled Start Stop Current Ordering Indication Dosage Frequency Signature Comments Components Medication Medication Date Date Medication? Clinician (SIG) Name Name Valium Valium 2019-0 Yes Jarek 1 tablet 2-14 Harris as needed 00:00: 00 Chantix Chantix Yes Jarek TAKE 1 Continuing Continuing Harris TABLET BY Month Cullen Month Cullen MOUTH TWICE A DAY Cyclobenzap Cyclobenzap Yes Jarek TAKE 1 rine HCl rine HCl Harris TABLET BY MOUTH TWICE DAILY NEEDED Ventolin Ventolin Yes Jarek USE 2 HFA HFA Harris PUFFS NEEDED EVERY 6 HORS Trazodone Trazodone Yes Jarek TAKE 1 HCl HCl Harris TABLET BY MOUTH AT BEDTIME BuPROPion BuPROPion Yes Jarek TAKE 1 HCl HCl Harris TABLET BY MOUTH ONCE A DAY Duloxetine Duloxetine Yes Jarek TAKE 1 HCl HCl Harris CAPSULE BY MOUTH ONCE A DAY Hydrochloro Hydrochloro Yes Jarek TAKE 1 thiazide thiazide Harris TABLET BY MOUTH IN ONCE EVERY MORNING Temazepam Temazepam Yes Jarek (Schedule [facility] IV Drug) TAKE 1 CAPSULE BY MOUTH NEEDED AT BEDTIME Pravastatin Pravastatin Yes Jarek TAKE 1 Sodium Sodium Harris TABLET BY MOUTH AT BEDTIME Losartan Losartan Yes Jarek TAKE 1 Potassium Potassium Harris TABLET BY MOUTH ONCE A DAY Alprazolam Alprazolam Yes Jarek (Schedule [facility] IV Drug) TAKE 1 TABLET BY MOUTH TWICE DAILY Amlodipine Amlodipine Yes Jarek TAKE 1 Besylate Besylate Harris TABLET BY MOUTH ONCE A DAY Encounters Start End Encounter Admission Attending Care Care Encounter Date/Time Date/Time Type Type Clinicians Facility Department ID 2018-12-17 2018-12-17 [id number] 10:30:00 10:30:00 [facility] 2018-12-11 2018-12-11 [facility] [id number] 10:00:00 10:00:00 [facility] 2018-12-11 2018-12-11 [id number] 09:35:00 09:35:00 [facility] 2018-12-06 2018-12-06 [id number] 11:00:00 11:00:00 [facility] 2018-12-03 2018-12-03 [facility] [id number] 10:30:00 10:30:00 [facility] 2018-07-16 2018-07-16 [facility] [id number] 16:31:00 16:31:00 [facility] 2018-06-26 2018-06-26 [id number] 09:00:00 09:00:00 [facility]
--- OUTSIDE RECORDS SUMMARY | 2020-02-08 01:52 | XMS REPORT ---
[...] Status Dosage System Date Date Chantix Continuing [facility] [id number] 1 MG Oral Active TAKE 1 Month Cullen TABLET BY MOUTH TWICE A DAY Cyclobenzaprine HCl [facility] 99836780043 10 MG Oral Activ e TAKE 1 TABLET BY MOUTH TWICE DAILY NEEDED Ventolin HFA [facility] 05566953409 108 (90 Base) Active U SE 2 MCG/ACT PUFFS Inhalation NEEDED EVERY 6 HORS Trazodone HCl [facility] 47130972625 150 MG Oral Active TA KE 1 TABLET BY MOUTH AT BEDTIME BuPROPion HCl ND 98790150368 100 MG Oral Active TA KE 1 TABLET BY MOUTH ONCE A DAY Duloxetine HCl [facility] 99584058435 60 MG Oral Active TA KE 1 CAPSULE BY MOUTH ONCE A DAY Hydrochlorothiazide ND 73187806345 25 MG Oral Activ e TAKE 1 TABLET BY MOUTH IN ONCE EVERY MORNING Temazepam [facility] 98936665084 30 MG Oral Active (Schedu le IV Drug) TAKE 1 CAPSULE BY MOUTH NEEDED AT BEDTIME Pravastatin Sodium [facility] 32358898401 40 MG Oral Active TAKE 1 TABLET BY MOUTH AT BEDTIME Losartan Potassium ND 90091076373 50 MG Oral Active TAKE 1 TABLET BY MOUTH ONCE A DAY Alprazolam ND 31759835665 2 MG Oral Active (Schedu le IV Drug) TAKE 1 TABLET BY MOUTH TWICE DAILY Amlodipine Besylate [facility] 02953235489 10 MG Oral Activ e TAKE 1 TABLET BY MOUTH ONCE A DAY Results No Known Results Summary Purpose eClinicalWorks Submission
--- OUTSIDE RECORDS SUMMARY | 2020-02-08 01:53 | XMS REPORT ---
[...] Dosage System Date Date BuPROPion HCl ND 10779983140 100 MG Oral Active TA KE 1 TABLET BY MOUTH ONCE A DAY Chantix Continuing ND 48143818216 1 MG Oral Active TAKE 1 Month Cullen TABLET BY MOUTH TWICE A DAY Losartan Potassium ND 28720664713 50 MG Oral Active TAKE 1 TABLET BY MOUTH ONCE A DAY Pravastatin Sodium ND 32725258865 40 MG Oral Active TAKE 1 TABLET BY MOUTH AT BEDTIME Valium ND 47698436335 2 MG Orally 1 Dec 06, Active 1 tabl et PO 30 MIN 2019 as needed PRIOR TO MRI SCAN Alprazolam ND 63422131378 2 MG Oral Active (Schedu le IV Drug) TAKE 1 TABLET BY MOUTH TWICE DAILY Duloxetine HCl ND 69609186132 60 MG Oral Active TA KE 1 CAPSULE BY MOUTH ONCE A DAY Trazodone HCl [facility] 34540523098 150 MG Oral Active TA KE 1 TABLET BY MOUTH AT BEDTIME Amlodipine Besylate ND 77266900388 10 MG Oral Activ e TAKE 1 TABLET BY MOUTH ONCE A DAY Hydrochlorothiazide ND 33070989668 25 MG Oral Activ e TAKE 1 TABLET BY MOUTH IN ONCE EVERY MORNING Temazepam ND 59376207951 30 MG Oral Active (Schedu le IV Drug) TAKE 1 CAPSULE BY MOUTH NEEDED AT BEDTIME Ventolin HFA [facility] 45596058529 108 (90 Base) Active U SE 2 MCG/ACT PUFFS Inhalation NEEDED EVERY 6 HORS MethylPREDNISolone ND 26969484598 4 MG Orally Dec 06, Nov Activ e as 2018 Cyclobenzaprine HCl ND 66231778730 10 MG Oral Activ e TAKE 1 TABLET BY MOUTH TWICE DAILY NEEDED Results No Known Results Summary Purpose eClinicalWorks Submission
--- OUTSIDE RECORDS SUMMARY | 2020-02-08 01:53 | XMS REPORT ---
[...] Status Dosage System Date Date Chantix Continuing [facility] 18578654819 1 MG Oral Active TAKE 1 Month Cullen TABLET BY MOUTH TWICE A DAY BuPROPion HCl [facility] 07381481418 100 MG Oral Active TA KE 1 TABLET BY MOUTH ONCE A DAY Hydrochlorothiazide [facility] 20623352629 25 MG Oral Activ e TAKE 1 TABLET BY MOUTH IN ONCE EVERY MORNING Pravastatin Sodium [facility] 73546829592 40 MG Oral Active TAKE 1 TABLET BY MOUTH AT BEDTIME Ventolin HFA [facility] 53288464069 108 (90 Base) Active U SE 2 MCG/ACT PUFFS Inhalation NEEDED EVERY [address] [facility] 85691549725 60 MG Oral Active TA KE 1 CAPSULE BY MOUTH ONCE A DAY Cyclobenzaprine HCl [facility] 10752195349 10 MG Oral Activ e TAKE 1 TABLET BY MOUTH TWICE DAILY NEEDED Amlodipine Besylate [facility] 93444157629 10 MG Oral Activ e TAKE 1 TABLET BY MOUTH ONCE A DAY Trazodone HCl [facility] 69763421713 150 MG Oral Active TA KE 1 TABLET BY MOUTH AT BEDTIME Losartan Potassium [facility] 02746761338 50 MG Oral Active TAKE 1 TABLET BY MOUTH ONCE A DAY Temazepam [facility] 34056550656 30 MG Oral Active (Schedu le IV Drug) TAKE 1 CAPSULE BY MOUTH NEEDED AT BEDTIME Alprazolam [facility] 01355610951 2 MG Oral Active (Schedu le IV Drug) TAKE 1 TABLET BY MOUTH TWICE DAILY Results No Known Results Summary Purpose eClinicalWorks Submission
--- OUTSIDE RECORDS SUMMARY | 2020-02-08 01:54 | XMS REPORT ---
[...] End Status Dosage System Date Date Alprazolam [facility] 22468628881 2 MG Oral Active (Schedu le IV Drug) TAKE 1 TABLET BY MOUTH TWICE DAILY Temazepam [facility] 60297524370 30 MG Oral Active (Schedu le IV Drug) TAKE 1 CAPSULE BY MOUTH NEEDED AT BEDTIME Hydrochlorothiazide [facility] 32246801995 25 MG Oral Activ e TAKE 1 TABLET BY MOUTH IN ONCE EVERY MORNING Chantix Continuing [facility] 67332834408 1 MG Oral Active TAKE 1 Month Cullen TABLET BY MOUTH TWICE A DAY Pravastatin Sodium ND 93847858816 40 MG Oral Active TAKE 1 TABLET BY MOUTH AT BEDTIME Ventolin HFA [facility] 14011652600 108 (90 Base) Active U SE 2 MCG/ACT PUFFS Inhalation NEEDED EVERY 6 HORS Valium [facility] 50879459770 2 MG Orally 1 Dec 06, Active 1 tabl et PO 30 MIN 2018 as needed PRIOR TO MRI SCAN Duloxetine HCl [facility] 45253867762 60 MG Oral Active TA KE 1 CAPSULE BY MOUTH ONCE A DAY Cyclobenzaprine HCl [facility] 68963863865 10 MG Oral Activ e TAKE 1 TABLET BY MOUTH TWICE DAILY NEEDED Amlodipine Besylate [facility] 26568666684 10 MG Oral Activ e TAKE 1 TABLET BY MOUTH ONCE A DAY Losartan Potassium [facility] 31801912036 50 MG Oral Active TAKE 1 TABLET BY MOUTH ONCE A DAY Trazodone HCl [facility] 64295125981 150 MG Oral Active TA KE 1 TABLET BY MOUTH AT BEDTIME BuPROPion HCl [facility] 76991067913 100 MG Oral Active TA KE 1 TABLET BY MOUTH ONCE A DAY Results No Known Results Summary Purpose eClinicalWorks Submission
--- OUTSIDE RECORDS SUMMARY | 2020-02-08 01:55 | XMS REPORT ---
[...] Date Date BuPROPion HCl [facility] 61843744394 100 MG Oral Active TA KE 1 TABLET BY MOUTH ONCE A DAY Alprazolam [facility] 05326344708 2 MG Oral Active (Schedu le IV Drug) TAKE 1 TABLET BY MOUTH TWICE DAILY Trazodone HCl [facility] 89665525347 150 MG Oral Active TA KE 1 TABLET BY MOUTH AT BEDTIME Hydrochlorothiazide [facility] 33938276861 25 MG Oral Activ e TAKE 1 TABLET BY MOUTH IN ONCE EVERY MORNING Valium ND 07630239540 2 MG Orally 1 Dec 06, Active 1 tabl et PO 30 MIN 2019 as needed PRIOR TO MRI SCAN Temazepam [facility] 38095882256 30 MG Oral Active (Schedu le IV Drug) TAKE 1 CAPSULE BY MOUTH NEEDED AT BEDTIME Cyclobenzaprine HCl [facility] 45759330542 10 MG Oral Activ e TAKE 1 TABLET BY MOUTH TWICE DAILY NEEDED Amlodipine Besylate [facility] 00461137051 10 MG Oral Activ e TAKE 1 TABLET BY MOUTH ONCE A DAY Losartan Potassium [facility] 69613231032 50 MG Oral Active TAKE 1 TABLET BY MOUTH ONCE A DAY Duloxetine HCl [facility] 02155494509 60 MG Oral Active TA KE 1 CAPSULE BY MOUTH ONCE A DAY Ventolin HFA [facility] 65044164364 108 (90 Base) Active U SE 2 MCG/ACT PUFFS Inhalation NEEDED EVERY 6 HORS Pravastatin Sodium [facility] 25296307634 40 MG Oral Active TAKE 1 TABLET BY MOUTH AT BEDTIME Chantix Continuing [facility] 65235041752 1 MG Oral Active TAKE 1 Month Cullen TABLET BY MOUTH TWICE A DAY Results Name Result Date Reference Range Unit Abnormali ty Flag Body Fluid Cell Count ----Body Fluid 98 01984298 % Lymphocytes ----Body Fluid 0 11328596 % Neutrophils ----Body Fluid RBC 140 04663833 /mm^3 ----Body Fluid WBC 150 05327112 /mm^3 ----Appearance CLEAR 20181217 CLEAR ----Tube # SINGLE [id number] ----Body Fluid 2 58908116 % Mononuclear Cells ----Body Fluid SYNOVIAL [id number] Source ----Color of fluid Yellow 20181217 COLORLESS AA ----Color of Not Xanthochromic 20181217 Not Xantho Supernate Body Fluid Crystals ----Body Fluid NONE SEEN 20181217 Crystals Summary Purpose eClinicalWorks Submission
[2020-02-08] MEDS ORDERED: METHYLPREDNISOLONE 125 MG INJ ONE (02:09)
--- NOTE | 2020-02-08 02:15 | EDPHYS ---
Physician Documentation [facility] Name: Kanika Jon Age: 59 yrs Sex: Female : 1960 Arrival Date: 02/08/2020 Time: 01:52 Bed 5 Private MD: ED Physician Albert King HPI: 02/07 02:01 This 59 yrs old Female presents to ER via Unassigned with complaints of cp Itching. 02:01 The patient's rash thought to be caused by an unknown cause. cp 02:01 The rash is located on the right arm, left arm, right leg and left leg. The rash can be cp described as erythematous. Onset: The symptoms/episode began/occurred 4 day(s) ago. Associated signs and symptoms: Pertinent positives: burning sensation, itching, Pain Pertinent negatives: difficulty breathing, fever, swelling of lips, swelling of throat, swelling of tongue, wheezing. Severity of symptoms: in the emergency department the symptoms are unchanged. Historical: - Allergies: 02:07 No Known Allergies; rv - PMHx: 02:07 COPD; Depression; Hypertension; osteoarthritis; rv - PSHx: 02:07 Hysterectomy; rv - Immunization history:: Adult Immunizations. - Social history:: Smoking status: Patient reports the use of cigarette tobacco products, smokes one-half pack cigarettes per day. ROS: 02:10 Skin: Positive for rash, of the right arm, left arm, right leg and left leg. cp 02:10 Constitutional: Negative for body aches, chills, fever. cp 02:10 Respiratory: Negative for cough, shortness of breath, wheezing. 02:10 Abdomen/GI: Negative for abdominal pain, nausea, vomiting, and diarrhea. 02:10 All other systems are negative. Exam: 02:12 Constitutional: The patient appears in no acute distress, alert, awake, non-toxic, well cp developed, well nourished. 02:12 Cardiovascular: Rate: normal. 02:12 Respiratory: the patient does not display signs of respiratory distress, Respirations: normal, no use of accessory muscles, no retractions, labored breathing, is not present. 02:12 Skin: cellulitis, is not appreciated, rash can be described as erythematous, excoriated, papular, on the right arm, left arm, right leg and left leg. 02:12 Skin: web spaces of hands and feet spared, chest and abdomen and belt line spared. cp Vital Signs: 02:04 BP 119 / 81; Pulse 90; Resp 19; Temp 98.7; Pulse Ox 93% on NC; Weight 86.18 kg; Height rv 5 ft. 5 in. (165.10 cm); 02:28 BP 122 / 73; Pulse 91; Resp 18; Pulse Ox 93% on NC; rv 02:04 Body Mass Index 31.62 (86.18 kg, 165.10 cm) rv MDM: 01:58 Patient medically screened. cp 02:10 Differential diagnosis: allergic reaction, dermatitis, scabies, cellulitis. cp 02:13 Data reviewed: vital signs, nurses notes, and as a result, I will discharge patient. cp Administered Medications: 02:07 Drug: SOLU-Medrol 125 mg Route: IM; Site: left gluteus; mg2 02:29 Follow up: Response: No adverse reaction rv Disposition: 02:20 Chart complete. cp Disposition: 02/08/20 02:14 Discharged to Home. Impression: Dermatitis, unspecified. - Condition is Stable. - Prescriptions for Vistaril 25 mg Oral capsule - take 2 capsule by ORAL route 4 times per day As needed for itching; 60 capsule. Medrol (Cullen) 4 mg Oral Tablets, Dose Pack - take 1 tablet by ORAL route as directed - follow package instructions; 1 packet. Triamcinolone Acetonide 0.1 % Topical Ointment - apply 1 application by TOPICAL route every 12 hours As needed apply to affected areas except face as directed; 2 tube. - Medication Reconciliation Form, Thank You Letter, Antibiotic Education, Prescription Opioid Use form. - Follow up: Private Physician; When: 2 - 3 days; Reason: Recheck today's complaints. - Problem is new. - Symptoms have improved. Addendum: 02/09/2020 06:09 Co-signature as Attending Physician, Albert King MD I agree with the assessment and t w4 plan of care. Signatures: Jose Ramon Vickers PA PA cp Albert King MD MD tw4 Enrrique Lou, RN RN mg2 Tadeo Araujo RN RN rv Corrections: (The following items were deleted from the chart) 02/07 02:30 02:14 02/08/2020 02:14 Discharged to Home. Impression: Dermatitis, unspecified. rv Condition is Stable. Forms are Medication Reconciliation Form, Thank You Letter, Antibiotic Education, Prescription Opioid Use. Follow up: Private Physician; When: 2 - 3 days; Reason: Recheck today's complaints. Problem is new. Symptoms have improved. cp
--- NOTE | 2020-02-08 02:15 | ER ---
[facility] Age: 59 yrs Sex: Female : 1960 Arrival Date: 02/08/2020 Time: 01:52 Bed 5 Private MD: Diagnosis: Dermatitis, unspecified Presentation: 02/07 02:04 Chief complaint: Patient states: ITCHY AND PAINFUL RASHES ON FOUR EXTREMITIES FOR FOUR rv DAYS. DENIES FEVER. Coronavirus screen: Proceed with normal triage. Ebola Screen: No symptoms or risks identified at this time. Onset: The symptoms/episode began/occurred 4 day(s) ago. Anaphylaxis evaluation, the patient reports or I have noted the following symptoms which indicate a significant risk of anaphylaxis: no signs or symptoms of anaphylaxis were noted. Initial Sepsis Screen: Does the patient meet any 2 criteria? No. Patient's initial sepsis screen is negative. Does the patient have a suspected source of infection? No. Patient's initial sepsis screen is negative. Risk Assessment: Do you want to hurt yourself or someone else? Patient reports no desire to harm self or others. Onset of symptoms was February 04, 2020 at 08:00. 02:04 Method Of Arrival: Ambulatory rv 02:04 Acuity: [place] 4 rv Triage Assessment: 02:07 General: Appears in no apparent distress. uncomfortable, Behavior is calm, cooperative. rv Pain: Complains of pain in right arm, left arm, right leg and left leg Quality of pain is described as stinging. Neuro: Level of Consciousness is awake, alert, obeys commands, Oriented to person, place, time, situation. Cardiovascular: Patient's skin is warm and dry. Respiratory: Airway is patent. Derm: Rash noted that is itchy, red, on right arm, left arm, right leg and left leg. Historical: - Allergies: 02:07 No Known Allergies; rv - PMHx: 02:07 COPD; Depression; Hypertension; osteoarthritis; rv - PSHx: 02:07 Hysterectomy; rv - Immunization history:: Adult Immunizations. - Social history:: Smoking status: Patient reports the use of cigarette tobacco products, smokes one-half pack cigarettes per day. Screenin:08 Abuse screen: Denies threats or abuse. Denies injuries from another. Nutritional rv screening: No deficits noted. Tuberculosis screening: No symptoms or risk factors identified. Fall Risk None identified. Assessment: 02:29 Reassessment: SEE TRIAGE NOTES. rv 02:30 Respiratory: Respiratory effort is even, Breath sounds are clear. rv Vital Signs: 02:04 BP 119 / 81; Pulse 90; Resp 19; Temp 98.7; Pulse Ox 93% on NC; Weight 86.18 kg; Height rv 5 ft. 5 in. (165.10 cm); 02:28 BP 122 / 73; Pulse 91; Resp 18; Pulse Ox 93% on NC; rv 02:04 Body Mass Index 31.62 (86.18 kg, 165.10 cm) rv ED Course: 01:52 Patient arrived in ED. ds1 01:56 Jose Ramon Vickers PA is PHCP. cp 01:56 Albert King MD is Attending Physician. cp 02:03 Tadeo Araujo, VEE is Primary Nurse. rv 02:06 Triage completed. rv 02:07 Arm band placed on Patient placed Patient notified of wait time. rv 02:08 Patient has correct armband on for positive identification. Bed in low position. Call rv light in reach. Side rails up X 1. Pulse ox on. NIBP on. 02:29 No provider procedures requiring assistance completed. Patient did not have IV access rv during this emergency room visit. Administered Medications: 02:07 Drug: SOLU-Medrol 125 mg Route: IM; Site: left gluteus; mg2 02:29 Follow up: Response: No adverse reaction rv Outcome: 02:14 Discharge ordered by MD. cp 02:30 Discharged to home ambulatory. rv 02:30 Condition: good 02:30 Discharge instructions given to patient, Instructed on discharge instructions, follow up and referral plans. medication usage, Demonstrated understanding of instructions, follow-up care, medications, Prescriptions given X 3. 02:30 Patient left the ED. rv Signatures: Zaina Herrera ds1 Jose Ramon Vickers PA PA cp [place], Michele, RN RN mg2 Tadeo Araujo RN RN rv
[2020-02-08 02:36] VITALS: TEMP 98.7; O2SAT 93
[2020-02-08 02:38] VITALS: BP 122/73
== END 2020-02-08 02:30 | disposition home or self-care (01) ==
LOC: ER 01:49
DX: L30.9 Dermatitis, unspecified (principal); I10 Essential (primary) hypertension; F17.210 Nicotine dependence, cigarettes, uncomplicated
CPT/HCPCS: 96372; 99283; J2930

== ENCOUNTER 2020-05-20 16:42 | Emergency (ER) | payer OTHER ==
--- OUTSIDE RECORDS SUMMARY | 2020-05-20 16:44 | XMS REPORT | Continuity of Care Document ---
:1960 Author Organization [facility] t Address [address] [place] [address] Care Team Providers Name Role Phone Kendall Michael MD Attending Clinician Only, Test Attending Clinician Unavailable Pob, Lab Main Attending Clinician Unavailable Vila DO Attending Clinician Doctor Unassigned, Name Attending Clinician Unavailable Radiology Attending Clinician Unavailable Kendall Michael MD Admitting Clinician Problems Condition Condition Condition Status Onset Resolution Last Treating Co mments Source Name Details Category Date Date Treatment Clinician Date Unilateral Unilateral Problem Active [facility] primary primary [facility] oste[facility]r osteoarthr [facility] moria itis, left itis, [facility] Acute pain Acute pain Problem Active [facility] of left of left [facility] knee knee [facility] Acute pain Acute pain Problem Active [facility] of right of right [facility] knee knee [facility] Internal Internal Problem [facility] derangemen derangemen [facility] - t of right t of right [facility] knee [facility] Effusion, Effusion, Problem Active [facility] right knee right knee [facility] - [facility] Effusion Effusion Problem Active [facility] of bursa of bursa [facility] - of left of left [facility] knee knee l Outpat[facility] ent Clinics Right Right Problem Active [facility] sided sided [facility] sciatica sciatica [facility] Other Other Problem Active [facility] bursitis bursitis [facility] - of knee, of knee, [facility] a right knee right knee [facility] Primary Primary Problem Active [facility] osteoarthr osteoarthr [facility] k[facility] - itis of itis of [facility] both knees both knees l [facility] Other Other Problem Active [facility] bursitis bursitis [facility] - of knee, of knee, Memori a left knee left knee [facility] Localized Localized Problem Active [facility] edema edema [facility] - [facility] Sciatica, Sciatica, Problem Active [facility] left side left side [place] [facility] Primary Primary Diagnosis Active [facility] osteoarthr osteoarthr [facility] - itis of itis of [facility] right knee right knee [facility] Allergies, Adverse Reactions, Alerts Allergy Allergy Status Severity Reaction(s) Onset Inactive Treating Comm ents Source Name Type Date Date Clinician tramadol Adverse Active Info Not [facility] Reaction Available [facility] Lyrica Adverse Active Info Not [facility] Reaction Available [facility] Trazodon Adverse Active Info Not [facility] e HCl Reaction Available [facility] Medications Ordered Filled Start Stop Current Ordering Indication Dosage Frequency Signature Comments Components Source Medication Medication Date Date Medication? Clinician (SIG) Name Name Melba Valium Yes Adrián [address] 2-14 [place] as needed [facility] - 00:[facility]: [facility] 00 l [facility] Chantix Chantix Yes Adrián TAKE [address] [facility] Continuing Continuing [place] TABLET BY [facility] - Month Cullen Month Cullen MOUTH Naga derek TWICE A l DAY [facility] Cyclobenzap Cyclobenzap Yes Adrián TAKE [address] [facility] rine HCl rine HCl [place]ca TABLET BY [facility] kes - MOUTH [facility] TWICE l DAILY [facility] Ventolin Ventolin Yes Adrián USE [address] [facility] HFA HFA [place] PUFFS [facility] - NEEDED Memoria EVERY 6 l [facility] Trazodone Trazodone Yes Adrián TAKE [address] [facility] HCl HCl [place] TABLET BY [facility] BuPROPion BuPROPion Yes Adrián TAKE [address] [facility] [address] HCl HCl [place] TABLET BY [facility] - MOUTH ONCE Memoria A DAY [facility] Duloxetine Duloxetine Yes Adrián TAKE [address] [facility] [address] HCl HCl [place] CAPSULE BY [facility] - MOUTH ONCE Memoria A DAY [facility] Hydrochloro Hydrochloro Yes Adrián TAKE [address] [facility] thiazide thiazide [place] TABLET BY [facility]raine kes - MOUTH IN Memoria ONCE EVERY l MORNING Outpati ent Clinics Temazepam Temazepam Yes Adrián (Schedule [facility] IV Drug) [facility] - TAKE 1 Memoria CAPSULE BY l MOUTH Outpati NEEDED AT ent BEDTIME Clinics Pravastatin Pravastatin Yes Adrián TAKE [address] [facility] Sodium Sodium [place] TABLET BY [facility] - MOUTH AT Memoria BEDTIME l Outpati ent Clinics Losartan Losartan Yes Adrián TAKE [address] Potassium Potassium [place] TABLET BY [facility] - MOUTH ONCE Memoria A DAY l Outpati ent Clinics Alprazolam Alprazolam Yes Adrián (Schedule [facility] IV Drug) [facility] - TAKE 1 Memoria TABLET BY l MOUTH Outpati TWICE ent DAILY Clinics Amlodipine Amlodipine Yes Adrián TAKE [address] [facility] Besylate Besylate [place] TABLET BY Lorraine kes - MOUTH ONCE Memoria A DAY l Outpati ent Clinics Brovana Brovana Yes Adrián [address] [facility] - Memoria l Outpati ent Clinics Oxycodone-A Oxycodone-A Yes Adrián (Schedule [facility] cetaminophe cetaminophe [place] II Drug) [facility] - n n TAKE 1 Memoria TABLET BY l MOUTH ONCE Outpati A DAY FOR ent 14 DAY(S) Clinics Spiriva Spiriva Yes Adrián [address] HandiHaler HandiHaler [place] by Jr es - inhaling Memoria the l contents Outpati of the ent capsule Clinics using the HandiHaler device Procedures This patient has no known procedures. Encounters Start End Encounter Admission Attending Care Care Encounter Source Date/Time Date/Time Type Type Clinicians Facility Department ID 2020-05-12 2020-05-12 Outpatient Taya Sahu [id number] [facility] 13[facility]00[facility]00 13:00:00 [facility] Clin[facility] 2020-05-05 2020-05-05 Outpatient Taya Sahu [id number] [facility] 13:30:00 13:30:00 [facility] Clinics 2020-04-28 2020-04-28 Outpatient Taya Sahu [id number] [facility] 09:15:00 09:15:00 t [facility] 2020-04-20 2020-04-20 [facility] [id number] 07:47:09 09:07:00 Encounter Devin Raymundo [id number] [place] [id number] [facility] [id number] [place] 07 2020-04-17 2020-04-17 Laboratory Only, [facility] 1..840.114 [id number] 11:38:45 11:53:45 Only Test Breanne [id number] [place] [id number] [place] [id number] 2020-04-16 2020-04-16 Storage Battery Inspector And Tester Gabby, [facility] 1..840.114 [id number] 13:49:39 14:04:39 Visit Lab Main Breanne [id number] [place] [id number] Professio [id number] [facility] 353 [facility] 2020-04-15 2020-04-15 [facility] [id number] [facility] 11:22:00 11:22:00 t [facility] of [facility] ent Clinics 2020-03-27 2020-03-27 [facility] [id number] [facility] 08:35:00 08:35:00 t [facility] Clinics 2020-03-26 2020-03-26 [facility] [id number] 10:30:00 10:30:00 t [facility] 2020-02-13 2020-02-13 Telemdread Vila [facility] 1..840.114 [id number] 08:13:08 08:33:08 ne Visit Joyce Raymundo [id number] [place] [id number] Professio [id number] nal 085 [facility] 2019-12-31 2019-12-31 Orders Doctor PRUITT 1.2.840.114 [id number] 00:00:00 00:00:00 Only Unassigned, JUICE [id number] [place] [id number] 2019-12-06 2019-12-06 [facility] Radiology [facility] 1.2.840.114 [id number] 11:58:00 23:59:00 Encounter [place] [id number] [place] [id number] [place] [id number] 2019-12-06 2019-12-06 Storage Battery Inspector And Tester Aisha Pierre [facility] 1.2.840.114 [id number] 12:02:23 12:17:23 Visit Lab Main Breanne [id number] [place] [id number] Professio [id number] [address] 2019-12-06 2019-12-06 [facility] Radiology [facility] 1.2.840.114 [id number] 11:30:00 11:57:00 Encounter [place] [id number] [place] [id number] [place] [id number] 806 2019-12-06 2019-12-06 Orders Doctor [facility] 1.2.840.114 [id number] 00:00:00 00:00:00 Only Unassigned, JUICE [id number] [place] [address]2.686 [id number] 009 2018-12-17 2018-12-17 [facility] [id number] [address] 10:30:00 10:30:00 t [facility] 2018-12-11 2018-12-11 [facility] [id number] [facility] 10:00:00 10:00:00 t [facility] 2018-12-11 2018-12-11 [facility] [id number] 09:35:00 09:35:00 t [facility] 2018-12-06 2018-12-06 Outpatient Taya Sahu [id number] 11:00:00 11:00:00 t [facility] Clinics 2018-12-03 2018-12-03 Outpatient Taya Sahu [id number] [facility] [address] 10:30:00 10:30:00 t [facility] Clinics 2018-07-16 2018-07-16 Outpatient Taya Sahu [id number] [facility] 16:31:00 16:31:00 t [facility] Clinics 2018-06-26 2018-06-26 Outpatient Taya Sahu [id number] 09:00:00 09:00:00 t [facility] Results This patient has no known results.
--- OUTSIDE RECORDS SUMMARY | 2020-05-20 16:44 | XMS REPORT ---
:1960 Author Organization [employer] Care Team Providers Name Role Phone Adrián Abarca Provider Role Unavailable Allergies, Adverse Reactions, Alerts Substance Reaction Event Type tramadol Info Not Available Drug Allergy Trazodone HCl Info Not Available Drug Allergy Lyrica Info Not Available Drug Allergy Problems Problem Type Condition Code Onset Dates Condition Statu s Problem Other bursitis of knee, right knee M70.51 Active Problem Pain in right knee M25.561 Active Problem Pain in left knee M25.562 Active Problem Primary osteoarthritis of left knee M17.12 Active Problem Primary osteoarthritis of right M17.11 Active knee Assessment Pain in joint of left knee M25.562 A ctive Assessment Pain in joint of right knee M25.561 Active Problem Bilateral primary osteoarthritis of M17.0 Active knee Problem Effusion of knee joint right M25.461 Active Problem Primary osteoarthritis of both M17.0 Active knees Problem Pain in joint of left knee M25.562 A ctive Problem Effusion of bursa of left knee M25.462 Active Problem Internal derangement of right knee M23.91 Active Problem Acute pain of right knee M25.561 Act keo Problem Effusion, right knee M25.461 Active Problem Unilateral primary osteoarthritis, M17.12 Active left knee Problem Sciatica, right side M54.31 Active Problem Right sided sciatica M54.31 Active Assessment Primary osteoarthritis of left knee M17.12 Active Problem Acute pain of left knee M25.562 Acti ve Problem Localized edema R60.0 Active Assessment Primary osteoarthritis of right M17.11 Active knee Problem Sciatica, left side M54.32 Active Problem Other bursitis of knee, left knee M70.52 Active Medications Medication Code Code Instructions Start End Status Dosage System Date Date Losartan Potassium [facility] 60225306264 50 MG Oral Active TAKE 1 TABLET BY MOUTH ONCE A DAY Ventolin HFA [facility] 13558913695 108 (90 Base) Active U SE 2 PUFFS MCG/ACT NEEDED Inhalation EVERY 6 HORS BuPROPion HCl [facility] 43990375921 100 MG Oral Active TA KE 1 TABLET BY MOUTH ONCE A DAY Cyclobenzaprine HCl [facility] 01361842696 10 MG Oral Activ e TAKE 1 TABLET BY MOUTH TWICE DAILY NEEDED Pravastatin Sodium [facility] 97806310939 40 MG Oral Active TAKE 1 TABLET BY MOUTH AT BEDTIME Amlodipine Besylate ND 65133695751 10 MG Oral Activ e TAKE 1 TABLET BY MOUTH ONCE A DAY Alprazolam [facility] 04707241570 2 MG Oral Active (Schedu le IV Drug) TAKE 1 TABLET BY MOUTH TWICE DAILY Duloxetine HCl [facility] 03423442664 60 MG Oral Active TA KE 1 CAPSULE BY MOUTH ONCE A DAY Brovana [facility] 78879987276 15 MCG/2ML Active 2 ml Inhalation Twice a day Temazepam [facility] 98432878410 30 MG Oral Active (Sche[place] le IV Drug) TAKE 1 CAPSULE BY MOUTH NEEDED AT BEDTIME Hydrochlorothiazide [facility] 31123683520 25 MG Oral Activ e TAKE 1 TABLET BY MOUTH IN ONCE EVERY MORNING Chantix Continuing [facility] 57598979597 1 MG Oral Active TAKE 1 Month Cullen TABLET BY MOUTH TWICE A DAY Trazodone HCl [facility] 13610125058 150 MG Oral Active TA KE 1 TABLET BY MOUTH AT BEDTIME Valium [facility] 49555824244 2 MG Orally 1 Dec 06, Active 1 tabl et as PO 30 MIN 2019 needed PRIOR TO MRI SCAN Oxycodone-Acetaminoph [facility] 68830042050 5-325 MG Oral Active (Schedule en II Drug) TAKE 1 TABLET BY MOUTH ONCE A DAY FOR 14 DAY(S) Spiriva HandiHaler [facility] 60388378065 18 MCG Active 1 capsule Inhalation by inhaling Once a day the contents of the capsule using the HandiHaler device Results No Known Results Summary Purpose [employer]ClinicalWorks Submission
--- OUTSIDE RECORDS SUMMARY | 2020-05-20 16:44 | XMS REPORT ---
:1960 Author Organization [employer] Care Team Providers Name Role Phone Adrián Abarca Provider Role Unavailable Allergies No Known Allergies Problems Problem Type Condition Code Onset Dates Condition Statu s Problem Other bursitis of knee, right knee M70.51 Active Problem Pain in right knee M25.561 Active Problem Pain in left knee M25.562 Active Problem Primary osteoarthritis of left knee M17.12 Active Problem Primary osteoarthritis of right M17.11 Active knee Problem Bilateral primary osteoarthritis of M17.0 Active [...] Active Problem Right sided sciatica M54.31 Active Problem Acute pain of left knee M25.562 Acti ve Problem Localized edema R60.0 Active Problem Sciatica, left side M54.32 Active Problem Other bursitis of knee, left knee M70.52 Active Medications No Known Medications Results No Known Results Summary Purpose eClinicalWorks Submission
--- OUTSIDE RECORDS SUMMARY | 2020-05-20 16:45 | XMS REPORT | Summary of Care ---
:1960 Author Organization [facility] - [facility] Address [address] [place] [address] Care Team Providers Name Role Phone Pcp, Patient Does Not Have A Primary Care Provider +[id number] 0-0000 Reason for Referral (Routine) Status Reason Specialty Diagnoses / Referred By Referred To Procedures Contact Contact New Request Diagnostic Diagnoses Pain management Alec, Radiology Procedures FL TIME OR (NON-REPORTABLE) Devin Argueta MD [id number] [address] Reason for Visit Auth/Cert Status Reason Specialty Diagnoses / Procedures Referred By C ontact Referred To Contact Surgery Diagnoses Cervicalgia Radiculopathy, cervical region CERVICALGIA M54.2 (ICD-10-CM) - Cervicalgia RADICULOPAHTY CERVICAL REGION M54.12 (ICD-10-CM) - Radiculopathy, cervical region Ad c Pre/Pacu/Post Procedures [place] NJX DX/THER SBST INTRLMNR CRV/THRC W/IMG GDN CHG FLUOR NEEDLE/CATH SPINE/PARASPINAL DX/THER ADD CERVICAL EPIDURAL STEROID INJECTION [id number] - [place] NJX DX/THER SBST INTRLMNR CRV/THRC W/IMG GDN [address] [place] [address] - CHG FLUOR NEEDLE/CATH SPINE/ PARASPINAL DX/THER [place], [place] [address] Phone: Fax: Encounter Details Date Type Department Care Team Description 04/20/2020 Hospital Encounter [facility] MD [address] [place] [address] [id number] [place] [address] Allergies Active Allergy Reactions Severity Noted Date Comments Hydrocodone Itching 04/17/2020 documented as of this encounter (statuses as of 04/20/2020) Medications Medication Sig Dispensed Refills Start Date End Date Status Nicotine 21-14-7 mg/24 Apply 1 Patch to 56 Each 02/13/2020 Active hr PTDSIndications: skin daily. Chronic obstructive pulmonary disease, unspecified COPD type fluticasone Inhale 1 Puff 2 1 Each 02/13/2020 A ctive propion-salmeterol (two) times daily. (AIRDUO RESPICLICK) 113-14 mcg/actuation AePBIndications: Chronic obstructive pulmonary disease, unspecified COPD type Nebulizer Accessories Use as directed 1 Kit 0 02/13/2020 Active KitIndications: Chronic obstructive pulmonary disease, unspecified COPD type documented as of this encounter (statuses as of 04/20/2020) Active Problems Not on filedocumented as of this encounter (statuses as of 04/20/2020) Social History Tobacco Use Types Packs/Day Years Used Date Current Every Day Smoker Sex Assigned at Date Recorded Not on file Job Start Date Occupation Industry Not on file Not on file Not on file Travel History Travel Start Travel End No recent travel history available. COVID-19 Exposure Response Date Recorded In the last month, have you been in contact with No / Unsure 04/20/2020 7:50 AM CDT someone who was confirmed or suspected to have Coronavirus / COVID-19? documented as of this encounter Last Filed Vital Signs Vital Sign Reading Time Taken Comments Blood Pressure 121/85 04/20/2020 8:35 AM CDT Pulse 80 04/20/2020 8:35 AM CDT Temperature 36.7 C (98 F) 04/20/2020 7:47 AM CDT Respiratory Rate 16 04/20/2020 8:35 AM CDT Oxygen Saturation 90% 04/20/2020 8:35 AM CDT Inhaled Oxygen Concentration - - Weight 91.6 kg (202 lb) 04/17/2020 10:08 AM CDT Height 175.3 cm (5' 9.02") 04/17/2020 10:08 AM CDT Body Mass Index 29.82 04/17/2020 10:08 AM CDT documented in this encounter Discharge Summaries Devin Michael MD - 04/20/2020 7:54 AM CDTCONDITION AT DISCHARGE: Patient was discharged from the facility in stable condition. Please see bradley nash instructions. FOLLOW UP CARE: See post op instructions. DISCHARGE DISPOSITION: HOME DISCHARGE INSTRUCTIONS GIVEN TO: PATIENT documented in this encounter Discharge Instructions InstructionsSmooth De La Cruz RN - 04/20/2020Pain Discharge Instructions 1. Activity as tolerated. Try to take it easy the day of the procedure with no heavy lifting for the next few days. 2. Advance diet as tolerated. 3. Resume home medications as directed. 4. Apply ice pack to procedure site as needed for pain/discomfort. Place on for 20 minutes then remove for 20 minutes. Can do this 3-4 times a day. 5. May remove dressing in 24 hours. Then you may shower after dressing is removed. 6. No driving for the next 24 hours. 7. Call surgeon if uncontrolled pain or bleeding, or new onset of numbness or tingling, or a headache that changes with position changes or any other concerns or questions. 8. If you are a diabetic, please monitor your blood sugars more closely for one week following yourinjection. Steroid injections can cause an increase in your blood sugar level. Please contact yourphysician if you need additional assistance in managing a high blood sugar level following your procedure. Contact Information [facility] ~ Daytime: [phone] After Hours: [facility] Access Line [phone] and ask to speak to the Nurse On-Call General Surgical Discharge Instructions: ? The medication that was used will be acting in your system for the next 24 hours, so you might feel a little drowsy, with impaired judgment and/ or motor function. This feeling should wear off. Because the medication is still in your system for the next 24 hours you SHOULD NOT: o Drive a car, operate machinery or power tools. o Drink any alcoholic beverages. o Make any important decisions or sign any legal documents. ? You should rest the remainder of the day and not engage in any physical activity. YOU ARE RESPONSIBLE FOR HAVING SOMEONE AT HOME WITH YOU DURING THE AFTERNOON AND NIGHT IMMEDIATELY FOLLOWING YOUR SURGERY. Patients should cough and deep breathe every 2-4 hours while awake to avoid respiratory complications. ? Because the medications used could produce some residual nausea and vomiting after you go home, you should eat lightly today, starting with clear liquids (broth, soft drinks, apple juice, jello) and toast or crackers, progressing to your normal diet as tolerated. If you get sick, wait a couple of hours and then begin to eat. After 24 hours the nausea should be gone. If your nausea persists, callyour physician. ? You may experience some pain and your physician will advise you on what to take for discomfort. This should be taken as directed. If the pain is not relieved, contact your physician. You may also have a sore throat from the airway/ breathing tube that was in place. You may use lozenges, throat spray (Chloraseptic), or warm salt water gargles for symptomatic relief. ? If you are unable to urinate within five hours after your procedure, call your physician. ? The type of surgery performed will determine how much bleeding (if any) to expect. Normally, somespotting might occur. If your dressing pad become saturated, notify your physician. Elevate surgical site, if applicable, to reduce swelling and pain. ? Preventing a surgical site infection: o Dont smoke. It is best to quit at least 30 days before surgery, but quitting after surgery is also helpful. o If you are a diabetic, keep your blood sugar well controlled. WASH YOUR HANDS. o Keep your wound clean and remember to wash your hands before and after contact with the area. o Call your doctor if you have signs of infection: ? increased tenderness at the surgical site ? red streaks or increased redness of the area ? bad-smelling discharge from the incision ? fever of 101 or higher TOBACCO AVOIDANCE Exposure to tobacco either from smoking or from second hand (environmental)smoke or smokeless tobacco (snuff) is damaging to your health. This information is to encourage everyone to avoid tobacco exposure. It is recommended that you: If you smoke or use smokeless tobacco, we encourage you to quit. If you have already quit smoking, continue your good work! If you do not smoke or use smokeless tobacco, do not start. Avoid secondhand smoke. Additional Resources: You may want to contact these organizations for further information on smoking and how to quit- [place] [employer] Association - http://www.lungusa.org/stop-smoking/ [employer] Society - http://www.cancer.org/Healthy/StayAwayfromTobacco/index [place] Heart Association - http://www.heart.org/HEARTORG/GettingHealthy/QuitSmoking/Quit-Smoking _[facility]_001085_SubHomePage.jsp documented in this encounter Plan of Treatment Date Type Specialty Care Team Description 05/15/2020 Office Visit Pulmonary Disease Joyce Vila DO [address] [place] [address] Name Type Priority Associated Diagnoses Date/Ti me FL TIME OR IMAGING Routine Pain management 04/20/2020 8:54 AM CDT (NON-REPORTABLE) Name Type Priority Associated Diagnoses Order S chedule FL TIME OR IMAGING Routine Pain management ONCE for 1 O ccurrences (NON-REPORTABLE) starting until 04/20/2020 Health Maintenance Due Date Last Done Comments PNEUMOCOCCAL 0-64 YEARS COMBINED SERIES (1 1967 of 1 - PPSV23) DTaP,Tdap,and Td Vaccines (1 - Tdap) 1972 Breast Cancer Screening (MAMMOGRAM) 2001 PAP SMEAR 05/27/2008 05/27/2005 COLONOSCOPY 2011 Zoster Recombinant Vaccine (SHINGRIX) (1 2011 of 2) LUNG CANCER SCREEN: Recommended for age 0805/29/2016 55-80 with 30 + pack year history INFLUENZA VACCINE (Season Ended) 2020 Depression Screening 04/20/2021 04/20/2020 HEPATITIS C (HCV) SCREEN Completed 05/27/2005, 01/20/2004 documented as of this encounter Procedures Procedure Name Priority Date/Time Associated Diagnosis Comme nts CONSENT/REFUSAL FOR Routine 04/16/2020 1:42 PM DIAGNOSIS AND TREATMENT CDT ASSIGNMENT OF BENEFITS Routine 04/16/2020 1:41 PM CDT documented in this encounter Results Not on filedocumented in this encounter Visit Diagnoses Diagnosis Pain management - Primary Other specified rehabilitation procedure documented in this encounter Administered Medications Medication Order MAR Action Action Date Dose Rate Site bupivacaine (preserv free) Given 04/20/2020 8:26 AM CDT 5 mL Back (SENSORCAINE MPF) 0.25 % (2.5 mg/mL) injection PRN, Starting 04/20/20 at 0826, Until Discontinued, Routine, Intra-op iohexol (OMNIPAQUE 350 BULK-50 mL) Given 04/20/2020 8:26 AM CDT 5 mL Back injection PRN, Starting 04/20/20 at 0826, Until Discontinued, Routine, Intra-op lidocaine 1% (XYLOCAINE) 10 mg/mL (1 %) Given 04/20/2020 8:26 A M CDT 6 mL Back injection PRN, Starting 04/20/20 at 0826, Until Discontinued, Routine, Intra-op sodium chloride 10% injection 10 mL syri nge Given 04/20/2020 8:26 AM CDT 1 mL Back PRN, Starting 04/20/20 at 0826, Until Discontinued, 10 mL, Intra-op triamcinolone acetonide (KENALOG) Given 04/20/2020 8:26 AM CDT 40 mg Back injection PRN, Starting 04/20/20 at 0826, Until Discontinued, Routine, Intra-op documented in this encounter Insurance Payer Benefit Plan / Subscriber ID Effective Dates Phone Addre ss Type Group WELLCARE ABE WELLCARE ABE [id number] 2019-Presen Medicare Adv PLUS PLUS t HMO CLASSIC/VALUE documented as of this encounter
--- OUTSIDE RECORDS SUMMARY | 2020-05-20 16:45 | XMS REPORT ---
[...] osteoarthritis of right M17.11 Active knee Assessment Primary osteoarthritis of right M17.11 Active knee Assessment Primary osteoarthritis of left knee M17.12 Active Problem Bilateral primary osteoarthritis of M17.0 [...] Start End Status Dosage System Date Date Temazepam [facility] 48802112049 30 MG Oral Active (Schedu le IV Drug) TAKE 1 CAPSULE BY MOUTH NEEDED AT BEDTIME Losartan Potassium [facility] 70844609459 50 MG Oral Active TAKE 1 TABLET BY MOUTH ONCE A DAY Pravastatin Sodium ND 08151121252 40 MG Oral Active TAKE 1 TABLET BY MOUTH AT BEDTIME Trazodone HCl [facility] 50995277004 150 MG Oral Active TA KE 1 TABLET BY MOUTH AT BEDTIME Ventolin HFA [facility] 57825376080 108 (90 Base) Active U SE 2 PUFFS MCG/ACT NEEDED Inhalation EVERY 6 HORS Valium ND 91252098102 2 MG Orally 1 Dec 06, Active 1 tabl et as PO 30 MIN 2019 needed PRIOR TO MRI SCAN Oxycodone-Acetaminoph [facility] 68760382273 5-325 MG Oral Active (Schedule en II Drug) TAKE 1 TABLET BY MOUTH ONCE A DAY FOR 14 DAY(S) Duloxetine HCl [facility] 16516136889 60 MG Oral Active TA KE 1 CAPSULE BY MOUTH ONCE A DAY BuPROPion HCl [facility] 07724136066 100 MG Oral Active TA KE 1 TABLET BY MOUTH ONCE A DAY Hydrochlorothiazide [facility] 10773152844 25 MG Oral Activ e TAKE 1 TABLET BY MOUTH IN ONCE EVERY MORNING Amlodipine Besylate [facility] 98050900640 10 MG Oral Activ e TAKE 1 TABLET BY MOUTH ONCE A DAY Cyclobenzaprine HCl [facility] 77573458315 10 MG Oral Activ e TAKE 1 TABLET BY MOUTH TWICE DAILY NEEDED Spiriva HandiHaler [facility] 56414895803 18 MCG Active 1 capsule Inhalation by inhaling Once a day the contents of the capsule using the HandiHaler device Brovana [facility] 65395070445 15 MCG/2ML Active 2 ml Inhalation Twice a day Alprazolam [facility] 77504653016 2 MG Oral Active (Schedu le IV Drug) TAKE 1 TABLET BY MOUTH TWICE DAILY Chantix Continuing ND 53053786397 1 MG Oral Active TAKE 1 Month Cullen TABLET BY MOUTH TWICE A DAY Results No Known Results Summary Purpose eClinicalWorks Submission
--- OUTSIDE RECORDS SUMMARY | 2020-05-20 16:45 | XMS REPORT ---
[...] End Status Dosage System Date Date Alprazolam [facility] 84328597798 2 MG Oral Active (Schedu le IV Drug) TAKE 1 TABLET BY MOUTH TWICE DAILY Valium ND 74559004295 2 MG Orally 1 Dec 06, Active 1 tabl et as PO 30 MIN 2019 needed PRIOR TO MRI SCAN Duloxetine HCl ND 36484535247 60 MG Oral Active TA KE 1 CAPSULE BY MOUTH ONCE A DAY Ventolin HFA ND 41217815710 108 (90 Base) Active U SE 2 PUFFS MCG/ACT NEEDED Inhalation EVERY 6 HORS Chantix Continuing [facility] 31094333972 1 MG Oral Active TAKE 1 Month Cullen TABLET BY MOUTH TWICE A DAY Temazepam [facility] 56987169369 30 MG Oral Active (Schedu le IV Drug) TAKE 1 CAPSULE BY MOUTH NEEDED AT BEDTIME Amlodipine Besylate [facility] 89471857060 10 MG Oral Activ e TAKE 1 TABLET BY MOUTH ONCE A DAY Oxycodone-Acetaminoph [facility] 81183312053 5-325 MG Oral Active (Schedule en II Drug) TAKE 1 TABLET BY MOUTH ONCE A DAY FOR 14 DAY(S) Trazodone HCl [facility] 02823507042 150 MG Oral Active TA KE 1 TABLET BY MOUTH AT BEDTIME Brovana [facility] 09689262102 15 MCG/2ML Active 2 ml Inhalation Twice a day Spiriva HandiHaler [facility] 58708239412 18 MCG Active 1 capsule Inhalation by inhaling Once a day the contents of the capsule using the HandiHaler device Losartan Potassium [facility] 23673315101 50 MG Oral Active TAKE 1 TABLET BY MOUTH ONCE A DAY Cyclobenzaprine HCl [facility] 10289781754 10 MG Oral Activ e TAKE 1 TABLET BY MOUTH TWICE DAILY NEEDED Hydrochlorothiazide [facility] 99796875919 25 MG Oral Activ e TAKE 1 TABLET BY MOUTH IN ONCE EVERY MORNING BuPROPion HCl [facility] 01126682810 100 MG Oral Active TA KE 1 TABLET BY MOUTH ONCE A DAY Pravastatin Sodium [facility] 97075047936 40 MG Oral Active TAKE 1 TABLET BY MOUTH AT BEDTIME Results No Known Results Summary Purpose eClinicalWorks Submission
--- OUTSIDE RECORDS SUMMARY | 2020-05-20 16:45 | XMS REPORT | Summary of Care ---
:1960 Author Organization [facility] Address [address] [place] [address] Care Team Providers Name Role Phone Pcp, Patient Does Not Have A Primary Care Provider +1-000-00 0-0000 Reason for Visit Reason Comments LAB WORK Encounter Details Date Type Department Care Team Description 04/16/2020 Tissue Coordinator Visit [facility] Jean Claude Michael MD [id number] [place] [address] Cervicalgia (Primary Professional Office Pob, Adc Lab Main Dx) Building Phlebotomy Lab Professional Office Building [address] [facility] [address] [place] [address] Allergies No Known Allergiesdocumented as of this encounter (statuses as of 04/16/2020) Medications Medication Sig Dispensed Refills Start Date End Date Status Nicotine 21-14-7 mg/24 Apply 1 Patch to 56 Each 02/13/2020 Active hr PTDSIndications: skin daily. Chronic obstructive pulmonary disease, unspecified COPD type fluticasone Inhale 1 Puff 2 1 Each 11 02/13/2020 A ctive propion-salmeterol (two) times daily. (AIRDUO RESPICLICK) 113-14 mcg/actuation AePBIndications: Chronic obstructive pulmonary disease, unspecified COPD type Nebulizer Accessories Use as directed 1 Kit 0 02/13/2020 Active KitIndications: Chronic obstructive pulmonary disease, unspecified COPD type documented as of this encounter (statuses as of 04/16/2020) Active Problems Not on filedocumented as of this encounter (statuses as of 04/16/2020) Social History Tobacco Use Types Packs/Day Years [...] Treatment Date Type Specialty Care Team Description 04/17/2020 Laboratory Only Clinical Medical Only, Adc Test Laboratory 04/20/2020 Hospital Encounter Surgery Devin Michael MD [address] [place] [address] [phone] 04/20/2020 Surgery Surgery Devin Michael MD [address] [place] [address] [phone] 05/15/2020 Office Visit Pulmonary Disease Joyce Vila DO [facility] [place] [address] Name Type Priority Associated Diagnoses Order S chedule CBC WITH DIFF LAB Routine Cervicalgia Expected: 03/24, Expires: 2020 CBC WITH DIFFERENTIAL LAB Routine Cervicalgia Ordere d: 04/16/2020 Health Maintenance Due Date Last Done Comments PNEUMOCOCCAL 0-64 YEARS COMBINED SERIES (1 1967 of 1 - PPSV23) DTaP,Tdap,and Td Vaccines (1 - Tdap) 1972 Depression Screening 1973 Breast Cancer Screening (MAMMOGRAM) 2001 PAP SMEAR 05/27/2008 05/27/2005 COLONOSCOPY 2011 Zoster Recombinant Vaccine (SHINGRIX) (1 2011 of 2) LUNG CANCER SCREEN: Recommended for age 0805/29/2016 55-80 with 30 + pack year history INFLUENZA VACCINE (Season Ended) 2020 HEPATITIS C (HCV) SCREEN Completed 05/27/2005, 01/20/2004 documented as of this encounter Results Not on filedocumented in this encounter Visit Diagnoses Diagnosis Cervicalgia - Primary documented in this encounter Insurance Payer Benefit Plan / Subscriber ID Effective Dates Phone Addre ss Type Group [place] [place] WELL[employer] FISH [id number] 2019-Presen Medicare Adv PLUS PLUS t HMO CLASSIC/VALUE documented as of this encounter
--- OUTSIDE RECORDS SUMMARY | 2020-05-20 16:45 | XMS REPORT | Summary of Care ---
:1960 Author Organization [facility] Address [address] [place] [address] Care Team Providers Name Role Phone Pcp, Patient Does Not Have A Primary Care Provider +1-000-00 0-0000 Reason for Visit Reason Comments LAB WORK Auth/Cert Status Reason Specialty Diagnoses / Referred By Referred To Procedures Contact Contact Clinical Medical Procedures Adc Lab Laboratory [facility] [address] [place] [address] Encounter Details Date Type Department Care Team Description 04/17/2020 Laboratory Only [facility] Devin Michael MD [id number] [place] [address] Preop testing Phlebotomy Only, [facility] Test (Primary Dx) Lab-[address] [address] Allergies Active Allergy Reactions Severity Noted Date Comments Hydrocodone Itching 04/17/2020 documented as of this encounter (statuses as of 04/17/2020) Medications Medication Sig Dispensed Refills Start Date [...] as of this encounter (statuses as of 04/17/2020) Active Problems Not on filedocumented as of this encounter (statuses as of 04/17/2020) Social History Tobacco Use Types Packs/Day Years [...] been in contact with No / Unsure 04/17/2020 11:38 AM CDT someone who was confirmed or suspected to have Coronavirus / COVID-19? documented as of this encounter Last Filed Vital Signs Not on filedocumented in this encounter Plan of Treatment Date Type Specialty Care Team Description 04/20/2020 Hospital Encounter Surgery Devin Michael MD [id number] [place] [address] [phone] 04/20/2020 Anesthesia Event Surgery Yumiko Fernando, ULTRASONIC WELDING MACHINE OPERATOR [address] [place] [address] 04/20/2020 Surgery Surgery Devin Michael CERVICAL EP JHONNY Argueta MD STEROID INJECTION [address] [place] [address] 05/15/2020 Office Visit Pulmonary Disease Joyce Vila, [address] [place] [phone] Name Type Priority Associated Diagnoses Date/Ti me COVID-19 (PCR MOLECULAR LAB Routine Preop testing 11:48 AM CDT TESTING) Name Type Priority Associated Diagnoses Order S christy COVID-19 (PCR MOLECULAR LAB Routine Preop testing Exp ected: 04/17/2020, TESTING) Expires: 2020 Health Maintenance Due Date Last Done Comments [...] filedocumented in this encounter Visit Diagnoses Diagnosis Preop testing - Primary Preoperative examination, unspecified documented in this encounter Insurance Payer Benefit Plan / Subscriber ID Effective Dates Phone Addre ss Type Group [facility] [id number] 2019-Presen Medicare Adv PLUS PLUS t HMO CLASSIC/VALUE documented as of this encounter
--- OUTSIDE RECORDS SUMMARY | 2020-05-20 16:45 | XMS REPORT ---
[...] End Status Dosage System Date Date Temazepam [facility] 00590975805 30 MG Oral Active (Schedu le IV Drug) TAKE 1 CAPSULE BY MOUTH NEEDED AT BEDTIME BuPROPion HCl ND 94780542669 100 MG Oral Active TA KE 1 TABLET BY MOUTH ONCE A DAY Hydrochlorothiazide ND 47724363628 25 MG Oral Activ e TAKE 1 TABLET BY MOUTH IN ONCE EVERY MORNING Valium ND 33609718334 2 MG Orally 1 Dec 06, Active 1 tabl et as PO 30 MIN 2019 needed PRIOR TO MRI SCAN Oxycodone-Acetaminoph [facility] 84004892605 5-325 MG Oral Active (Schedule en II Drug) TAKE 1 TABLET BY MOUTH ONCE A DAY FOR 14 DAY(S) Alprazolam [facility] 54494506887 2 MG Oral Active (Schedu le IV Drug) TAKE 1 TABLET BY MOUTH TWICE DAILY Ventolin HFA [facility] 41378938241 108 (90 Base) Active U SE 2 PUFFS MCG/ACT NEEDED Inhalation EVERY 6 HORS Chantix Continuing ND 54260227996 1 MG Oral Active TAKE 1 Month Cullen TABLET BY MOUTH TWICE A DAY Cyclobenzaprine HCl [facility] 57112106040 10 MG Oral Activ e TAKE 1 TABLET BY MOUTH TWICE DAILY NEEDED Amlodipine Besylate [facility] 61475279328 10 MG Oral Activ e TAKE 1 TABLET BY MOUTH ONCE A DAY Trazodone HCl [facility] 65530239156 150 MG Oral Active TA KE 1 TABLET BY MOUTH AT BEDTIME Pravastatin Sodium [facility] 38745203924 40 MG Oral Active TAKE 1 TABLET BY MOUTH AT BEDTIME Spiriva HandiHaler [facility] 71630145260 18 MCG Active 1 capsule Inhalation by inhaling Once a day the contents of the capsule using the HandiHaler device Brovana [facility] 72995401605 15 MCG/2ML Active 2 ml Inhalation Twice a day Duloxetine HCl [facility] 86423551133 60 MG Oral Active TA KE 1 CAPSULE BY MOUTH ONCE A DAY Losartan Potassium [facility] 93226077067 50 MG Oral Active TAKE 1 TABLET BY MOUTH ONCE A DAY Results No Known Results Summary Purpose eClinicalWorks Submission
[2020-05-20] MEDS ORDERED: LORAZEPAM 0.5 MG TABLET ONE (17:45)
[2020-05-20 17:50] LABS: Absolute Lymphocytes (CBC) 1.6 K/uL (0.7-4.9); Basophils % 0.3 % (0-1.3); Hematocrit 41.7 % (36.0-45.0); Lymphocytes % 39.4 % (15.3-44.8); MPV 8.6 fL (7.6-11.3); RBC Red Blood Cell Count 4.45 M/uL (3.86-4.86)
--- NOTE | 2020-05-20 17:51 | RAD REPORT ---
EXAM DESCRIPTION: RAD - Chest Single View - 05/20/2020 5:25 pm CLINICAL HISTORY: Cough;SOB COMPARISON: Two view chest December 22/2020 TECHNIQUE: AP portable chest image was obtained 05/20/2020 5:25 pm . FINDINGS: Hazy opacification is present in both lung bases. This may be the affects of portable imag ing and overlying breast soft tissues. Pattern is probably not substantially different from the elisabeth rison when adjusting for the inspiration and film technique affects. Rib injury and nodular focus lat eral mid left lung field has not changed. Heart and vasculature are normal. No measurable pleural eff usion and no pneumothorax. No acute bony abnormality seen. No acute aortic findings suspected. IMPRESSION: Acute cardiopulmonary process is probably not present. Patient has bilateral lung base opacification is believed to be the affects of portable technique, sh allow inspiration and overlying breast soft tissue. If there are concerns for left base abnormality a follow-up two-view examination could be performed i f tolerable by the patient.
[2020-05-20 17:53] LABS: Protime INR 0.97
[2020-05-20 18:13] LABS: ALT/SGPT 25 U/L (12-78); AST/SGOT 13 U/L (15-37); Albumin 3.9 g/dL (3.4-5.0); Alkaline Phosphatase 87 U/L (45-117); BUN Blood Urea Nitrogen 19 mg/dL (7-18); Bicarbonate 32 mmol/L (21-32); Bilirubin Direct < 0.1 mg/dL (0-0.2); Bilirubin Total 0.2 mg/dL (0.2-1.0); Glucose Level 125 mg/dL (74-106); Magnesium 2.3 mg/dL (1.8-2.4); NT PRO-BNP 37 pg/mL (<125); Potassium 3.2 mmol/L (3.5-5.1); Protein, Total 7.2 g/dL (6.4-8.2); Sodium Level 141 mmol/L (136-145); Troponin (Emerg Dept Use Only) < 0.02 ng/mL (0.0-0.045)
--- NOTE | 2020-05-20 18:41 | ER ---
Nurse's Notes [facility] Name: Kanika Jon Age: 59 yrs Sex: Female : 1960 Arrival Date: 05/20/2020 Time: 16:44 Bed 2 Private MD: Diagnosis: Shortness of breath;Anxiety disorder, unspecified;Weakness Presentation: 05/20 16:54 Chief complaint: Patient states: Cough and SOB x 1 week. Pt has COPD on O2 at 4LPM prn ca1 at home. Reports normal O2 sat at 88% RA. Today, O2 sat at 66% prompting to come to the ER. Denies fever. Coronavirus screen: Patient reports a cough. Patient reports shortness of breath or difficulty breathing. Patient denies measured and/or subjective temperature greater than 100.4F prior to today's visit. Patient denies travel on a cruise ship or to a country the [facility] currently lists as an affected area. Patient denies contact with known and/or suspected case of COVID-19. Patient was placed back in the lobby due to no available rooms at this time. Patient was instructed to always wear their mask and to isolate themselves as much as possible from others in the lobby. Ebola Screen: Patient negative for fever greater than or equal to 101.5 degrees Fahrenheit, and additional compatible Ebola Virus Disease symptoms Patient denies exposure to infectious person. Patient denies travel to an Ebola-affected area in the 21 days before illness onset. No symptoms or risks identified at this time. Risk Assessment: Do you want to hurt yourself or someone else? Patient reports no desire to harm self or others. Onset of symptoms was May 20, 2020. 16:54 Method Of Arrival: Wheelchair ca1 16:54 Acuity: [place] 2 ca1 Triage Assessment: 16:57 General: Appears uncomfortable, obese, Behavior is calm, cooperative. Pain: Complains ks7 of pain in chest Pain at worst was 5 out of 10 on a pain scale. Quality of pain is described as heavy, Aggravated by increased activity, cough, deep breathing WHITTAKER. Respiratory: Reports shortness of breath cough that is non-productive, pain with cough pain with respiration Breath sounds with crackles bilaterally. in left posterior lower lobe, right posterior middle lobe and right posterior lower lobe Breath sounds with wheezes bilaterally. in left posterior upper lobe, right posterior upper lobe, left posterior lower lobe, right posterior middle lobe and right posterior lower lobe Onset: The symptoms/episode began/occurred yesterday, the patient has moderate shortness of breath. Historical: - Allergies: 16:57 No Known Allergies; ca1 - PMHx: 16:57 COPD; Depression; Hypertension; osteoarthritis; ca1 - PSHx: 16:57 Hysterectomy; ca1 - Immunization history:: Adult Immunizations up to date. - Social history:: Smoking status: Patient reports the use of cigarette tobacco products, smokes one pack cigarettes per day. Patient/guardian denies using tobacco, but has a distant history of tobacco abuse, Smoking status: Patient reports the use of cigarette tobacco products, smokes one-half pack cigarettes per day, Reported history of juuling and/or vaping. Patient uses alcohol, on a daily basis. "A glass or two of wine.". Screenin:59 Abuse screen: Denies threats or abuse. Denies injuries from another. Nutritional ks7 screening: No deficits noted. Tuberculosis screening: No symptoms or risk factors identified. Fall Risk No fall in past 12 months (0 pts). No secondary diagnosis (0 pts). IV access (20 points). Ambulatory Aid- None/Bed Rest/Nurse Assist (0 pts). Gait- Weak (10 pts.). Mental Status- Oriented to own ability (0 pts). Total Anders Fall Scale indicates Low Risk Score (25-44 pts). Assessment: 16:59 Cardiovascular: Rhythm is regular Chest pain is denied. Respiratory: Airway is patent ks7 Respiratory effort is even, labored, WHITTAKER. 18:45 Reassessment: pt resting quietly. no s/s of distress. ks7 19:23 Reassessment: Patient and/or family updated on plan of care and expected duration. Pain ea level reassessed. Patient is alert, oriented x 3, equal unlabored respirations, skin warm/dry/pink. Discharge instruction given to patient, verbalized the understanding of instruction. Pt left ED ambulatory tolerating well. Patient states feeling better. Vital Signs: 16:54 BP 124 / 64; Pulse 99; Resp 24; Temp 98.6(O); Pulse Ox 75% on R/A; Weight 83.91 kg (R); ca1 Height 5 ft. 5 in. (165.10 cm) (R); 16:57 BP 124 / 64; Pulse 90; Resp 22; Pulse Ox 91% on 2 lpm NC; Pain 0/10; ks7 17:39 BP 118 / 63; Pulse 84; Resp 18; Pulse Ox 94% on 2 lpm NC; Pain 0/10; ks7 18:45 BP 117 / 70; Pulse 89; Resp 18; Temp 98.3(O); Pulse Ox 94% on 2 lpm NC; Pain 0/10; ks7 19:26 BP 118 / 71; Pulse 70; Resp 18; Pulse Ox 98% on R/A; ea 16:54 Body Mass Index 30.79 (83.91 kg, 165.10 cm) ca1 ED Course: 16:44 Patient arrived in ED. ag5 16:50 Lory Santana, VEE is Primary Nurse. ks7 16:56 Triage completed. ca1 16:57 Ryan Hayes MD is Attending Physician. kdr 16:57 Arm band placed on right wrist. ca1 16:59 Resting quietly. ks7 16:59 Awaiting ED provider evaluation. ks7 16:59 No provider procedures requiring assistance completed. ks7 17:26 XRAY Chest (1 view) In Process Unspecified. EDMS 17:38 Inserted saline lock: 20 gauge in left wrist, using aseptic technique. Blood collected. ks7 17:41 Basic Metabolic Panel Sent. ks7 17:41 CBC with Diff Sent. ks7 17:41 LFT's Sent. ks7 17:41 Magnesium Sent. ks7 17:41 NT PRO-BNP Sent. ks7 17:41 PT-INR Sent. ks7 17:41 Troponin (emerg Dept Use Only) Sent. ks7 17:42 Blood Culture Adult (2) Sent. ks7 19:25 IV discontinued, intact, bleeding controlled, No redness/swelling at site. Pressure ea dressing applied. Administered Medications: 17:39 Drug: Ativan 0.5 mg Route: PO; jl7 19:15 Follow up: Response: No adverse reaction mg2 19:16 Drug: Potassium Chloride 40 mEq Route: PO; mg2 19:16 Follow up: Response: No adverse reaction; Medication administered at discharge. mg2 Outcome: 18:40 Discharge ordered by . kdr 19:24 Discharged to home ambulatory, with friend. ea 19:24 Condition: stable 19:24 Discharge instructions given to patient, Instructed on discharge instructions, follow up and referral plans. medication usage, Demonstrated understanding of instructions, follow-up care, medications, Prescriptions given X 1. 19:25 Patient left the ED. ea Signatures: Dispatcher [employer] EDMS Ryan Hayes MD MD kdr Leal, Jahala, RN RN jl7 Dolores Ferraor RN Enrrique Rose ea RN RN mg2 Padmini Keene RN Terrence Chin [facility] Lory Santana RN RN ks7
--- NOTE | 2020-05-20 18:41 | EDPHYS ---
Physician Documentation [facility] Name: Kanika Jon Age: 59 yrs Sex: Female : 1960 Arrival Date: 05/20/2020 Time: 16:44 Bed 2 Private MD: ED Physician Ryan Hayes HPI: 05/21 07:09 This 59 yrs old Female presents to ER via Wheelchair with complaints of kdr Breathing Difficulty, General Weakness. 07:09 The patient has shortness of breath at rest, with light activity. Onset: The kdr symptoms/episode began/occurred gradually, 1 week(s) ago. Duration: The symptoms are continuous, and are steadily getting worse. The patient's shortness of breath is aggravated by exertion, light activity, walking, is alleviated by rest. Associated signs and symptoms: The patient has no apparent associated signs or symptoms. Severity of symptoms: At their worst the symptoms were mild moderate. The patient has experienced similar episodes in the past, a few times. The patient has not recently seen a physician. The patient reports that her normal saturation is 88-89% at home on RA and that it was in the 60's today. She reports that she is under a lot of stress due to caring for her mother who is making life difficult for her. On initial interview, the patient is not in any distress or toxic appearing in any way. Historical: - Allergies: 05/20 16:57 No Known Allergies; ca1 - PMHx: 16:57 COPD; Depression; Hypertension; osteoarthritis; ca1 - PSHx: 16:57 Hysterectomy; ca1 - Immunization history:: Adult Immunizations up to date. - Social history:: Smoking status: Patient reports the use of cigarette tobacco products, smokes one pack cigarettes per day. Patient/guardian denies using tobacco, but has a distant history of tobacco abuse, Smoking status: Patient reports the use of cigarette tobacco products, smokes one-half pack cigarettes per day, Reported history of juuling and/or vaping. Patient uses alcohol, on a daily basis. "A glass or two of wine.". ROS: 05/21 07:09 Constitutional: Negative for fever, chills, and weight loss, Eyes: Negative for injury, kdr pain, redness, and discharge, ENT: Negative for injury, pain, and discharge, Neck: Negative for injury, pain, and swelling, Cardiovascular: Negative for chest pain, palpitations, and edema, Abdomen/GI: Negative for abdominal pain, nausea, vomiting, diarrhea, and constipation, Back: Negative for injury and pain, : Negative for injury, bleeding, discharge, and swelling, MS/Extremity: Negative for injury and deformity, Skin: Negative for injury, rash, and discoloration, Neuro: Negative for headache, weakness, numbness, tingling, and seizure activity. Psych: Negative for depression, anxiety, suicide ideation, homicidal ideation, and hallucinations, Allergy/Immunology: Negative for hives, rash, and allergies, Endocrine: Negative for neck swelling, polydipsia, polyuria, polyphagia, and marked weight changes, Hematologic/Lymphatic: Negative for swollen nodes, abnormal bleeding, and unusual bruising. Respiratory: Positive for cough, dyspnea on exertion, shortness of breath, on exertion. Negative for hemoptysis, orthopnea, sputum production. Exam: 05/20 17:46 ECG was reviewed by the Attending Physician. kdr 05/21 07:09 Constitutional: This is a well developed, well nourished patient who is awake, alert, kdr and in no acute distress. Head/Face: Normocephalic, atraumatic. Eyes: Pupils equal round and reactive to light, extra-ocular motions intact. Lids and lashes normal. Conjunctiva and sclera are non-icteric and not injected. Cornea within normal limits. Periorbital areas with no swelling, redness, or edema. Neck: Trachea midline, no thyromegaly or masses palpated, and no cervical lymphadenopathy. Supple, full range of motion without nuchal rigidity, or vertebral point tenderness. No Meningismus. Chest/axilla: Normal chest wall appearance and motion. Nontender with no deformity. No lesions are appreciated. Cardiovascular: Regular rate and rhythm with a normal S1 and S2. No gallops, murmurs, or rubs. Normal PMI, no JVD. No pulse deficits. Respiratory: Lungs have equal breath sounds bilaterally, clear to auscultation and percussion. No rales, rhonchi or wheezes noted. No increased work of breathing, no retractions or nasal flaring. Abdomen/GI: Soft, non-tender, with normal bowel sounds. No distension or tympany. No guarding or rebound. No evidence of tenderness throughout. Back: No spinal tenderness. No costovertebral tenderness. Full range of motion. Skin: Warm, dry with normal turgor. Normal color with no rashes, no lesions, and no evidence of cellulitis. MS/ Extremity: Pulses equal, no cyanosis. Neurovascular intact. Full, normal range of motion. Neuro: Awake and alert, GCS 15, oriented to person, place, time, and situation. Cranial nerves II-XII grossly intact. Motor strength 5/5 in all extremities. Sensory grossly intact. Cerebellar exam normal. Normal gait. Psych: Awake, alert, with orientation to person, place and time. Behavior, mood, and affect are within normal limits. Vital Signs: 05/20 16:54 BP 124 / 64; Pulse 99; Resp 24; Temp 98.6(O); Pulse Ox 75% on R/A; Weight 83.91 kg (R); ca1 Height 5 ft. 5 in. (165.10 cm) (R); 16:57 BP 124 / 64; Pulse 90; Resp 22; Pulse Ox 91% on 2 lpm NC; Pain 0/10; ks7 17:39 BP 118 / 63; Pulse 84; Resp 18; Pulse Ox 94% on 2 lpm NC; Pain 0/10; ks7 18:45 BP 117 / 70; Pulse 89; Resp 18; Temp 98.3(O); Pulse Ox 94% on 2 lpm NC; Pain 0/10; ks7 19:26 BP 118 / 71; Pulse 70; Resp 18; Pulse Ox 98% on R/A; ea 16:54 Body Mass Index 30.79 (83.91 kg, 165.10 cm) ca1 MDM: 18:40 Patient medically screened. kdr 05/21 07:09 Data reviewed: vital signs, nurses notes, lab test result(s), radiologic studies. kdr Counseling: I had a detailed discussion with the patient and/or guardian regarding: the historical points, exam findings, and any diagnostic results supporting the discharge/admit diagnosis, lab results, radiology results, the need for outpatient follow up. ED course: The patient was stable in the ED and seems to be maintaining her saturation without difficulty on RA. Overall, her primary concern was the stress from caring for her mother. 05/20 17:00 Order name: Basic Metabolic Panel; Complete Time: 18:37 kdr 05/20 17:00 Order name: CBC with Diff; Complete Time: 18:37 [facility] 05/20 17:00 Order name: LFT's; Complete Time: 18:37 [facility] 05/20 17:00 Order name: Magnesium; Complete Time: 18:37 [facility] 05/20 17:00 Order name: NT PRO-BNP; Complete Time: 18:37 [facility] 05/20 17:00 Order name: PT-INR; Complete Time: 18:37 [facility] 05/20 17:00 Order name: Troponin (emerg Dept Use Only); Complete Time: 18:37 [facility] 05/20 17:00 Order name: XRAY Chest (1 view); Complete Time: 18:37 [facility] 05/20 17:00 Order name: EKG; Complete Time: 17:01 [facility] 05/20 17:00 Order name: Cardiac monitoring; Complete Time: 17:18 [facility] 05/20 17:00 Order name: EKG - Nurse/Tech; Complete Time: 17:18 [facility] 05/20 17:01 Order name: Blood Culture Adult (2) [facility] 05/20 17:00 Order name: IV Saline Lock; Complete Time: 17:38 [facility] 05/20 17:00 Order name: Labs collected and sent; Complete Time: 17:38 [facility] 05/20 17:00 Order name: O2 Per Protocol; Complete Time: 17:38 [facility] 05/20 17:00 Order name: O2 Sat Monitoring; Complete Time: 17:38 kdr EC/29 17:46 Rate is 88 beats/min. Rhythm is regular, Sinus Rhythm with No ectopy. QRS [employer] is kdr Normal. RI interval is normal. QRS interval is normal. QT interval is normal. No Q waves. Clinical impression: NSR w/ Non-specific ST/T Changes. Administered Medications: 17:39 Drug: Ativan 0.5 mg Route: PO; jl7 19:15 Follow up: Response: No adverse reaction mg2 19:16 Drug: Potassium Chloride 40 mEq Route: PO; mg2 19:16 Follow up: Response: No adverse reaction; Medication administered at discharge. mg2 Disposition: 05/20/20 18:40 Discharged to Home. Impression: Shortness of breath, Anxiety disorder, unspecified, Weakness. - Condition is Stable. - Discharge Instructions: Shortness of Breath, [id number], Weakness, [id number], Generalized Anxiety Disorder. - Prescriptions for Ativan 1 mg Oral Tablet - take 1 tablet by ORAL route every 8 hours As needed; 6 tablet. - Medication Reconciliation Form, Thank You Letter form. - Follow up: Private Physician; When: 2 - 3 days; Reason: If symptoms return, Further diagnostic work-up, Recheck today's complaints, Continuance of care, Re-evaluation by your physician. - Problem is new. - Symptoms have improved. Signatures: Dispatcher [employer] EDMS Ryan Hayes MD MD kdr Pritesh Carrizales RN RN jl7 Dolores Ferraro RN RN ea Enrrique Lou RN RN mg2 Padmini Keene RN RN ca1 Corrections: (The following items were deleted from the chart) 19:25 18:40 05/20/2020 18:40 Discharged to Home. Impression: Shortness of breath; Anxiety ea disorder, unspecified; Weakness. Condition is Stable. Forms are Medication Reconciliation Form, Thank You Letter, Antibiotic Education, Prescription Opioid Use. Follow up: Private Physician; When: 2 - 3 days; Reason: If symptoms return, Further diagnostic work-up, Recheck today's complaints, Continuance of care, Re-evaluation by your physician. Problem is new. Symptoms have improved. kdr
[2020-05-20] MEDS ORDERED: POTASSIUM CL SA 10 MEQ TAB PO ONE (19:21)
[2020-05-20 19:46] VITALS: O2SAT 94
[2020-05-20 19:48] VITALS: BP 117/70; TEMP 98.3
== END 2020-05-20 19:25 | disposition home or self-care (01) ==
LOC: ER 16:42
DX: F41.9 Anxiety disorder, unspecified (principal); R53.1 Weakness; I10 Essential (primary) hypertension; F17.210 Nicotine dependence, cigarettes, uncomplicated
CPT/HCPCS: 36415; 71045; 80048; 80076; 83735; 83880; 84484; 85025; 85610; 87040; 93005; 99284

== ENCOUNTER 2021-02-04 07:04 | Day surgery (SDC) | payer OTHER ==
[2021-02-04] MEDS ORDERED: Ringers Lactate 1,000 ML IV ONE (07:42)
[2021-02-04] MEDS ORDERED: propofoL 200 MG/20 ML VIAL IV ONE ×2 (08:28→08:47)
[2021-02-04] MEDS ORDERED: LIDOCAINE 1% MPF 5 ML VIAL ONE (08:28)
[2021-02-04 10:21] VITALS: TEMP 97.8
[2021-02-04 10:29] VITALS: BP 115/79; O2SAT 98
--- NOTE | 2021-02-04 20:20 | OP ---
Surgeon: Gentry Anaya MD Procedure Performed: Colonoscopy. Indication For Procedure: Screening. Plan For Anesthesia: Monitored anesthesia care. Complexity: High due to patient's dependence on oxygen. Technique: After obtaining informed consent from the patient explaining risks and complications, whi ch include, but are not limited to bleeding, infection, perforation, anesthesia complication, the pat ient was placed in left lateral position and sedation was given. From then on, the scope was advance d into the rectum and carefully guided up till the cecum. The cecum was identified by the ileocecal valve and appendiceal orifice. Slowly the scope was withdrawn while carefully examining the mucosa. After the completion of examination, scope and equipment were withdrawn and procedure was terminated in a safe manner. Findings: Multiple small diverticula seen from the sigmoid to the descending colon. In the sigmoid colon, there was an area of significant deformity likely due to fibro-adhesive disease. The patient has had hysterectomy and other lower pelvic surgeries. In the rectum, 2 diminutive polyps were seen. These were removed by cold forceps biopsy. Retroflexion also revealed grade 1 internal hemorrhoids . No other significant gross lesion seen in the entire colon. Complications: None. Tolerance To Anesthesia: Excellent. Postoperative Diagnosis: Diverticulosis, polyp. Plan: 1.Await pathology results. 2.Follow up in the GI clinic in 2 weeks. 3.Repeat colonoscopy in 3 to 5 years based on pathology. US/MODL Voice ID: [id number] Report ID: [id number]
== END 2021-02-04 09:30 | disposition home or self-care (01) ==
LOC: OR 07:04
PROVIDERS: ATTEND Internal Medicine Gastroenterology
PROC: 0DBP8ZX Excision of Rectum, Via Natural or Artificial Opening Endoscopic, Diagnostic (ICD-10-PCS; principal; 2021-02-04 08:00)
DX: Z12.11 Encounter for screening for malignant neoplasm of colon (principal); K57.30 Diverticulosis of large intestine without perforation or abscess without bleeding; Z20.822 Contact with and (suspected) exposure to COVID-19; D12.8 Benign neoplasm of rectum
CPT/HCPCS: 45380; 88305; U0003; J2704 ×2; J7120

== ENCOUNTER 2021-12-24 16:04 | Observation (INO) | payer OTHER ==
--- OUTSIDE RECORDS SUMMARY | 2021-12-24 16:08 | XMS REPORT | Continuity of Care Document ---
:1960 Author Organization [facility] t Address [address] [place] [address] Care Team Providers Name Role Phone Pcp, Does Not Have A Primary Care Physician Ernestnie Quintanilla Attending Clinician Unavailable Kendall PARMAR Attending Clinician Unavailable Pob, Lab Main Attending Clinician Unavailable Kendall Parmar MD Attending Clinician Doctor Unassigned, Name Attending Clinician Unavailable Only, Test Attending Clinician Unavailable JOHNNY Attending Clinician Unavailable JOHNNY Attending Clinician Unavailable Johnny ARSHAD Attending Clinician Joseline-Mbayo_A_AH Attending Clinician Unavailable Radiology Attending Clinician Unavailable Rubio Chacko MD Attending Clinician RADIOLOGY Attending Clinician Unavailable Ernestine Quintanilla Admitting Clinician Unavailable Kendall PARMAR Admitting Clinician Unavailable Kendall Parmar MD Admitting Clinician Joseline-Mbayo_A_AH Admitting Clinician Unavailable CARINA Admitting Clinician Unavailable Payers Payer Name Policy Type Policy Number Effective Date Expiration Date Kendall FISH [id number] 2019 PLUS CLASSIC/VALUE 00:00:00 BCBS FED SELECT [id number] 1990 00:00:00 MEDICARE PART A [id number] 2018 \T\ B 00:00:00 [place] - [id number] 2019 [place] 00:00:00 (MEDICARE REPLACEMENT/ADVANT AGE - HMO) Problems This patient has no known problems. Allergies, Adverse Reactions, Alerts Allergy Allergy Status Severity Reaction(s) Onset Inactive Treating Comm ents Source Name Type Date Date Clinician HYDROCOD DRUG Active ITCHING 2019-0 Univers ONE INGREDI 04-17 ity of 00:00: [place] 00 [facility] [place] Hydrocod Propensi Active Itching 2019-0 Unive rs one ty to 04-17 ity of adverse 00:00: [place] reaction 00 Medical s Branch NO KNOWN Drug Active Univers ALLERGIE Class ity of S [facility] tramadol Adverse Active Info Not [facility] Reaction Available [facility] Lyrica Adverse Active Info Not [facility] Reaction Available [facility] ent Clinics Social History Social Habit Start Date Stop Date Quantity Comments Source Exposure to Not sure [facility] SARS-CoV-2 (event) [facility] Tobacco Comment 2020-06-04 2020-06-04 1.5 ppd [facility] 00:00:00 00:00:00 [facility] Tobacco use and 2020-02-13 2020-02-13 Never used [facility] exposure 00:00:00 00:00:00 [facility] Sex Assigned At [birth year] [facility] 00:00:00 00:00:00 [facility] Smoking Status Start Date Stop Date Source Unknown if ever smoked [facility] Current every day smoker 2020-02-13 00:00:00 Uni [facility] Medications Ordered Filled Start Stop Current Ordering Indication Dosage Frequency Signature Comments Components Source Medication Medication Date Date Medication? Clinician (SIG) Name Name losartan 25 2020-0 Yes 25mg Take 25 mg Univers mg tablet 06-08 by mouth. ity o f 14:00: [place] 37 [facility] triamcinolo 2019-0 Yes PRN, Univer s ne 17 Starting ity of acetonide 12:42: Mon [place] (KENALOG) 00 06/08/20 at Medi lawrence injection 0742, Branch Until Discontinu ed, Routine, Intra-op iohexol 2019-0 Yes PRN, Univers (OMNIPAQUE 17 Starting ity o f 350 BULK-50 12:42: Mon [place] mL) 00 8/17/20 at Medical injection 0742, Branch Until Discontinu ed, Routine, Intra-op bupivacaine 2020-0 Yes PRN, Univer s (preserv 17 Starting ity of free) 12:42: [facility] (SENSORCAIN 06/08/20 at Al dical E MPF) 0.25 0742, Branch % (2.5 Until mg/mL) Discontinu injection ed, Routine, Intra-op lidocaine 2020-0 Yes PRN, Univers 1% 06-08 Starting ity of (XYLOCAINE) 12:41: [facility] 10 mg/mL (1 00 06/08/20 at Al dical %) 0741, Branch injection Until Discontinu ed, Routine, Intra-op lactated 2020-0 2020- No 1000mL at 20 Unive rs ringers IV 06-08 08-17 mL/hr, ity of infusion 12:00: 12:28 1,000 mL, Leobardo as 1,000 mL 00 :00 IV Medical Infusion, [place] ONCE, 1 dose, [facility] 06/08/20 at 0700, Routine, DSU Pre-op losartan 25 2020-0 Yes 25mg Take 25 mg Univers mg tablet 8-17 by mouth. ity o f 09:00: [address] losartan 25 2020-0 Yes 25mg Take 25 mg Univers mg tablet 8-17 by mouth. ity o f 09:00: [address] losartan 25 2020-0 Yes 25mg Take 25 mg Univers mg tablet 8-17 by mouth. ity o f 09:00: [address] DULoxetine 2020-0 Yes TAKE 1 Unive rs 60 mg 8-10 CAPSULE BY ity of capsule 00:00[place] 00 [place] [facility] DULoxetine 2020-0 Yes TAKE 1 Unive rs 60 mg 8-10 CAPSULE BY ity of capsule 00:00: [place]CE [place] [facility] DULoxetine 2020-0 Yes TAKE 1 Unive rs 60 mg 8-10 CAPSULE BY ity of capsule 00:00: [place]CE [place] DULoxetine 2020-0 Yes TAKE 1 Unive rs 60 mg 8-10 CAPSULE BY ity of capsule 00:00: [place] ONCE [place] 00 [place] [facility] Branch triamcinolo 2020-0 Yes PRN, Univer s ne 6-29 Starting ity of acetonide 13:26: [facility] (KENALOG) 04/20/20 at [facility] injection 0826, Branch Until Discontinu ed, Routine, Intra-op sodium 2020-0 Yes PRN, Univers chloride 04-20 Starting ity of 10% 13:26: [facility] injection 00 04/20/20 at [facility] 10 mL 0826, Branch syringe Until Discontinu ed, 10 mL, Intra-op lidocaine 2020-0 Yes PRN, Univers 1% 04-20 Starting ity of (XYLOCAINE) 13:26: [facility] 10 mg/mL (1 04/20/20 at Al dical %) 825, Branch injection Until Discontinu ed, Routine, Intra-op iohexol 2020-0 Yes PRN, Univers (OMNIPAQUE 04-20 Starting ity o f 350 BULK-50 13:26: [facility] mL) 04/20/20 at Medical injection 08, Branch Until Discontinu ed, Routine, Intra-op bupivacaine 2020-0 Yes PRN, Univer s (preserv 04-20 Starting ity of free) 13:26: [facility] (SENSORCAIN 04/20/20 at Al dical E MPF) 0.25 , [place] % (2.5 Until mg/mL) Discontinu injection ed, Routine, Intra-op fluticasone 2020-0 Yes [id number] 1{puff} Inhale 1 Univers propion-irena 4-23 Puff 2 ity of meterol 00:00: (two) [place] (AIRDUO 00 times Medical RESPICLICK) daily. Branch 113-14 mcg/actuati on AePB Nebulizer 2020-0 Yes [id number] Use as Un emile Accessories 4-23 directed ity of Kit 00:00: [place] 00 Medical Branch Nicotine 2020-0 Yes [id number] 1{patch Apply 1 Univers 21-14-7 4-23 } Patch to ity of mg/24 hr 00:00: [facility] PTDS 00 daily. Medical Branch fluticasone 2020-0 Yes [id number] 1{puff} Inhale 1 Univers propion-irena 4-23 Puff 2 ity of meterol 00:00: (two) [place] (AIRDUO 00 times Medical RESPICLICK) daily. Branch 113-14 mcg/actuati on AePB Nebulizer 2020-0 Yes [id number] Use as Un emile Accessories 4-23 directed ity of Kit 00:00: [place] 00 Medical Branch Nicotine 2020- Yes [id number] 1{patch Apply 1 Univers 4-23 } Patch to ity of mg/24 hr 00:00: skin [place] PTDS 00 daily. Medical Branch fluticasone Yes [id number] 1{puff} Inhale 1 Univers propion-irena 4-23 Puff 2 ity of meterol 00:00: (two) [place] (AIRDUO 00 times Medical RESPICLICK) daily. Branch 113-14 mcg/actuati on AePB Nebulizer Yes [id number] Use as Un emile Accessories 4-23 directed ity of Kit 00:00: [place] 00 Medical Branch Nicotine Yes [id number] 1{patch Apply 1 Univers 4-23 } Patch to ity of mg/24 hr 00:00: skin [place] PTDS 00 daily. Medical Branch fluticasone Yes [id number] 1{puff} Inhale 1 Univers propion-irena 4-23 Puff 2 ity of meterol 00:00: (two) [place] (AIRDUO 00 times Medical RESPICLICK) daily. Branch 113-14 mcg/actuati on AePB Nebulizer Yes [id number] Use as Un emile Accessories 4-23 directed ity of Kit 00:00: [place] 00 Medical Branch Nicotine Yes [id number] 1{patch Apply 1 Univers 4-23 } Patch to ity of mg/24 hr 00:00: skin [place] PTDS 00 daily. Medical Branch fluticasone Yes [id number] 1{puff} Inhale 1 Univers propion-irena 4-23 Puff 2 ity of meterol 00:00: (two) [place] (AIRDUO 00 times Medical RESPICLICK) daily. Branch 113-14 mcg/actuati on AePB Nebulizer Yes [id number] Use as Un emile Accessories 4-23 directed ity of Kit 00:00: [place] 00 Medical Branch Nicotine Yes [id number] 1{patch Apply 1 Univers - 4-23 } Patch to ity of mg/24 hr 00:00: skin [place] PTDS 00 daily. Medical Branch fluticasone 2020-0 Yes [id number] 1{puff} Inhale 1 Univers propion-riena 4-23 Puff 2 ity of meterol 00:00: (two) [place] (AIRDUO 00 times Medical RESPICLICK) daily. Branch 113-14 mcg/actuati on AePB Nebulizer 2020-0 Yes [id number] Use as Un emile Accessories 4-23 directed ity of Kit 00:00: [place] 00 Medical Branch Nicotine 2020-0 Yes [id number] 1{patch Apply 1 Univers 4-23 } Patch to ity of mg/24 hr 00:00: skin [place] PTDS 00 daily. Medical Branch fluticasone 2020-0 Yes [id number] 1{puff} Inhale 1 Univers propion-irena 4-23 Puff 2 ity of meterol 00:00: (two) [place] (AIRDUO 00 times Medical RESPICLICK) daily. Branch 113-14 mcg/actuati on AePB Nebulizer 2019-0 Yes [id number] Use as Un emile Accessories 4-23 directed ity of Kit 00:00: [place] 00 Medical Branch Nicotine 2020-0 Yes [id number] 1{patch Apply 1 Univers 4-23 } Patch to ity of mg/24 hr 00:00: skin [place] PTDS 00 daily. Medical Branch fluticasone 2020-0 Yes [id number] 1{puff} Inhale 1 Univers propion-irena 4-23 Puff 2 ity of meterol 00:00: (two) [place] (AIRDUO 00 times Medical RESPICLICK) daily. Branch 113-14 mcg/actuati on AePB Nebulizer 2019-0 Yes [id number] Use as Un emile Accessories 4-23 directed ity of Kit 00:00: [place] 00 Medical Branch Nicotine 2020-0 Yes [id number] 1{patch Apply 1 Univers 4-23 } Patch to ity of mg/24 hr 00:00: skin [place] PTDS 00 daily. Medical Branch fluticasone 2020-0 Yes [id number] 1{puff} Inhale 1 Univers propion-irena 4-23 Puff 2 ity of meterol 00:00: (two) [place] (AIRDUO 00 times Medical RESPICLICK) daily. Branch 113-14 mcg/actuati on AePB Nebulizer Yes [id number] Use as Un emile Accessories 4-23 directed ity of Kit 00:00: [place] 00 Medical Branch Nicotine Yes [id number] 1{patch Apply 1 Univers 4-23 } Patch to ity of mg/24 hr 00:00: skin [place] PTDS 00 daily. Medical Branch fluticasone Yes [id number] 1{puff} Inhale 1 Univers propion-irena 4-23 Puff 2 ity of meterol 00:00: (two) [place] (AIRDUO 00 times Medical RESPICLICK) daily. Branch 113-14 mcg/actuati on AePB Nebulizer Yes [id number] Use as Un emile Accessories 4-23 directed ity of Kit 00:00: [place] 00 Medical Branch Nicotine Yes [id number] 1{patch Apply 1 [facility] 4- } Patch to ity of mg/24 hr 00:00: skin [place] PTDS 00 daily. Medical Branch Valium Valium Yes Na Quintanilla [address] 2-14 as needed [facility] - 00:[facility]: [facility] 00 l [facility] Chantix Chantix Yes Na Quintanilla TAKE [address] [facility] Continuing Continuing TABLET BY [facility] - Month Cullen Month Cullen MOUTH [place] de[place] TWICE A l DAY [facility] Cyclobenzap Cyclobenzap Yes Na Quintanilla TAKE [address] [facility] rine HCl rine HCl TABLET BY Lorraine kes - MOUTH Memoria TWICE l DAILY Outpati NEEDED ent Clinics Ventolin Ventolin Yes Na Quintanilla USE [address] [facility] [facility] HFA HFA PUFFS [facility] - NEEDED Memoria EVERY 6 l HORS [facility] Trazodone Trazodone Yes Na Quintanilla [address] HCl HCl at bedtime [facility] - as needed Memoria l [facility] BuPROPion BuPROPion Yes Na Quintanilla TAKE [address] [facility] [facility] HCl HCl TABLET BY [facility]ukes - MOUTH ONCE Memoria A DAY l [facility] Duloxetine Duloxetine Yes Na Quintanilla [address] HCl HCl [facility] Hydrochloro Hydrochloro Yes Na Quintanilla TAKE [address] [facility] [facility] thiazide thiazide TABLET BY Lorraine kes - MOUTH IN Memoria ONCE EVERY l MORNING Outpati ent Clinics Temazepam Temazepam Yes Na Quintanilla (Schedule [facility] IV Drug) [facility] - TAKE 1 Memoria CAPSULE BY l MOUTH Outpati NEEDED AT ent BEDTIME Clinics Pravastatin Pravastatin Yes Na Quintanilla TAKE [address] [facility] [facility] Sodium Sodium TABLET BY [facility] - MOUTH AT Memoria BEDTIME l Outpati ent Clinics Losartan Losartan Yes Na Quintanilla TAKE [address] Potassium Potassium TABLET BY [facility] - MOUTH ONCE Memoria A DAY l Outpati ent Clinics Alprazolam Alprazolam Yes Na Quintanilla (Schedule [facility] IV Drug) [facility] - TAKE 1 Memoria TABLET BY l MOUTH Outpati TWICE ent DAILY Clinics Amlodipine Amlodipine Yes Na Quintanilla TAKE [address] [facility] [facility] Besylate Besylate TABLET BY Lorraine kes - MOUTH ONCE Memoria A DAY l Outpati ent Clinics Brovana Brovana Yes Na Quintanilla [address] [facility] Oxycodone-A Oxycodone-A Yes Na Quintanilla (Schedule [facility] cetaminophe cetaminophe II Drug) [facility] - n n TAKE 1 Memoria TABLET BY l MOUTH ONCE Outpati A DAY FOR ent 14 DAY(S) Clinics Spiriva Spiriva Yes Na Quintanilla [address] HandiHaler HandiHaler by Jr es - inhaling Memoria the l contents Outpati of the ent capsule Clinics using the HandiHaler device Vital Signs Vital Name Observation Time Observation Value Comments Source Systolic blood 2020-06-08 13:20:00 149 mm[Hg] [facility] Diastolic blood 2020-06-08 13:20:00 98 mm[Hg] [facility] Heart rate 2020-06-08 13:20:00 77 /min [facility] Respiratory rate 2020-06-08 13:20:00 20 /min General acute hospital Oxygen saturation in 2020-06-08 13:20:00 98 /min [facility] Arterial blood by [facility] Pulse oximetry Branch Body temperature 2020-06-08 12:50:00 36.67 Anjana [facility] acute hospital Body height 2020-06-04 18:15:00 165.1 cm [facility] Body weight 2020-06-04 18:15:00 84.823 kg [facility] BMI 2020-06-04 18:15:00 31.12 kg/m2 [facility] [place] [facility] Systolic blood 2020-06-08 13:20:00 149 mm[Hg] Univer sity of pressure [place] [facility] Diastolic blood 2020-06-08 13:20:00 98 mm[Hg] Unive rsity of pressure [place] [facility] Heart rate 2020-06-08 13:20:00 77 /min [facility] [place] [facility] Respiratory rate 2020-06-08 13:20:00 20 /min Univ ersity of [place] [facility] Oxygen saturation in 2020-06-08 13:20:00 98 /min University of Arterial blood by [facility] lawrence Pulse oximetry Branch Body temperature 2020-06-08 12:50:00 36.67 Anjana Univ ersity of [place] [facility] Body height 2020-06-04 18:15:00 165.1 cm [facility] [place] [facility] Body weight 2020-06-04 18:15:00 84.823 kg [facility] [place] [facility] BMI 2020-06-04 18:15:00 31.12 kg/m2 [facility] [place] [facility] Systolic blood 2020-04-20 13:35:00 121 mm[Hg] Univer sity of pressure [place] [facility] Diastolic blood 2020-04-20 13:35:00 85 mm[Hg] Unive rsity of pressure [place] [facility] Heart rate 2020-04-20 13:35:00 80 /min [facility] [place] [facility] Respiratory rate 2020-04-20 13:35:00 16 /min Univ ersity of [place] [facility] Oxygen saturation in 2020-04-20 13:35:00 90 /min University of Arterial blood by [facility] lawrence Pulse oximetry Branch Body temperature 2020-04-20 12:47:00 36.67 Anjana Univ ersity [facility] [place] [facility] Body height 2020-04-17 15:08:00 175.3 cm [facility] [place] [facility] Body weight 2020-04-17 15:08:00 91.627 kg [facility] [place] [facility] BMI 2020-04-17 15:08:00 29.82 kg/m2 [facility] [place] [facility] Systolic blood 2020-04-20 13:35:00 121 mm[Hg] Univer sity of pressure [place] [facility] Diastolic blood 2020-04-20 13:35:00 85 mm[Hg] Unive rsity of pressure [place] [facility] Heart rate 2020-04-20 13:35:00 80 /min [facility] Medical [place] Respiratory rate 2020-04-20 13:35:00 16 /min General acute hospital Oxygen saturation in 2020-04-20 13:35:00 90 /min [facility] Arterial blood by [facility] Pulse oximetry Branch Body temperature 2020-04-20 12:47:00 36.67 Anjana [facility] acute hospital Body height 2020-04-17 15:08:00 175.3 cm [facility] Medical [place] Body weight 2020-04-17 15:08:00 91.627 kg [facility] Medical [place] BMI 2020-04-17 15:08:00 29.82 kg/m2 [facility] Procedures Procedure Date / Time Performing Clinician Source Performed ASSIGNMENT OF BENEFITS 2021-11-18 17:34:01 Doctor Unawinstonigned, [facility] [place] [facility] PHYSICIAN ORDERS 2021-11-03 06:01:00 Doctor Ellis, [facility] [place] [facility] FL TIME OR 2020-06-08 12:55:00 Devin Parmar [facility] (NON-REPORTABLE) Medical Branch NOTICE OF PRIVACY 2020-06-05 18:02:53 Doctor Ellis, [facility] PRACTICES [place] [facility] CONSENT/REFUSAL FOR 2020-06-05 17:56:32 Doctor Ellis [facility] DIAGNOSIS AND TREATMENT [place] [facility] ASSIGNMENT OF BENEFITS 2020-06-05 17:56:16 Doctor Unassigned, [facility] [place] [facility] DSU PRE-OP 2020-05-02 05:01:00 Doctor Ellis, [facility] [place] [facility] CONSENT/REFUSAL FOR 2020-04-16 18:42:04 Doctor Ellis [facility] DIAGNOSIS AND TREATMENT [place] [facility] ASSIGNMENT OF BENEFITS 2020-04-16 18:41:46 Doctor Unassmartín, [facility] [place] [facility] EXTERNAL PROVIDER - ADC 2019-12-31 05:01:00 [facility] [place] [facility] BILI UNCONJUGATED/BILI 2019-12-06 19:08:00 Dawit Zapata [facility] CONJUG Medical Branch FREE T4 2019-12-06 19:08:00 [facility] o f [facility] THYROID STIMULATING 2019-12-06 19:08:00 [facility] HORMONE Medical Branch LIPID PANEL ([id number])(TOTAL 2019-12-06 19:08:00 [facility] Un [facility] CHOLESTEROL, Medical Branch TRIGLYCERIDES, HDL) CBC WITH DIFFERENTIAL 2019-12-06 19:08:00 [facility] GLYCOSYLATED HEMOGLOBIN 2019-12-06 19:08:00 [facility] (A1C) Medical Branch XR HAND 3+ VW BILATERAL 2019-12-06 18:54:31 [facility] COMPLETE 2019-12-06 18:40:25 Requisition, Paper Unive [facility] NO SHOW OR MISSED 2019-12-06 17:54:02 Doctor Unassigned, [facility] APPOINTMENT POLICY [place] [facility] h ACKNOWLEDGEMENT NOTICE OF PRIVACY 2019-12-06 17:51:35 Doctor Unassigned, [facility] PRACTICES [place] [facility] CONSENT/REFUSAL FOR 2019-12-06 17:51:03 Doctor Unassigned, [facility] DIAGNOSIS AND TREATMENT [place] [facility] ASSIGNMENT OF BENEFITS 2019-12-06 17:50:26 Doctor Unassigned, [facility] [place] [facility] [place] Encounters Start End Encounter Admission Attending Care Care Encounter Source Date/Time Date/Time Type Type Clinicians Facility Department ID 2021-11-17 Outpatient Quintanilla, Na [facility] [id number] 14:39:02 [id number] [facility] 2021-11-17 Outpatient Quintanilla, Na [facility] [id number] 13:14:24 [id number] [facility] 2021-11-17 Outpatient Quintanilla, Na STL[facility]C [facility] [id number] 13:12:22 [id number] [facility] 2021-11-17 Outpatient Quintanilla, Na [facility] [id number] 13:02:40 [id number] [facility] 2021-11-17 Outpatient Quintanilla, Na STLMLC [facility] [id number] 12:44:46 [id number] [facility] 2021-11-17 Outpatient Quintanilla, Na STLMLC [facility] [id number] 12:30:37 [id number] [facility] 2021-11-17 Outpatient Quintanilla, Na STLMLC [facility] [id number] 12:22:55 [id number] [facility] 2021-11-17 Outpatient Quintanilla, Na STLMLC ST[facility] [id number] 12:17:28 [id number] [facility] 2021-11-17 Outpatient Quintanilla, Na STLMLC [facility] [id number] 12:13:20 [id number] [facility] 2021-11-17 Outpatient Quintanilla, Na STLMLC [facility] [id number] 11:53:29 [id number] [facility] 2021-11-17 Outpatient Quintanilla, Na STLMLC [facility] [id number] 11:52:49 [id number] [facility] 2021-11-17 Outpatient Quintanilla, Na STLMLC [facility]LML[facility] [id number] 11:43:42 [id number] [facility] 2021-11-17 Outpatient Quintanilla, Na STLMLC [facility] [id number] 11:42:42 [id number] [facility] 2021-11-17 Outpatient Quintanilla, Na STLMLC [facility] [id number] 11:38:23 [id number] [facility] 2021-11-17 Outpatient Quintanilla, Na STLMLC ST[facility]ML[facility] [id number] 11:37:16 [id number] [facility] 2021-11-17 [address] [facility] 11:34:14 [id number] [facility] 2021-11-17 Outpatient [facility] 11:26:43 [id number] [facility] 2021-11-17 Outpatient [facility] 11:16:45 [id number] [facility] 2021-08-20 Outpatient GHULAM [facility] [id number] Univers 11:43:12 [facility] 2021-08-20 [facility] [id number] Univers 06:40:16 [facility] 2021-08-20 [facility] [id number] Univers 02:55:03 [facility] 2021-11-18 2021-11-18 Shield Operator Gabby, Adc Lab Main [facility] [id number] Univers 11:15:00 11:30:00 Visit Ghulam, Devin SANCHEZ [id number] ity [facility] [id number] [place] PROF[place] [phone] [address] 2021-11-18 2021-11-18 Outpatient R [facility] [id number] Univers 11:15:00 11:15:00 [id number] ity [facility] 2021-11-18 2021-11-18 [facility] [id number] Univers 11:15:00 11:15:00 [facility] 2021-11-18 2021-11-18 Orders Doctor EDMOND [id number] Univers 00:00:00 00:00:00 Only Unassigned, UJICE [id number] ity of [facility] [id number] Leobardo as [phone] [address] 2021-11-17 2021-11-17 ambulatory [facility] [id number] [facility] 2021-11-17 2021-11-17 ambulatory [facility] [id number] [facility]00 [facility] 2021-11-03 2021-11-03 Orders Doctor EDMOND [id number] Univers 00:00:00 00:00:00 Only Unassigned, JUICE [id number] ity of [place] [facility] [id number] Leobardo as [phone] [place] [address] Branch 2021-03-30 2021-03-30 Outpatient [facility] [id number] [facility] 2021-03-30 2021-03-30 Outpatient [facility] [id number] [facility] 2021-03-03 2021-03-03 [facility] [id number] [facility] 2021-01-18 2021-01-18 Outpatient [facility] [id number] [facility] 2021-01-14 2021-01-14 Outpatient [facility] [id number] [facility] 2020-12-03 2020-12-03 Outpatient [facility] [id number] [facility] 2020-11-16 2020-11-16 Outpatient [facility] [id number] [facility]00 [facility] 2020-11-02 2020-11-02 Outpatient [facility] [id number] [facility] 2020-10-20 2020-10-20 Outpatient [facility] [id number] [facility]00 [facility] 2020-10-01 2020-10-01 Outpatient [facility] [id number] [facility] 2020-09-28 2020-09-28 Outpatient [facility] [id number] [facility] 2020-09-01 2020-09-01 Outpatient [facility] [id number] [facility] 2020-08-17 2020-08-17 Outpatient [facility] [id number] [facility] 2020-08-07 2020-08-07 Out[facility] [id number] [facility] 2020-07-31 2020-07-31 Outpatient [facility] [id number] [facility] 2020-07-31 2020-07-31 Outpatient [facility] [id number] [facility] 2020-07-28 2020-07-28 Outpatient [facility] [id number] [facility] 2020-06-26 2020-06-26 Outpatient Taya Sahu [id number] 15:20:00 15:20:00 [facility]AR [place] [facility] Medicine Outpati ent Clinics 2020-06-08 2020-06-08 [facility] 1.2.840.114 [id number] [facility] 06:51:00 08:25:00 Encounter Devin Sanchez [id number] [facility] [phone] [place] [id number] [place] 2020-06-08 2020-06-08 [facility] 1.2.840.114 [id number] 06:51:00 08:25:00 Encounter Devin Argueta [place] [id number] [place] 4.2.7.2.686 Surgical [id number] [place] [address] 2020-06-05 2020-06-05 Laboratory Only, Adc Test [facility] 1.2.840. 114 [id number] Univers 12:56:40 13:11:40 Only Devin Parmar [place] 350.1.13.1 0 ity of [place] 4.2.7.2.686 [facility] [id number] [address] 2020-06-05 2020-06-05 Laboratory Only, [facility] 1.2.840.114 [id number] 12:56:40 13:11:40 Only Test [place] [id number] [place] 4.2.7.2.686 [place] [id number] [facility] 2020-06-05 2020-06-05 Outpatient R [facility] [id number] Univers 13:00:00 13:00:00 [id number] ity of [facility] 2020-06-05 2020-06-05 Outpatient R GHULAM [facility] [id number] Univers 13:00:00 13:00:00 DEVIN it[facility] 2020-05-15 2020-05-15 Outpatient R CARMEN TURNER [facility] [id number] Univers 09:00:00 09:00:00 CARMEN TURNER [id number] i ty of [facility] 2020-05-15 2020-05-15 Outpatient R CARMEN TURNER [facility] [id number] Univers 09:00:00 09:00:00 CARMEN TURNER i ty of [facility] 2020-05-12 2020-05-12 [facility] [id number] 13:00:00 13:00:00 [facility] ent Clinics 2020-05-08 2020-05-08 Outpatient [facility] [id number] Univers 10:30:00 10:30:00 [id number] it[facility] 2020-05-05 2020-05-05 [facility] [id number] 13:30:00 13:30:00 [facility] ent [facility] 2020-05-02 2020-05-02 Orders Doctor EDMOND 1.2.840.114 [id number] Univers 00:00:00 00:00:00 Only Unassigned, JUICE 350.1.13.10 ity of [place] [facility] 4.2.7.2.686 Le[place]ardo as [id number] [address] 2020-05-02 2020-05-02 Orders Doctor EDMOND 1.2.840.114 [id number] 00:00:00 00:00:00 Only Unassigned, JUICE 350.1.13.10 [place] [facility] 4.2.7.2.686 [id number] [facility] 2020-04-28 2020-04-28 [facility] [id number] [facility] St 09:15:00 09:15:00 [facility] ent [facility] 2020-04-20 2020-04-20 [facility] 1.2.840.114 [id number] [facility] 07:47:09 09:07:00 Encounter Devin [place] 350.1.13.10 ity [facility] 4[place] [id number] Med [address] 2020-04-20 2020-04-20 [facility] 1.2.840.114 [id number] 07:47:09 09:07:00 Encounter Devin [place] 350.1.13.10 [place] 4.2.7.2.686 Surgical [id number] [place] [address] 2020-04-17 2020-04-17 Outpatient R [facility] [id number] Univers 12:00:00 12:00:00 [id number] [facility] 2020-04-17 2020-04-17 Outpatient R [facility] [id number] Univers 12:00:00 12:00:00 ity [facility] 2020-04-17 2020-04-17 Laboratory Only, Adc Test [facility] 1.2.840. 114 [id number] [facility] 11:38:45 11:53:45 Only Devni Parmar 350.1.13.1 0 [place] [id number] [address] 2020-04-17 2020-04-17 Laboratory Only, [facility] 1.2.840.114 [id number] 11:38:45 11:53:45 Only Test [place] 350.1.13.10 [place] 4.2.7.2.686 [place] [id number] [facility] 2020-04-16 2020-04-16 Shield Operator Gabby, [facility] Lab Main [facility] 1.2.8 40.114 [id number] [facility] 13:49:39 14:04:39 Visit Devin Parmar 350.1.13.1 0 [place] [id number] Al dical [address] 2020-04-16 2020-04-16 Shield Operator Gabby, [facility] 1.2.840.114 [id number] 13:49:39 14:04:39 Visit Lab Main Breanne 350.1.13.10 [place] 4.2.7.2.686 Professio [id number] [address] 2020-04-16 2020-04-16 Outpatient R [facility] [id number] Univers 13:45:00 13:45:[id number] [place] [address] 2020-04-16 2020-04-16 Outpatient R GHULAM [facility] [id number] [facility] 13:45:00 13:45:00 DEVIN it[facility] 2020-04-15 2020-04-15 Outpatient [facility] Tay[place] [id number] 11:22:00 11:22:00 [facility] 2020-03-27 2020-03-27 [facility] [id number] 08:35:00 08:35:00 t [facility] ent [facility] 2020-03-26 2020-03-26 [facility] [id number] 10:30:00 10:30:00 t [facility] 2020-03-17 2020-03-17 Outpatient R [facility] [id number] Univers 12:30:00 12:30:00 [id number] ity [facility] 2020-03-17 2020-03-17 Outpatient R CARMEN TURNER [facility] [id number] Univers 12:30:00 12:30:00 CARMEN TURNER i ty of [facility] 2020-03-12 2020-03-12 Outpatient R [facility] [id number] Univers 09:00:00 09:00:00 [id number] ity [facility] 2020-02-13 2020-02-13 Outpatient R CARMEN TURNER [facility] [id number] Univers 15:40:00 15:40:00 CARMEN TURNER [id number] i ty of [facility] 2020-02-13 2020-02-13 Outpatient R CARMEN TURNER [facility] [id number] Univers 15:40:00 15:40:00 CARMEN TURNER i ty of [facility] 2020-02-13 2020-02-13 Telemedic Johnny [facility] 1.2.840.114 [id number] Univers 08:13:08 08:33:08 ne Visit Carmen [place] 350.1.13.10 [place] [id number] Al dical [address] 2020-02-13 2020-02-13 [facility] 1.2.840.114 [id number] 08:13:08 08:33:08 ne Visit Carmen Sanchez 350.1.13.10 [place] 4.2.7.2.[address] Professio [id number] [address] 2020-01-28 2020-01-28 Outpatient Joseline-selino [facility] [id number] [facility] 04:26:00 04:26:00 _A_ 13283 Family Practic e 2020-01-28 2020-01-28 Outpatient Joseline-Mbayo VFP VFP [id number] [facility] 04:26:00 04:26:00 _A_AH 31185 Family Practic e 2020-01-28 2020-01-28 Outpatient Joseline-Mbayo VFP VFP [id number] [facility] 04:26:00 04:26:00 _A_AH 23946 Family Practic e 2020-01-20 2020-01-20 Outpatient Joseline-Mbayo VFP VFP [id number] [facility] 12:08:00 12:08:00 _A_AH 55072 Family Practic e 2019-12-31 2019-12-31 Orders Doctor EDMOND 1.2.840.114 [id number] [facility] 00:00:00 00:00:00 Only Unassigned, JUICE 350.1.13.10 ity of [place] [facility] 4.2.7.2.686 [facility] [id number] [address] 2019-12-31 2019-12-31 Orders Doctor EDMOND 1.2.840.114 [id number] 00:00:00 00:00:00 Only Unassigned, JUICE 350.1.13.10 [place] [facility] 4.2.7.2.686 [id number] [facility] 2019-12-06 2019-12-06 [facility] Radiology [facility] 1.2.840.114 [id number] [facility] 11:58:00 23:59:00 Encounter Breanne 350.1.13.10 ity of [place] 4.2.7.2.686 [facility] [id number] [address] 2019-12-06 2019-12-06 [facility] Radiology [facility] 1.2.840.114 [id number] 11:58:00 23:59:00 Encounter [place] 350.1.13.10 [place] 4.2.7.2.686 [place] [id number] [facility] 2019-12-06 2019-12-06 Shield Operator Gabby, Adc Lab Main [facility] 1.2.8 40.114 [id number] [facility] 12:02:23 12:17:23 Visit Luz Chacko 350.1.13 .10 [place] [id number] Me dical [facility] 2019-12-06 2019-12-06 Shield Operator Aisha Pierre [facility] 1.2.840.114 [id number] 12:02:23 12:17:23 Visit Lab Main [place] 350.1.13.10 [place] 4.2.7.2.686 Professio [id number] [address] 2019-12-06 2019-12-06 Outpatient R RADIOLOGY [facility] [id number] Univers 11:58:18 11:57:00 ity of [facility] 2019-12-06 2019-12-06 [facility] Radiology [facility] 1.2.840.114 [id number] Univers 11:30:00 11:57:00 Encounter [place] 350.1.13.10 ity [place] [id number] [facility] [address] [place] [address] 2019-12-06 2019-12-06 [facility] Radiology [facility] 1.2.840.114 [id number] 11:30:00 11:57:00 Encounter [place] 350.1.13.10 [place] 4.2.7.2.686 [place] [id number] [facility] 2019-12-06 2019-12-06 Orders Doctor PRUITT 1.2.840.114 [id number] Univers 00:00:00 00:00:00 Only Unassigned, JUICE 350.1.13.10 ity of [place] [facility] 4.2.7.2.686 Leobardo as [id number] [address] 2019-12-06 2019-12-06 Orders Doctor EDMOND 1.2.840.114 [id number] 00:00:00 00:00:00 Only Unassigned, JUICE 350.1.13.10 [place] [facility] 4.2.7.2.686 [id number] 009 2018-12-17 2018-12-17 [facility] [id number] 10:30:00 10:30:00 t [facility] 2018-12-11 2018-12-11 [facility] [id number] 10:00:00 10:00:00 t [facility] ent Clinics 2018-12-11 2018-12-11 Outpatient Taya [facility] [id number] 09:35:00 09:35:00 t [facility] ent Clinics 2018-12-06 2018-12-06 Outpatient [place] [facility] [id number] 11:00:00 11:00:00 t [facility] ent Clinics 2018-12-03 2018-12-03 [place]patient [place] [facility] [id number] [facility] 10:30:00 10:30:00 t [facility] ent Clinics 2018-07-16 2018-07-16 [place] [facility] [id number] 16:31:00 16:31:00 t [facility] ent Clinics 2018-06-26 2018-06-26 [place] [facility] [id number] [facility] 09:00:00 09:00:00 t [facility] ent [facility] Results Test Description Test Time Test Comments Results Result Sourc e Comments FL TIME OR 2020-05-23 These images do not Unive rsity of (NON-REPORTABLE) 7 require a Radiology [facility] 13:07:00 diagnostic report. Branch XR HAND 3+ VW 2019-11-23 No acute osseous Univ ersity of BILATERAL 5 abnormality. 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 EXAM: XR HAND 3+ VW BILATERAL HISTORY: 59 years-old Female Senile arthritis COMPARISON: None. FINDINGS: No ?acute fracture or dislocation. Severe joint space narrowing affects the bilateral second and third MCPjoints with prominent hook like osteophytosis. Sclerotic and cystic changes involves the left lunate bone. No soft tissue abnormality is seen. [facility], Radiant Results Inft 12/06/2020 7:04 PM CSTEXAM: XR HAND 3+ VW BILATERALHISTORY: 59 years-old Female Senile arthritis COMPARISON: None.FINDINGS:No acute fracture or dislocation. Severe joint space narrowing affects the bilateral second and third MCPjoints with prominent hook like osteophytosis.Scler otic and cystic changes involves the left lunate bone.No soft tissue abnormality is seen.IMPRESSIONNo acute osseous abnormality.Bilater al osteoarthrosis pattern suggestive of CPPD arthropathy. THYROID STIMULATING HORMONE 2019-12-06 20:34:00 Test Item Value Reference Range Interpretation Comme nts TSH (test code = 5957545264) See_Comment [Automated message] The system which generated this result transmitted ref erence range: 0.45 - 4.70 mIU/L. T he reference range was not used to interpret this result as juan l/abnormal. Lab Interpretation (test code = Normal 53807-7) [id number] 20:21:00 Test Item Value Reference Range Interpretation Comments FREE T4 (test code = 9051703161) 0.92 ng/dL 0.78-2.2 Lab Interpretation (test code = Normal 42975-1) [facility] (76939)(TOTAL CHOLESTEROL, TRIGLYCERIDES, HDL)2019-12-06 20:16:00 Test Item Value Reference Range Interpretation Comments CHOL (test code = 214 mg/dL 120-200 H 7803460034) HDL (test code = 63 mg/dL >50 3862660759) HDLC RATIO (test code = See_Comment [Au tomated message] 8838037587) The system [employer] generated this result transmit joshua reference range : <=4.5. The refe rence range was not u sed to interpret th is result as normal/abnormal . TRIG (test code = 246 mg/dL 30-170 H 5894247913) LDL CHOL (test code = 102 mg/dL See_Comment [Auto mated message] 89420-3) The system [employer] generated this result transmit joshua reference range : <=160. The refe rence range was not u sed to interpret th is result as normal/abnormal . VLDL (test code = 49 mg/dL 5-60 3998714857) Lab Interpretation (test Abnormal code = 51717-4) [facility]GLOBIN (A1C)2019-12-06 20:16:00 Test Item Value Reference Interpretation Comments Range HGB A1C (test code = See_Comment [Autom ated 4548-4) message] The system which generated this result transmitted reference range : 4.0 - 6.0 % NGSP. The reference range was not used to interpret this result as normal/abnormal . RUSTY (test code = %A1C (NGSP) RUSTY) Interpretation (ADA)4.8-5.6 ? ? Normal or (Non-Diabetic Range)5.7-6.4 ? ? Increased Risk (Pre-Diabetic)>6.5 ?Diabetes Indicated Lab Interpretation Normal (test code = 11847-4) [facility] UN[facility]JUGATED/BILI [id number] 20:15:00 Test Item Value Reference Range Interpretation Comments BILI CONJ (test code = 5897411174) 0.0 mg/dL 0-0.3 BILI UNCON (test code = 8497692867) 0.5 mg/dL 0.1-1.1 Lab Interpretation (test code = Normal 81754-6) [facility] WITH [id number] 19:17:00 Test Item Value Reference Range Interpretation Comments WBC (test code = See_Comment [Automated 6690-2) message] The sy stem which generated this result transmitted reference range : 4.30 - 11.10 10*3/?L. The reference range was not used to interpret this result as normal/abnormal . RBC (test code = See_Comment [Automated 649-8) message] The sy stem which generated this result transmitted reference range : 3.93 - 5.25 10*6/?L. The reference range was not used to interpret this result as normal/abnormal . HGB (test code = 14.3 g/dL 11.6-15 718-7) HCT (test code = 45.4 % 35.7-45.2 H 4544-3) MCV (test code = 98.9 fL 80.6-95.5 H 787-2) MCH (test code = 31.2 pg 25.9-32.8 785-6) MCHC (test code = 31.5 g/dL 31.6-35.1 L 786-4) RDW-SD (test code = 57.1 fL 39-49.9 H 77956-3) RDW-CV (test code = 15.5 % 12-15.5 788-0) PLT (test code = See_Comment [Automated 777-3) message] The sy stem which generated this result transmitted reference range : 166 - 358 10*3/ ?L. The reference r carrie was not used to interpret this result as normal/abnormal . MPV (test code = 10.1 fL 9.5-12.9 80958-4) NRBC/100 WBC (test See_Comment [Automat ed code = 5728224933) message] The system which generated this result transmitted reference range : 0.0 - 10.0 /100 WBCs. The refer ence range was not u sed to interpret th is result as normal/abnormal . NRBC x10^3 (test code <0.01 See_Comment [Auto mated = 3825118222) message] The s ystem which generated this result transmitted reference range : 10*3/?L. The reference range was not used to interpret this result as normal/abnormal . GRAN MAT (NEUT) % 62.2 % (test code = 770-8) IMM GRAN % (test code 0.90 % = 6022634123) LYMPH % (test code = 30.1 % 736-9) MONO % (test code = 6.4 % 5905-5) EOS % (test code = 0.2 % 713-8) BASO % (test code = 0.2 % 706-2) GRAN MAT x10^3(ANC) 3.61 10*3/uL 1.88-7.09 (test code = 5745240890) IMM GRAN x10^3 (test 0.05 10*3/uL 0-0.06 code = 5247661104) LYMPH x10^3 (test code 1.74 10*3/uL 1.32-3.29 = 731-0) MONO x10^3 (test code 0.37 10*3/uL 0.33-0.92 = 742-7) EOS x10^3 (test code = <0.03 0.03-0.39 L 711-2) BASO x10^3 (test code <0.03 0.01-0.07 = 704-7) Lab Interpretation Abnormal (test code = 71966-1) [facility] [id number] 18:49:51 Mild diffuse hepatic steatosis. No focal hepatic lesions identified. No cholelithiasis.RIGHT UPPER QUADRANT ABDOMINAL SONOGRAM TECHNIQUE: Grayscale and limited color Doppler images of the right upperquadrant of the abdomen were obtained. INDICATION: Right upper quadrant pain. COMPARISON: None available. FINDINGS: Liver measures approximately 11.8 cm in craniocaudal dimension. Liver ismildly diffusely steatotic with normal echotexture. No focal hepaticlesions identified. There is normal hepatopedal flow within the main portalvein (33.5 cm/s). Main portal vein measures 1.1 cm in AP diameter at portahepatis. No cholelithiasis or sludge. No pericholecystic free fluid or gallbladderwall thickening. Gallbladder wall measures 2 to 3 mm. Prominent wallfold/pharyngeal cap is seen at the fundus. Negative sonographic Yadav'ssign. Common bile duct measures 3 mm in AP diameter at del hepatis. Right kidney measures 12.8 x 5.0 x 5.8 cm. The left kidney measures 12.4 x5.6 x 4.9 cm. Left kidney contains a 6 mm lower pole nonobstructivecalculus. No hydronephrosis bilaterally. Partially visualized pancreatichead and body appear unremarkable. Spleen measures 12.0 cm in craniocaudal dimension, normal. Proximal abdominal aorta measures 2.2 cm in AP diameter. No aneurysmaldilatation within the mid or distal abdominal aorta. [facility], Radiant Results Inft User - 12/06/2019 12:51 PM CSTRIGHT UPPER QUADRANT ABDOMINAL SONOGRAMTECHNIQUE: Grayscale and limited color Doppler images of the right upperquadrant of the abdomen were obtained.INDICATION: Right upper quadrant pain.COMPARISON: None available.FINDINGS:Liver measures approximately 11.8 cm in craniocaudal dimension. Liver ismildly diffusely steatotic with norm al echotexture. No focal hepaticlesions identified. There is normal hepatopedal flow within the mainportalvein (33.5 cm/s). Main portal vein measures 1.1 cm in AP diameter at portahepatis.No cholelithiasis or sludge. No pericholecystic free fluid or gallbladderwall thickening. Gallbladder wall measures 2 to 3 mm. Prominent wallfold/pharyngeal cap is seen at the fundus. Negative sonographic Yadav'ssign.Common bile duct measures 3 mm in AP diameter at del hepatis.Right kidney measures 12.8 x 5.0 x5.8 cm. The left kidney measures 12.4 x5.6 x 4.9 cm. Left kidney contains a 6 mm lower pole nonobstructivecalculus. No hydronephrosis bilaterally.Partially visualized pancreatic head and body appear unremarkable.Spleen measures 12.0 cm in craniocaudal dimension, normal.Proximal abdominal aorta measures 2.2 cm in AP diameter. No aneurysmaldilatation within the mid or distal abdominal aorta. IMPRESSIONMild diffuse hepatic steatosis. No focal hepatic lesions identified.No cholelithiasis.[facility]
[2021-12-24 16:45] LABS: Absolute Lymphocytes (CBC) 1.4 K/uL (0.7-4.9); Hematocrit 45.4 % (36.0-45.0); Lymphocytes % 36.1 % (15.3-44.8); MPV 8.6 fL (7.6-11.3); RBC Red Blood Cell Count 4.88 M/uL (3.86-4.86)
[2021-12-24] MEDS ORDERED: IPRATROPIUM BROM 0.5MG/2.5ML ONE (16:45)
[2021-12-24] MEDS ORDERED: METHYLPREDNISOLONE 125 MG INJ ONE (16:45)
[2021-12-24 16:48] LABS: Protime INR 0.94
--- NOTE | 2021-12-24 17:01 | EDPHYS ---
Physician Documentation [facility] Name: Kanika Jon Age: 61 yrs Sex: Female : 1960 Arrival Date: 12/24/2021 Time: 16:05 Bed 20 Private MD: Griselda Quintanilla ED Physician Jose Ramon Bedolla HPI: 12/24 16:25 This 61 yrs old Female presents to ER via Ambulatory with complaints of Shortness Of cp Breath, Cough. 16:25 The patient has shortness of breath at rest. cp 16:25 Onset: The symptoms/episode began/occurred 3 day(s) ago. cp 16:25 Duration: The symptoms are continuous, and are steadily getting worse. cp 16:25 The patient's shortness of breath is aggravated by light activity. Associated signs and cp symptoms: Pertinent negatives: chest pain, productive cough, diaphoresis, fever. Severity of symptoms: in the emergency department the symptoms are unchanged despite home interventions. Historical: - Allergies: 16:19 Codeine; ww - Home Meds: 16:19 amlodipine 10 mg tab 1 tab once daily [Active]; duloxetine 60 mg Oral cpDR 1 cap once ww daily [Active]; losartan Oral once daily [Active]; trazodone 150 mg Oral tab 1 tab [Active]; Oxycodone HCl Oral [Active]; - PMHx: 16:19 COPD; Hypertension; osteoarthritis; Depression; ww - PSHx: 16:19 Total abdominal hysterectomy; ww - Immunization history:: Adult Immunizations up to date. - Social history:: Smoking status: Patient reports the use of cigarette tobacco products. ROS: 16:30 Constitutional: Negative for body aches, fever, poor PO intake. cp 16:30 Cardiovascular: Negative for chest pain, edema, palpitations. cp 16:30 Respiratory: Positive for cough, shortness of breath, at rest. Negative for wheezing. 16:30 Abdomen/GI: Negative for abdominal pain, nausea, vomiting, and diarrhea. 16:30 Eyes: Negative for injury, pain, redness, and discharge. cp 16:30 ENT: Negative for drainage from ear(s), ear pain, sore throat, difficulty swallowing, cp difficulty handling secretions. 16:30 Back: Negative for pain at rest, pain with movement. 16:30 : Negative for urinary symptoms. 16:30 Neuro: Negative for altered mental status, dizziness, headache, syncope, weakness. 16:30 All other systems are negative. Exam: 16:35 Constitutional: The patient appears in no acute distress, alert, awake, cp non-diaphoretic, non-toxic, well developed, well nourished. 16:35 Head/Face: Normocephalic, atraumatic. cp 16:35 Eyes: Periorbital structures: appear normal, Pupils: equal, round, and reactive to light and accomodation, Extraocular movements: intact throughout, Conjunctiva: normal, no exudate, no injection, Sclera: no appreciated abnormality, Lids and lashes: appear normal, bilaterally. 16:35 ENT: External ear(s): are unremarkable, Nose: is normal, Mouth: Lips: moist, Oral mucosa: pink and intact, moist, Posterior pharynx: Airway: no evidence of obstruction, patent. 16:35 Neck: External neck: is normal, ROM/movement: is normal, is supple, without pain, no range of motions limitations, no meningismus. 16:35 Chest/axilla: Inspection: normal, Palpation: is normal, no crepitus, no tenderness. 16:35 Cardiovascular: Rate: tachycardic, Rhythm: regular, Edema: is not appreciated, JVD: is not appreciated. 16:35 Respiratory: mild respiratory distress is noted, Respirations: labored breathing, that is mild, Breath sounds: bronchial sounds, that are mild, are heard diffusely, decreased breath sounds, that are moderate, stridor, is not appreciated. 16:35 Abdomen/GI: Inspection: abdomen appears normal, Bowel sounds: active, all quadrants, Palpation: abdomen is soft and non-tender, in all quadrants. 16:35 Back: pain, is absent, ROM is normal. 16:35 Skin: cellulitis, is not appreciated, no rash present. 16:35 Neuro: Orientation: to person, place \\T\\ time. Mentation: is normal, Cerebellar function: is grossly normal, Motor: moves all fours, strength is normal, Sensation: is normal, Gait: is steady, at a normal pace, without difficulty. 17:52 ECG was reviewed by the Attending Physician. cp Vital Signs: 16:17 BP 123 / 78; Pulse 106; Resp 26; Temp 99.7; Pulse Ox 84% on R/A; Weight 85.28 kg; ww Height 5 ft. 5 in. (165.10 cm); 17:15 BP 117 / 98; Pulse 89; Resp 18; Pulse Ox 94% on 3 lpm NC; ab2 18:16 BP 112 / 80; Pulse 97; Resp 18; Pulse Ox 96% 3 lpm ; ab2 18:55 BP 127 / 76; Pulse 84; Resp 18; Pulse Ox 96% on 3 lpm NC; ab2 19:35 BP 124 / 81; Pulse 85; Resp 20; Temp 98.5; Pulse Ox 94% on 3 lpm NC; Pain 0/10; benjy 20:43 BP 119 / 76; Pulse 91; Resp 18; Pulse Ox 96% on 3 lpm NC; benjy 16:17 Body Mass Index 31.28 (85.28 kg, 165.10 cm) ww 16:17 placed on 3L NC O\\T\\ sat improved to 94% ww MDM: 16:09 Patient medically screened. narinder 16:30 Differential diagnosis: CHF exacerbation, Chronic Obstructive Pulmonary Disease cp Myocardial Infarction pneumonia, Pneumothorax pulmonary edema, Pulmonary Embolism Sepsis Unstable Angina. 17:25 Data reviewed: vital signs, nurses notes, lab test result(s), EKG, radiologic studies, cp plain films. 17:25 Test interpretation: by ED physician or midlevel provider: ECG, plain radiologic cp studies. Response to treatment: the patient's symptoms have mildly improved after treatment, and as a result, I will admit patient. Physician consultation: Rey HUDSON was called at 17:25, was contacted at 17:25, regarding admission, to the telemetry unit. patient's condition, and will see patient in ED, shortly. 12/24 16:19 Order name: Basic Metabolic Panel cp 12/24 16:19 Order name: CBC with Diff; Complete Time: 16:56 cp 12/24 16:56 Interpretation: Normal except: WBC 4.00; RBC 4.88; HCT 45.4. cp 12/24 16:19 Order name: LFT's; Complete Time: 17:19 cp 12/24 16:19 Order name: Magnesium; Complete Time: 17:19 cp 12/24 16:19 Order name: NT PRO-BNP; Complete Time: 17:19 cp 12/24 16:19 Order name: PT-INR; Complete Time: 16:56 cp 03/04 16:19 Order name: Troponin HS; Complete Time: 17:19 cp 03/04 16:19 Order name: Blood Culture Adult (2) cp 03/04 16:19 Order name: Lactate; Complete Time: 17:19 cp 03/04 16:19 Order name: Procalcitonin; Complete Time: 18:26 cp 03/04 16:19 Order name: COVID-19/FLU A+B (Document "Date of Onset" if Symptomatic); Complete Time: cp 18:26 / 16:20 Order name: Basic Metabolic Panel; Complete Time: 17:19 EDMS 12/24 17:34 Order name: ABG Arterial Blood Gas EDMS 12/24 19:56 Order name: Lactate Sepsis 2 HR Follow-up EDMS 12/24 16:19 Order name: XRAY Chest (1 view); Complete Time: 18:26 cp 03/04 18:26 Interpretation: Report review. cp 03/04 16:19 Order name: EKG; Complete Time: 16:20 cp 03/04 16:19 Order name: Cardiac monitoring; Complete Time: 16:37 cp 03/04 16:19 Order name: EKG - Nurse/Tech; Complete Time: 17:49 cp 03/04 16:19 Order name: IV Saline Lock; Complete Time: 16:37 cp 03/04 16:19 Order name: Labs collected and sent; Complete Time: 16:37 cp 03/04 16:19 Order name: O2 Per Protocol; Complete Time: 16:37 cp 03/04 16:19 Order name: O2 Sat Monitoring; Complete Time: 16:37 cp EC:52 Rate is 91 beats/min. Rhythm is regular. KS interval is normal. QRS interval is normal. cp QT interval is normal. T waves are Inverted in lead aVR. Interpreted by me. Reviewed by me. Administered Medications: 16:45 Drug: SOLU-Medrol (methylPrednisoLONE) 125 mg Route: IVP; Site: right antecubital; ab2 18:30 Follow up: Response: No adverse reaction ab2 16:45 Drug: Albuterol - atroVENT (ipratropium) (3:1) (2.5 mg - 0.5 mg) 3 ml Route: Nebulizer; ab2 18:30 Follow up: Response: No adverse reaction ab2 17:20 CANCELLED (Physician Discretion): LevaQUIN (levofloxacin) 500 mg PO once cp 17:20 CANCELLED (Physician Discretion): NS 0.9% 1000 ml IV at 1 bolus Per protocol; 1000 mL cp bolus 17:46 Drug: NS 0.9% 1000 ml Route: IV; Rate: 1 bolus; Site: right antecubital; ab2 17:46 Drug: LevaQUIN (levofloxacin) 750 mg Volume: 150 ml; Route: IVPB; Infused Over: 90 ab2 mins; Site: right antecubital; 18:29 Follow up: Response: No adverse reaction; IV Status: Completed infusion ab2 Disposition Summary: 12/24/21 17:01 Hospitalization Ordered Hospitalization Status: Inpatient Admission cp Location: Telemetry/MedSurg (Inpatient) cp Condition: Stable cp Problem: an acute exacerbation cp Symptoms: have improved cp Bed/Room Type: Standard cp Provider: Patrick Prieto(12/24/21 17:32) la1 Room Assignment: [facility](12/24/21 20:32) Diagnosis - COPD/ Chronic obstructive pulmonary disease with acute lower respiratory infection cp - Hypoxemia cp Forms: - Medication Reconciliation Form cp - SBAR form cp Signatures: Dispatcher [employer] EDMS Jose Ramon Bedolla MD MD cha Attema, Lee, ENVIRONMENTAL SERVICES LEAD-C ENVIRONMENTAL SERVICES LEAD-Cla1 Jose Ramon Vickers PA PA cp Leslie Herrera, VEE RN Griselda Keating RN RN Rafael Vines ab2 Corrections: (The following items were deleted from the chart) 17:20 16:59 LevaQUIN (levofloxacin) 500 mg PO once ordered. cp cp 17:20 17:20 NS 0.9% 1000 ml IV at 1 bolus Per protocol; 1000 mL bolus ordered. cp cp 17:32 17:01 Rey Aguiar cp la1 20:32 17:01 cp cg
--- NOTE | 2021-12-24 17:01 | ER ---
Nurse's Notes [facility] Name: Kanika Jon Age: 61 yrs Sex: Female : 1960 Arrival Date: 12/24/2021 Time: 16:05 Bed 20 Private MD: Griselda Quintanilla Diagnosis: COPD/ Chronic obstructive pulmonary disease with acute lower respiratory infection;Hypoxemia Presentation: 12/24 16:17 Chief complaint: Patient states: Cough, congestion, shortness of breath for the past ww few days. She stated she wears home oxygen as needed and she wore it last night due to her O2 sat of 78%. Coronavirus screen: Vaccine status: Patient reports receiving the 2nd dose of the covid vaccine. Client denies travel out of the [place] in the last 14 days. Ebola Screen: Patient denies travel to an Ebola-affected area in the 21 days before illness onset. Initial Sepsis Screen: Does the patient meet any 2 criteria? No. Patient's initial sepsis screen is negative. Does the patient have a suspected source of infection? No. Patient's initial sepsis screen is negative. Risk Assessment: Do you want to hurt yourself or someone else? Patient reports no desire to harm self or others. Onset of symptoms is unknown. 16:17 Method Of Arrival: Ambulatory ww 16:17 Acuity: [place] 3 ww Triage Assessment: 16:19 General: Appears uncomfortable, Behavior is cooperative. Pain: Denies pain. Neuro: ww Level of Consciousness is awake, alert, obeys commands, Oriented to person, place, time, situation, Moves all extremities. Gait is steady, Speech is normal. Cardiovascular: Capillary refill is sluggish. Respiratory: Reports shortness of breath at rest on exertion Airway is patent Respiratory effort is labored, Respiratory pattern is tachypnea Onset: The symptoms/episode began/occurred yesterday, the patient has moderate shortness of breath. GI: No signs and/or symptoms were reported involving the gastrointestinal system. : No signs and/or symptoms were reported regarding the genitourinary system. Derm: No signs and/or symptoms reported regarding the dermatologic system. Skin is intact. Historical: - Allergies: 16:19 Codeine; ww - Home Meds: 16:19 amlodipine 10 mg tab 1 tab once daily [Active]; duloxetine 60 mg Oral cpDR 1 cap once ww daily [Active]; losartan Oral once daily [Active]; trazodone 150 mg Oral tab 1 tab [Active]; Oxycodone HCl Oral [Active]; - PMHx: 16:19 COPD; Hypertension; osteoarthritis; Depression; ww - PSHx: 16:19 Total abdominal hysterectomy; ww - Immunization history:: Adult Immunizations up to date. - Social history:: Smoking status: Patient reports the use of cigarette tobacco products. Screenin:21 Abuse screen: Denies threats or abuse. Denies injuries from another. Nutritional ww screening: No deficits noted. Tuberculosis screening: No symptoms or risk factors identified. Fall Risk None identified. Assessment: 16:45 General: Appears in no apparent distress. comfortable, Behavior is calm, cooperative, ab2 appropriate for age. Pain: Denies pain. Neuro: Level of Consciousness is awake, alert, obeys commands, Oriented to person, place, time, situation, Appropriate for age Mosaicist are weak bilaterally Moves all extremities. Gait is steady. Cardiovascular: Reports shortness of breath, Denies chest pain, Heart tones S1 S2 present Patient's skin is warm and dry. Respiratory: Airway is patent Respiratory effort is even, labored, Respiratory pattern is symmetrical, Breath sounds with wheezes bilaterally. GI: No deficits noted. No signs and/or symptoms were reported involving the gastrointestinal system. : No deficits noted. No signs and/or symptoms were reported regarding the genitourinary system. EENT: No deficits noted. No signs and/or symptoms were reported regarding the EENT system. Derm: No deficits noted. No signs and/or symptoms reported regarding the dermatologic system. Musculoskeletal: No deficits noted. No signs and/or symptoms reported regarding the musculoskeletal system. 18:29 Cardiovascular: Rhythm is sinus rhythm. ab2 18:29 Reassessment: Patient appears in no apparent distress at this time. Pt resting in room, ab2 denies any needs. Awaiting room for admission. 20:05 Reassessment: When I recv'd the pt at 1900, in room 20, I saw that she was to be benjy admitted and told her as soon as she is assigned a bed, I'll take her up. I explained to her that this might take a little while, to which she responded,"I'll walk out if that happens." Just now, I had another nurse accompany me into the room, as the pt was overheard telling the day shift nurse that "that nurse (gesturing to me) isn't concerned about getting me a bed...and I'll just walk out". Obviously, she misunderstood. The other nurse tried, with me, to reassure the pt. The pt was confrontational and argumentive. She is unable to comprehend what is conveyed. We simply tried to reassure her again. I asked if she was going to leave, to please let me know, so I can remove the SL. The other nurse is speaking with bed control trying to expedite this. Vital Signs: 16:17 BP 123 / 78; Pulse 106; Resp 26; Temp 99.7; Pulse Ox 84% on R/A; Weight 85.28 kg; ww Height 5 ft. 5 in. (165.10 cm); 17:15 BP 117 / 98; Pulse 89; Resp 18; Pulse Ox 94% on 3 lpm NC; ab2 18:16 BP 112 / 80; Pulse 97; Resp 18; Pulse Ox 96% 3 lpm ; ab2 18:55 BP 127 / 76; Pulse 84; Resp 18; Pulse Ox 96% on 3 lpm NC; ab2 19:35 BP 124 / 81; Pulse 85; Resp 20; Temp 98.5; Pulse Ox 94% on 3 lpm NC; Pain 0/10; benjy 20:43 BP 119 / 76; Pulse 91; Resp 18; Pulse Ox 96% on 3 lpm NC; benjy 16:17 Body Mass Index 31.28 (85.28 kg, 165.10 cm) ww 16:17 placed on 3L NC O\\T\\ sat improved to 94% ww ED Course: 16:05 Patient arrived in ED. as 16:05 Griselda Quintanilla MD is Private Physician. as 16:09 Rafael Vines is Primary Nurse. ab2 16:09 [facility] cp 16:09 Jose Ramon Bedolla MD is Attending Physician. cp 16:19 Triage completed. ww 16:19 Arm band placed on right wrist. ww 16:30 Inserted saline lock: 20 gauge in right antecubital area, using aseptic technique. ab2 16:36 Basic Metabolic Panel Sent. ab2 16:36 Procalcitonin Sent. ab2 16:36 Lactate Sent. ab2 16:36 Blood Culture Adult (2) Sent. ab2 16:37 CBC with Diff Sent. ab2 16:37 LFT's Sent. ab2 16:37 Magnesium Sent. ab2 16:37 PT-INR Sent. ab2 16:37 NT PRO-BNP Sent. ab2 16:37 Troponin HS Sent. ab2 16:41 COVID-19/FLU A+B (Document "Date of Onset" if Symptomatic) Sent. ab2 16:41 Basic Metabolic Panel Sent. ab2 16:44 XRAY Chest (1 view) In Process Unspecified. EDMS 16:46 No provider procedures requiring assistance completed. ab2 17:00 Rey Aguiar PA is Hospitalizing Provider. cp 17:32 Patrick Prieto MD is Hospitalizing Provider. la1 17:51 EKG done, by ED staff, reviewed by Jose Ramon HUDSON. em1 19:36 Patient has correct armband on for positive identification. Bed in low position. Call benjy light in reach. Administered Medications: 16:45 Drug: SOLU-Medrol (methylPrednisoLONE) 125 mg Route: IVP; Site: right antecubital; ab2 18:30 Follow up: Response: No adverse reaction ab2 16:45 Drug: Albuterol - atroVENT (ipratropium) (3:1) (2.5 mg - 0.5 mg) 3 ml Route: Nebulizer; ab2 18:30 Follow up: Response: No adverse reaction ab2 17:20 CANCELLED (Physician Discretion): LevaQUIN (levofloxacin) 500 mg PO once cp 17:20 CANCELLED (Physician Discretion): NS 0.9% 1000 ml IV at 1 bolus Per protocol; 1000 mL cp bolus 17:46 Drug: NS 0.9% 1000 ml Route: IV; Rate: 1 bolus; Site: right antecubital; ab2 17:46 Drug: LevaQUIN (levofloxacin) 750 mg Volume: 150 ml; Route: IVPB; Infused Over: 90 ab2 mins; Site: right antecubital; 18:29 Follow up: Response: No adverse reaction; IV Status: Completed infusion ab2 Outcome: 17:01 Decision to Hospitalize by Provider. cp 19:36 Condition: stable benjy 20:43 Admitted to Med/surg accompanied by tech, via wheelchair, with oxygen, Report called to benjy Medsurg RN 20:53 Patient left the ED. lg3 Signatures: Dispatcher [employer] EDMS Teresa Hutson, Med em1 Pa Reinoso, ROLL UP MACHINE OPERATOR-C ROLL UP MACHINE OPERATOR-Cla1 Jose Ramon Vickers PA PA cp Gibson, Lacie, VEE RN lg3 Jessie Zhu RN RN bo Wood, Whitney, RN RN ww Bleininger, Alexis ab2 Corrections: (The following items were deleted from the chart) 18:28 18:16 BP 112 / 80; Pulse 97bpm; Resp 18bpm; Pulse Ox 96% 2 lpm; ab2 ab2 18:28 17:15 BP 117 / 98; Pulse 89bpm; Resp 18bpm; Pulse Ox 94% 2 lpm Nasal Cannula; ab2 ab2
[2021-12-24 17:11] LABS: Bilirubin Direct 0.1 mg/dL (0-0.2); Bilirubin Total 0.4 mg/dL (0.2-1.0); Magnesium 2.1 mg/dL (1.8-2.4); Potassium 3.6 mmol/L (3.5-5.1); Troponin High Sensitivity 10.3 pg/mL (<58.9)
[2021-12-24] MEDS ORDERED: Levofloxacin 750mg IV 750 MG/150 ML BAG IV ONE (17:46)
[2021-12-24] MEDS ORDERED: NA CHLORIDE 0.9% 1,000 ML ONE (17:46)
--- NOTE | 2021-12-24 17:48 | P.HP ---
Certification for Inpatient Patient admitted to: Inpatient With expected LOS: <2 Midnights Patient will require the following post-hospital care: None Practitioner: I am a practitioner with admitting privileges, knowledge of patient current condition, hospital course, and medical plan of care. Services: Services provided to patient in accordance with Admission requirements found in Title 42 Section 412.3 of the Code of Federal Regulations Patient History Date of Service: 12/24/21 Reason for admission: copd exacerbation History of Present Illness: Ms. Jon is a 61 yo F with COPD, HTN, OA, and depression who presents with 3 days of increased SOB, WHITTAKER, and yellow sputum production. She reports no relief with breathing treatments at home. She has diffuse wheezes on auscultation. 84% on room air upon arrival, improved to 94% on 3L NC. Received breathing treatments, IV steroids, and IV antibiotics in the ED. Allergies hydrocodone [Hydrocodone] Adverse Reaction (Mild, Verified 02/03/21 09:59) Itching Codeine Adverse Reaction (Mild, Uncoded 02/03/21 09:59) Itching Home Medications: Albuterol Sulfate [Proair Digihaler] 90 mcg IH PRN PRN 02/03/21 Duloxetine HCl 60 mg PO BEDTIME 02/03/21 Fluticasone/Umeclidin/Vilanter [Trelegy Ellipta 100-62.5-25] 1 each IH DAILY 02/03/21 HYDROcodone bitartrate [Hydrocodone Bitartrate ER] 10 mg PO PRN PRN 02/03/21 Losartan Potassium 50 mg PO BEDTIME 02/03/21 Mv-Mn/Folic Acid/Vit K/Utus051 [Alive Once Daily Women 50 Plus] 1 tab PO DAILY 02/03/21 Oxycodone HCl/Acetaminophen [Oxycodone-Acetaminophen 10-325] 1 each PO PRN PRN 02/03/21 Trazodone [Desyrel] 300 mg PO BEDTIME 02/03/21 Umeclidinium Brm/Vilanterol Tr [Anoro Ellipta 62.5-25 Mcg INH] 1 each IH DAILY 02/03/21 buPROPion HCL [Bupropion HCl Sr] 150 mg PO BID 02/03/21 - Past Medical/Surgical History Diabetic: No -: Alcohol abuse -: HTN -: 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 -: Osteoarthritis -: History of diverticulitis -: Depression with anxiety -: GERD -: COPD -: Tobacco abuse -: Hyperlipidemia -: Hyperlipidemia -: Tobacco abuse -: Hysterectomy -: Left knee surgery Psychosocial/ Personal History: Lives with mother. - Family History Mother -: Cancer Father Notes: parkinson's dse - Social History Smoking Status: Current some day smoker Alcohol use: No CD- Drugs: No Caffeine use: Yes Place of Residence: Home Review of Systems 10-point ROS is otherwise unremarkable General: Weakness, Malaise, Unremarkable Eyes: Unremarkable ENT: Unremarkable Respiratory: Cough, Shortness of Breath, SOB with Excertion, Sputum, Wheezing, As per HPI Cardiovascular: Unremarkable Gastrointestinal: Unremarkable Genitourinary: Unremarkable Musculoskeletal: Unremarkable Integumentary: Unremarkable Neurological: Unremarkable Lymphatics: Unremarkable Physical Examination - Physical Exam General: Alert, In no apparent distress, Oriented x3, Cooperative HEENT: Atraumatic, PERRLA, Mucous membr. moist/pink, EOMI, Sclerae nonicteric Neck: Supple, 2+ carotid pulse no bruit, No LAD, Without JVD or thyroid abnormality Respiratory: Diminished, Expiratory wheezes Cardiovascular: No edema, Regular rate/rhythm, Normal S1 S2 Capillary refill: <2 Seconds Gastrointestinal: Normal bowel sounds, No tenderness Musculoskeletal: No tenderness Integumentary: No rashes Neurological: Normal speech, Normal strength at 5/5 x4 extr, Normal tone, Normal affect Lymphatics: No axilla or inguinal lymphadenopathy - Studies Laboratory Data (last 24 hrs) 12/24/21 16:30: PT 10.8, INR 0.94 12/24/21 16:30: WBC 4.00 L, Hgb 15.0, Hct 45.4 H, Plt Count 179 12/24/21 16:30: Sodium 141, Potassium 3.6, BUN 10, Creatinine 0.79, Glucose 205 H, Magnesium 2.1, Total Bilirubin 0.4, AST 12 L, ALT 26, Alkaline Phosphatase 94 Assessment and Plan - Problems (Diagnosis) (1) Acute exacerbation of chronic obstructive pulmonary disease (COPD) Current Visit: No Status: Acute (2) Hypoxia Onset Date: 01/30/18 Current Visit: No Status: Acute (3) Alcohol abuse Onset Date: 01/30/18 Current Visit: No Status: Chronic (4) Chronic pain Current Visit: No Status: Chronic Qualifiers: Chronic pain type: chronic pain syndrome Qualified Code(s): G89.4 - Chronic pain syndrome (5) Hypertension Onset Date: 07/20/15 Current Visit: No Status: Chronic Qualifiers: Hypertension type: primary hypertension Qualified Code(s): I10 - Essential (primary) hypertension (6) Tobacco abuse Onset Date: 01/30/18 Current Visit: No Status: Chronic - Plan pulm consulted, RT consulted ABG pending continue PO antibiotics, IV steroids, breathing treatments continue O2 CIWA protocol, PRN ativian and librium DVT ppx Discharge Plan: Home Plan to discharge in: 48 Hours - Advance Directives Does patient have a Living Will: Yes Does patient have a Durable POA for Healthcare: No - Code Status/Comfort Care Code Status Assessed: Yes (full code ) Critical Care: No Time Spent Managing Pts Care (In Minutes): 70
[2021-12-24 18:04] LABS: SARS-COV-2 RT PCR NEGATIVE (NEGATIVE)
--- NOTE | 2021-12-24 18:13 | RAD REPORT ---
EXAM DESCRIPTION: Letty Single View12/24/2021 4:44 pm CLINICAL HISTORY: sob COMPARISON: 2019 FINDINGS: The lungs appear clear of acute infiltrate. The heart is normal size. Calcified granuloma left lung IMPRESSION: No acute abnormalities displayed
[2021-12-24] MEDS ORDERED: ALBUTEROL 2.5 MG/3 ML NEB SOL NEB PRN (21:05)
[2021-12-24] MEDS ORDERED: chlordiazePOXIDE HCl 5 MG CAP PO PRN (21:05)
[2021-12-24] MEDS ORDERED: LORazepam 2 MG/ML VIAL IV PRN (21:05)
[2021-12-24] MEDS ORDERED: ACETAMINOPHEN 500 MG TAB PO PRN (21:05)
[2021-12-24] MEDS ORDERED: ONDANSETRON 4 MG/2 ML VIAL IV PRN (21:05)
[2021-12-24 21:22] VITALS: BMI 31.4
[2021-12-24] MEDS: INSULIN -REGULAR HUMAN 50 UNIT/0.5 ML ML SQ SCH (21:45)
[2021-12-24] MEDS ORDERED: IPRATROPIUM BROM 0.5MG/2.5ML NEB PRN (23:00)
[2021-12-24] MEDS ORDERED: TRAZODONE 50 MG TABLET PO PRN (23:43)
[2021-12-25 06:51] LABS: Absolute Lymphocytes (CBC) 0.4 K/uL (0.7-4.9); Lymphocytes % 13.4 % (15.3-44.8); MPV 8.8 fL (7.6-11.3); RBC Red Blood Cell Count 4.67 M/uL (3.86-4.86)
[2021-12-25 07:17] LABS: ALT/SGPT 25 U/L (12-78); AST/SGOT 10 U/L (15-37); Albumin 3.5 g/dL (3.4-5.0); Alkaline Phosphatase 83 U/L (45-117); BUN Blood Urea Nitrogen 9 mg/dL (7-18); Bicarbonate 30 mmol/L (21-32); Bilirubin Total 0.2 mg/dL (0.2-1.0); Glucose Level 192 mg/dL (74-106); HDL Cholesterol 70 mg/dL (40-60); LDL Cholesterol, Calculated 90 (<130); Magnesium 2.4 mg/dL (1.8-2.4); Phosphorus 3.3 mg/dL (2.5-4.9); Potassium 3.9 mmol/L (3.5-5.1); Protein, Total 6.5 g/dL (6.4-8.2); Sodium Level 141 mmol/L (136-145); Thyroid Stimulating Hormone 0.197 uIU/mL (0.360-3.740)
[2021-12-25] MEDS: INSULIN -REGULAR HUMAN 50 UNIT/0.5 ML ML SQ SCH (07:30)
[2021-12-25 08:20] VITALS: BP 130/77; TEMP 97
[2021-12-25] MEDS: METHYLPREDNISOLONE 40 MG INJ IV SCH ×2 (08:27)
[2021-12-25 08:38] LABS: Blood Morphology Comment NOT SEEN (NOT SEEN); Platelet Estimate ADEQ
[2021-12-25] MEDS ORDERED: ENOXAPARIN 40 MG/0.4 ML SQ SCH (09:00)
[2021-12-25] MEDS ORDERED: POTASSIUM CL SA 10 MEQ TAB PO ONE (09:00)
[2021-12-25] MEDS ORDERED: levoFLOXacin 750 MG TAB PO SCH (09:00)
--- NOTE | 2021-12-25 09:12 | P.CNS ---
Date of Consult: 12/25/21 Reason for Consult: COPD exacerbation Chief Complaint: copd exacerbation History of Present Illness: Patient is 61 years of age well-known to me history of recurrent exacerbations became sick about 3 days ago started having increasing cough shortness of breath admitted to the hospital she still smokes compliant with her inhalers not have any steroids at home feeling a little better Allergies hydrocodone [Hydrocodone] Adverse Reaction (Mild, Verified 02/03/21 09:59) Itching Codeine Adverse Reaction (Mild, Uncoded 02/03/21 09:59) Itching Home Medications: Albuterol Sulfate [Proair Digihaler] 90 mcg IH PRN PRN 02/03/21 Duloxetine HCl 60 mg PO BEDTIME 02/03/21 Fluticasone/Umeclidin/Vilanter [Trelegy Ellipta 100-62.5-25] 1 each IH DAILY 02/03/21 HYDROcodone bitartrate [Hydrocodone Bitartrate ER] 10 mg PO PRN PRN 02/03/21 Losartan Potassium 50 mg PO BEDTIME 02/03/21 Mv-Mn/Folic Acid/Vit [id number] [Alive Once Daily Women 50 Plus] 1 tab PO DAILY 02/03/21 Oxycodone HCl/Acetaminophen [Oxycodone-Acetaminophen 10-325] 1 each PO PRN PRN 02/03/21 Trazodone [Desyrel] 300 mg PO BEDTIME 02/03/21 Umeclidinium Brm/Vilanterol Tr [Anoro Ellipta 62.5-25 Mcg INH] 1 each IH DAILY 02/03/21 buPROPion HCL [Bupropion HCl Sr] 150 mg PO BID 02/03/21 - Past Medical/Surgical History Diabetic: No -: Alcohol abuse -: HTN -: 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 -: Osteoarthritis -: History of diverticulitis -: Depression with anxiety -: GERD -: COPD -: Tobacco abuse -: Hyperlipidemia -: Hyperlipidemia -: Tobacco abuse -: Hysterectomy -: Left knee surgery Psychosocial/ Personal History: Lives with mother. - Family History Mother Medical History: Cancer Father Notes: parkinson's dse - Social History Smoking Status: Current every day smoker Alcohol use: Yes CD- Drugs: No Caffeine use: Yes Place of Residence: Home Review of Systems 10-point ROS is otherwise unremarkable General: Weakness Respiratory: Shortness of Breath Physical Examination Temp Pulse Resp BP Pulse Ox 97.0 F 88 20 130/77 90 L 12/25/21 08:00 12/25/21 08:00 12/25/21 08:00 12/25/21 08:00 12/25/21 08:00 General: Alert, In no apparent distress, Oriented x3 Respiratory: Expiratory wheezes Cardiovascular: No edema, Regular rate/rhythm, Normal S1 S2 Laboratory Data (last 24 hrs) 12/24/21 16:30: PT 10.8, INR 0.94 12/24/21 16:30: WBC 4.00 L, Hgb 15.0, Hct 45.4 H, Plt Count 179 12/24/21 16:30: Sodium 141, Potassium 3.6, BUN 10, Creatinine 0.79, Glucose 205 H, Magnesium 2.1, Total Bilirubin 0.4, AST 12 L, ALT 26, Alkaline Phosphatase 94 - Problems (1) COPD with exacerbation Current Visit: Yes Status: Acute Plan: Patient is 61 years of age well-known to me and recurrent history of exacerbations admitted with worsening cough congestion chest x-ray shows some interstitial changes cannot exclude an infection recommend discharge home on prednisone and levofloxacin vital signs all stable follow-up with me in 2 weeks labs chest x-rays all reviewed
[2021-12-25 09:24] VITALS: O2SAT 90
--- NOTE | 2021-12-25 12:45 | EKG ---
Test Date: 2021-12-24 Test Time: 17:46:36 Light Fixture Servicer: YUSUF MEASUREMENT RESULTS: Intervals: Rate: 91 CA: 162 QRSD: 92 QT: 378 QTc: 464 [place]: P: 69 CA: 162 QRS: -66 T: 64 INTERPRETIVE STATEMENTS: Normal sinus rhythm Left axis deviation Low voltage QRS Inferior infarct, age undetermined Cannot rule out Anterior infarct, age undetermined Abnormal ECG Compared to ECG 05/20/2020 17:13:06 Prolonged QT interval no longer present Myocardial infarct finding still present Electronically Signed On 12-25-21 12:44:50 [employer] ADMINISTRATOR by Jacques Serrano
--- NOTE | 2021-12-25 18:05 | P.DS ---
Admission Date: 12/24/21 Discharge Date: 12/25/21 Disposition: ROUTINE DISCHARGE Discharge Condition: GOOD Reason for Admission: copd exacerbation Consultations: Pulmonology Procedures: Problem List acute on chronic hypoxemic respiratory failure secondary to acute on chronic COPD exacerbation h/o alcohol abuse nicotine/tobacco dependence chronic pain HTN Brief History of Present Illness: 61 yo F with COPD, HTN, OA, and depression who presents with 3 days of increased SOB, WHITTAKER, and yellow sputum production. She reports no relief with breathing treatments at home. She has diffuse wheezes on auscultation. 84% on room air upon arrival, improved to 94% on 3L NC. Received breathing treatments, IV steroids, and IV antibiotics in the ED. Hospital Course: Patient was found to have a COPD exacerbation. Chest xray revealed some mild opacities that could reflect a mild pneumonia. Patient improved with steroids, nebulizers, and antibiotic. Pulmonology was consulted, recommended levaquin and prednisone. Patient was deemed stable for discharge home, breathing more comfortably on her usual/home 3L NC Counselled on smoking/nicotine cessation. Follow up with Dr. Jones in 1 week Vital Signs/Physical Exam: Temp Pulse Resp BP Pulse Ox 97.0 F 88 20 130/77 90 L 12/25/21 08:00 12/25/21 08:00 12/25/21 08:00 12/25/21 08:00 12/25/21 08:00 General: Alert, In no apparent distress, Oriented x3 HEENT: Sclerae nonicteric Respiratory: Diminished, Expiratory wheezes (mild, bilaterally) Cardiovascular: No edema, Regular rate/rhythm Gastrointestinal: Soft and benign, Non-distended, No tenderness Musculoskeletal: No erythema, No tenderness Integumentary: No rashes, No significant lesion Neurological: Normal speech, Normal affect Laboratory Data at Discharge: WBC 2.80 K/uL (4.3-10.9) L D 12/25/21 06:09 Hgb 14.2 g/dL (12.0-15.0) 12/25/21 06:09 Hct 44.0 % (36.0-45.0) 12/25/21 06:09 Plt Count 162 K/uL (152-406) 12/25/21 06:09 PT 10.8 SECONDS (9.5-12.5) 12/24/21 16:30 INR 0.94 12/24/21 16:30 Sodium 141 mmol/L (136-145) 12/25/21 05:31 Potassium 3.9 mmol/L (3.5-5.1) 12/25/21 05:31 BUN 9 mg/dL (7-18) 12/25/21 05:31 Creatinine 0.46 mg/dL (0.55-1.3) L 12/25/21 05:31 Glucose 192 mg/dL (74-106) H 12/25/21 05:31 Phosphorus 3.3 mg/dL (2.5-4.9) 12/25/21 05:31 Magnesium 2.4 mg/dL (1.8-2.4) 12/25/21 05:31 Total Bilirubin 0.2 mg/dL (0.2-1.0) 12/25/21 05:31 AST 10 U/L (15-37) L 12/25/21 05:31 ALT 25 U/L (12-78) 12/25/21 05:31 Alkaline Phosphatase 83 U/L (45-117) 12/25/21 05:31 Triglycerides 74 mg/dL (<150) 12/25/21 05:31 Cholesterol 175 mg/dL (<200) 12/25/21 05:31 HDL Cholesterol 70 mg/dL (40-60) H 12/25/21 05:31 Cholesterol/HDL Ratio 2.50 12/25/21 05:31 Home Medications: Albuterol Sulfate [Proair Digihaler] 90 mcg IH PRN PRN 02/03/21 Duloxetine HCl 60 mg PO BEDTIME 02/03/21 Fluticasone/Umeclidin/Vilanter [Trelegy Ellipta 100-62.5-25] 1 each IH DAILY 02/03/21 HYDROcodone bitartrate [Hydrocodone Bitartrate ER] 10 mg PO PRN PRN 02/03/21 Losartan Potassium 50 mg PO BEDTIME 02/03/21 Mv-Mn/Folic Acid/Vit [id number] [Alive Once Daily Women 50 Plus] 1 tab PO DAILY 02/03/21 Oxycodone HCl/Acetaminophen [Oxycodone-Acetaminophen 10-325] 1 each PO PRN PRN 02/03/21 Trazodone [Desyrel*] 300 mg PO BEDTIME 02/03/21 Umeclidinium Brm/Vilanterol Tr [Anoro Ellipta 62.5-25 Mcg INH] 1 each IH DAILY 02/03/21 buPROPion HCL [Bupropion HCl Sr] 150 mg PO BID 02/03/21 levoFLOXacin [Levaquin*] 750 mg PO DAILY 7 Days #7 tab 12/25/21 predniSONE [Prednisone] 20 mg PO BID 4 Days #8 tablet 12/25/21 New Medications: levoFLOXacin [Levaquin*] 750 mg PO DAILY 7 Days #7 tab predniSONE [Prednisone] 20 mg PO BID 4 Days #8 tablet Physician Discharge Instructions: Patient was found to have a COPD exacerbation. Chest xray revealed some mild opacities that could reflect a mild pneumonia. Patient improved with steroids, nebulizers, and antibiotic. Pulmonology was consulted, recommended levaquin and prednisone. Patient was deemed stable for discharge home, breathing more comfortably on her usual/home 3L NC Counselled on smoking/nicotine cessation. Follow up with Dr. Jones in 1 week Followup: Rony Jones MD [ACTIVE - CAN ADMIT] - (Call to schedule appointment) Griselda Quintanilla DO [Primary Care Provider] - (Call to schedule appointment) Time spent managing pt's care (in minutes): 45
== END 2021-12-25 10:57 | disposition home or self-care (01) ==
LOC: ER 16:04 → ERHOLD 18:29 → 2ND 20:37
PROVIDERS: ADMIT Hospitalist; ATTEND Hospitalist
DX: J44.1 Chronic obstructive pulmonary disease with (acute) exacerbation (principal); J96.21 Acute and chronic respiratory failure with hypoxia; G89.4 Chronic pain syndrome; M54.9 Dorsalgia, unspecified; I10 Essential (primary) hypertension; E78.5 Hyperlipidemia, unspecified; K21.9 Gastro-esophageal reflux disease without esophagitis; F41.8 Other specified anxiety disorders; M19.90 Unspecified osteoarthritis, unspecified site; M47.9 Spondylosis, unspecified; F10.11 Alcohol abuse, in remission; F17.210 Nicotine dependence, cigarettes, uncomplicated; Z71.6 Tobacco abuse counseling; Z20.822 Contact with and (suspected) exposure to COVID-19; Z88.6 Allergy status to analgesic agent; Z90.710 Acquired absence of both cervix and uterus; Z80.9 Family history of malignant neoplasm, unspecified; Z82.0 Family history of epilepsy and other diseases of the nervous system
CPT/HCPCS: 96365; 93005; 87040 ×2; 85025 ×2; 80048; 36415; 80320; 83735 ×2; 84100; 85610; 80061; 82947; 80076; 83605 ×2; 84443; 84484; 84439; 80053; 84145; 83880; 0240U; 71045; 94640 ×2; 94760; 96375; 99285; J1650; J7030; J2930; J2920 ×2; G0378 ×3

== ENCOUNTER 2023-12-05 07:38 | Day surgery (SDC) | payer OTHER ==
--- NOTE | 2023-12-04 13:42 | EKG ---
Test Date: 2023-12-01 Test Time: 14:42:23 Jukebox Checker: DESMOND MEASUREMENT RESULTS: Intervals: Rate: 88 AK: 158 QRSD: 100 QT: 402 QTc: 486 [place]: P: 81 AK: 158 QRS: -85 T: 73 INTERPRETIVE STATEMENTS: Normal sinus rhythm Left axis deviation Pulmonary disease pattern Incomplete right bundle branch block Abnormal ECG Compared to ECG 12/24/2021 17:46:36 Incomplete right bundle-branch block now present Myocardial infarct finding no longer present Electronically Signed On 12-04-23 13:34:29 PURCHASING COORDINATOR by Noel Bonilla
[2023-12-05] MEDS: Ringers Lactate 1,000 ML IV ONE (08:15)
[2023-12-05] MEDS ORDERED: propofoL 200 MG/20 ML VIAL IV ONE ×3 (09:02→09:27)
[2023-12-05 10:53] VITALS: BP 134/82; TEMP 97.4; O2SAT 98
== END 2023-12-05 10:25 | disposition home or self-care (01) ==
LOC: OR 07:38
PROVIDERS: ATTEND Internal Medicine Gastroenterology
PROC: 0DBN8ZX Excision of Sigmoid Colon, Via Natural or Artificial Opening Endoscopic, Diagnostic (ICD-10-PCS; 2023-12-05)
PROC: 0DBF8ZX Excision of Right Large Intestine, Via Natural or Artificial Opening Endoscopic, Diagnostic (ICD-10-PCS; principal; 2023-12-05 09:00)
DX: Z12.11 Encounter for screening for malignant neoplasm of colon (principal); K63.5 Polyp of colon; K62.89 Other specified diseases of anus and rectum; K57.30 Diverticulosis of large intestine without perforation or abscess without bleeding; K64.8 Other hemorrhoids; K52.9 Noninfective gastroenteritis and colitis, unspecified; Z86.010 Personal history of colon polyps; Z99.81 Dependence on supplemental oxygen
CPT/HCPCS: 93005; 88305; 45380; J2704 ×3; J7120; 88304

== ENCOUNTER 2024-06-30 17:48 | Emergency (ER) | payer OTHER ==
--- OUTSIDE RECORDS SUMMARY | 2024-06-30 17:55 | XMS REPORT | Continuity of Care Document ---
Author Name Unknown Address [address] [facility] [address] [place] [address] [facility] thconnect Address [address] [facility] [address] [place] [address] Care Team Providers Care Pot Fluxer Name Role Phone GALILEA, KAREN Primary Care Physician UnavailDEVIN Duong Attending Clinician UnavailKaren Fernando Attending Clinician Unavailable ESTELA LUBIN Attending Clinician Unavailable TRACI MOODY Attending Clinician Unava ilable Pob, [facility] Main Attending Clinician UnavailDevin Yoo MD Attending Clinician [phone] Doctor Unassigned, [place] Attending Clinician Vitaliy Lainez MD Attending Clinician [phone] VITALIY BALTAZAR Attending Clinician UnavailBEAR Sainz Attending Clinician Unavaila ble Only, Adc Test Attending Clinician Unavailable CARMEN TURNER Attending Clinician Unavailable CARMEN TURNER Attending Clinician Unavailable Carmen Turner DO Attending Clinician Nallelyayo_A_AH Attending Clinician Unavailable Radiology Attending Clinician Unavailable Luz Chacko MD Attending Clinician [phone] RADIOLOGY Attending Clinician Unavailable DEVIN PARMAR Admitting Clinician Unavailab Karen Galan Admitting Clinician Unavailable BEAR BRANTLEY Admitting Clinician Unavailluther Parmar MD, Devin Argueta Admitting Clinician Alisha_A_AH Admitting Clinician Unavailable SUKHJINDER LIM Admitting Clinician Unavailable Payers Payer Name Policy Type Policy Number Effective Date Expirati on Date Source WELL[employer]/AARP MEDICARE ADVANTAGE [id number] 2021 00:00:00 [employer] [place] CLASSIC/VALUE [id number] 2019 00:00:00 AARP [place] [facility] [place] HMO 7 [id number] 2023 00:00:00 [facility] FFS 5 [id number] 2023 00:00:00 [facility] Advantage (HMO-POS) 511 [id number] 2021 00:00:00 [facility] C1 [id number] 2020 00:00:00 [facility] C1 [id number] 2020 00:00:00 [facility] C1 [id number] 2020 00:00:00 [facility] C1 [id number] 2020 00:00:00 [facility] C1 [id number] 2020 00:00:00 [facility] BCBS FED SELECT [id number] 1990 00:00:00 MEDICARE PART A \T\ B [id number] 2018 00:00:00 [place] OF [place] (MEDICARE REPLACEMENT/ADV ANTAGE - HMO) [id number] 2019 00:00:00 Problems Condition Name Condition Details Condition Category Status Onset Date Resolution Date Last Treatment Date Treating Clinician Comments Source Immunodefi ciency due to conditions classified elsewhere (multi HCC) Immunodefi ciency due to conditions classified elsewhere (multi HCC) Disease Active 2022-10 00:00: 00 Nasima Shah - Externa l Overweight (BMI 25.0-29.9) Overweight (BMI 25.0-29.9) Disease Active 2022-10 00:00: 00 Nasima Shah - Externa l Well adult exam Well adult exam Disease Active 2022-10 00:00: 00 Nasima Armendarizold - Externa l COPD (chronic obstructiv e pulmonary disease) (multi HCC) COPD (chronic obstructiv e pulmonary disease) (multi HCC) Disease Active 2022-10 00:00: 00 Naisma Shah - Externa cyril HTN (hypertens ion) HTN (hypertens ion) Disease Active 2022-10 00:00: 00 Nasima Shah - Externa l Chronic back pain Chronic back pain Disease Active 2022-10 00:00: 00 Nasima Shah - Externa l History of back surgery History of back surgery Disease Active 2022-10 00:00: 00 Nasima Shah - Externa l Insomnia Insomnia Disease Active 2022-10 00:00: 00 Nasima Shah - Externa l Vitamin D deficiency Vitamin D deficiency Disease Active 2022-10 00:00: 00 Nasima Shah - Externa l Tobacco use Tobacco use Disease Active 2022-10 00:00: 00 Nasima Shah - Externa l [id number] Lesion of face Problem [facility] [id number] Arthralgia , unspecifie d joint Problem [facility] [id number] Localized edema Problem [facility] [id number] Acute pain of right knee Problem [facility] [id number] Pain in left knee Problem [facility] [id number] Effusion of bursa of left knee Problem [facility] [id number] Effusion, right knee Problem [facility] [id number] Primary osteoarthr itis of both knees Problem [facility] [id number] Sciatica, left side Problem [facility] [id number] History of colon polyps Problem [facility] [id number] Cigarette nicotine dependence without complicati on Problem [facility] [id number] Other bursitis of knee, right knee Problem [facility] [id number] Simple chronic bronchitis Problem [facility] [id number] Decreased vision of left eye Problem [facility] [id number] Primary insomnia Problem [facility] [id number] Chronic major depressive disorder, recurrent episode Problem [facility] [id number] Cataract of left eye, unspecifie d cataract type Problem [facility] [id number] Essential hypertensi on Problem [facility] [id number] Internal derangemen t of right knee Problem [facility] Chronic fatigue syndrome Chronic fatigue Problem [facility] [id number] Primary osteoarthr itis of left knee Problem [facility] [id number] Needs flu shot Problem [facility] Hypertrigl yceridemia Hypertrigl yceridemia Problem [facility] [id number] Elevated fasting glucose Problem [facility] [id number] Acute bilateral back pain, unspecifie d back location Problem [facility] [id number] Anxiety Problem [facility] [id number] 66573 Primary osteoarthr itis of right knee Problem [facility] [id number] Senile cataract of left eye, unspecifie d age-relate d cataract type Problem [facility] [id number] Lumbago with sciatica, left side Problem [facility] [id number] Other chronic pain Problem [facility] Skin sensation disturbanc e Paresthesi a of skin Problem [facility] Allergies, Adverse Reactions, Alerts Allergy Name Allergy Type Status Severity Reaction(s) Onset Date Inactive Date Treating Clinician Comments Source Tramadol Propensi ty to adverse reaction s Active 2022-10 00:00: 00 Other reaction( s): Unknown Nasima Shah - Externa l HYDROCOD ONE DRUG INGREDI Active ITCHING 04-17 00:00: 00 [facility] Hydrocod one Propensi ty to adverse reaction s Active Itching 04-17 00:00: 00 Nasima Shah - Externa l NO KNOWN ALLERGIE S Drug Class Active [facility] tramadol tramadol Active Unknown [facility] Social History Social Habit Start Date Stop Date Quantity Comments Source Sexual orientation iSntia Shah - External History of tobacco use Cigarette Smoker Nasima Kim External Exposure to SARS-CoV-2 (event) Not sure [facility] Alcohol intake 2023-09-19 00:00:00 2023-09-19 00:00:00 Current drinker of alcohol (finding) Nasima Shah - External History of Social function 2023-09-19 00:00:00 2023-09-19 00:00:00 Nasima Shah - External Cigarette pack-years 2023-08-08 00:00:00 2023-08-08 00:00:00 Nasima Shah - External Tobacco use and exposure 2023-08-08 00:00:00 2023-08-08 00:00:00 Smokeless tobacco non-user Nasima Shah - External Education - What is the highest level of school you have completed or the highest degree you have received? 2023-08-08 00:00:00 2023-08-08 00:00:00 GED or equivalent Nasima Shah - External Alcohol Comment 2023-08-08 00:00:00 2023-08-08 00:00:00 rarely Nasima Shah - External Cigarettes smoked current (pack per day) - Reported 2023-08-08 00:00:00 2023-08-08 00:00:00 Nasima Shah - External Tobacco Comment 2020-06-04 00:00:00 2020-06-04 00:00:00 1.5 ppd [facility] Sex Assigned At 1960 00:00:00 1960 00:00:00 Nasima Galeana Smoking Status Start Date Stop Date Source Unknown if ever smoked [facility] Smokes tobacco daily 2023-08-08 00:00:00 Nasima Galeana Medications Ordered Medication Name Filled Medication Name Start Date Stop Date Current Medication? Ordering Clinician Indication Dosage Frequency Signature (SIG) Comments Components Source Hyalgan Hyalgan 2022-10 0- 00:00: 00 No 2mL [facility] Hyalgan Hyalgan 2022-10 0-23 00:00: 00 No 2mL [facility] Hyalgan Hyalgan 2022-10 0-23 00:00: 00 No 2mL [facility] Hyalgan Hyalgan 2022-10 0-23 00:00: 00 No 2mL [facility] Hyalgan Hyalgan 2022-10 0-23 00:00: 00 No 2mL [facility] Fluticasone -Salmeterol (Advair HFA) 230-21 MCG/ACT inhalation Aerosol 2022-10 11:32: 25 08-08 00:00 :00 No Advair HFA Osiel Rosadoa cyril Losartan Potassium (COZAAR) 100 MG oral Tablet 2022-10 00:00: 00 Yes [id number] 100mg Take 1 tablet (100 mg total) by mouth daily. Nasima Rosadoa cyril Albuterol HFA 108 (90 Base) MCG/ACT IN AERS 2022-10 00:00: 00 Yes [id number] 2{puff} Q.25D Inhale 2 puffs into the lungs every 6 hours as needed for wheezing or shortness of breath. Nasima Kim Externa cyril Fluticasone -Umeclidin- Vilant (Trelegy Ellipta) 100-62.5-25 MCG/ACT inhalation AEROSOL POWDER, BREATH ACTIVATED 2022-10 00:00: 00 Yes [id number] 1{puff} Inhale 1 puff into the lungs daily. Nasima Shah - Externa l Hyalgan Hyalgan 2022-10 0-16 00:00: 00 No 2mL [facility] Hyalgan Hyalgan 2022-10 0-16 00:00: 00 No 2mL [facility] Hyalgan Hyalgan 2022-10 0-16 00:00: 00 No 2mL [facility] Hyalgan Hyalgan 2022-10 0-16 00:00: 00 No 2mL [facility] Hyalgan Hyalgan 2022-10 0-16 00:00: 00 No 2mL [facility] BUPivacaine HCl BUPivacaine HCl 2022-10 0-09 00:00: 00 No 4mL [facility] Kenalog (Triamcinol one) Kenalog (Triamcinol one) 2022-10 0-09 00:00: 00 No 1mL [facility] Hyalgan Hyalgan 2022-10 0-09 00:00: 00 No 2mL [facility] BUPivacaine HCl BUPivacaine HCl 2022-10 0-09 00:00: 00 No 4mL [facility] Kenalog (Triamcinol one) Kenalog (Triamcinol one) 2022-10 0-09 00:00: 00 No 1mL [facility] Hyalgan Hyalgan 2022-10 0-09 00:00: 00 No 2mL [facility] BUPivacaine HCl BUPivacaine HCl 2022-10 0-09 00:00: 00 No 4mL [facility] Kenalog (Triamcinol one) Kenalog (Triamcinol one) 2022-10 0-09 00:00: 00 No 1mL [facility] Hyalgan Hyalgan 2022-10 0-09 00:00: 00 No 2mL [facility] BUPivacaine HCl BUPivacaine HCl 2022-10 0-09 00:00: 00 No 4mL [facility] Kenalog (Triamcinol one) Kenalog (Triamcinol one) 2022-10 0-09 00:00: 00 No 1mL [facility] Hyalgan Hyalgan 2022-10 0-09 00:00: 00 No 2mL [facility] BUPivacaine HCl BUPivacaine HCl 2022-10 0 00:00: 00 No 4mL [facility] Kenalog (Triamcinol one) Kenalog (Triamcinol one) 2022-10 0 00:00: 00 No 1mL [facility] Hyalgan Hyalgan 2022-10 0- 00:00: 00 No 2mL [facility] Duloxetine HCl [address] Particles 07-04 00:00: 00 Yes 60mg Take 1 capsule (60 mg total) by mouth daily. Nasima Shah - Externa cyril Losartan Potassium (COZAAR) 100 MG oral Tablet 07-04 00:00: 00 08-08 00:00 :00 No 100mg Take 1 tablet (100 mg total) by mouth daily. Nasima Shah - Externa l Bupivicaine Rice Bupivicaine Rice 03-30 00:00: 00 No [facility] Depo-Medrol (Methylpred nisolone) 40mg Depo-Medrol (Methylpred nisolone) 40mg 03-30 00:00: 00 No 40mg [facility] Bupivicaine Rice Bupivicaine Rice 03-30 00:00: 00 No 2.5mg [facility] Depo-Medrol (Methylpred nisolone) 40mg Depo-Medrol (Methylpred nisolone) 40mg 03-30 00:00: 00 No 40mg [facility] Depo-Medrol (Methylpred nisolone) 40mg Depo-Medrol (Methylpred nisolone) 40mg 03-30 00:00: 00 No 40mg [facility] Bupivicaine Rice Bupivicaine Rice 03-30 00:00: 00 No 2.5mg [facility] Depo-Medrol (Methylpred nisolone) 40mg Depo-Medrol (Methylpred nisolone) 40mg 03-30 00:00: 00 No 40mg [facility] Bupivicaine Rice Bupivicaine Rice 2020-0 03-30 00:00: 00 No 2.5mg [facility] Depo-Medrol (Methylpred nisolone) 40mg Depo-Medrol (Methylpred nisolone) 40mg 0 03-30 00:00: 00 No 40mg [facility] Bupivicaine Rice Bupivicaine Rice 0 03-30 00:00: 00 No 2.5mg [facility] Depo-Medrol (Methylpred nisolone) 40mg Depo-Medrol (Methylpred nisolone) 40mg 2020-0 03-30 00:00: 00 No 40mg [facility] Bupivicaine Rice Bupivicaine Rice 0 03-30 00:00: 00 No 2.5mg [facility] Depo-Medrol (Methylpred nisolone) 40mg Depo-Medrol (Methylpred nisolone) 40mg 0 03-30 00:00: 00 No 40mg [facility] Bupivicaine Rice Bupivicaine Rice 0 08 00:00: 00 No 2.5mg [facility] Triamcinolo ne Acetonide 0.1 % Triamcinolo ne Acetonide 0.1 % 0 2 00:00: 00 No 1{appli cation_ to_affe cted_ar ea} BID Triamcinol one Acetonide 0.1 % Triamcinolo ne Acetonide 0.1 % Triamcinolo ne Acetonide 0.1 % 0 2 00:00: 00 No 1{appli cation_ to_affe cted_ar ea} BID Triamcinol one Acetonide 0.1 % Triamcinolo ne Acetonide 0.1 % Triamcinolo ne Acetonide 0.1 % 0 2-12 00:00: 00 No 1{appli cation_ to_affe cted_ar ea} BID Triamcinol one Acetonide 0.1 % Triamcinolo ne Acetonide 0.1 % Triamcinolo ne Acetonide 0.1 % 0 2- 00:00: 00 No 1{appli cation_ to_affe cted_ar ea} BID Triamcinol one Acetonide 0.1 % Triamcinolo ne Acetonide 0.1 % Triamcinolo ne Acetonide 0.1 % 0 2 00:00: 00 No 1{appli cation_ to_affe cted_ar ea} BID Triamcinol one Acetonide 0.1 % Triamcinolo ne Acetonide 0.1 % Triamcinolo ne Acetonide 0.1 % 0 2 00:00: 00 No 1{appli cation_ to_affe cted_ar ea} BID Triamcinol one Acetonide 0.1 % Triamcinolo ne Acetonide 0.1 % Triamcinolo ne Acetonide 0.1 % 0 2 00:00: 00 No 1{appli cation_ to_affe cted_ar ea} BID Triamcinol one Acetonide 0.1 % Triamcinolo ne Acetonide 0.1 % Triamcinolo ne Acetonide 0.1 % 0 12-04 00:00: 00 No 1{appli cation_ to_affe cted_ar ea} BID Triamcinol one Acetonide 0.1 % Triamcinolo ne Acetonide 0.1 % Triamcinolo ne Acetonide 0.1 % 0 12-04 00:00: 00 No 1{appli cation_ to_affe cted_ar ea} BID Triamcinol one Acetonide 0.1 % Triamcinolo ne Acetonide 0.1 % Triamcinolo ne Acetonide 0.1 % 0 12-04 00:00: 00 No 1{appli cation_ to_affe cted_ar ea} BID Triamcinol one Acetonide 0.1 % Clotrimazol e 1 % Clotrimazol e 1 % 0 2 00:00: 00 01-29 00:00 :00 No 1{appli cation_ to_affe cted_ar ea} BID Clotrimazo le 1 % Clotrimazol e 1 % Clotrimazol e 1 % 12-04 00:00: 00 01-29 00:00 :00 No 1{appli cation_ to_affe cted_ar ea} BID Clotrimazo le 1 % Ativan 0.5 MG Ativan 0.5 MG 11-16 00:00: 00 No Ativan 0.5 MG Ativan 0.5 MG Ativan 0.5 MG 11-16 00:00: 00 No Ativan 0.5 MG Ativan 0.5 MG Ativan 0.5 MG 11-16 00:00: 00 No Ativan 0.5 MG Ativan 0.5 MG Ativan 0.5 MG 11-16 00:00: 00 No Ativan 0.5 MG Ativan 0.5 MG Ativan 0.5 MG 11-16 00:00: 00 No Ativan 0.5 MG Ativan 0.5 MG Ativan 0.5 MG 11-16 00:00: 00 No Ativan 0.5 MG Ativan 0.5 MG Ativan 0.5 MG 11-16 00:00: 00 No Ativan 0.5 MG Ativan 0.5 MG Ativan 0.5 MG 11-16 00:00: 00 No Ativan 0.5 MG Ativan 0.5 MG Ativan 0.5 MG 11-16 00:00: 00 No Ativan 0.5 MG Ativan 0.5 MG Ativan 0.5 MG 11-16 00:00: 00 No Ativan 0.5 MG BuPROPion HCl ER (SR) 150 MG BuPROPion HCl ER (SR) 150 MG 11-04 00:00: 00 No 1{table t_in_th e_morni ng} QD BuPROPion HCl ER (SR) 150 MG BuPROPion HCl ER (SR) 150 MG BuPROPion HCl ER (SR) 150 MG 11-04 00:00: 00 No 1{table t_in_th e_morni ng} QD BuPROPion HCl ER (SR) 150 MG losartan 25 mg tablet 06-08 14:00: 37 Yes 25mg Take 25 mg by mouth. [facility] triamcinolo ne acetonide (KENALOG) injection 06-08 12:42: 00 Yes PRN, Starting Mon06/08/20 at 0742, Until Discontinu ed, Routine, Intra-op [facility] iohexol (OMNIPAQUE 350 BULK-50 mL) injection 06-08 12:42: 00 Yes PRN, Starting Mon06/08/20 at 0742, Until Discontinu ed, Routine, Intra-op [facility] bupivacaine (preserv free) (SENSORCAIN E MPF) 0.25 % (2.5 mg/mL) injection 06-08 12:42: 00 Yes PRN, Starting Mon06/08/20 at 0742, Until Discontinu ed, Routine, [facility]% (XYLOCAINE) 10 mg/mL (1 %) injection 06-08 12:41: 00 Yes PRN, Starting Mon06/08/20 at 0741, Until Discontinu ed, Routine, Intra-op [facility] lactated ringers IV infusion 1,000 mL 06-08 12:00: 00 06-08 12:28 :00 No 1000mL at 20 mL/hr, 1,000 mL, IV Infusion, ONCE, 1 dose, Mon06/08/20 at 0700, Routine, DSU Pre-op [facility] losartan 25 mg tablet 06-08 09:00: 37 Yes 25mg Take 25 mg by mouth. [facility] Hyalgan 20 mg Hyalgan 20 mg 05-12 00:00: 00 No 2mL [facility] Hyalgan 20 mg Hyalgan 20 mg 05-12 00:00: 00 No 2mL [facility] Hyalgan 20 mg Hyalgan 20 mg 05-12 00:00: 00 No 2mL [facility] Hyalgan 20 mg Hyalgan 20 mg 05-12 00:00: 00 No 2mL [facility] Hyalgan 20 mg Hyalgan 20 mg 05-12 00:00: 00 No 2mL [facility] Hyalgan 20 mg Hyalgan 20 mg 05-12 00:00: 00 No 2mL [facility] Hyalgan 20 mg Hyalgan 20 mg 05-12 00:00: 00 No 2mL [facility] Hyalgan 20 mg Hyalgan 20 mg 05-05 00:00: 00 No 2mL [facility] Hyalgan 20 mg Hyalgan 20 mg 05-05 00:00: 00 No 2mL [facility] Hyalgan 20 mg Hyalgan 20 mg 05-05 00:00: 00 No 2mL [facility] Hyalgan 20 mg Hyalgan 20 mg 05-05 00:00: 00 No 2mL [facility] Hyalgan 20 mg Hyalgan 20 mg 05-05 00:00: 00 No 2mL [facility] Hyalgan 20 mg Hyalgan 20 mg 05-05 00:00: 00 No 2mL [facility] Hyalgan 20 mg Hyalgan 20 mg 05-05 00:00: 00 No 2mL [facility] Hyalgan 20 mg Hyalgan 20 mg 04-28 00:00: 00 No 2mL [facility] Kenalog (Triamcinol one) Kenalog (Triamcinol one) 04-28 00:00: 00 No 40mg [facility] Bupivicaine Rice Bupivicaine Rice 04-28 00:00: 00 No 4mL [facility] Hyalgan 20 mg Hyalgan 20 mg 04-28 00:00: 00 No 2mL [facility] Kenalog (Triamcinol one) Kenalog (Triamcinol one) 04-28 00:00: 00 No 40mg [facility] Bupivicaine Rice Bupivicaine Rice 04-28 00:00: 00 No 4mL [facility] Hyalgan 20 mg Hyalgan 20 mg 04-28 00:00: 00 No 2mL [facility] Bupivicaine Rice Bupivicaine Rice 04-28 00:00: 00 No 4mL [facility] Kenalog (Triamcinol one) Kenalog (Triamcinol one) 04-28 00:00: 00 No 40mg [facility] Hyalgan 20 mg Hyalgan 20 mg 04-28 00:00: 00 No 2mL [facility] Bupivicaine Rice Bupivicaine Rice 04-28 00:00: 00 No 4mL [facility] Kenalog (Triamcinol one) Kenalog (Triamcinol one) 04-28 00:00: 00 No 40mg [facility] Hyalgan 20 mg Hyalgan 20 mg 04-28 00:00: 00 No 2mL [facility] Bupivicaine Rice Bupivicaine Rice 04-28 00:00: 00 No 4mL [facility] Kenalog (Triamcinol one) Kenalog (Triamcinol one) 04-28 00:00: 00 No 40mg [facility] Hyalgan 20 mg Hyalgan 20 mg 04-28 00:00: 00 No 2mL [facility] Bupivicaine Rice Bupivicaine Rice 04-28 00:00: 00 No 4mL [facility] Kenalog (Triamcinol one) Kenalog (Triamcinol one) 04-28 00:00: 00 No 40mg [facility] Hyalgan 20 mg Hyalgan 20 mg 04-28 00:00: 00 No 2mL [facility] Bupivicaine Rice Bupivicaine Rice 04-28 00:00: 00 No 4mL [facility] Kenalog (Triamcinol one) Kenalog (Triamcinol one) 7-07 00:00: 00 No [facility]mg [facility] triamcinolo ne acetonide (KENALOG) injection 04-20 13:26: 00 Yes PRN, Starting Mon04/20/20 at 0826, Until Discontinu ed, Routine, Intra-op [facility] sodium chloride 10% injection 10 mL syringe 04-20 13:26: 00 Yes PRN, Starting Mon04/20/20 at 0826, Until Discontinu ed, 10 mL, Intra-op [facility] lidocaine 1% (XYLOCAINE) 10 mg/mL (1 %) injection 04-20 13:26: 00 Yes PRN, Starting Mon04/20/20 at 0826, Until Discontinu ed, Routine, Intra-op [facility] iohexol (OMNIPAQUE 350 BULK-50 mL) injection 04-20 13:26: 00 Yes PRN, Starting Mon04/20/20 at 0826, Until Discontinu ed, Routine, [facility] bupivacaine (preserv free) (SENSORCAIN E MPF) 0.25 % (2.5 mg/mL) injection 04-20 13:26: 00 Yes PRN, Starting Mon04/20/20 at 0826, Until Discontinu ed, Routine, Intra-op [facility] fluticasone propion-irena meterol (AIRDUO RESPICLICK) 113-14 mcg/actuati on AePB 02-12 00:00: 00 Yes [id number] 1{puff} Inhale 1 Puff 2 (two) times daily. [facility] Nebulizer Accessories Kit 02-12 00:00: 00 Yes [id number] Use as directed [facility] Nicotine 21-14-7 mg/24 hr PTDS 02-12 00:00: 00 Yes [id number] 1{patch } Apply 1 Patch to skin daily. [facility] Depo Medrol (40mg) Depo Medrol (40mg) 2-25 00:00: 00 No 40mg [facility] Bupivicaine Rice Bupivicaine Rice 0 12-17 00:00: 00 No [facility] Depo Medrol (40mg) Depo Medrol (40mg) 0 12-17 00:00: 00 No 40mg [facility] Bupivicaine Rice Bupivicaine Rice 0 12-17 00:00: 00 No 2.5mg [facility] Depo Medrol (40mg) Depo Medrol (40mg) 0 12-17 00:00: 00 No 40mg [facility] Bupivicaine Rice Bupivicaine Rice 0 12-17 00:00: 00 No 2.5mg [facility] Depo Medrol (40mg) Depo Medrol (40mg) 12-17 00:00: 00 No 40mg [facility] Bupivicaine Rice Bupivicaine Rice 0 12-17 00:00: 00 No 2.5mg [facility] Depo Medrol (40mg) Depo Medrol (40mg) 12-17 00:00: 00 No 40mg [facility] Bupivicaine Rice Bupivicaine Rice 0 12-17 00:00: 00 No 2.5mg [facility] Depo Medrol (40mg) Depo Medrol (40mg) 12-17 00:00: 00 No 40mg [facility] Bupivicaine Rice Bupivicaine Rice 0 12-17 00:00: 00 No 2.5mg [facility] Depo Medrol (40mg) Depo Medrol (40mg) 0 12-17 00:00: 00 No 40mg [facility] Bupivicaine Rice Bupivicaine Rice 0 12-17 00:00: 00 No 2.5mg [facility] Valium Valium 0 2-14 00:00: 00 Yes Na Quintanilla 1 tablet as needed [facility] Valium 2 MG Valium 2 MG 2018- 2-14 00:00: 00 No 1{table t_as_ne eded} Valium 2 MG Valium 2 MG Valium 2 MG 2018-0 2-14 00:00: 00 No 1{table t_as_ne eded} Valium 2 MG Valium 2 MG Valium 2 MG 2-14 00:00: 00 No 1{table t_as_ne eded} Valium 2 MG Valium 2 MG Valium 2 MG 2018-0 2-14 00:00: 00 No 1{table t_as_ne eded} Valium 2 MG Valium 2 MG Valium 2 MG 2018-0 2-14 00:00: 00 No 1{table t_as_ne eded} Valium 2 MG Valium 2 MG Valium 2 MG 2-14 00:00: 00 No 1{table t_as_ne eded} Valium 2 MG Valium 2 MG Valium 2 MG 2-14 00:00: 00 No 1{table t_as_ne eded} Valium 2 MG Valium 2 MG Valium 2 MG 2018-0 2-14 00:00: 00 No 1{table t_as_ne eded} Valium 2 MG Valium 2 MG Valium 2 MG 2018- 2-14 00:00: 00 No 1{table t_as_ne eded} Valium 2 MG Valium 2 MG Valium 2 MG 2-14 00:00: 00 No 1{table t_as_ne eded} Valium 2 MG Chantix Continuing Month Cullen Chantix Continuing Month Cullen Yes Na Quintanilla TAKE 1 TABLET BY MOUTH TWICE A DAY [facility] Cyclobenzap rine HCl Cyclobenzap rine HCl Yes Na Quintanilla TAKE 1 TABLET BY MOUTH TWICE DAILY NEEDED [facility] Ventolin HFA Ventolin HFA Yes Na Quintanilla USE 2 PUFFS NEEDED EVERY 6 HORS [facility] Trazodone HCl Trazodone HCl Yes Na Quintanilla 1 tablet at bedtime as needed [facility] BuPROPion HCl BuPROPion HCl Yes Na Quintanilla TAKE 1 TABLET BY MOUTH ONCE A DAY [facility] Duloxetine HCl Duloxetine HCl Yes Na Quintanilla 1 capsule [facility] Hydrochloro thiazide Hydrochloro thiazide Yes Na Quintanilla TAKE 1 TABLET BY MOUTH IN ONCE EVERY MORNING [facility] Temazepam Temazepam Yes Na Quintanilla (Nicol edule IV Drug) TAKE 1 CAPSULE BY MOUTH NEEDED AT BEDTIME [facility] Pravastatin Sodium Pravastatin Sodium Yes Na Quintanilla TAKE 1 TABLET BY MOUTH AT BEDTIME [facility] Losartan Potassium Losartan Potassium Yes Na Quintanilla TAKE 1 TABLET BY MOUTH ONCE A DAY [facility] Alprazolam Alprazolam Yes Na Quintanilla (S chedule IV Drug) TAKE 1 TABLET BY MOUTH TWICE DAILY [facility] Amlodipine Besylate Amlodipine Besylate Yes Na Quintanilla TAKE 1 TABLET BY MOUTH ONCE A DAY [facility] Brovana Brovana Yes Na Quintanilla [facility] Oxy[facility]one-A cetaminophe n Oxycodone-A cetaminophe n Yes Na Quintanilla (Schedule II Drug) TAKE 1 TABLET BY MOUTH ONCE A DAY FOR 14 DAY(S) [facility] Spiriva HandiHaler Spiriva HandiHaler Yes Na Quintanilla 1 capsule by inhaling the contents of the capsule using the HandiHaler device [facility] Brovana 15 MCG/2ML Brovana 15 MCG/2ML No Brovana 15 MCG/2ML Anoro Ellipta 62.5-25 MCG/INH Anoro Ellipta 62.5-25 MCG/INH No Anoro Ellipta 62.5-25 MCG/INH Spiriva HandiHaler 18 MCG Spiriva HandiHaler 18 MCG No QD Spiriva HandiHaler 18 MCG Ventolin HFA 108 (90 Base) MCG/ACT Ventolin HFA 108 (90 Base) MCG/ACT No Ventolin HFA 108 (90 Base) MCG/ACT BuPROPion HCl 100 MG BuPROPion HCl 100 MG No BuPROPion HCl 100 MG Losartan Potassium 50 MG Losartan Potassium 50 MG No 1{table t} QD Losartan Potassium 50 MG Cyclobenzap rine HCl 10 MG Cyclobenzap rine HCl 10 MG No Cyclobenza cornelio HCl 10 MG Hydrochloro thiazide 25 MG Hydrochloro thiazide 25 MG No Hydrochlor othiazide 25 MG Alprazolam 2 MG Alprazolam 2 MG No Alprazolam 2 MG Pravastatin Sodium 40 MG Pravastatin Sodium 40 MG No Pravastati n Sodium 40 MG Chantix Continuing Month Cullen 1 MG Chantix Continuing Month Cullen 1 MG No Chantix Continuing Month Cullen 1 MG Temazepam 30 MG Temazepam 30 MG No Temazepam 30 MG Trazodone HCl 150 MG Trazodone HCl 150 MG No 1{table t_at_be dtime_a s_neede d} QD Trazodone HCl 150 MG Ventolin HFA 108 (90 Base) MCG/ACT Ventolin HFA 108 (90 Base) MCG/ACT No Ventolin HFA 108 (90 Base) MCG/ACT buPROPion HCl 100 MG buPROPion HCl 100 MG No buPROPion HCl 100 MG Brovana 15 MCG/2ML Brovana 15 MCG/2ML No 2{ml} BID Brovana 15 MCG/2ML Anoro Ellipta 62.5-25 MCG/INH Anoro Ellipta 62.5-25 MCG/INH No Anoro Ellipta 62.5-25 MCG/INH hydroCHLORO thiazide 25 MG hydroCHLORO thiazide 25 MG No hydroCHLOR Othiazide 25 MG Chantix Continuing Month Cullen 1 MG Chantix Continuing Month Cullne 1 MG No Chantix Continuing Month Cullen 1 MG Spiriva HandiHaler 18 MCG Spiriva HandiHaler 18 MCG No QD Spiriva HandiHaler 18 MCG buPROPion HCl ER (SR) 150 MG buPROPion HCl ER (SR) 150 MG No 1{table t_in_th e_morni ng} QD buPROPion HCl ER (SR) 150 MG DULoxetine HCl 60 MG DULoxetine HCl 60 MG No 1{capsu le} BID DULoxetine HCl 60 MG ALPRAZolam 2 MG ALPRAZolam 2 MG No ALPRAZolam 2 MG Losartan Potassium 50 MG Losartan Potassium 50 MG No 1{table t} QD Losartan Potassium 50 MG Pravastatin Sodium 40 MG Pravastatin Sodium 40 MG No Pravastati n Sodium 40 MG Temazepam 30 MG Temazepam 30 MG No Temazepam 30 MG Cyclobenzap rine HCl 10 MG Cyclobenzap rine HCl 10 MG No Cyclobenza cornelio HCl 10 MG traZODone HCl 150 MG traZODone HCl 150 MG No 1{table t_at_be dtime_a s_neede d} QD traZODone HCl 150 MG Albuterol Sulfate HFA 108 (90 Base) MCG/ACT Albuterol Sulfate HFA 108 (90 Base) MCG/ACT No Albuterol Sulfate HFA 108 (90 Base) MCG/ACT Chantix Continuing Month Cullen 1 MG Chantix Continuing Month Cullen 1 MG No Chantix Continuing Month Cullen 1 MG Losartan Potassium 50 MG Losartan Potassium 50 MG No Losartan Potassium 50 MG buPROPion HCl ER (SR) 150 MG buPROPion HCl ER (SR) 150 MG No buPROPion HCl ER (SR) 150 MG Anoro Ellipta 62.5-25 MCG/INH Anoro Ellipta 62.5-25 MCG/INH No Anoro Ellipta 62.5-25 MCG/INH ALPRAZolam 2 MG ALPRAZolam 2 MG No ALPRAZolam 2 MG Brovana 15 MCG/2ML Brovana 15 MCG/2ML No Brovana 15 MCG/2ML Pravastatin Sodium 40 MG Pravastatin Sodium 40 MG No Pravastati n Sodium 40 MG Cyclobenzap rine HCl 10 MG Cyclobenzap rine HCl 10 MG No Cyclobenza cornelio HCl 10 MG Ventolin HFA 108 (90 Base) MCG/ACT Ventolin HFA 108 (90 Base) MCG/ACT No Ventolin HFA 108 (90 Base) MCG/ACT Chantix Continuing Month Cullen 1 MG Chantix Continuing Month Cullen 1 MG No Chantix Continuing Month Cullen 1 MG Temazepam 30 MG Temazepam 30 MG No Temazepam 30 MG Spiriva HandiHaler 18 MCG Spiriva HandiHaler 18 MCG No QD Spiriva HandiHaler 18 MCG hydroCHLORO thiazide 25 MG hydroCHLORO thiazide 25 MG No hydroCHLOR Othiazide 25 MG buPROPion HCl 100 MG buPROPion HCl 100 MG No buPROPion HCl 100 MG ALPRAZolam 2 MG ALPRAZolam 2 MG No ALPRAZolam 2 MG Anoro Ellipta 62.5-25 MCG/INH Anoro Ellipta 62.5-25 MCG/INH No Anoro Ellipta 62.5-25 MCG/INH Ventolin HFA 108 (90 Base) MCG/ACT Ventolin HFA 108 (90 Base) MCG/ACT No Ventolin HFA 108 (90 Base) MCG/ACT buPROPion HCl ER (SR) 150 MG buPROPion HCl ER (SR) 150 MG No buPROPion HCl ER (SR) 150 MG Brovana 15 MCG/2ML Brovana 15 MCG/2ML No 2{ml} BID Brovana 15 MCG/2ML Temazepam 30 MG Temazepam 30 MG No Temazepam 30 MG Spiriva HandiHaler 18 MCG Spiriva HandiHaler 18 MCG No QD Spiriva HandiHaler 18 MCG amLODIPine Besylate 10 MG amLODIPine Besylate 10 MG No amLODIPine Besylate 10 MG Cyclobenzap rine HCl 10 MG Cyclobenzap rine HCl 10 MG No Cyclobenza cornelio HCl 10 MG Losartan Potassium 50 MG Losartan Potassium 50 MG No Losartan Potassium 50 MG Pravastatin Sodium 40 MG Pravastatin Sodium 40 MG No Pravastati n Sodium 40 MG hydroCHLORO thiazide 25 MG hydroCHLORO thiazide 25 MG No hydroCHLOR Othiazide 25 MG buPROPion HCl 100 MG buPROPion HCl 100 MG No buPROPion HCl 100 MG Albuterol Sulfate HFA 108 (90 Base) MCG/ACT Albuterol Sulfate HFA 108 (90 Base) MCG/ACT No Albuterol Sulfate HFA 108 (90 Base) MCG/ACT Pravastatin Sodium 40 MG Pravastatin Sodium 40 MG No Pravastati n Sodium 40 MG traZODone HCl 150 MG traZODone HCl 150 MG No traZODone HCl 150 MG Albuterol Sulfate (2.5 MG/3ML) 0.083% Albuterol Sulfate (2.5 MG/3ML) 0.083% No Albuterol Sulfate (2.5 MG/3ML) 0.083% DULoxetine HCl 60 MG DULoxetine HCl 60 MG No 1{capsu le} BID DULoxetine HCl 60 MG Losartan Potassium 50 MG Losartan Potassium 50 MG No Losartan Potassium 50 MG hydroCHLORO thiazide 25 MG hydroCHLORO thiazide 25 MG No hydroCHLOR Othiazide 25 MG Ventolin HFA 108 (90 Base) MCG/ACT Ventolin HFA 108 (90 Base) MCG/ACT No Ventolin HFA 108 (90 Base) MCG/ACT amLODIPine Besylate 10 MG amLODIPine Besylate 10 MG No amLODIPine Besylate 10 MG Advair HFA Advair HFA No Advair HFA Temazepam 30 MG Temazepam 30 MG No Temazepam 30 MG ALPRAZolam 2 MG ALPRAZolam 2 MG No ALPRAZolam 2 MG Spiriva HandiHaler 18 MCG Spiriva HandiHaler 18 MCG No QD Spiriva HandiHaler 18 MCG buPROPion HCl 100 MG buPROPion HCl 100 MG No buPROPion HCl 100 MG buPROPion HCl ER (SR) 150 MG buPROPion HCl ER (SR) 150 MG No buPROPion HCl ER (SR) 150 MG Brovana 15 MCG/2ML Brovana 15 MCG/2ML No Brovana 15 MCG/2ML Fenofibrate 145 MG Fenofibrate 145 MG No 1{table t} QD Fenofibrat e 145 MG oxyCODONE-A cetaminophe n 5-325 MG oxyCODONE-A cetaminophe n 5-325 MG No oxyCODONE- Acetaminop hen 5-325 MG Cyclobenzap rine HCl 10 MG Cyclobenzap rine HCl 10 MG No Cyclobenza cornelio HCl 10 MG Albuterol Sulfate HFA 108 (90 Base) MCG/ACT Albuterol Sulfate HFA 108 (90 Base) MCG/ACT No Albuterol Sulfate HFA 108 (90 Base) MCG/ACT Pravastatin Sodium 40 MG Pravastatin Sodium 40 MG No Pravastati n Sodium 40 MG traZODone HCl 150 MG traZODone HCl 150 MG No traZODone HCl 150 MG Albuterol Sulfate (2.5 MG/3ML) 0.083% Albuterol Sulfate (2.5 MG/3ML) 0.083% No Albuterol Sulfate (2.5 MG/3ML) 0.083% DULoxetine HCl 60 MG DULoxetine HCl 60 MG No 1{capsu le} BID DULoxetine HCl 60 MG Losartan Potassium 50 MG Losartan Potassium 50 MG No Losartan Potassium 50 MG hydroCHLORO thiazide 25 MG hydroCHLORO thiazide 25 MG No hydroCHLOR Othiazide 25 MG Ventolin HFA 108 (90 Base) MCG/ACT Ventolin HFA 108 (90 Base) MCG/ACT No Ventolin HFA 108 (90 Base) MCG/ACT amLODIPine Besylate 10 MG amLODIPine Besylate 10 MG No amLODIPine Besylate 10 MG Advair HFA Advair HFA No Advair HFA Temazepam 30 MG Temazepam 30 MG No Temazepam 30 MG ALPRAZolam 2 MG ALPRAZolam 2 MG No ALPRAZolam 2 MG Spiriva HandiHaler 18 MCG Spiriva HandiHaler 18 MCG No QD Spiriva HandiHaler 18 MCG buPROPion HCl 100 MG buPROPion HCl 100 MG No buPROPion HCl 100 MG buPROPion HCl ER (SR) 150 MG buPROPion HCl ER (SR) 150 MG No buPROPion HCl ER (SR) 150 MG Brovana 15 MCG/2ML Brovana 15 MCG/2ML No Brovana 15 MCG/2ML Anoro Ellipta 62.5-25 MCG/INH Anoro Ellipta 62.5-25 MCG/INH No Anoro Ellipta 62.5-25 MCG/INH amLODIPine Besylate 10 MG amLODIPine Besylate 10 MG No QD amLODIPine Besylate 10 MG Fenofibrate 145 MG Fenofibrate 145 MG No 1{table t} QD Fenofibrat e 145 MG oxyCODONE-A cetaminophe n 5-325 MG oxyCODONE-A cetaminophe n 5-325 MG No oxyCODONE- Acetaminop hen 5-325 MG Cyclobenzap rine HCl 10 MG Cyclobenzap rine HCl 10 MG No Cyclobenza cornelio HCl 10 MG Albuterol Sulfate HFA 108 (90 Base) MCG/ACT Albuterol Sulfate HFA 108 (90 Base) MCG/ACT No Albuterol Sulfate HFA 108 (90 Base) MCG/ACT Pravastatin Sodium 40 MG Pravastatin Sodium 40 MG No Pravastati n Sodium 40 MG traZODone HCl 150 MG traZODone HCl 150 MG No traZODone HCl 150 MG Albuterol Sulfate (2.5 MG/3ML) 0.083% Albuterol Sulfate (2.5 MG/3ML) 0.083% No Albuterol Sulfate (2.5 MG/3ML) 0.083% DULoxetine HCl 60 MG DULoxetine HCl 60 MG No 1{capsu le} BID DULoxetine HCl 60 MG Losartan Potassium 50 MG Losartan Potassium 50 MG No Losartan Potassium 50 MG hydroCHLORO thiazide 25 MG hydroCHLORO thiazide 25 MG No hydroCHLOR Othiazide 25 MG Ventolin HFA 108 (90 Base) MCG/ACT Ventolin HFA 108 (90 Base) MCG/ACT No Ventolin HFA 108 (90 Base) MCG/ACT amLODIPine Besylate 10 MG amLODIPine Besylate 10 MG No amLODIPine Besylate 10 MG Advair HFA Advair HFA No Advair HFA Temazepam 30 MG Temazepam 30 MG No Temazepam 30 MG ALPRAZolam 2 MG ALPRAZolam 2 MG No ALPRAZolam 2 MG Spiriva HandiHaler 18 MCG Spiriva HandiHaler 18 MCG No QD Spiriva HandiHaler 18 MCG buPROPion HCl 100 MG buPROPion HCl 100 MG No buPROPion HCl 100 MG buPROPion HCl ER (SR) 150 MG buPROPion HCl ER (SR) 150 MG No buPROPion HCl ER (SR) 150 MG Brovana 15 MCG/2ML Brovana 15 MCG/2ML No Brovana 15 MCG/2ML Fenofibrate 145 MG Fenofibrate 145 MG No 1{table t} QD Fenofibrat e 145 MG oxyCODONE-A cetaminophe n 5-325 MG oxyCODONE-A cetaminophe n 5-325 MG No oxyCODONE- Acetaminop hen 5-325 MG Cyclobenzap rine HCl 10 MG Cyclobenzap rine HCl 10 MG No Cyclobenza cornelio HCl 10 MG Albuterol Sulfate HFA 108 (90 Base) MCG/ACT Albuterol Sulfate HFA 108 (90 Base) MCG/ACT No Albuterol Sulfate HFA 108 (90 Base) MCG/ACT Pravastatin Sodium 40 MG Pravastatin Sodium 40 MG No Pravastati n Sodium 40 MG traZODone HCl 150 MG traZODone HCl 150 MG No traZODone HCl 150 MG Albuterol Sulfate (2.5 MG/3ML) 0.083% Albuterol Sulfate (2.5 MG/3ML) 0.083% No Albuterol Sulfate (2.5 MG/3ML) 0.083% DULoxetine HCl 60 MG DULoxetine HCl 60 MG No 1{capsu le} BID DULoxetine HCl 60 MG Losartan Potassium 50 MG Losartan Potassium 50 MG No Losartan Potassium 50 MG hydroCHLORO thiazide 25 MG hydroCHLORO thiazide 25 MG No hydroCHLOR Othiazide 25 MG Ventolin HFA 108 (90 Base) MCG/ACT Ventolin HFA 108 (90 Base) MCG/ACT No Ventolin HFA 108 (90 Base) MCG/ACT amLODIPine Besylate 10 MG amLODIPine Besylate 10 MG No amLODIPine Besylate 10 MG Advair HFA Advair HFA No Advair HFA Temazepam 30 MG Temazepam 30 MG No Temazepam 30 MG ALPRAZolam 2 MG ALPRAZolam 2 MG No ALPRAZolam 2 MG Spiriva HandiHaler 18 MCG Spiriva HandiHaler 18 MCG No QD Spiriva HandiHaler 18 MCG buPROPion HCl 100 MG buPROPion HCl 100 MG No buPROPion HCl 100 MG buPROPion HCl ER (SR) 150 MG buPROPion HCl ER (SR) 150 MG No buPROPion HCl ER (SR) 150 MG Brovana 15 MCG/2ML Brovana 15 MCG/2ML No Brovana 15 MCG/2ML Fenofibrate 145 MG Fenofibrate 145 MG No 1{table t} QD Fenofibrat e 145 MG oxyCODONE-A cetaminophe n 5-325 MG oxyCODONE-A cetaminophe n 5-325 MG No oxyCODONE- Acetaminop hen 5-325 MG Cyclobenzap rine HCl 10 MG Cyclobenzap rine HCl 10 MG No Cyclobenza cornelio HCl 10 MG Albuterol Sulfate HFA 108 (90 Base) MCG/ACT Albuterol Sulfate HFA 108 (90 Base) MCG/ACT No Albuterol Sulfate HFA 108 (90 Base) MCG/ACT Pravastatin Sodium 40 MG Pravastatin Sodium 40 MG No Pravastati n Sodium 40 MG traZODone HCl 150 MG traZODone HCl 150 MG No traZODone HCl 150 MG Albuterol Sulfate (2.5 MG/3ML) 0.083% Albuterol Sulfate (2.5 MG/3ML) 0.083% No Albuterol Sulfate (2.5 MG/3ML) 0.083% DULoxetine HCl 60 MG DULoxetine HCl 60 MG No 1{capsu le} BID DULoxetine HCl 60 MG Losartan Potassium 50 MG Losartan Potassium 50 MG No Losartan Potassium 50 MG hydroCHLORO thiazide 25 MG hydroCHLORO thiazide 25 MG No hydroCHLOR Othiazide 25 MG Ventolin HFA 108 (90 Base) MCG/ACT Ventolin HFA 108 (90 Base) MCG/ACT No Ventolin HFA 108 (90 Base) MCG/ACT amLODIPine Besylate 10 MG amLODIPine Besylate 10 MG No amLODIPine Besylate 10 MG Advair HFA Advair HFA No Advair HFA Brovana 15 MCG/2ML Brovana 15 MCG/2ML No Brovana 15 MCG/2ML Temazepam 30 MG Temazepam 30 MG No Temazepam 30 MG ALPRAZolam 2 MG ALPRAZolam 2 MG No ALPRAZolam 2 MG Spiriva HandiHaler 18 MCG Spiriva HandiHaler 18 MCG No QD Spiriva HandiHaler 18 MCG buPROPion HCl 100 MG buPROPion HCl 100 MG No buPROPion HCl 100 MG buPROPion HCl ER (SR) 150 MG buPROPion HCl ER (SR) 150 MG No buPROPion HCl ER (SR) 150 MG Brovana 15 MCG/2ML Brovana 15 MCG/2ML No Brovana 15 MCG/2ML Albuterol Sulfate (2.5 MG/3ML) 0.083% Albuterol Sulfate (2.5 MG/3ML) 0.083% No Albuterol Sulfate (2.5 MG/3ML) 0.083% Fenofibrate 145 MG Fenofibrate 145 MG No 1{table t} QD Fenofibrat e 145 MG oxyCODONE-A cetaminophe n 5-325 MG oxyCODONE-A cetaminophe n 5-325 MG No oxyCODONE- Acetaminop hen 5-325 MG Cyclobenzap rine HCl 10 MG Cyclobenzap rine HCl 10 MG No Cyclobenza cornelio HCl 10 MG Amlodipine Besylate 10 MG Amlodipine Besylate 10 MG No QD Amlodipine Besylate 10 MG Anoro Ellipta 62.5-25 MCG/INH Anoro Ellipta 62.5-25 MCG/INH No Anoro Ellipta 62.5-25 MCG/INH Spiriva HandiHaler 18 MCG Spiriva HandiHaler 18 MCG No QD Spiriva HandiHaler 18 MCG Ventolin HFA 108 (90 Base) MCG/ACT Ventolin HFA 108 (90 Base) MCG/ACT No Ventolin HFA 108 (90 Base) MCG/ACT BuPROPion HCl 100 MG BuPROPion HCl 100 MG No BuPROPion HCl 100 MG Losartan Potassium 50 MG Losartan Potassium 50 MG No 1{table t} QD Losartan Potassium 50 MG Cyclobenzap rine HCl 10 MG Cyclobenzap rine HCl 10 MG No Cyclobenza cornelio HCl 10 MG Hydrochloro thiazide 25 MG Hydrochloro thiazide 25 MG No Hydrochlor othiazide 25 MG Alprazolam 2 MG Alprazolam 2 MG No Alprazolam 2 MG Pravastatin Sodium 40 MG Pravastatin Sodium 40 MG No Pravastati n Sodium 40 MG Chantix Continuing Month Cullen 1 MG Chantix Continuing Month Cullen 1 MG No Chantix Continuing Month Cullen 1 MG Oxycodone-A cetaminophe n 5-325 MG Oxycodone-A cetaminophe n 5-325 MG No Oxycodone- Acetaminop hen 5-325 MG Temazepam 30 MG Temazepam 30 MG No Temazepam 30 MG Trazodone HCl 150 MG Trazodone HCl 150 MG No 1{table t_at_be dtime_a s_neede d} QD Trazodone HCl 150 MG Immunizations Ordered Immunization Name Filled Immunization Name Date Status Comments Source Bupivicaine Rice Bupivicaine Rice 2021-03-30 16:05:00 Completed [facility] Bupivicaine Rice Bupivicaine Rice 2021-03-30 16:05:00 Completed [facility] Depo-Medrol (Methylprednisolone) 40mg Depo-Medrol (Methylprednisolon e) 40mg 2021-03-30 16:04:00 Completed [facility] Depo-Medrol (Methylprednisolone) 40mg Depo-Medrol (Methylprednisolon e) 40mg 2021-03-30 16:04:00 Completed [facility] Afluria single dose Afluria single dose 2020-09-01 16:00:00 Completed [facility] Afluria single dose Afluria single dose 2020-09-01 16:00:00 Completed [facility] Afluria single dose Afluria single dose 2020-09-01 16:00:00 Completed [facility] Afluria single dose Afluria single dose 2020-09-01 16:00:00 Completed [facility] Afluria single dose Afluria single dose 2020-09-01 16:00:00 Completed [facility] Afluria single dose Afluria single dose 2020-09-01 16:00:00 Completed [facility] Afluria single dose Afluria single dose 2020-09-01 16:00:00 Completed [facility] Afluria single dose Afluria single dose 2020-09-01 16:00:00 Completed [facility] Afluria single dose Afluria single dose 2020-09-01 16:00:00 Completed [facility] Afluria single dose Afluria single dose 2020-09-01 16:00:00 Completed [facility] Hyalgan 20 mg Hyalgan 20 mg 2020-05-12 12:59:00 Completed [facility] Hyalgan 20 mg Hyalgan 20 mg 2020-05-12 12:59:00 Completed [facility] Hyalgan 20 mg Hyalgan 20 mg 2020-05-12 12:59:00 Completed [facility] Hyalgan 20 mg Hyalgan 20 mg 2020-05-12 12:59:00 Completed [facility] Hyalgan 20 mg Hyalgan 20 mg 2020-05-12 12:59:00 Completed [facility] Hyalgan 20 mg Hyalgan 20 mg 2020-05-12 12:58:00 Completed [facility] Hyalgan 20 mg Hyalgan 20 mg 2020-05-12 12:58:00 Completed [facility] Hyalgan 20 mg Hyalgan 20 mg 2020-05-12 12:58:00 Completed [facility] Hyalgan 20 mg Hyalgan 20 mg 2020-05-12 12:58:00 Completed [facility] Hyalgan 20 mg Hyalgan 20 mg 2020-05-12 12:58:00 Completed [facility] Hyalgan 20 mg Hyalgan 20 mg 2020-05-05 13:59:00 Completed [facility] Hyalgan 20 mg Hyalgan 20 mg 2020-05-05 13:59:00 Completed [facility] Hyalgan 20 mg Hyalgan 20 mg 2020-05-05 13:59:00 Completed [facility] Hyalgan 20 mg Hyalgan 20 mg 2020-05-05 13:59:00 Completed [facility] Hyalgan 20 mg Hyalgan 20 mg 2020-05-05 13:59:00 Completed [facility] Hyalgan 20 mg Hyalgan 20 mg 2020-05-05 13:58:00 Completed [facility] Hyalgan 20 mg Hyalgan 20 mg 2020-05-05 13:58:00 Completed [facility] Hyalgan 20 mg Hyalgan 20 mg 2020-05-05 13:58:00 Completed [facility] Hyalgan 20 mg Hyalgan 20 mg 2020-05-05 13:58:00 Completed [facility] Hyalgan 20 mg Hyalgan 20 mg 2020-05-05 13:58:00 Completed [facility] Hyalgan 20 mg Hyalgan 20 mg 2020-04-28 09:27:00 Completed [facility] Hyalgan 20 mg Hyalgan 20 mg 2020-04-28 09:27:00 Completed [facility] Hyalgan 20 mg Hyalgan 20 mg 2020-04-28 09:27:00 Completed [facility] Hyalgan 20 mg Hyalgan 20 mg 2020-04-28 09:27:00 Completed [facility] Hyalgan 20 mg Hyalgan 20 mg 2020-04-28 09:27:00 Completed [facility] Bupivicaine Rice Bupivicaine Rice 2020-04-28 09:25:00 Completed [facility] Hyalgan 20 mg Hyalgan 20 mg 2020-04-28 09:25:00 Completed [facility] Bupivicaine Rice Bupivicaine Rice 2020-04-28 09:25:00 Completed [facility] Hyalgan 20 mg Hyalgan 20 mg 2020-04-28 09:25:00 Completed [facility] Bupivicaine Rice Bupivicaine Rice 2020-04-28 09:25:00 Completed [facility] Hyalgan 20 mg Hyalgan 20 mg 2020-04-28 09:25:00 Completed [facility] Bupivicaine Rice Bupivicaine Rice 2020-04-28 09:25:00 Completed [facility] Hyalgan 20 mg Hyalgan 20 mg 2020-04-28 09:25:00 Completed [facility] Bupivicaine Rice Bupivicaine Rice 2020-04-28 09:25:00 Completed [facility] Hyalgan 20 mg Hyalgan 20 mg 2020-04-28 09:25:00 Completed [facility] Bupivicaine Rice Bupivicaine Rice 2020-04-28 09:24:00 Completed [facility] Bupivicaine Rice Bupivicaine Rice 2020-04-28 09:24:00 Completed [facility] Bupivicaine Rice Bupivicaine Rice 2020-04-28 09:24:00 Completed [facility] Bupivicaine Rice Bupivicaine Rice 2020-04-28 09:24:00 Completed [facility] Bupivicaine Rice Bupivicaine Rice 2020-04-28 09:24:00 Completed [facility] Kenalog (Triamcinolone) Kenalog (Triamcinolone) 2020-04-28 09:23:00 Completed [facility] Kenalog (Triamcinolone) Kenalog (Triamcinolone) 2020-04-28 09:23:00 Completed [facility] Kenalog (Triamcinolone) Kenalog (Triamcinolone) 2020-04-28 09:23:00 Completed [facility] Kenalog (Triamcinolone) Kenalog (Triamcinolone) 2020-04-28 09:23:00 Completed [facility] Kenalog (Triamcinolone) Kenalog (Triamcinolone) 2020-04-28 09:23:00 Completed [facility] Kenalog (Triamcinolone) Kenalog (Triamcinolone) 2020-04-28 09:22:00 Completed [facility] Kenalog (Triamcinolone) Kenalog (Triamcinolone) 2020-04-28 09:22:00 Completed [facility] Kenalog (Triamcinolone) Kenalog (Triamcinolone) 2020-04-28 09:22:00 Completed [facility] Kenalog (Triamcinolone) Kenalog (Triamcinolone) 2020-04-28 09:22:00 Completed [facility] Kenalog (Triamcinolone) Kenalog (Triamcinolone) 2020-04-28 09:22:00 Completed [facility] Depo Medrol (40mg) Depo Medrol (40mg) 2018-12-17 11:40:00 Completed [facility] Depo Medrol (40mg) Depo Medrol (40mg) 2018-12-17 11:40:00 Completed [facility] Depo Medrol (40mg) Depo Medrol (40mg) 2018-12-17 11:40:00 Completed [facility] Depo Medrol (40mg) Depo Medrol (40mg) 2018-12-17 11:40:00 Completed [facility] Depo Medrol (40mg) Depo Medrol (40mg) 2018-12-17 11:40:00 Completed [facility] Depo Medrol (40mg) Depo Medrol (40mg) 2018-12-17 11:39:00 Completed [facility] Depo Medrol (40mg) Depo Medrol (40mg) 2018-12-17 11:39:00 Completed [facility] Depo Medrol (40mg) Depo Medrol (40mg) 2018-12-17 11:39:00 Completed [facility] Depo Medrol (40mg) Depo Medrol (40mg) 2018-12-17 11:39:00 Completed [facility] Depo Medrol (40mg) Depo Medrol (40mg) 2018-12-17 11:39:00 Completed [facility] Bupivicaine Rice Bupivicaine Rice 2018-12-17 11:37:00 Completed [facility] Bupivicaine Rice Bupivicaine Rice 2018-12-17 11:37:00 Completed [facility] Bupivicaine Rice Bupivicaine Rice 2018-12-17 11:37:00 Completed [facility] Bupivicaine Rice Bupivicaine Rice 2018-12-17 11:37:00 Completed [facility] Bupivicaine Rice Bupivicaine Rice 2018-12-17 11:37:00 Completed [facility] Bupivicaine Rice Bupivicaine Rice 2018-12-17 11:36:00 Completed [facility] Bupivicaine Rice Bupivicaine Rice 2018-12-17 11:36:00 Completed [facility] Bupivicaine Rice Bupivicaine Rice 2018-12-17 11:36:00 Completed [facility] Bupivicaine Rice Bupivicaine Rice 2018-12-17 11:36:00 Completed [facility] Bupivicaine Rice Bupivicaine Rice 2018-12-17 11:36:00 Completed [facility] Afluria (IIV4) - 3 years and older - SDS - 0.5mL Afluria (IIV4) - 3 years and older - SDS - 0.5mL Unknown Completed [facility] Afluria (IIV4) - 3 years and older - SDS - 0.5mL Afluria (IIV4) - 3 years and older - SDS - 0.5mL Unknown Completed [facility] Afluria (IIV4) - 3 years and older - SDS - 0.5mL Afluria (IIV4) - 3 years and older - SDS - 0.5mL Unknown Completed [facility] Afluria (IIV4) - 3 years and older - SDS - 0.5mL Afluria (IIV4) - 3 years and older - SDS - 0.5mL Unknown Completed [facility] Afluria (IIV4) - 3 years and older - SDS - 0.5mL Afluria (IIV4) - 3 years and older - SDS - 0.5mL Unknown Completed [facility] Pneumococcal Vaccine, Polysaccharide Unknown Completed Nasima Armendarizkenyetta d - External Influenza, Injectable, Mdck, Preservative Free, Quadrivalent Unknown Completed Nasima Shah - External Influenza Virus Vaccine, No Preserv, age 6 months and up Unknown Completed Nasima ozunabold - External Influenza, Injectable, Mdck, Preservative Free, Quadrivalent Unknown Completed Nasima Shah - External Influenza Virus Vaccine, No Preserv, age 6 months and up Unknown Completed Nasima ozunabold - External Influenza Virus Vaccine, No Preserv, age 6 months and up Unknown Completed Nasima ozunabojohnny - External Influenza, Seasonal, Injectable, Preservative Free Unknown Completed Nasima riojas - External Covid-19 Vaccine Moderna (Spikevax), Mrna-lnp, Burton Protein, Pf Unknown Completed Nasima Shah - External Covid-19 Vaccine Moderna (Spikevax), Mrna-lnp, Burton Protein, Pf Unknown Completed Nasima Shah - External Covid-19 Vaccine Moderna (Spikevax), Mrna-lnp, Burton Protein, Pf Unknown Completed Nasima Shah - External COVID-19 MODERNA (SPIKEVAX)VACCINE, PURPLE LABEL + BLUE CAP 6years-11years Unknown Completed Nasima Delgado ybmallika - External Vital Signs Vital Name Observation Time Observation Value Comments S ource Systolic blood pressure 2023-09-19 16:31:00 138 mm[Hg] Nasima Armendarizo ld - External Diastolic blood pressure 2023-09-19 16:31:00 72 mm[Hg] Nasima Armendarizo ld - External Heart rate 2023-09-19 16:31:00 89 /min Neeta Shah - External Body temperature 2023-09-19 16:31:00 37 Anjana Nasima Delgadoybmallika - External Respiratory rate 2023-09-19 16:31:00 15 /min Nasima Shah - External Body height 2023-09-19 16:31:00 167.6 cm Danay ozuna Seybold - External Body weight 2023-09-19 16:31:00 79.379 kg Danay ozuna Seybold - External BMI 2023-09-19 16:31:00 28.25 kg/m2 Danay ey Seybold - External Oxygen saturation in Arterial blood by Pulse oximetry 2023-09-19 16:31:00 91 /min Nasima Seybo ld - External height 2023-08-14 15:30:00 66 [in_i] Commo n [facility] weight 2023-08-14 15:30:00 168 [lb_av] Comm on [facility] temperature 2023-08-14 15:30:00 98.0 [degF] Com mon [facility] bmi 2023-08-14 15:30:00 27.11 kg/m2 Comm on [facility] blood pressure systolic 2023-08-14 15:30:00 126 mm[Hg] [facility] blood pressure diastolic 2023-08-14 15:30:00 80 mm[Hg] [facility] Systolic blood pressure 2023-08-08 16:17:00 125 mm[Hg] Nasima Seybo ld - External Diastolic blood pressure 2023-08-08 16:17:00 75 mm[Hg] Nasima Seybo ld - External Heart rate 2023-08-08 16:17:00 84 /min Kelse y Seybold - External Body temperature 2023-08-08 16:17:00 36.56 Anjana Nasima Seybold - External Respiratory rate 2023-08-08 16:17:00 15 /min Nasima Seybold - External Body height 2023-08-08 16:17:00 167.6 cm Danay ey Seybold - External Body weight 2023-08-08 16:17:00 77.565 kg Danay ey Seybold - External BMI 2023-08-08 16:17:00 27.60 kg/m2 Danay ey Seybold - External Oxygen saturation in Arterial blood by Pulse oximetry 2023-08-08 16:17:00 99 /min Nasima Seybo ld - External height 2023-08-07 15:30:00 66 [in_i] Commo n [facility] weight 2023-08-07 15:30:00 168 [lb_av] Comm on [facility] temperature 2023-08-07 15:30:00 98.0 [degF] Com mon [facility] bmi 2023-08-07 15:30:00 27.11 kg/m2 Comm on [facility] blood pressure systolic 2023-08-07 15:30:00 126 mm[Hg] [facility] blood pressure diastolic 2023-08-07 15:30:00 80 mm[Hg] [facility] height 2023-07-31 15:30:00 66 [in_i] Commo n [facility] weight 2023-07-31 15:30:00 168 [lb_av] Comm on [facility] temperature 2023-07-31 15:30:00 97.8 [degF] Com [facility] bmi 2023-07-31 15:30:00 27.11 kg/m2 Comm on [facility] blood pressure systolic 2023-07-31 15:30:00 126 mm[Hg] [facility] blood pressure diastolic 2023-07-31 15:30:00 74 mm[Hg] [facility] height 2023-06-22 13:00:00 66 [in_i] Commo n [facility] weight 2023-06-22 13:00:00 168 [lb_av] Comm on [facility] temperature 2023-06-22 13:00:00 98.1 [degF] Com [facility] bmi 2023-06-22 13:00:00 27.11 kg/m2 Comm on [facility] blood pressure systolic 2023-06-22 13:00:00 126 mm[Hg] [facility] blood pressure diastolic 2023-06-22 13:00:00 78 mm[Hg] [facility] height 2021-11-17 10:20:00 66 [in_i] Commo n [facility] weight 2021-11-17 10:20:00 189 [lb_av] Comm on [facility] bmi 2021-11-17 10:20:00 30.5 kg/m2 Commo n [facility] height 2021-03-30 15:00:00 66 [in_i] Commo n [facility] weight 2021-03-30 15:00:00 184 [lb_av] Comm on [facility] bmi 2021-03-30 15:00:00 29.7 kg/m2 Commo n [facility] blood pressure systolic 2021-03-30 15:00:00 150 mm[Hg] [facility] blood pressure diastolic 2021-03-30 15:00:00 89 mm[Hg] [facility] Systolic blood pressure 2020-06-08 13:20:00 149 mm[Hg] [facility] Diastolic blood pressure 2020-06-08 13:20:00 98 mm[Hg] [facility] Heart rate 2020-06-08 13:20:00 77 /min [facility] Respiratory rate 2020-06-08 13:20:00 20 /min [facility] Oxygen saturation in Arterial blood by Pulse oximetry 2020-06-08 13:20:00 98 /min [facility] Body temperature 2020-06-08 12:50:00 36.67 Anjana [facility] Body height 2020-06-04 18:15:00 165.1 cm [facility] Body weight 2020-06-04 18:15:00 84.823 kg [facility] BMI 2020-06-04 18:15:00 31.12 kg/m2 [facility] Systolic blood pressure 2020-06-08 13:20:00 149 mm[Hg] [facility] Diastolic blood pressure 2020-06-08 13:20:00 98 mm[Hg] [facility] Heart rate 2020-06-08 13:20:00 77 /min [facility] Respiratory rate 2020-06-08 13:20:00 20 /min [facility] Oxygen saturation in Arterial blood by Pulse oximetry 2020-06-08 13:20:00 98 /min [facility] Body temperature 2020-06-08 12:50:00 36.67 Anjana [facility] Body height 2020-06-04 18:15:00 165.1 cm [facility] Body weight 2020-06-04 18:15:00 84.823 kg [facility] BMI 2020-06-04 18:15:00 31.12 kg/m2 [facility] Systolic blood pressure 2020-04-20 13:35:00 121 mm[Hg] [facility] Diastolic blood pressure 2020-04-20 13:35:00 85 mm[Hg] [facility] Heart rate 2020-04-20 13:35:00 80 /min [facility] Respiratory rate 2020-04-20 13:35:00 16 /min [facility] Oxygen saturation in Arterial blood by Pulse oximetry 2020-04-20 13:35:00 90 /min [facility] Body temperature 2020-04-20 12:47:00 36.67 Anjana [facility] Body height 2020-04-17 15:08:00 175.3 cm [facility] Body weight 2020-04-17 15:08:00 91.627 kg [facility] BMI 2020-04-17 15:08:00 29.82 kg/m2 [facility] Systolic blood pressure 2020-04-20 13:35:00 121 mm[Hg] [facility] Diastolic blood pressure 2020-04-20 13:35:00 85 mm[Hg] [facility] Heart rate 2020-04-20 13:35:00 80 /min [facility] Respiratory rate 2020-04-20 13:35:00 16 /min [facility] Oxygen saturation in Arterial blood by Pulse oximetry 2020-04-20 13:35:00 90 /min [facility] Body temperature 2020-04-20 12:47:00 36.67 Anjana [facility] Body height 2020-04-17 15:08:00 175.3 cm [facility] Body weight 2020-04-17 15:08:00 91.627 kg [facility] BMI 2020-04-17 15:08:00 29.82 kg/m2 [facility] Procedures Procedure Date / Time Performed Performing Clinician Source ASSIGNMENT OF BENEFITS 2022-11-10 17:10:02 Docto r Unassigned, [place] [facility] PHYSICIAN ORDERS 2022-10-26 06:01:00 Doctor Unas signed, [place] [facility] REFERRAL- REQUEST/RESPONSE 2022-06-27 05:01:00 D lisaor Unassigned, [place] [facility] ASSIGNMENT OF BENEFITS 2021-11-18 17:34:01 Docto r Unassigned, [place] [facility] PHYSICIAN ORDERS 2021-11-03 06:01:00 Doctor Unas signed, [place] [facility] FL TIME OR (NON-REPORTABLE) 2020-06-08 12:55:00 Devin Parmar [facility] NOTICE OF PRIVACY PRACTICES 2020-06-05 18:02:53 Doctor Unassigned, [place] [facility] CONSENT/REFUSAL FOR DIAGNOSIS AND TREATMENT 2020-06-05 17:56:32 Doctor Unassigned, [place] [facility] ASSIGNMENT OF BENEFITS 2020-06-05 17:56:16 Docto r Unassigned, [place] [facility] DSU PRE-OP 2020-05-02 05:01:00 Doctor Unass igned, [place] [facility] CONSENT/REFUSAL FOR DIAGNOSIS AND TREATMENT 2020-04-16 18:42:04 Doctor Unassigned, [place] [facility] ASSIGNMENT OF BENEFITS 2020-04-16 18:41:46 Docto r Unassigned, [place] [facility] EXTERNAL PROVIDER - ADC REFERRAL 2019-12-31 05:01:00 Doctor Unassigned, [place] [facility] BILI UNCONJUGATED/BILI CONJUG 2019-12-06 19:08:00 [facility] FREE T4 2019-12-06 19:08:00 [facility] THYROID STIMULATING HORMONE 2019-12-06 19:08:[facility] ([id number])(TOTAL CHOLESTEROL, TRIGLYCERIDES, HDL) 2019-12-06 19:08:00 Sukhjinder Lim [facility] CBC WITH DIFFERENTIAL 2019-12-06 19:08:00 Any Limt in [facility] GLYCOSYLATED HEMOGLOBIN (A1C) 2019-12-06 19:08:00 Benny Sukhjinder [facility] XR HAND 3+ VW BILATERAL 2019-12-06 18:54:31 Requisitio n, Paper [facility] US ABDOMEN COMPLETE 2019-12-06 18:40:25 Requisition, P aper [facility] NO SHOW OR MISSED APPOINTMENT POLICY ACKNOWLEDGEMENT 2019-12-06 17:54:02 Doctor Unassigned, [place] [facility] NOTICE OF PRIVACY PRACTICES 2019-12-06 17:51:35 Doctor Unassigned, [place] [facility] CONSENT/REFUSAL FOR DIAGNOSIS AND TREATMENT 2019-12-06 17:51:03 Doctor Unassigned, [place] [facility] ASSIGNMENT OF BENEFITS 2019-12-06 17:50:26 Docto r Unassigned, [place] [facility] Encounters Start Date/Time End Date/Time Encounter Type Admission Type Attending [facility] Care Facility Care Department Encounter ID Source 2023-12-27 10:33:00 [facility] [id number] [facility] 2023-09-06 13:53:00 Outpatient [facility] [id number] [facility] 2023-06-22 16:43:00 Outpatient [facility] [id number] [facility] 2023-05-26 11:45:00 Outpatient [facility] [id number] [facility] 2022-10-26 10:39:16 Outpatient DEVIN CHANDLER [facility] ANS [id number] [facility] 2022-10-26 10:37:52 [facility] [id number] [facility] 2022-10-26 10:37:11 [facility] [id number] [facility] 2022-09-29 10:20:24 Outpatient DEVIN CHANDLER [facility] ANS [id number] [facility] 2021-11-17 14:39:02 Outpatient Quintanilla, Na STLMLC ST[facility] [id number] [facility] 2021-11-17 13:14:24 Outpatient Quintanilla, Na STLMLC ST[facility] [id number] [facility] 2021-11-17 13:12:22 Outpatient Quintanilla, Na STLMLC ST[facility]C [id number] [facility] 2021-11-17 13:02:40 Outpatient Quintanilla, Na STLMLC ST[facility]C [id number] [facility] 2021-11-17 12:44:46 Outpatient Quintanilla, Na STLMLC ST[facility]C [id number] [facility] 2021-11-17 12:30:37 Outpatient Quintanilla, Na STLMLC ST[facility]C [id number] [facility] 2021-11-17 12:22:55 Outpatient Quintanilla, Na STLMLC ST[facility]C [id number] [facility] 2021-11-17 12:17:28 Outpatient Quintanilla, Na STLMLC ST[facility]C [id number] [facility] 2021-11-17 12:13:20 Outpatient Quintanilla, Na STLMLC ST[facility]MLC [id number] [facility] 2021-11-17 11:53:29 Outpatient Quintanilla, Na STLMLC STLMLC [id number] [facility] 2021-11-17 11:52:49 Outpatient Quintanilla, Na STLMLC STLMLC [id number] [facility] 2021-11-17 11:43:42 Outpatient Quintanilla, Na STLMLC ST[facility]C [id number] [facility] 2021-11-17 11:42:42 Outpatient Galilea Na STLMLC ST[facility] [id number] [facility] 2021-11-17 11:38:23 Outpatient Karen Quintanilla STLMLC ST[facility] [id number] [facility] 2021-11-17 11:37:16 Outpatient Galilea Na STLMLC STLMLC [id number] [facility] 2021-11-17 11:34:14 Outpatient STLMLC ST[facility] [id number] [facility] 2021-11-17 11:26:43 Outpatient STLMLC STL[facility]C [id number] [facility] 2021-11-17 11:16:45 Outpatient STLMLC STLMLC [id number] [facility] 2021-08-20 11:43:12 Outpatient DEVIN PARMAR [facility] [id number] [facility] 2021-08-20 06:40:16 [facility] TRESSA [id number] [facility] 2021-08-20 02:55:03 Outpatient DEVIN CHANDLER [facility] TRESSA [id number] [facility] 2024-07-11 14:45:00 2024-07-11 14:45:00 Outpatient ESTELA LUBIN [id number] [facility] 2024-06-07 00:00:00 2024-06-07 00:00:00 Outpatient ESTELA LUBIN [id number] [facility] 2024-05-31 16:30:00 2024-05-31 16:30:00 Outpatient ESTELA LUBIN [id number] [facility] 2024-05-12 00:00:00 2024-05-12 00:00:00 Outpatient TRACI MOODY [id number] [facility] 2024-03-22 00:00:00 2024-03-22 00:00:00 Outpatient PREZAS, ESTELA NASIMA REID [id number] [facility] 2023-12-29 00:00:00 2023-12-29 00:00:00 Outpatient PREZAS, ESTELA NASIMA REID [id number] [facility] 2023-12-20 14:30:00 2023-12-20 14:30:00 Outpatient PREZAS, ESTELA NASIMA REID [id number] [facility] 2023-11-29 00:00:00 2023-11-29 00:00:00 Outpatient PREZAS, ESTELA NASIMA REID [id number] [facility] 2023-11-10 00:00:00 2023-11-10 00:00:00 Outpatient PREZAS, ESTELAKEILA REID [id number] [facility] 2023-11-10 00:00:00 2023-11-10 00:00:00 [id number] [facility] 10:30:00 2023-09-19 10:30:00 Outpatient PREZAS, ESTELA NASIMA REID [id number] [facility] 2023-09-19 00:00:00 2023-09-19 00:00:00 Outpatient PREZAS, ESTELA NASIMA REID [id number] [facility] 2023-08-14 00:00:00 2023-08-14 00:00:00 (IN/ASP) INJ ASP STLMLC [facility]C [id number] [facility] 2023-08-08 13:45:00 2023-08-08 13:45:00 Outpatient PREZAS, ESTELA NASIMA REID [id number] [facility] 2023-08-08 10:00:00 2023-08-08 10:00:00 Outpatient PREZAS, ESTELA REID [id number] [facility] 2023-08-08 00:00:00 2023-08-08 00:00:00 Outpatient PREZAS, ESTELA REID [id number] Nasima [facility] 2023-08-07 15:30:00 2023-08-07 15:30:00 Outpatient ESTELA LUBIN [id number] [facility] 2023-08-07 00:00:00 2023-08-07 00:00:00 (IN/ASP) INJ ASP STLMLC [facility] [id number] [facility] 2023-07-31 00:00:00 2023-07-31 00:00:00 OFFICE VISIT ESTAB PT LEVEL 4 STLMLC STLMLC [id number] [facility] 2023-07-06 14:38:22 2023-07-06 14:38:22 Outpatient SFA [facility] 14 Davi Shelton Sukhjinder 2023-07-04 13:26:34 2023-07-04 13:26:34 Outpatient SFA [facility] [id number] Davi Pastor 2023-06-22 00:00:00 2023-06-22 00:00:00 OFFICE VISIT ESTAB PT LEVEL 4 STLMLC STLMLC [id number] [facility] 2023-06-22 00:00:00 2023-06-22 00:00:00 (TEL) STLMLC STLMLC [id number] [facility] 2023-04-19 14:52:38 2023-04-19 14:52:38 Outpatient SFA SFA [id number] Davi Shelton Sukhjinder 2023-02-18 13:39:59 2023-02-18 13:39:59 Outpatient SFA SFA [id number] Davi Pastor 2022-11-28 09:47:29 2022-11-28 09:47:29 Outpatient SFA SFA [id number] Davi Shelton Sukhjinder 2022-11-10 11:45:00 2022-11-10 12:00:00 Contracting Manager Visit Pob, Adc Lab Main Devin Parmar [facility] [id number] [id number] [facility] 2022-11-10 11:45:00 2022-11-10 11:45:00 Outpatient Acacia PARMAR [facility] [id number] [facility] 2022-11-10 00:00:00 2022-11-10 00:00:00 Orders Only Doctor Unassigned, [place] [facility] [id number] [id number] [facility] 2022-10-31 00:00:00 2022-10-31 00:00:00 (TEL) STLMLC [facility] [id number] [facility] 2022-10-28 10:15:00 2022-10-28 10:15:00 Outpatient Acacia RAMOSLuther [facility] [id number] [facility] 2022-10-26 13:30:00 2022-10-26 13:45:00 Contracting Manager Visit Pob, Adc Lab Main Ranifelisa [facility] [id number] [id number] [facility] 2022-10-26 13:30:00 2022-10-26 13:30:00 Outpatient Acacia [facility]TAZAR [facility] [id number] [facility] 2022-10-26 00:00:00 2022-10-26 00:00:00 Orders Only Doctor Unassigned, [place] [facility] [id number] 350.1.13.10 [id number] [id number] [facility] 2022-10-19 15:10:24 2022-10-19 15:10:24 Outpatient WYATT SCHNEIDER [id number] Davi Shelton Sukhjinder 2022-10-07 09:15:00 2022-10-07 09:15:00 Outpatient Acacia PARMAR [facility] [id number] [facility] 2022-06-27 00:00:00 2022-06-27 00:00:00 Orders Only Doctor Unassigned, [place] [facility] [id number] 350.1.13.10 [id number] [id number] [facility] 2022-02-15 12:08:00 2022-02-17 18:20:00 Inpatient BEAR [facility] [id number] [facility] 2022-01-05 00:00:00 2022-01-05 00:00:00 (TEL) STLMLC STLMLC [id number] [facility] 2021-12-23 00:00:00 2021-12-23 00:00:00 (TEL) STLMLC STLMLC [id number] [facility] 2021-11-18 11:15:00 2021-11-18 11:30:00 Contracting Manager Visit Pob, Adc Lab Main Devin Parmar [facility] 1.2.840.114 350.1.13.10 [id number] [facility] 2021-11-18 11:15:00 2021-11-18 11:15:00 Outpatient R DEVIN PARMAR [facility] [id number] [facility] 2021-11-18 00:00:00 2021-11-18 00:00:00 Orders Only Doctor Unassigned, [place] [facility] 1.2.840.114 350.1.13.10 [id number] [id number] [facility] 2021-11-17 00:00:00 2021-11-17 00:00:00 OFFICE VISIT ESTAB PT LEVEL 4 STLMLC STLMLC [id number] [facility] 2021-11-17 00:00:00 2021-11-17 00:00:00 (TEL) STLMLC STLMLC [id number] [facility] 2021-11-03 00:00:00 2021-11-03 00:00:00 Orders Only Doctor Unassigned, [place] [facility] 1.2.840.114 350.1.13.10 [id number] [id number] [facility] 2021-03-30 00:00:00 2021-03-30 00:00:00 OFFICE VISIT EST PT LEVEL 3 STLMLC STLMLC [id number] [facility] 2021-03-30 00:00:00 2021-03-30 00:00:00 (TEL) STLMLC STLMLC [id number] [facility] 2021-03-03 00:00:00 2021-03-03 00:00:00 (TEL) STLMLC STLMLC [id number] [facility] 2021-01-18 00:00:00 2021-01-18 00:00:00 (TEL) STLMLC STLMLC [id number] [facility] 2021-01-14 00:00:00 2021-01-14 00:00:00 (TEL) STLMLC STLMLC [id number] [facility] 2020-12-03 00:00:00 2020-12-03 00:00:00 Outpatient STLMLC STLMLC [id number] [facility] 2020-11-16 00:00:00 2020-11-16 00:00:00 Outpatient STLMLC STLMLC [id number] [facility] 2020-11-02 00:00:00 2020-11-02 00:00:00 Outpatient STLMLC STLMLC [id number] [facility] 2020-10-20 00:00:00 2020-10-20 00:00:00 Outpatient STLMLC STLMLC [id number] [facility] 2020-10-01 00:00:00 2020-10-01 00:00:00 Outpatient STLMLC STLMLC [id number] [facility] 2020-09-28 00:00:00 2020-09-28 00:00:00 Outpatient STLMLC STLMLC [id number] [facility] 2020-09-01 00:00:00 2020-09-01 00:00:00 Outpatient STLMLC STLMLC [id number] [facility] 2020-08-17 00:00:00 2020-08-17 00:00:00 Outpatient STLMLC STLMLC [id number] [facility] 2020-08-07 00:00:00 2020-08-07 00:00:00 Outpatient STLMLC STLMLC [id number] [facility] 2020-07-31 00:00:00 2020-07-31 00:00:00 Outpatient STLMLC STLMLC [id number] [facility] 2020-07-31 00:00:00 2020-07-31 00:00:00 Outpatient STLMLC STLMLC [id number] [facility] 2020-07-28 00:00:00 2020-07-28 00:00:00 Outpatient STLMLC STLMLC [id number] [facility] 2020-06-26 15:20:00 2020-06-26 15:20:00 [facility] [place] [facility] [id number] [facility] 2020-06-08 06:51:00 2020-06-08 08:25:00 Hospital Encounter [facility] 1.2.840.114 350.1.13.10 [id number] [id number] [facility] 2020-06-08 06:51:00 2020-06-08 08:25:00 Hospital Encounter [facility] 1.2.840.114 350.1.13.10 4.2.7.2.686 [id number] 2020-06-05 12:56:40 2020-06-05 13:11:40 Laboratory Only Only, Adc Test Devin Parmar [facility] 1.2.840.114 350.1.13.10 [id number] [id number] [facility] 2020-06-05 12:56:40 2020-06-05 13:11:40 Laboratory Only Only, Adc Test [facility] 1.2.840.114 350.1.13.10 [id number] [id number] 2020-06-05 13:00:00 2020-06-05 13:00:00 Outpatient Acacia GHULAM DEVIN [facility] [id number] [facility] 2020-05-15 09:00:00 2020-05-15 09:00:00 Outpatient CARMEN PIEDRA SHIWAN [facility] [id number] [facility] 2020-05-12 13:00:00 2020-05-12 13:00:00 [facility] [id number] [facility] 2020-05-05 13:30:00 2020-05-05 13:30:00 [facility] [id number] [facility] 2020-05-02 00:00:00 2020-05-02 00:00:00 Orders Only Doctor Unassigned, [place] [facility] 1.2.840.114 350.1.13.10 4.2.7.2.686 [id number] [id number] [facility] 2020-05-02 00:00:00 2020-05-02 00:00:00 Orders Only Doctor Unassigned, [place] [facility] 1.2.840.114 350.1.13.10 4.2.7.2.686 [id number] [id number] 2020-04-28 09:15:00 2020-04-28 09:15:00 [facility] [place] [id number] [facility] 2020-04-20 07:47:09 2020-04-20 09:07:00 Hospital Encounter Devin Parmar [facility] [place] 1.2.840.114 350.1.13.10 4.2.7.2.686 [id number] [facility] 2020-04-20 07:47:09 2020-04-20 09:07:00 Hospital Encounter Devin Parmar [facility] 1.2.840.114 350.1.13.10 4.2.7.2.686 [id number] 2020-04-17 12:00:00 2020-04-17 12:00:00 Outpatient R [facility] [id number] [facility] 2020-04-17 11:38:45 2020-04-17 11:53:45 Laboratory Only Only, Adc Test Devin Parmar [facility] 1.2.840.114 350.1.13.10 4.2.7.2.686 [id number] [facility] 2020-04-17 11:38:45 2020-04-17 11:53:45 Laboratory Only Only, Adc Test [facility] 1.2.840.114 350.1.13.10 4.2.7.2.686 [id number] 2020-04-16 13:49:39 2020-04-16 14:04:39 Contracting Manager Visit Pob, Adc Lab Main Devin Parmar [facility] 1.20.114 350.1.13.10 4.2.7.2.686 [id number] [facility] 2020-04-16 13:49:39 2020-04-16 14:04:39 Contracting Manager Visit Pob, Adc Lab Main [facility]al [facility] 1.2840.114 350.1.13.10 4.2.7.2.686 [id number] 2020-04-16 13:45:00 2020-04-16 13:45:00 Outpatient R DEVIN PARMAR [facility] [id number] [facility] 2020-04-15 11:22:00 2020-04-15 11:22:00 [facility] [id number] [facility] 2020-03-27 08:35:00 2020-03-27 08:35:00 [facility] [id number] [facility] 2020-03-26 10:30:00 2020-03-26 10:30:00 [facility] [id number] [facility] 2020-03-17 12:30:00 2020-03-17 12:30:00 [facility] [id number] [facility] 2020-02-13 15:40:00 2020-02-13 15:40:00 Outpatient R [facility] [id number] [facility] 2020-02-13 08:13:08 2020-02-13 08:33:08 Telemedici ne Visit Carmen Turner [facility] 1.2.840.114 350.1.13.10 4.2.7.2.686 [id number] [facility] 2020-02-13 08:13:08 2020-02-13 08:33:08 Telemedici ne Visit Carmen Turner [facility] 1.2.840.114 350.1.13.10 4.2.7.2.686 [id number] 2020-01-28 04:26:00 2020-01-28 04:26:00 Outpatient Joseline-Mbayo _A_AH VFP VFP [id number] [facility] 2020-01-28 04:26:00 2020-01-28 04:26:00 Outpatient Joseline-Mbayo _A_AH VFP VFP [id number] [facility] 2020-01-28 04:26:00 2020-01-28 04:26:00 Outpatient Joseline-Mbayo _A_AH VFP VFP [id number] [facility] 2020-01-20 12:08:00 2020-01-20 12:08:00 Outpatient Joseline-Mbayo _A_AH VFP VFP [id number] [facility] 2019-12-31 00:00:00 2019-12-31 00:00:00 Orders Only Doctor Unassigned, [place] [id number] 350.1.13.10 4.2.7.2.686 [id number] [id number] [facility] 2019-12-31 00:00:00 2019-12-31 00:00:00 Orders Only Doctor Unassigned, [place] [facility] 1.2.840.114 350.1.13.10 4.2.7.2.686 [id number] [id number] 2019-12-06 11:58:00 2019-12-06 23:59:00 Hospital Encounter Radiology [place] [id number] 350.1.13.10 4.2.7.2.686 [id number] [facility] 2019-12-06 11:58:00 2019-12-06 23:59:00 Hospital Encounter Radiology [facility] 12840.114 350.1.13.10 4.2.7.2.686 [id number] 2019-12-06 12:02:23 2019-12-06 12:17:23 Contracting Manager Visit Gabby, Adc Lab Main Luz Chacko [facility] 1.2.840.114 350.1.13.10 4.2.7.2.686 [id number] [facility] 2019-12-06 12:02:23 2019-12-06 12:17:23 Contracting Manager Visit Pob, Adc Lab Main [facility] 1.2.840.114 350.1.13.10 4.2.7.2.686 [id number] 2019-12-06 11:58:18 2019-12-06 11:57:00 Outpatient R RADIOLOGY [facility] [id number] [facility] 2019-12-06 11:30:00 2019-12-06 11:57:00 Hospital Encounter Radiology [facility] 1.2.840.114 350.1.13.10 4.2.7.2.686 [id number] [facility] 2019-12-06 11:30:00 2019-12-06 11:57:00 Hospital Encounter Radiology [facility] 1.2.840.114 350.1.13.10 4.2.7.2.686 [id number] 2019-12-06 00:00:00 2019-12-06 00:00:00 Orders Only Doctor Unassigned, [place] [facility] 1.2.840.114 350.1.13.10 4.2.7.2.686 [id number] [facility] 2019-12-06 00:00:00 2019-12-06 00:00:00 Orders Only Doctor Unassigned, [place] [facility] 1.2.840.114 350.1.13.10 4.2.7.2.686 [id number] 2018-12-17 10:30:00 2018-12-17 10:30:00 [facility] [id number] [facility] 2018-12-11 10:00:00 2018-12-11 10:00:00 [facility] [id number] [facility] 2018-12-11 09:35:00 2018-12-11 09:35:00 [facility] [id number] [facility] 2018-12-06 11:00:00 2018-12-06 11:00:00 [facility] [id number] [facility] 2018-12-03 10:30:00 2018-12-03 10:30:00 [facility] [id number] [facility] 2018-07-16 16:31:00 2018-07-16 16:31:00 [facility] [id number] [facility] 2018-06-26 09:00:00 2018-06-26 09:00:00 [facility] [id number] [facility] Results Test Description Test Time Test Comments Results Result Co mments Source LIPID [id number] 05:49:04* Test Item Value Reference Range Interpretation Comme nts CHOLESTEROL (test code = 2210) 164 MG/DL <200 TRIGLYCERIDES (test code = 2232) 119 MG/DL <150 HDL CHOLESTEROL (test code = 2220) 85 MG/DL >39 CALC LDL CHOL (test code = 2237) 58 MG/DL <100 NOTE: CALCULATED LDL IS BASED ON REYNA-STINSON METHOD WHICHINCLUDES ADJUSTABLE TRIGLYCERIDE:VLDL CHOLESTEROL RATIO.THIS FACTOR VARIES BY MEASURED TRIGLYCERIDE AND NON-HDLCHOLESTEROL CONCENTRATIONS WITH INCREASED CALCULATED LDL SEENIN HIGHER TRIGLYCERIDE OR LOWER NON-HDL SPECIMENS. FOR MOREINFORMATION, SEE CLIENT ANNOUNCEMENT AT [email or web address] RATIO LDL/HDL (test code = 2238) 0.68 RATIO <3.22 COMPREHENSIVE METABOLIC [id number] 05:49:04* Test Item Value Reference Range Interpretation Comme nts GLUCOSE (test code = 2216) 104 MG/DL 70-99 H BUN (test code = 2207) 14 MG/DL 8-23 CREATININE (test code = 2213) 0.65 MG/DL 0.60-1.30 eGFR (2020 CKD-EPI) (test code = 32320) 99 ML/MIN/1.73 >60 CALC BUN/CREAT (test code = 2234) 22 RATIO 6-28 SODIUM (test code = 2230) 143 MEQ/L 133-146 POTASSIUM (test code = 2227) 3.9 MEQ/L 3.5-5.4 CHLORIDE (test code = 2214) 103 MEQ/L 95-107 CARBON DIOXIDE (test code = 2205) 28 MEQ/L 19-31 CALCIUM (test code = 2208) 9.4 MG/DL 8.5-10.5 PROTEIN, TOTAL (test code = 2228) 6.4 G/DL 6.1-8.3 ALBUMIN (test code = 2200) 4.6 G/DL 3.5-5.2 CALC GLOBULIN (test code = 0) 1.8 G/DL 1.9-3.7 L CALC A/G RATIO (test code = 2233) 2.6 RATIO 1.0-2.6 BILIRUBIN, TOTAL (test code = 2206) 0.2 MG/DL See_Comment [Automated me ssage] The system which generated this result transmitted reference range: <=1.2. The reference range was not used to interpret this result as normal/abnormal. ALKALINE PHOSPHATASE (test code = 2203) 61 U/L 40-140 AST (test code = 2217) 16 U/L 9-40 ALT (test code = 2219) 11 U/L 5-40 HEMOGLOBIN [id number] 03:17:01* Test Item Value Reference Range Interpretation Comme [facility] HEMOGLOBIN A1c (test code = 74419) 6.1 % 4.2-5.6 H [employer] GUIDELINES FOR HGB A1C: PREDIABETES/INCREASED RISK . . . . . . . 5.7-6.4% DIAGNOSIS OF DIABETES . . . . . . . . . >=6.5% WITH CONFIRMATION OR APPROPRIATE SYMPTOMS NOTE: ASSAY MAY BE AFFECTED BY HEMOGLOBINOPATHIES (SICKLE CELL ANEMIA, S-C DISEASE, OTHERS) OR ARTIFICIALLY LOWERED BY DECREASED RED CELL SURVIVAL (HEMOLYTIC ANEMIAS, BLOOD LOSS, ETC.). CONSIDER ALTERNATE TESTING OR LABORATORY CONSULTATION. CBC W/AUTO DIFF WITH [id number] 03:11:22* Test Item Value Reference Range Interpretation Comme nts WBC (test code = 1001) 5.1 K/UL 3.5-11.0 RBC (test code = 1002) 4.77 M/UL 3.80-5.40 HEMOGLOBIN (test code = 1003) 14.1 G/DL 11.5-15.5 HEMATOCRIT (test code = 1004) 43.8 % 34.0-45.0 MCV (test code = 1005) 91.8 fL 80.0-99.0 MCH (test code = 1006) 29.6 PG 25.0-33.0 MCHC (test code = 1007) 32.2 G/DL 31.0-36.0 RDW (test code = 1038) 12.9 % 11.5-15.0 NEUTROPHILS (test code = 1008) 57.6 % LYMPHOCYTES (test code = 1010) 35.2 % MONOCYTES (test code = 1011) 6.4 % EOSINOPHILS (test code = 1012) 0.0 % BASOPHILS (test code = 1013) 0.6 % IMMATURE GRANULOCYTES (test code = 1036) 0.2 % NUCLEATED RBCS (test code = 1065) 0.0 /100 WBC'S See_Comment [Automated [employer]] The system which generated this result transmitted reference range: 0.0. The reference range was not used to interpret this result as normal/abnormal. PLATELET COUNT (test code = 1015) 218 K/UL 130-400 ABSOLUTE NEUTROPHILS (test code = 1066) 2.95 K/UL 1.50-7.50 ABSOLUTE LYMPHOCYTES (test code = 1067) 1.80 K/UL 1.00-4.00 ABSOLUTE MONOCYTES (test code = 1068) 0.33 K/UL 0.20-1.00 ABSOLUTE EOSINOPHILS (test code = 1040) 0.00 K/UL 0.00-0.50 ABSOLUTE BASOPHILS (test code = 1069) 0.03 K/UL 0.00-0.20 ABS IMMATURE GRANULOCYTES (test code = 1020) 0.01 K/UL 0.00-0.10 ABS NUCLEATED RBCS (test code = 77620) 0.00 K/UL 0.00-0.11 CHRISTOPH (ANTI-NUCLEAR AB) WITH REFLEX [id number] 01:51:50* Test Item Value Reference Range Interpretation Comme nts ANTI-NUCLEAR ANTIBODIES (test code = 3506) NEGATIVE NEGATIVE Methodology is I ndirect Immunofluorescent Assay (IFA) with a titering system using [id number] cells (Hep2 cells transfected with SS-A/Ro). CHRISTOPH PATTERN (REPORTED TITER) (test code = 07741) SEE BELOW HOMOGENEOUS (test code = 11055) NEGATIVE TITER NEGATIVE SPECKLED (test code = 392380) NEGATIVE TITER NEGATIVE DENSE FINE SPECKLED (test code = 59436) NEGATIVE TITER NEGATIVE CENTROMERE (test code = 225356) NEGATIVE TITER NEGATIVE COARSE SPECKLED (test code = 500459) NEGATIVE TITER NEGATIVE DISCRETE NUCLEAR DOTS (test code = 429252) NEGATIVE TITER NEGATIVE NUCLEOLAR (test code = 824221) NEGATIVE TITER NEGATIVE NUCLEAR MEMBRANE (test code = 270244) NEGATIVE TITER NEGATIVE CYTO. RETICULAR (OMAYRA) (test code = 118044) NEGATIVE NEGATIVE COMMENTS (test code = 395546) NONE METHOD (test code = 89838) (NOTE) NOTE: EFFECTIVE 05/30/2022, METHOD IS TRANSITIONED TO THE [employer] IFA PLATFORM. THE METHOD INCLUDES A SCREENTHRESHOLD OF 1:80, DIGITIZED AND COMPUTER ALGORITHM-ASSISTEDINTER PRETATION OF TITERS AND DIGITAL PATTERNS, AND HEp-2 CELLLINE SUBSTRATE. ADDITIONAL UNUSUAL PATTERNS WILL BE GIVEN ASCOMMENTS. FOR MORE INFORMATION, SEE [email or web address] SEDIMENTATION [id number] 07:01:59* Test Item Value Reference Range Interpretation Comme nts SEDIMENTATION RATE (test cod e = 1017) 2 MM/HOUR 0-20 VITAMIN [id number] 06:54:05* Test Item Value Reference Range Interpretation Comme nts VITAMIN B-12 (test code = 2840) 570 PG/ML 200-950 VITAMIN D, 25 [id number] 06:30:30* Test Item Value Reference Range Interpretation Comme nts VITAMIN D, 25 OH (test code = 4958) 18 NG/ML SEE BELOW L NOTE: 25-HYDR OXYVITAMIN D ASSAY INCLUDES 25-HYDROXYVITAMIN D2 AND D3. METHODOLOGY IS CHEMILUMINESCENT IMMUNOASSAY. INTERPRETIVE RANGES PEDIATRIC (<17 YEARS) . . . . . . . . . . . NG/ML 20-100ADULT: INSUFFICIENT . . . . . . . . . . . . . . NG/ML <20 SUBOPTIMAL . . . . . . . . . . . . . . . NG/ML 20-29 OPTIMAL . . . . . . . . . . . . . . . . . NG/ML 30-100 C-REACTIVE [id number] 04:49:03* Test Item Value Reference Range Interpretation Comme nts C-REACTIVE PROTEIN (test cod e = 3513) 0.3 MG/DL <0.5 RHEUMATOID FACTOR, [id number] 04:49:03* Test Item Value Reference Range Interpretation Comme nts RHEUMATOID FACTOR, QUANT (te st code = 3502) <10 IU/ML <14 COMPREHENSIVE METABOLIC [id number] 04:26:32* Test Item Value Reference Range Interpretation Comme nts GLUCOSE (test code = 2217) 82 MG/DL 70-99 BUN (test code = 2208) 12 MG/DL 8-23 CREATININE (test code = 2214) 0.60 MG/DL 0.60-1.30 eGFR (2020 CKD-EPI) (test code = 02183) 102 ML/MIN/1.73 >60 CALC BUN/CREAT (test code = 2235) 20 RATIO 6-28 SODIUM (test code = 2231) 143 MEQ/L 133-146 POTASSIUM (test code = 2228) 4.5 MEQ/L 3.5-5.4 CHLORIDE (test code = 2215) 102 MEQ/L 95-107 CARBON DIOXIDE (test code = 2206) 28 MEQ/L 19-31 CALCIUM (test code = 2209) 10.2 MG/DL 8.5-10.5 PROTEIN, TOTAL (test code = 222) 7.0 G/DL 6.1-8.3 ALBUMIN (test code = 2201) 4.8 G/DL 3.5-5.2 CALC GLOBULIN (test code = 2240) 2.2 G/DL 1.9-3.7 CALC A/G RATIO (test code = 223) 2.2 RATIO 1.0-2.6 BILIRUBIN, TOTAL (test code = 7) 0.3 MG/DL See_Comment [Automated me ssage] The system which generated this result transmitted reference range: <=1.2. The reference range was not used to interpret this result as normal/abnormal. ALKALINE PHOSPHATASE (test code = 2204) 90 U/L 40-140 AST (test code = 2218) 14 U/L 9-40 ALT (test code = 2219) 13 U/L 5-40 LIPID [id number] 04:26:32* Test Item Value Reference Range Interpretation Comme nts CHOLESTEROL (test code = 2210) 210 MG/DL <200 H TRIGLYCERIDES (test code = 2232) 238 MG/DL <150 H HDL CHOLESTEROL (test code = 0) 64 MG/DL >39 CALC LDL CHOL (test code = 7) 110 MG/DL <100 H NOTE: CALCULATED LDL IS BASED ON REYNA-STINSON METHOD WHICHINCLUDES ADJUSTABLE TRIGLYCERIDE:VLDL CHOLESTEROL RATIO.THIS FACTOR VARIES BY MEASURED TRIGLYCERIDE AND NON-HDLCHOLESTEROL CONCENTRATIONS WITH INCREASED CALCULATED LDL SEENIN HIGHER TRIGLYCERIDE OR LOWER NON-HDL SPECIMENS. FOR MOREINFORMATION, SEE CLIENT ANNOUNCEMENT AT [email or web address] [email or web address] RATIO LDL/HDL (test code = 2238) 1.72 RATIO <3.22 UNLESS OTHERW ISE INDICATED, ALL TESTING PERFORMED [facility] [address] [place] [address] COLLECTION SYSTEMS WORKER: ANEUDY BARRERA M.D. CLIA NUMBER [id number] [facility]. [id number] URIC [id number] 04:26:32* Test Item Value Reference Range Interpretation Comme nts URIC ACID (test code = 2233) 4.3 MG/DL 2.7-6.1 HEMOGLOBIN [id number] 04:08:33* Test Item Value Reference Range Interpretation Comme nts HEMOGLOBIN A1c (test code = 40749) 6.0 % 4.2-5.6 H CBC W/AUTO DIFF WITH [id number] 02:37:17* Test Item Value Reference Range Interpretation Comme nts WBC (test code = 1001) 5.6 K/UL 3.5-11.0 RBC (test code = 1002) 5.21 M/UL 3.80-5.40 HEMOGLOBIN (test code = 1003) 15.1 G/DL 11.5-15.5 HEMATOCRIT (test code = 1004) 47.0 % 34.0-45.0 H MCV (test code = 1005) 90.2 fL 80.0-99.0 MCH (test code = 1006) 29.0 PG 25.0-33.0 MCHC (test code = 1007) 32.1 G/DL 31.0-36.0 RDW (test code = 1038) 13.4 % 11.5-15.0 NEUTROPHILS (test code = 1008) 56.5 % LYMPHOCYTES (test code = 1010) 33.8 % MONOCYTES (test code = 1011) 6.2 % EOSINOPHILS (test code = 1012) 2.3 % BASOPHILS (test code = 1013) 0.7 % IMMATURE GRANULOCYTES (test code = 1036) 0.5 % NUCLEATED RBCS (test code = 1065) 0.0 /100 WBC'S See_Comment [Automated [employer]] The system which generated this result transmitted reference range: 0.0. The reference range was not used to interpret this result as normal/abnormal. PLATELET COUNT (test code = 1015) 214 K/UL 130-400 ABSOLUTE NEUTROPHILS (test code = 1066) 3.17 K/UL 1.50-7.50 ABSOLUTE LYMPHOCYTES (test code = 1067) 1.90 K/UL 1.00-4.00 ABSOLUTE MONOCYTES (test code = 1068) 0.35 K/UL 0.20-1.00 ABSOLUTE EOSINOPHILS (test code = 1040) 0.13 K/UL 0.00-0.50 ABSOLUTE BASOPHILS (test code = 1069) 0.04 K/UL 0.00-0.20 ABS IMMATURE GRANULOCYTES (test code = 1020) 0.03 K/UL 0.00-0.10 ABS NUCLEATED RBCS (test code = 49683) 0.00 K/UL 0.00-0.11 Lipid Panel w/ Chol/HDL [id number] 00:00:00* Test Item Value Reference Range Interpretation Comme nts Cholesterol, Total (test code = 2093-3) 223 100-199 Triglycerides (test code = 2571-8) 99 0-149 HDL Cholesterol (test code = 2085-9) 73 >39 T. Chol/HDL Ratio (test code = 9830-1) 3.1 0.0-4.4 FL TIME OR (NON-REPORTABLE)2020-06-08 13:07:00These images do not require a Radiology diagnostic report.[facility] [id number] 01:03:28No acute osseous abnormality. 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 EXAM: XR HAND 3+ VW BILATERAL HISTORY: 59 years-old Female Senile arthritis COMPARISON: None. FINDINGS:No ?acute fracture or dislocation. Severe joint space narrowing affects the bilateral second and third MCPjoints with prominent hook like osteophytosis. Sclerotic and cystic changes involves the leftlunate bone. No soft tissue abnormality is seen. [facility], Radiant Results Inft 12/06/2019 7:04 PM CSTEXAM: XR HAND 3+ VW BILATERALHISTORY: 59 years-old Female Senile arthritis COMPARISON: None.FINDINGS:No acute fracture or dislocation. 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 The reference range was not used to interpret this result as normal/abnormal. Lab Interpretation (test code = 16493-4) Normal [facility] [id number] 20:21:00* Test Item Value Reference Range Interpretation Comme nts FREE T4 (test code = 2960289105) 0.92 ng/dL 0.78-2.2 Lab Interpretation (test cod e = 63890-4) Normal [facility] HospitalLIP[facility] PANEL (23406)(TOTAL CHOLESTEROL, TRIGLYCERIDES, HDL)2019-12-06 20:16:00* Test Item Value Reference Range Interpretation Comme nts CHOL (test code = 9934081260) 214 mg/dL 120-200 H HDL (test code = 8349504390) 63 mg/dL >50 HDLC RATIO (test code = 7809284674) See_Comment [Automated [employer]] The system which generated this result transmitted reference range: <=4.5. The reference range was not used to interpret this result as normal/abnormal. TRIG (test code = 4798141664) 246 mg/dL 30-170 H LDL CHOL (test code = 24591-1) 102 mg/dL See_Comment [Automated [employer]] The system which generated this result transmitted reference range: <=160. The reference range was not used to interpret this result as normal/abnormal. VLDL (test code = 9830767099) 49 mg/dL 5-60 Lab Interpretation (test code = 62573-4) Abnormal [facility] HospitalGLYCOSYLATED HEMOGLOBIN (A1C)2019-12-06 20:16:00* Test Item Value Reference Range Interpretation Comments HGB A1C (test code = 4548-4) See_Comment [Automated message] The system which generated this result transmitted reference range: 4.0 - 6.0 % NGSP. The reference range was not used to interpret this result as normal/abnormal. RUSTY (test code = RUSTY) %A1C (NGSP) Interpretation (ADA)4.8-5.6 ? ? Normal or (Non-Diabetic Range)5.7-6.4 ? ? Increased Risk (Pre-Diabetic)>6.5 ?Diabetes Indicated Lab Interpretation (test code = 69612-9) Normal [facility] HospitalBILI UNCONJUGATED/BILI [id number] 20:15:00* Test Item Value Reference Range Interpretation Comme nts BILI CONJ (test code = 8367885411) 0.0 mg/dL 0-0.3 BILI UNCON (test code = 9642943918) 0.5 mg/dL 0.1-1.1 Lab Interpretation (test cod e = 84324-7) Normal [facility] HospitalCB WITH [id number] 19:17:00* Test Item Value Reference Range Interpretation Comme nts WBC (test code = 6690-2) See_Comment [Automated [employer]] The system which generated this result transmitted reference range: 4.30 - 11.10 10*3/?L. The reference range was not used to interpret this result as normal/abnormal. RBC (test code = 789-8) See_Comment [Automated [employer]] The system which generated this result transmitted reference range: 3.93 - 5.25 10*6/?L. The reference range was not used to interpret this result as normal/abnormal. HGB (test code = 718-7) 14.3 g/dL 11.6-15 HCT (test code = 4544-3) 45.4 % 35.7-45.2 H MCV (test code = 787-2) 98.9 fL 80.6-95.5 H MCH (test code = 785-6) 31.2 pg 25.9-32.8 MCHC (test code = 786-4) 31.5 g/dL 31.6-35.1 L RDW-SD (test code = 80621-3) 57.1 fL 39-49.9 H RDW-CV (test code = 788-0) 15.5 % 12-15.5 PLT (test code = 777-3) See_Comment [Automated [employer]] The system which generated this result transmitted reference range: 166 - 358 10*3/?L. The reference range was not used to interpret this result as normal/abnormal. MPV (test code = 29976-1) 10.1 fL 9.5-12.9 NRBC/100 WBC (test code = 5835076475) See_Comment [Automated [employer] ssage] The system which generated this result transmitted reference range: 0.0 - 10.0 /100 WBCs. The reference range was not used to interpret this result as normal/abnormal. NRBC x10^3 (test code = 1002999263) <0.01 See_Comment [Automated [employer]] The system which generated this result transmitted reference range: 10*3/?L. The reference range was not used to interpret this result as normal/abnormal. GRAN MAT (NEUT) % (test code = 770-8) 62.2 % IMM GRAN % (test code = 9150557313) 0.90 % LYMPH % (test code = 736-9) 30.1 % MONO % (test code = 5905-5) 6.4 % EOS % (test code = 713-8) 0.2 % BASO % (test code = 706-2) 0.2 % GRAN MAT x10^3(ANC) (test code = 6350197408) 3.61 10*3/uL 1.88-7.09 IMM GRAN x10^3 (test code = 6992281336) 0.05 10*3/uL 0-0.06 LYMPH x10^3 (test code = 731-0) 1.74 10*3/uL 1.32-3.29 MONO x10^3 (test code = 742-7) 0.37 10*3/uL 0.33-0.92 EOS x10^3 (test code = 711-2) <0.03 0.03-0.39 L BASO x10^3 (test code = 704-7) <0.03 0.01-0.07 Lab Interpretation (test code = 44504-3) Abnormal [facility] ABDOMEN [id number] 18:49:51Mild diffuse hepatic steatosis. No focal hepatic lesions [...] pole nonobstructivecalculus. No hydronephrosis bilaterally. Partially visualized pancreatic head and body appear unremarkable. Spleen measures 12.0 cm in craniocaudal dimension, normal. Proximal abdominal aorta measures 2.2 cm in AP diameter. No aneurysmaldilatation within the midor distal abdominal aorta. [facility], Radiant Results Inft User - 12/06/2019 12:51 PM CSTRIGHT UPPER QUADRANT ABDOMINAL SONOGRAMTECHNIQUE: Grayscale and limited color Doppler images of the right upperquadrant of the abdomen were obtained.INDICATION: Right upper quadrant pain.COMPARISON: None available.FINDINGS:Liver measures approximately 11.8 cm in craniocaudal dimension. Liver ismildly diffusely steatotic with normal echotexture. No focal hepaticlesions identified. There is normal hepatopedal flowwithin the main portalvein (33.5 cm/s). Main portal vein measures 1.1 cm in AP diameter at portahepatis.No cholelithiasis or sludge. No pericholecystic free fluid or gallbladderwall thickening. Gallbladder wall measures 2 to 3 mm. Prominent wallfold/pharyngeal cap is seen at the fundus. Negative sonographic Yadav'ssign.Common bile duct measures 3 mm in AP diameter at del hepatis.Right kidney measures 12.8 x 5.0 x 5.8 [...] hepatic steatosis. No focal hepatic lesions identified.No cholelithiasis.[facility]
[2024-06-30] MEDS ORDERED: ONDANSETRON 4 MG/2 ML VIAL ONE (18:29)
[2024-06-30] MEDS ORDERED: MORPHINE 4 MG/ML SYR ONE ×2 (18:29→18:34)
[2024-06-30 18:37] LABS: Absolute Eosinophils 0.1 K/uL (0-0.5); Absolute Lymphocytes (CBC) 1.4 K/uL (0.7-4.9); Absolute Monocytes 0.3 K/uL (0.1-1.3); Absolute Neutrophil 2.5 K/uL (1.8-8.0); Eosinophils % 2.2 % (0-4.4); Hematocrit 40.8 % (36.0-45.0); Hemoglobin 13.5 g/dL (12.0-15.0); Lymphocytes % 32.9 % (15.3-44.8); MCH 31.6 pg (27.0-35.0); MCHC 33.1 g/dL (32.0-36.0); MCV 95.3 fL (80-100); MPV 7.8 fL (7.6-11.3); Monocytes % 5.8 % (3.3-12.3); Neutrophils % 58.1 % (41.7-73.7); Nucleated Red Blood Cells % 0.1 % (0-0); Platelets 180 thou/uL (152-406); RBC Red Blood Cell Count 4.28 M/uL (3.86-4.86); Red Cell Distribution Width 15.6 % (12.1-15.2)
[2024-06-30 18:46] LABS: Protime INR 0.89
[2024-06-30 18:56] LABS: ALT/SGPT 27 U/L (13-56); AST/SGOT 12 U/L (15-37); Albumin 3.6 g/dL (3.4-5.0); Albumin/Globulin Ratio 1.2 (1.1-1.8); Alkaline Phosphatase 76 U/L (45-117); Anion Gap 11.6 mEq/L (5.0-15.0); BUN Blood Urea Nitrogen 14 mg/dL (7-18); Bicarbonate 26 mEq/L (21-32); Bilirubin Total 0.2 mg/dL (0.2-1.0); Globulin 3.1 g/dL (2.3-3.5); Glomerular Filtration Rate 110 ml/min (=/>90); Glucose Level 139 mg/dL (74-106); Lipase 34 U/L (13-75); Magnesium 2.1 mg/dL (1.6-2.4); NT PRO-BNP 23 pg/mL (<125); Potassium 3.6 mEq/L (3.5-5.1); Protein, Total 6.7 g/dL (6.4-8.2); Sodium Level 142 mEq/L (136-145); Troponin High Sensitivity 7.1 pg/mL (<58.9)
[2024-06-30 19:28] LABS: Bilirubin Direct < 0.2 mg/dL (0-0.2)
[2024-06-30] MEDS ORDERED: FENTANYL CITR 100 MCG/2 ML ONE (19:58)
--- NOTE | 2024-06-30 19:58 | RAD REPORT ---
EXAM DESCRIPTION: RAD - Chest Single View - 06/30/2024 7:46 pm CLINICAL HISTORY: CHEST PAIN Chest pain. COMPARISON: Chest Single View dated 12/24/2021; Chest Single View dated 05/20/2020; Chest Pa And Lat (2 Views) dated 12/23/2019; Chest Pa And Lat (2 Views) dated 12/16/2019 FINDINGS: Portable technique limits examination quality. Mild opacities in the right lung base noted could be mild infiltrate/pneumonia. Calcified granuloma i n the left lung noted. The heart is mildly prominent. No displaced fractures. IMPRESSION: Mild right lung base opacities probably represent mild infiltrate/pneumonia.
--- NOTE | 2024-06-30 20:27 | RAD REPORT ---
EXAM DESCRIPTION: CT - Angio Aorta For Dissection - 06/30/2024 8:20 pm CLINICAL HISTORY: Chest pain radiating to the back. Abd pain;Dissection COMPARISON: No comparisons TECHNIQUE: CT angiography of the aorta was performed with MIPs. All CT scans are performed using dose optimization technique as appropriate and may include automated exposure control or mA/KV adjustment according to patient size. 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 The celiac axis, SMA, JULEE a nd renal arteries are patent. No evidence of pulmonary embolism. Mild emphysema is seen. Mild linear atelectasis in both lung bases. Calcified left lung granuloma, be nign. The liver demonstrates no focal mass or biliary dilatation.The spleen, pancreas, adrenal glands and k idneys are within normal limits for arterial phase imaging.Tiny nonobstructing left renal calculus. No bowel obstruction, free fluid or abscess.Prominent rectosigmoid diverticulosis coli.No pathologic enlarged lymphadenopathy identified. Prominent posterior disc bulges seen at levels. IMPRESSION: No acute aortic finding is demonstrated. Prominent sigmoid diverticulosis coli without diverticulitis. Prominent lower lumbar posterior disc bulges.
[2024-06-30 21:06] LABS: Specific Gravity > 1.030 (1.005-1.030); Sqamous Epithelial <5 /HPF (None Seen); Urine Bacteria None Seen /HPF (<20); Urine Bilirubin NEGATIVE (Negative); Urine Blood Negative (Negative); Urine Clarity Clear (Clear); Urine Color Light-Yellow (Yellow); Urine Culture Reflex Order NOT NEEDED; Urine Glucose NEGATIVE (Negative); Urine Ketones NEGATIVE (Negative); Urine Micro Reflex YN NO BILL MICROSCOPIC; Urine Mucus 1+ /HPF (None Seen); Urine Nitrite NEGATIVE (Negative); Urine Protein NEGATIVE (Negative); Urine RBC <5 /HPF (None Seen); Urine Urobilinogen Normal (Normal); Urine WBC <5 /HPF (<5); Urine pH 6.5 (5.0-7.0)
--- NOTE | 2024-06-30 21:13 | EDPHYS ---
Physician Documentation [facility] Name: Kanika Jon Age: 64 yrs Sex: Female : 1960 Arrival Date: 06/30/2024 Time: 17:48 Bed 13 Private MD: ED Physician Angel Antunez HPI: 06/30 18:02 This 64 yrs old Female presents to ER via Unassigned with complaints of abdominal pain. sb4 18:02 The patient presents with abdominal pain in the epigastric area. Onset: The sb4 symptoms/episode began/occurred 4 day(s) ago. The symptoms radiate to back. Associated signs and symptoms: Pertinent positives: nausea, Pertinent negatives: chest pain, constipation, diarrhea, dysuria, fever, palpitations, shortness of breath, vomiting. The symptoms are described as achy, constant, crampy. Modifying factors: The symptoms are alleviated by nothing, the symptoms are aggravated by nothing. The patient has not experienced similar symptoms in the past. The patient has not recently seen a physician. Historical: - Allergies: 18:10 Codeine; me1 - PMHx: 18:10 COPD; Depression; Hypertension; osteoarthritis; me1 - PSHx: 18:10 Total abdominal hysterectomy; me1 - Immunization history:: Adult Immunizations up to date. - Infectious Disease History:: Denies. - Social history:: Smoking status: Reported history of juuling and/or vaping. ROS: 18:02 Constitutional: Negative for fever, chills, and weight loss, sb4 18:02 Abdomen/GI: Positive for abdominal pain, nausea, 18:02 All other systems are negative, Exam: 18:02 Constitutional: This is a well developed, well nourished patient who is awake, alert, sb4 and in no acute distress. Head/Face: Normocephalic, atraumatic. Eyes: Extra-ocular motions intact. Periorbital areas with no swelling, redness, or edema. ENT: Mucous membranes moist. Cardiovascular: Regular rate and rhythm with a normal S1 and S2. Respiratory: Lungs have equal breath sounds bilaterally, clear to auscultation and percussion. No rales, rhonchi or wheezes noted. No increased work of breathing, no retractions or nasal flaring. Skin: Warm, dry with normal turgor. Normal color with no rashes, no lesions, and no evidence of cellulitis. 18:02 Abdomen/GI: Inspection: abdomen appears normal, obese Bowel sounds: normal, Palpation: soft, mild abdominal tenderness, in the epigastric area, Vital Signs: 18:05 BP 124 / 76; Pulse 99; Resp 16; Temp 98; Pulse Ox 88% on R/A; Weight 81.65 kg; Height 5 me1 ft. 6 in. ; Pain 7/10; 18:06 Pulse Ox 93% on 2 lpm NC; me1 19:23 BP 114 / 73; Pulse 93; Resp 19; Pulse Ox 92% on 2 lpm NC; Pain 10/10; rg5 20:00 BP 118 / 70; Pulse 87; Resp 19; Pulse Ox 94% on 3 lpm NC; Pain 8/10; rg5 20:15 BP 131 / 86; Pulse 87; Resp 16; Temp 98; Pulse Ox 92% on 2 lpm NC; Pain 3/10; rg5 21:28 BP 131 / 86; Pulse 93; Resp 20; Temp 98; Pulse Ox 98% on R/A; tm6 18:05 Body Mass Index 29.05 (81.65 kg, 167.64 cm) me1 18:05 Pain Scale: Adult me1 19:23 Pain Scale: Adult rg5 20:00 Pain Scale: Adult rg5 20:15 Pain Scale: Adult rg5 MDM: 17:52 Patient medically screened. sb4 21:11 Data reviewed: vital signs, nurses notes, EMS record, lab test result(s), EKG, sb4 radiologic studies, and as a result, I will discharge patient. 21:13 Counseling: I had a detailed discussion with the patient and/or guardian regarding the sb4 historical points, exam findings, and any diagnostic results supporting the discharge/admit diagnosis, lab results, radiology results, the need for outpatient follow up, a travel services professional, to return to the emergency department if symptoms worsen or persist or if there are any questions or concerns that arise at home. 06/30 17:59 Order name: Basic Metabolic Panel; Complete Time: 19:29 sb4 06/30 17:59 Order name: CBC with Diff; Complete Time: 18:44 sb4 06/30 17:59 Order name: LFT's; Complete Time: 19:29 sb4 06/30 17:59 Order name: Magnesium; Complete Time: 19:29 sb4 06/30 17:59 Order name: NT PRO-BNP; Complete Time: 19:29 sb4 06/30 17:59 Order name: PT-INR; Complete Time: 18:47 sb4 06/30 17:59 Order name: Troponin HS; Complete Time: 19:29 sb4 06/30 17:59 Order name: Lipase; Complete Time: 19:29 sb4 06/30 19:52 Order name: UAM; Complete Time: 21:07 sb4 06/30 17:59 Order name: XRAY Chest (1 view); Complete Time: 20:09 sb4 06/30 19:30 Order name: CT Aorta for Dissection; Complete Time: 20:29 sb4 06/30 17:59 Order name: Cardiac monitoring; Complete Time: 18:38 sb4 06/30 17:59 Order name: EKG - Nurse/Tech; Complete Time: 18:38 sb4 06/30 17:59 Order name: IV Saline Lock; Complete Time: 18:31 sb4 06/30 17:59 Order name: Labs collected and sent; Complete Time: 18:31 sb4 06/30 17:59 Order name: O2 Per Protocol; Complete Time: 18:15 sb4 06/30 17:59 Order name: O2 Sat Monitoring; Complete Time: 18:15 sb4 EC:41 Rate is 108 beats/min. Rhythm is regular, Sinus tachycardia. Left axis deviation noted. sb4 AK interval is normal at 152 msec. QRS interval is normal at 102 msec. QT interval is normal at 378 msec. Clinical impression: No evidence of ischemia. Interpreted by me. Reviewed by me. Administered Medications: 18:38 Drug: morphine IVP or IV 4 mg IVP once over 4 mins Route: IVP; Infused Over: 4 mins; me1 Site: right antecubital; 19:50 Follow up: Response: No adverse reaction rg5 18:38 Drug: Ondansetron IVP 4 mg IVP once; over 2 minutes Route: IVP; Site: right antecubital;me1 19:50 Follow up: Response: No adverse reaction rg5 20:00 Drug: fentaNYL (PF) IVP 50 mcg IVP once Route: IVP; Site: right antecubital; rg5 20:45 Follow up: Response: No adverse reaction; Pain is decreased rg5 21:28 Drug: Pantoprazole IVP 40 mg IVP once Route: IVP; Site: right antecubital; tm6 21:28 Follow up: Response: Medication administered at discharge. tm6 Disposition: 19:12 Co-signature as Attending Physician, Angel Antunez MD I reviewed the patient's care rt provided by the Advanced Practice Provider and agree with the diagnosis and treatment plan. Disposition Summary: 06/30/24 21:13 Discharge Ordered Notes: Location: Home sb4 Problem: new sb4 Symptoms: have improved sb4 Condition: Stable sb4 Diagnosis - Upper abdominal pain, unspecified sb4 Followup: sb4 - With: Curtis Xavier MD - When: 1 week - Reason: Further diagnostic work-up, Recheck today's complaints, Re-evaluation by your physician Discharge Instructions: - Discharge Summary Sheet sb4 - Abdominal Pain, Adult sb4 - Peptic Ulcer, Vnuc-cr-Lese sb4 Forms: - Patient Portal Instructions sb4 - Leadership Thank You Letter sb4 Prescriptions: - Protonix 40 mg Oral Tablet - take 1 tablet ORAL route once daily; 30 tablet; Refills: 0, Product Selection sb4 Permitted - Zofran 4 mg Oral Tablet - take 1 tablet ORAL route every 12 hours As needed; 20 tablet; Refills: 0, sb4 Product Selection Permitted - dicyclomine 20 mg Oral tablet - take 1 tablet ORAL route 4 times per day; 20 tablet; Refills: 0, Product sb4 Selection Permitted Signatures: Dispatcher [employer] Miya Helms PA-C PALopez sb4 Angel Antunez MD MD rt Toyin Dow RN RN me1 Nawaf Marquez RN RN tm6 Kei Eaton RN RN rg5 Corrections: (The following items were deleted from the chart) 17:59 17:59 BASIC METABOLIC PANEL+C.LAB.BRZ ordered. EDMS EDMS 17:59 17:59 CBC+H.LAB.BRZ ordered. EDMS EDMS 17:59 17:59 HEPATIC FUNCTION+C.LAB.BRZ ordered. EDMS EDMS 17:59 17:59 MAGNESIUM+C.LAB.BRZ ordered. EDMS EDMS 17:59 17:59 PROBNP+C.LAB.BRZ ordered. EDMS EDMS 17:59 17:59 PROTIME (+INR)+COAG.LAB.BRZ ordered. EDMS EDMS 17:59 17:59 Troponin High Sensitivity+C.LAB.BRZ ordered. EDMS EDMS 1759 17:59 LIPASE+C.LAB.BRZ ordered. EDMS EDMS 18:00 18:00 Chest Single View+RAD.RAD.BRZ ordered. EDMS EDMS
--- NOTE | 2024-06-30 21:13 | ER ---
Nurse's Notes [facility] Name: Kanika Jon Age: 64 yrs Sex: Female : 1960 Arrival Date: 06/30/2024 Time: 17:48 Bed 13 Private MD: Diagnosis: Upper abdominal pain, unspecified Presentation: 06/30 18:05 Chief complaint: EMS states: toned out for abdominal pain and nausea x 4 days. me1 Coronavirus screen: Vaccine status: Patient reports receiving the 2nd dose of the covid vaccine. Ebola Screen: No symptoms or risks identified at this time. 18:05 Method Of Arrival: EMS nc1 18:06 Initial Sepsis Screen: Does the patient meet any 2 criteria? No. Patient's initial nc1 sepsis screen is negative. Does the patient have a suspected source of infection? No. Patient's initial sepsis screen is negative. Risk Assessment: Do you want to hurt yourself or someone else? Patient reports no desire to harm self or others. Onset of symptoms was June 26, 2024. 18:06 Acuity: [place] 3 me1 Triage Assessment: 18:10 General: Appears uncomfortable, well groomed, well developed, well nourished, Behavior me1 is calm, cooperative, appropriate for age, Reports abd pain and nausea x 4 days. Pain: Complains of pain in epigastric area Pain radiates to back Pain currently is 7 out of 10 on a pain scale. Quality of pain is described as sharp, Pain began suddenly, Is continuous. EENT: No signs and/or symptoms were reported regarding the EENT system. Neuro: Level of Consciousness is awake, alert, obeys commands, Oriented to person, place, time, situation, Appropriate for age. Cardiovascular: Patient's skin is warm and dry. Respiratory: Airway is patent Respiratory effort is even, unlabored, Respiratory pattern is regular, symmetrical. GI: Abdomen is round Reports upper abdominal pain, nausea, vomiting, since 4 days ago. : No signs and/or symptoms were reported regarding the genitourinary system. Derm: Skin is intact, is healthy with good turgor, Skin is pink, warm \T\ dry. Musculoskeletal: No signs and/or symptoms reported regarding the musculoskeletal system. Historical: - Allergies: 18:10 Codeine; me1 - PMHx: 18:10 COPD; Depression; Hypertension; osteoarthritis; me1 - PSHx: 18:10 Total abdominal hysterectomy; me1 - Immunization history:: Adult Immunizations up to date. - Infectious Disease History:: Denies. - Social history:: Smoking status: Reported history of juuling and/or vaping. Screenin:14 [facility] ED Fall Risk Assessment (Adult) History of falling in the last 3 months, me1 including since admission No falls in past 3 months (0 pts) Confusion or Disorientation No (0 pts) Intoxicated or Sedated No (0 pts) Impaired Gait No (0 pts) Mobility Assist Device Used No (0 pt) Altered Elimination No (0 pt) Score/Fall Risk Level 0 - 2 = Low Risk Maintained a safe environment, Provided non-skid footwear, Hourly rounding (assess needs \T\ fall precautionary measures) done. Abuse screen: Denies threats or abuse. Nutritional screening: No deficits noted. Tuberculosis screening: No symptoms or risk factors identified. Assessment: 18:14 General: See triage assessment. . me1 19:25 General: Appears in no apparent distress. Behavior is calm, cooperative, appropriate rg5 for age. Pain: Complains of pain in abdomen Pain currently is 10 out of 10 on a pain scale. Quality of pain is described as aching, Pain began 2-3 days ago. Neuro: Level of Consciousness is awake, alert, obeys commands, Oriented to person, place, time, situation. Cardiovascular: Heart tones S1 S2 Capillary refill < 3 seconds. Respiratory: Airway is patent Trachea midline Respiratory effort is even, unlabored, Respiratory pattern is regular, symmetrical. GI: Abdomen is round non-distended. GI: Bowel sounds present in left lower quadrant Reports upper abdominal pain. : : No signs and/or symptoms were reported regarding the genitourinary system. EENT: No deficits noted. Derm: Skin is intact, Skin is dry. Musculoskeletal: Range of motion: intact in all extremities. 19:25 GI: Abd is soft and non tender X 4 quads. rg5 20:15 Reassessment: No changes from previously documented assessment. Patient and/or family rg5 updated on plan of care and expected duration. Pain level reassessed. Patient is alert, oriented x 3, equal unlabored respirations, skin warm/dry/pink. 21:29 Reassessment: Patient appears in no apparent distress at this time. Patient and/or tm6 family updated on plan of care and expected duration. Pain level reassessed. Patient is alert, oriented x 3, equal unlabored respirations, skin warm/dry/pink. Vital Signs: 18:05 BP 124 / 76; Pulse 99; Resp 16; Temp 98; Pulse Ox 88% on R/A; Weight 81.65 kg; Height 5 me1 ft. 6 in. ; Pain 7/10; 18:06 Pulse Ox 93% on 2 lpm NC; me1 19:23 BP 114 / 73; Pulse 93; Resp 19; Pulse Ox 92% on 2 lpm NC; Pain 10/10; rg5 20:00 BP 118 / 70; Pulse 87; Resp 19; Pulse Ox 94% on 3 lpm NC; Pain 8/10; rg5 20:15 BP 131 / 86; Pulse 87; Resp 16; Temp 98; Pulse Ox 92% on 2 lpm NC; Pain 3/10; rg5 21:28 BP 131 / 86; Pulse 93; Resp 20; Temp 98; Pulse Ox 98% on R/A; tm6 18:05 Body Mass Index 29.05 (81.65 kg, 167.64 cm) me1 18:05 Pain Scale: Adult me1 19:23 Pain Scale: Adult rg5 20:00 Pain Scale: Adult rg5 20:15 Pain Scale: Adult rg5 ED Course: 17:52 Patient arrived in ED. eb 17:52 Miya Vivar PA-C is [facility]. sb4 17:52 Angel Antunez MD is Attending Physician. sb4 18:04 Toyin Dow, VEE is Primary Nurse. me1 18:10 Triage completed. me1 18:10 Arm band placed on Patient placed in an exam room. me1 18:14 Patient has correct armband on for positive identification. Bed in low position. Call [facility] light in reach. Side rails up X2. Provided Education on: POC. Verbalized understanding. . Client placed on continuous cardiac and pulse oximetry monitoring. NIBP monitoring applied. quality assurance monitor body on. Pulse ox on. NIBP on. 18:14 No provider procedures requiring assistance completed. me1 18:27 Initial lab(s) drawn, by me, sent to lab. Inserted saline lock: 20 gauge in left cc6 antecubital area, using aseptic technique. Blood collected. Flushed with 10 mL NS Missed attempt(s): 20 gauge Bleeding controlled, band aid applied, catheter tip intact. 18:31 Basic Metabolic Panel Sent. me1 18:31 CBC with Diff Sent. me1 18:31 LFT's Sent. me1 18:31 Magnesium Sent. me1 18:31 NT PRO-BNP Sent. me1 18:31 PT-INR Sent. me1 18:31 Troponin HS Sent. me1 18:31 Lipase Sent. me1 18:38 EKG done, by ED staff, reviewed by Miya Vivar PA-C. me1 19:48 XRAY Chest (1 view) In Process Unspecified. EDMS 20:22 CT Aorta for Dissection In Process Unspecified. EDMS 21:13 Curtis Xavier MD is Referral Physician. sb4 21:29 IV discontinued, intact, bleeding controlled, No redness/swelling at site. Pressure tm6 dressing applied. Administered Medications: 18:38 Drug: morphine IVP or IV 4 mg IVP once over 4 mins Route: IVP; Infused Over: 4 mins; me1 Site: right antecubital; 19:50 Follow up: Response: No adverse reaction rg5 18:38 Drug: Ondansetron IVP 4 mg IVP once; over 2 minutes Route: IVP; Site: right antecubital;me1 19:50 Follow up: Response: No adverse reaction rg5 20:00 Drug: fentaNYL (PF) IVP 50 mcg IVP once Route: IVP; Site: right antecubital; rg5 20:45 Follow up: Response: No adverse reaction; Pain is decreased rg5 21:28 Drug: Pantoprazole IVP 40 mg IVP once Route: IVP; Site: right antecubital; tm6 21:28 Follow up: Response: Medication administered at discharge. tm6 Medication: 18:14 VIS not applicable for this client. me1 Outcome: 21:13 Discharge ordered by . sb4 21:29 Discharged to home ambulatory, tm6 21:29 Condition: stable 21:29 Discharge instructions given to patient, Instructed on discharge instructions, follow up and referral plans. medication usage, Demonstrated understanding of instructions, follow-up care, medications, Prescriptions given X 3, 21:30 Patient left the ED. tm6 Signatures: Dispatcher [employer] EDElijah Perezth eb Brown, Miya, PA-C PA-C sb4 Toyin Dow, RN RN me1 Nawaf Marquez RN RN tm6 Kei Eaton RN RN rg5 Kimmy Peck cc6 Corrections: (The following items were deleted from the chart) 20:24 20:23 Reassessment: No changes from previously documented assessment. Patient and/or rg5 family updated on plan of care and expected duration. Pain level reassessed. Patient is alert, oriented x 3, equal unlabored respirations, skin warm/dry/pink. rg5 20:24 20:21 BP 118 / 70; Pulse 87bpm; Resp 19bpm; Pulse Ox 94% 3 lpm Nasal Cannula; Pain rg5 06/01, Adult; rg5
[2024-06-30] MEDS ORDERED: PANTOPRAZOLE 40 MG INJ ONE (21:17)
[2024-06-30 21:44] VITALS: TEMP 98
[2024-06-30 21:58] VITALS: BP 131/86
[2024-06-30 21:59] VITALS: O2SAT 98
--- NOTE | 2024-07-01 16:59 | EKG ---
Test Date: 2024-06-30 Test Time: 18:35:46 Feltmaker And Weigher: RAINE MEASUREMENT RESULTS: Intervals: Rate: 108 DE: 152 QRSD: 102 QT: 378 QTc: 506 Rayne: P: 80 DE: 152 QRS: -86 T: 77 INTERPRETIVE STATEMENTS: Sinus tachycardia Left axis deviation Inferior-posterior infarct, age undetermined Anterior infarct, age undetermined Abnormal ECG Compared to ECG 12/01/2023 14:42:23 Myocardial infarct finding now present Sinus rhythm no longer present Incomplete right bundle-branch block no longer present Electronically Signed On 07-01-24 16:58:20 CDT by Noel Bonilla
== END 2024-06-30 21:30 | disposition home or self-care (01) ==
LOC: ER 17:48
DX: R10.13 Epigastric pain (principal); F32.A Depression, unspecified; J44.9 Chronic obstructive pulmonary disease, unspecified; F17.290 Nicotine dependence, other tobacco product, uncomplicated; Z88.5 Allergy status to narcotic agent
CPT/HCPCS: 93005; 85025; 81001; 80048; 36415; 83735; 85610; 80076; 84484; 83690; 83880; 71275; 74175; 71045; 96375; 96374; 99285; Q9967; J2470; J3010; J2405

== ENCOUNTER 2024-08-01 07:09 | Day surgery (SDC) | payer OTHER ==
[2024-07-31 12:05] LABS: Absolute Eosinophils 0.1 K/uL (0-0.5); Absolute Lymphocytes (CBC) 1.8 K/uL (0.7-4.9); Absolute Monocytes 0.4 K/uL (0.1-1.3); Basophils % 0.5 % (0-1.3); Eosinophils % 0.9 % (0-4.4); Hematocrit 40.5 % (36.0-45.0); Hemoglobin 13.1 g/dL (12.0-15.0); Lymphocytes % 24.8 % (15.3-44.8); MCHC 32.3 g/dL (32.0-36.0); MCV 96.2 fL (80-100); MPV 7.8 fL (7.6-11.3); Monocytes % 5.8 % (3.3-12.3); Nucleated Red Blood Cells % 0.1 % (0-0); Platelets 196 thou/uL (152-406); RBC Red Blood Cell Count 4.22 M/uL (3.86-4.86); Red Cell Distribution Width 14.8 % (12.1-15.2)
[2024-07-31 12:18] LABS: Anion Gap 8.3 mEq/L (5.0-15.0); Potassium 4.3 mEq/L (3.5-5.1)
[2024-08-01] MEDS: Ringers Lactate 1,000 ML IV ONE (07:09)
[2024-08-01] MEDS ORDERED: SIMETHICONE 40 MG/ 0.6 ML ONE (07:43)
[2024-08-01] MEDS ORDERED: propofoL 200 MG/20 ML VIAL IV ONE ×3 (08:26)
[2024-08-01] MEDS ORDERED: LIDOCAINE 1% MPF 5 ML VIAL ONE ×2 (08:26→08:38)
[2024-08-01] MEDS ORDERED: ONDANSETRON 4 MG/2 ML VIAL ONE (08:42)
[2024-08-01 09:47] VITALS: BP 132/68; TEMP 97.5
[2024-08-01 09:48] VITALS: O2SAT 95
== END 2024-08-01 09:44 | disposition home or self-care (01) ==
LOC: OR 07:09
PROVIDERS: ATTEND Internal Medicine Gastroenterology
PROC: 0DB68ZX Excision of Stomach, Via Natural or Artificial Opening Endoscopic, Diagnostic (ICD-10-PCS; principal; 2024-08-01 08:30)
DX: K22.2 Esophageal obstruction (principal); K29.50 Unspecified chronic gastritis without bleeding; R10.13 Epigastric pain; K21.9 Gastro-esophageal reflux disease without esophagitis; R11.2 Nausea with vomiting, unspecified; K44.9 Diaphragmatic hernia without obstruction or gangrene
CPT/HCPCS: 85025; 80048; 36415; 88312; 88305; 43239; J2704; J2001 ×2; J2405; J7120